=== PATIENT | female | born 1950 | race Caucasian/White ===

== ENCOUNTER → 2016-02-24 | Day surgery (SDC) | payer OTHER ==
[2016-02-16 10:18] VITALS: Ht 170.2 cm; Wt 81.8 kg
[~2016-02-24] VITALS: Ht 170.2 cm; Wt 81.8 kg
[~2016-02-24] MED LIST: AMOX500C3 PO; AMT24 PO; ASCO10003 PO; ASPCH81X PO; ASPI81TA85 PO; CALC-422 PO; CALC-574 PO; CHOL20009 PO; CLOP1TAB15 PO; CYAN100020 SL; CYAN10005 SL; CYCL5TAB PO; CYNI1000 IM; DFL100 PO; EZET10TA63 PO; FERR1TAB23 PO; FLR1 PO; GABA1CAP5 PO; GFNSR600 PO; INSDGI SC; INSHRIE SC; INSULIN HUMAN REGULAR PER UNIT 5 UNITS in SYRINGE 4.95 ML IV ONE; IPRA1AER2 INH; LEVO125T4 PO; LEVO175T3 PO; LEVO200T PO; LIDOCAINE HCL 2% 2 ML VIAL (20MG/ML) ONE; LISI-729 PO; METF500T5 PO; MIDAZOLAM HCL 1 MG/ML 2ML VIAL ONE; MIRA1TAB3 PO; NVLGIPEN SC; OMEP40CA PO; OMEP40CA41 PO; ONDANSETRON INJ 2 MG/ML 2 ML VIAL ONE; POLY335019 PO; PROPOFOL IV EMULSION 10 MG/ML 20 ML VIAL IV ONE; PUMP1CAP PO; SIMV10TA2 PO; SIMV40TA4 PO; SITA50TA5 PO; SODIUM CHLORIDE 0.9% 500ML 500 ML IV ONE; VENL100T2 PO; ZYBKIT PO
--- NOTE | 2016-02-24 11:32 | Endo History and Physical ---
History & Physical Date of Service: Feb 24, 2016. Chief Complaint: anemia,nausea,early satiety Referring Physician: Dr. Julio César Trivedi History of Present Illness 65 yo CF who presents for EGD secondary to anemia, nausea and early satiety. Past Medical History Diabetes, Angioplasty/Stent, Arthritis, Syncopal Episodes, Hypertension, Thyroid Disease, Kidney Disease, CVA/TIA Past Surgical History Hx Cardiac Surgery: Yes (HEART CATH-2 STENTS) Hx Internal Defibrillator: No Hx Pacemaker: No Hx Abdominal Surgery: Yes (GASTRIC BYPASS, DANA) Hx of Implantable Prosthesis: No Hx Post-Op Nausea and Vomiting: No Hx Cancer Surgery: No Hx Thoracic Surgery: No Hx Orthopedic: Yes (RT FOOT TOE AMPUTATIONS (4 TOES-GANGRENE)) Hx Urinary Tract Surgery: No Family History None Social History Smoking Status: Current Every Day Smoker Hx Substance Use: No Hx Alcohol Use: No Allergies Coded Allergies: Paroxetine (Verified Adverse Reaction, Unknown, NERVOUS INCREASED, 02/24/16 ) Current Medications Reported Home Medications Medications Dose Route/Sig Max Daily Dose Days Date Category Dose Instructions Zetia (Ezetimibe) 10 Mg Tab 10 Mg PO QAM 02/16/16 Reported Vitamin D (Cholecalciferol) 2,000 Unit Tab 1 Tab PO QAM 02/16/16 Reported Vitamin C (Ascorbic Acid) 1,000 Mg Tab 1 Tab PO QAM 02/16/16 Reported Vitamin B12 (Cyanocobalamin) 1,000 Mcg Tab 1 Dose SL QAM 02/16/16 Reported Effexor (Venlafaxine Hcl) 100 Mg Tab 100 Mg PO BID 02/16/16 Reported Zocor (Simvastatin) 10 Mg Tab 10 Mg PO QPM 02/16/16 Reported Prilosec (Omeprazole) 40 Mg Capcr 40 Mg PO QAM 02/16/16 Reported Myrbetriq Er (Mirabegron) 50 Mg Tab 1 Tab PO QAM 02/16/16 Reported Prinivil (Lisinopril) 5 Mg Tab 5 Mg PO QAM 02/16/16 Reported Lantus (Insulin Glargine) 100 Unit/Ml Inj 20 Units SC QPM 02/16/16 Reported Levothyroxine Sodium 175 Mcg Tab 1 Tab PO QAM 90 02/16/16 Reported Janumet (Sitagliptin-Metformin Hcl) 1 Tab Tab 1 Tab PO BID 90 02/16/16 Reported Iron (Ferrous Sulfate) 325 Mg Tab 1 Tab PO QAM 02/16/16 Reported Humulin R (Insulin Human Regular) 100 Units/Ml Susp 10 Units SC BID 02/16/16 Reported Neurontin (Gabapentin) 400 Mg Cap 400 Mg PO TID 02/16/16 Reported Flexeril (Cyclobenzaprine Hcl) 5 Mg Tab 5 Mg PO TID 02/16/16 Reported PRN Calcium/Vitamin D3 (Calcium Carbonate-Vitamin D) 1 Tab Tab 1 Tab PO QAM 02/16/16 Reported Azo Bladder Control/Go-Le (Pumpkin Seed-Soy Germ) 1 Cap Cap 1 Cap PO HS 02/16/16 Reported Aspirin Chewable (Aspirin) 81 Mg Chew 81 Mg PO QAM 02/16/16 Reported Amitiza (Lubiprostone) 24 Mcg Cap 1 Cap PO BID 30 02/16/16 Reported Vital Signs Weight (Kilograms): 81.82 Height (Feet): 5 Height (Inches): 7 Date Time Temp Pulse Resp B/P Pulse Ox O2 Delivery O2 Flow Rate FiO2 02/24/16 11:24 36.8 85 20 147/76 98 Room Air Physical Exam General Appearance: WD/WN, no apparent distress Respiratory/Chest: Auscultation: breath sounds normal Cardiovascular: Heart Auscultation: RRR Abdomen: Bowel Sounds: normal Inspection & Palpation: soft, non-distended, no tenderness, guarding & rebound Assessment and Plan Assessment: 65 yo CF who presents for EGD secondary to anemia, nausea and early satiety. Plan: Proceed with EGD.
--- NOTE | 2016-02-24 12:21 | GI REPORT ---
Procedure Date: 02/24/2016 11:11 AM Procedure: Upper GI endoscopy Indications: Iron deficiency anemia, Nausea Medicines: Monitored Anesthesia Care Complications: No immediate complications. Estimated Blood Loss: Estimated blood loss: none. Procedure: Pre-Anesthesia Assessment: - Prior to the procedure, a History and Physical was performed, and patient medications and allergies were reviewed. The patient's tolerance of previous anesthesia was also reviewed. The risks and benefits of the procedure and the sedation options and risks were discussed with the patient. All questions were answered, and informed consent was obtained. Prior Anticoagulants: The patient has taken aspirin, last dose was 1 day prior to procedure. ASA Grade Assessment: III - A patient with severe systemic disease. After reviewing the risks and benefits, the patient was deemed in satisfactory condition to undergo the procedure. After obtaining informed consent, the endoscope was passed under direct vision. Throughout the procedure, the patient's blood pressure, pulse, and oxygen saturations were monitored continuously. The scope was introduced through the mouth, and advanced to the second part of duodenum. The upper GI endoscopy was accomplished without difficulty. The patient tolerated the procedure well. Findings: The esophagus was normal. Evidence of a gastric bypass was found. A gastric pouch with a normal size was found. The gastrojejunal anastomosis was characterized by healthy appearing mucosa. This was traversed. The byvdj-lg-zsktwww limb was characterized by healthy appearing mucosa. The qmduywko-nl-zredauv limb was not examined as it could not be found. The examined jejunum was normal. Impression: - Normal esophagus. - Gastric bypass with a normal-sized pouch. Gastrojejunal anastomosis characterized by healthy appearing mucosa. - Normal examined jejunum. - No specimens collected. Recommendation: - Resume previous diet. - Continue present medications. - Return to primary care physician as previously scheduled. Ras Delgado DO 02/24/2016 12:21:03 PM This report has been signed electronically. Note Initiated On: 02/24/2016 11:11 AM
--- NOTE | 2016-02-24 12:21 | Discharge Instructions ---
Endoscopy Patient Instructions Date / Procedure(s) Performed Feb 24, 2016. EGD Allergy Information Coded Allergies: Paroxetine (Verified Adverse Reaction, Unknown, NERVOUS INCREASED, 02/24/16 ) Discharge Date / Findings Feb 24, 2016. Normal Medication Instructions Stopped Medication(s): took baby ASA yesterday OK to resume all medications today as prescribed Reported Home Medications Medications Dose Route/Sig Max Daily Dose Days Date Category Dose Instructions Zetia (Ezetimibe) 10 Mg Tab 10 Mg PO QAM 02/16/16 Reported Vitamin D (Cholecalciferol) 2,000 Unit Tab 1 Tab PO QAM 02/16/16 Reported Vitamin C (Ascorbic Acid) 1,000 Mg Tab 1 Tab PO QAM 02/16/16 Reported Vitamin B12 (Cyanocobalamin) 1,000 Mcg Tab 1 Dose SL QAM 02/16/16 Reported Effexor (Venlafaxine Hcl) 100 Mg Tab 100 Mg PO BID 02/16/16 Reported Zocor (Simvastatin) 10 Mg Tab 10 Mg PO QPM 02/16/16 Reported Prilosec (Omeprazole) 40 Mg Capcr 40 Mg PO QAM 02/16/16 Reported Myrbetriq Er (Mirabegron) 50 Mg Tab 1 Tab PO QAM 02/16/16 Reported Prinivil (Lisinopril) 5 Mg Tab 5 Mg PO QAM 02/16/16 Reported Lantus (Insulin Glargine) 100 Unit/Ml Inj 20 Units SC QPM 02/16/16 Reported Levothyroxine Sodium 175 Mcg Tab 1 Tab PO QAM 90 02/16/16 Reported Janumet (Sitagliptin-Metformin Hcl) 1 Tab Tab 1 Tab PO BID 90 02/16/16 Reported Iron (Ferrous Sulfate) 325 Mg Tab 1 Tab PO QAM 02/16/16 Reported Humulin R (Insulin Human Regular) 100 Units/Ml Susp 10 Units SC BID 02/16/16 Reported Neurontin (Gabapentin) 400 Mg Cap 400 Mg PO TID 02/16/16 Reported Flexeril (Cyclobenzaprine Hcl) 5 Mg Tab 5 Mg PO TID 02/16/16 Reported PRN Calcium/Vitamin D3 (Calcium Carbonate-Vitamin D) 1 Tab Tab 1 Tab PO QAM 02/16/16 Reported Azo Bladder Control/Go-Le (Pumpkin Seed-Soy Germ) 1 Cap Cap 1 Cap PO HS 02/16/16 Reported Aspirin Chewable (Aspirin) 81 Mg Chew 81 Mg PO QAM 02/16/16 Reported Amitiza (Lubiprostone) 24 Mcg Cap 1 Cap PO BID 30 02/16/16 Reported Provider Instructions Activity Restrictions - No exercising or heavy lifting for 24 hours. - Do not drink alcohol the day of the procedure. - Do not drive a car or operate machinery until the day after the procedure. - Do not make any important decisions or sign important papers in 24 hours after the procedure. Following Day: - Return to full activity which may include returning to work/school. Diet Start your diet with liquids and light foods (jello, soup, juice, toast). Then eat your usual diet if not nauseated. Treatment For Common After Affects For mild abdominal pain, bloating, or excessive gas: - Rest - Eat lightly - Lie on right side Follow-Up Information Follow-up with Dr. Julio César Trivedi as scheduled Anesthesia Information What You Should Know You have had a procedure that required some medicine to reduce anxiety and discomfort. This treatment is called moderate sedation. After receiving the treatment, you may be sleepy, but you will be able to breathe on your own. The effects of the treatment may last for several hours. Follow these instructions along with Activity/Diet recommendations noted above: * Do NOT do anything where dizziness or clumsiness would be dangerous. * Rest quietly at home today, then you can be up and about tomorrow. * Have a responsible person stay with you the rest of today. * You may have had an I.V. today. If so, you may take the dressing off later today. Recommendations Call your doctor if: * Trouble breathing * Continuous vomiting for more than 24 hours * Temperature above 101 degrees * Severe abdominal pain or bloating * Pain not relieved by pain medicine ordered * There is increased drainage or redness from any incision * A large amount of rectal bleeding greater than 2-3 tablespoons. (If you had a polyp/s removed or have hemorrhoids, a small amount of blood - from the rectum is to be expected.) * You have any unanswered questions or concerns. IN THE EVENT OF A SERIOUS EMERGENCY, GO TO THE NEAREST EMERGENCY ROOM Your discharge instructions were prepared by provider Ras Delgado. Patient Instructions Signature Page Brunilda Leon Patient (or Guardian) Signature/Date: I have read and understand the instructions given to me by my caregivers. Caregiver/RN/Doctor Signature/Date: The above-named patient and/or guardian has received patient instructions on this date. + Original Patient Signature Page (only) stays with chart. Please make copy for patient.
[2016-02-24 12:53] VITALS: BP 125/63; PULSE 76; O2SAT 100
--- NOTE | 2016-02-24 14:05 | Anesthesiology Progress Note ---
Anesthesia Post Op Note Date & Time Feb 24, 2016 at 14:00 Vital Signs Pain Intensity: 0 Vital Signs Past 12 Hours Date Time Temp Pulse Resp B/P Pulse Ox O2 Delivery O2 Flow Rate FiO2 02/24/16 12:53 76 16 125/63 100 Room Air 02/24/16 12:38 80 20 151/71 99 Room Air 02/24/16 12:23 81 20 104/55 96 Room Air 02/24/16 11:24 36.8 85 20 147/76 98 Room Air Notes Mental Status: alert / awake / arousable, participated in evaluation Pt Amnestic to Procedure: Yes Nausea / Vomiting: adequately controlled Pain: adequately controlled Airway Patency, RR, SpO2: stable & adequate BP & HR: stable & adequate Hydration State: stable & adequate Anesthetic Complications: no major complications apparent The patient is a 65 y/o female with a h/o insulin diabetes who is s/p EGD with Dr. Delgado. The patient's BSG preop was 281. She did not take any insulin this morning and per her is not compliant with her medications. The patient also admitted that she is often noncompliant and states that her BSG often runs in the 250s-300. I informed her of the importance of being complaint with her medication. She was given 5 Units IV regular insulin before the procedure. In recovery, her BSG had dropped to 259. She stated she would like to go home. Her stated that he would ensure she rechecks her BSG and take her insulin per her sliding scale at home. The patient was agreeable.
== END | disposition home or self-care (01) ==
LOC: C.GI 10:59
PROVIDERS: ATTEND Internal Medicine
DX: D50.9 Iron deficiency anemia, unspecified (principal); R11.0 Nausea; R68.81 Early satiety; E11.9 Type 2 diabetes mellitus without complications; I25.10 Atherosclerotic heart disease of native coronary artery without angina pectoris; I10 Essential (primary) hypertension; F32.9 Major depressive disorder, single episode, unspecified; G47.33 Obstructive sleep apnea (adult) (pediatric); Z86.73 Personal history of transient ischemic attack (TIA), and cerebral infarction without residual deficits; Z98.890 Other specified postprocedural states; Z98.84 Bariatric surgery status; Z90.49 Acquired absence of other specified parts of digestive tract; Z89.421 Acquired absence of other right toe(s); F17.200 Nicotine dependence, unspecified, uncomplicated; Z79.4 Long term (current) use of insulin; Z68.28 Body mass index [BMI] 28.0-28.9, adult

== ENCOUNTER 2016-04-20 11:11 | Emergency (ER) | payer OTHER ==
[~2016-04-20] VITALS: Ht 170.2 cm; Wt 79.1 kg
[~2016-04-20 11:11] MED LIST changes: -AMOX500C3 PO; -ASCO10003 PO; -ASPI81TA85 PO; -CALC-574 PO; -CHOL20009 PO; -CLOP1TAB15 PO; -CYAN10005 SL; -CYNI1000 IM; -DFL100 PO; -EZET10TA63 PO; -FERR1TAB23 PO; -FLR1 PO; -GABA1CAP5 PO; -GFNSR600 PO; -INSDGI SC; -INSHRIE SC; -INSULIN HUMAN REGULAR PER UNIT 5 UNITS in SYRINGE 4.95 ML IV ONE; -IPRA1AER2 INH; -LEVO125T4 PO; -LEVO200T PO; -LIDOCAINE HCL 2% 2 ML VIAL (20MG/ML) ONE; -LISI-729 PO; -METF500T5 PO; -MIDAZOLAM HCL 1 MG/ML 2ML VIAL ONE; -NVLGIPEN SC; -OMEP40CA41 PO; -ONDANSETRON INJ 2 MG/ML 2 ML VIAL ONE; -POLY335019 PO; -PROPOFOL IV EMULSION 10 MG/ML 20 ML VIAL IV ONE; -PUMP1CAP PO; -SIMV40TA4 PO; -SODIUM CHLORIDE 0.9% 500ML 500 ML IV ONE; -VENL100T2 PO; -ZYBKIT PO
[2016-04-20 11:16] VITALS: TEMP 37.1; Ht 170.2 cm; Wt 79.1 kg
[2016-04-20] MEDS ORDERED: CYAN10005 SL (11:32)
[2016-04-20 11:42] LABS: BASO % 0.6 %; BASO ABS # 0.05 K/uL (0-0.2); COMPLETE YES; EOS % 1.1 %; HEMATOCRIT 35.6 % (37-47); IG% 0.2 %; LYMPH % 12.7 %; LYMPH ABS # 1.07 K/uL (1.2-3.4); MEAN CELL VOLUME 92.2 fL (80-100); MEAN CORPUSCULAR HEMOGLOBIN 31.6 pg (25-34); MEAN CORPUSCULAR HGB CONC 34.3 g/dl (32-36); MEAN PLATELET VOLUME 10.9 fL (7.4-10.4); NEUT % 78.4 %; PLATELET COUNT 321 K/uL (130-400); RED BLOOD COUNT 3.86 M/uL (4.2-5.4); WHITE BLOOD COUNT 8.41 K/uL (4.8-10.8)
[2016-04-20 11:58] LABS: BUN/CREATININE RATIO 14.2 (10-20); CALCIUM 8.5 mg/dl (8.5-10.1); CREATININE 2.1 mg/dl (0.60-1.20); POTASSIUM 3.8 mmol/L (3.5-5.1)
[2016-04-20 12:00] LABS: ALB/GLOB RATIO 0.9 (0.9-2)
[2016-04-20] MEDS ORDERED: SODIUM CHLORIDE 0.9% 1000ML 1,000 ML IV STA (13:14)
--- NOTE | 2016-04-20 13:37 | DIAGNOSTIC IMAGING REPORT ---
CHEST ONE VIEW PORTABLE CLINICAL HISTORY: Acute change in mental status. Weakness. COMPARISON STUDY: No previous studies for comparison. FINDINGS: The cardiac and mediastinal contours are normal. There is no evidence of focal pulmonary consolidation. There is no evidence of failure. No pleural effusions are visualized.[ There are old right-sided rib fractures. IMPRESSION: No active disease in the chest. Electronically signed by: Edinson Ortiz M.D. 04/20/2016 1:36 PM Dictated Date/Time: 04/20/2016 1:36 PM
[2016-04-20] MEDS ORDERED: SODIUM CHLORIDE 0.9% 500ML 500 ML IV STA (13:52)
--- NOTE | 2016-04-20 14:11 | DIAGNOSTIC IMAGING REPORT ---
HEAD CT NONCONTRAST CT DOSE: 537.48 mGy.cm HISTORY: Trauma. Change in mental status. fall TECHNIQUE: Multiaxial CT images of the head were performed without the use of intravenous contrast. Comparison: None. Findings: The paranasal sinuses and mastoid air cells are clear. The calvarium and skull base are intact. The ventricles and sulci are within normal limits. There is no mass, hematoma, midline shift, or acute infarct. Considerable chronic small vessel change. No acute intracranial hemorrhage. Impression: Considerable chronic small vessel change. No acute intracranial abnormality. Electronically signed by: Jaren Holguin M.D. 04/20/2016 2:09 PM Dictated Date/Time: 04/20/2016 2:08 PM
[2016-04-20 14:27] LABS: URINE APPEARANCE CLEAR (CLEAR); URINE BILIRUBIN NEG (NEG); URINE COLOR YELLOW; URINE NITRITE NEG (NEG); URINE SPECIFIC GRAVITY 1.011 (1.000-1.030); UROBILINOGEN NEG (NEG); ZZURINE CULT IF INDIC CATH NO
[2016-04-20 14:28] LABS: MANUAL MICROSCOPIC REQUIRED? NO; REVIEW REQ? NO
[2016-04-20 17:34] VITALS: BP 106/61; PULSE 77; O2SAT 97
--- NOTE | 2016-04-20 18:44 | EMERGENCY ROOM VISIT NOTE ---
History Report prepared by Collin: Mckay Branham Under the Supervision of: Dr. Rojas Marroquin D.O. First contact with patient: 13:03 Chief Complaint: BILATERAL LEG WEAKNESS Stated Complaint: GENERALIZED WEAKNESS History of Present Illness The patient is a 65 year old female who presents to the Emergency Room with complaints of worsening generalized weakness that began this morning, a few hours prior to arrival. The patient states that when she woke up this morning she was not able to get herself out of bed. She has also been experiencing specific weakness in both her legs, and cannot move transfer herself from her wheel chair to other places. She can normally do this on her own, and is in the wheel chair due to amputation of the toes on her right foot. The patient did experience a fall today. She notes that she slid slowly onto the floor from a seated position. She did not hit her head and she did not lose consciousness at any time. The patient is a diabetic, and admits to having low blood pressure at baseline. She denies headache, change in vision, fevers, chest pain, shortness of breath, nausea, vomiting, diarrhea, pain with urination, and melena. She claims that she is scheduled to start rehabilitation for her legs this Monday, two days after this visit. Source of History: patient Onset: A few hours NETWORK DIRECTOR Position: other (Global) Quality: other (Weakness) Timing: worsening Associated Symptoms: No SOB, No fevers, No urinary symptoms Review of Systems See HPI for pertinent positives & negatives. A total of 10 systems reviewed and were otherwise negative. Past Medical & Surgical Medical Problems: (1) Adult hypothyroidism (2) Amputation at midfoot (3) CAD (coronary artery disease) (4) CKD (chronic kidney disease), stage II (5) CVA (cerebral vascular accident) (6) DM2 (diabetes mellitus, type 2) (7) Gangrene of foot (8) HTN (hypertension) (9) Junctional rhythm (10) Orthostatic hypotension (11) Osteomyelitis (12) PAD (peripheral artery disease) (13) Stenosis of popliteal artery Surgical Problems: (1) Gastric bypass status for obesity (2) Stented coronary artery Family History Diabetes mellitus Gallbladder disease Heart disease Hypertension Kidney disease Kidney stones Social History Smoking Status: Current Every Day Smoker Drug Use: none Marital Status: Occupation Status: disabled Current/Historical Medications Scheduled Ascorbic Acid (Vitamin C), 1,000 MG PO QAM Aspirin (Aspirin Chewable), 81 MG PO QAM Calcium Carbonate-Vitamin D (Calcium/Vitamin D3), 1 TAB PO QAM Cholecalciferol (Vitamin D), 2,000 UNITS PO QAM Cyanocobalamin (Vitamin B-12), 1,000 MCG SL DAILY Cyclobenzaprine Hcl (Flexeril), 5 MG PO TID Ezetimibe (Zetia), 10 MG PO QAM Ferrous Sulfate (Iron), 325 MG PO QAM Gabapentin (Neurontin), 400 MG PO TID Insulin Glargine (Lantus), 20 UNITS SC QPM Insulin Human Regular (Humulin R), 10 UNITS SC BID Levothyroxine Sodium (Levothyroxine Sodium), 175 MCG PO QAM Lisinopril (Prinivil), 5 MG PO QAM Lubiprostone (Amitiza), 1 CAP PO BID Mirabegron (Myrbetriq Er), 50 MG PO QAM Omeprazole (Prilosec), 40 MG PO DAILY Pumpkin Seed-Soy Germ (Azo Bladder Control/Go-Le), 1 CAP PO HS Simvastatin (Zocor), 10 MG PO QPM Sitagliptin-Metformin Hcl (Janumet), 1 TAB PO BID Venlafaxine Hcl (Effexor), 100 MG PO BID Allergies Coded Allergies: Paroxetine (Verified Adverse Reaction, Unknown, NERVOUS INCREASED, 02/24/16 ) Physical Exam Vital Signs Date Time Temp Pulse Resp B/P Pulse Ox O2 Delivery O2 Flow Rate FiO2 04/20/16 17:34 77 14 106/61 97 Room Air 04/20/16 16:01 76 16 112/65 99 Room Air 04/20/16 14:30 76 21 115/68 99 Room Air 04/20/16 13:40 89 20 109/62 98 Room Air 04/20/16 13:40 100 04/20/16 13:33 84 23 87/62 98 Room Air 76/44 04/20/16 11:16 37.1 89 23 84/52 96 Room Air Physical Exam GENERAL: Patient is sleeping in bed, awakens to voice, disheveled and non toxic. well appearing, well nourished, no distress, non-toxic HEAD: Normocephalic atraumatic. EYE EXAM: normal conjunctiva, PERRL and EOM's grossly intact OROPHARYNX: no exudate, no erythema, lips, buccal mucosa, and tongue normal and mucous membranes are moist NECK: supple, no nuchal rigidity, no adenopathy, non-tender LUNGS: Clear to auscultation. Normal chest wall mechanics HEART: no murmurs, S1 normal and S2 normal ABDOMEN: abdomen soft, non-tender, normo-active bowel sounds, no masses, no rebound or guarding. BACK: Back is symmetrical on inspection and there is no deformity, no midline tenderness, no CVA tenderness. SKIN: no rashes and no bruising UPPER EXTREMITIES: upper extremities are grossly normal. LOWER EXTREMITIES: Right lower extremity has old toe amputation. No pitting edema. NEURO EXAM: Patient is alert and oriented to person and location. Follows commands. No focal weakness. Normal sensorium, cranial nerves II-XII grossly intact, normal speech, no weakness of arms, nn weakness of legs. No drift. Finger to nose intact. Gross sensation intact. Medical Decision & Procedures ER Provider Diagnostic Interpretation: Xray results per the radiologist and my interpretation. Other results have been interpreted by the radiologist and reviewed by me. CHEST ONE VIEW PORTABLE CLINICAL HISTORY: Acute change in mental status. Weakness. COMPARISON STUDY: No previous studies for comparison. FINDINGS: The cardiac and mediastinal contours are normal. There is no evidence of focal pulmonary consolidation. There is no evidence of failure. No pleural effusions are visualized.[ There are old right-sided rib fractures. IMPRESSION: No active disease in the chest. Electronically signed by: Edinson Ortiz M.D. 04/20/2016 1:36 PM Dictated Date/Time: 04/20/2016 1:[address] NONCONTRAST CT DOSE: 537.48 mGy.cm HISTORY: Trauma. Change in mental status. fall TECHNIQUE: Multiaxial CT images of the head were performed without the use of intravenous contrast. Comparison: None. Findings: The paranasal sinuses and mastoid air cells are clear. The calvarium and skull base are intact. The ventricles and sulci are within normal limits. There is no mass, hematoma, midline shift, or acute infarct. Considerable chronic small vessel change. No acute intracranial hemorrhage. Impression: Considerable chronic small vessel change. No acute intracranial abnormality. Electronically signed by: Jaren Holguin M.D. 04/20/2016 2:09 PM Dictated Date/Time: 04/20/2016 2:08 PM Laboratory Results 04/20/16 11:25 Red Blood Count 3.86, Mean Corpuscular Volume 92.2, Mean Corpuscular Hemoglobin 31.6, Mean Corpuscular Hemoglobin Concent 34.3, Mean Platelet Volume 10.9, Neutrophils (%) (Auto) 78.4, Lymphocytes (%) (Auto) 12.7, Monocytes (%) (Auto) 7.0, Eosinophils (%) (Auto) 1.1, Basophils (%) (Auto) 0.6, Neutrophils # (Auto) 6.59, Lymphocytes # (Auto) 1.07, Monocytes # (Auto) 0.59, Eosinophils # (Auto) 0.09, Basophils # (Auto) 0.05 04/20/16 11:25 Test 04/20/16 11:25 04/20/16 14:06 White Blood Count 8.41 K/uL (4.8-10.8) Red Blood Count 3.86 M/uL (4.2-5.4) Hemoglobin 12.2 g/dL (12.0-16.0) Hematocrit 35.6 % (37-47) Mean Corpuscular Volume 92.2 fL (80-100) Mean Corpuscular Hemoglobin 31.6 pg (25-34) Mean Corpuscular Hemoglobin Concent 34.3 g/dl (32-36) Platelet Count 321 K/uL (130-400) Mean Platelet Volume 10.9 fL (7.4-10.4) Neutrophils (%) (Auto) 78.4 % Lymphocytes (%) (Auto) 12.7 % Monocytes (%) (Auto) 7.0 % Eosinophils (%) (Auto) 1.1 % Basophils (%) (Auto) 0.6 % Neutrophils # (Auto) 6.59 K/uL (1.4-6.5) Lymphocytes # (Auto) 1.07 K/uL (1.2-3.4) Monocytes # (Auto) 0.59 K/uL (0.11-0.59) Eosinophils # (Auto) 0.09 K/uL (0-0.5) Basophils # (Auto) 0.05 K/uL (0-0.2) RDW Standard Deviation 44.0 fL (36.4-46.3) RDW Coefficient of Variation 13.1 % (11.5-14.5) Immature Granulocyte % (Auto) 0.2 % Immature Granulocyte # (Auto) 0.02 K/uL (0.00-0.02) Erythrocyte Sedimentation Rate 44 mm/hr (0-21) Anion Gap 10.0 mmol/L (3-11) Est Creatinine Clear Calc Drug Dose 28.2 ml/min Estimated GFR () 27.5 Estimated GFR (Non- 23.8 BUN/Creatinine Ratio 14.2 (10-20) Calcium Level 8.5 mg/dl (8.5-10.1) Total Bilirubin 0.3 mg/dl (0.2-1) Aspartate Amino Transf (AST/SGOT) 7 U/L (15-37) Alanine Aminotransferase (ALT/SGPT) 14 U/L (12-78) Alkaline Phosphatase 85 U/L (45-117) Total Creatine Kinase 44 U/L (26-192) Troponin I < 0.015 ng/ml (0-0.045) C-Reactive Protein < 0.29 mg/dl (0-0.29) Pro-B-Type Natriuretic Peptide 343 pg/ml (0-900) Total Protein 6.6 gm/dl (6.4-8.2) Albumin 3.1 gm/dl (3.4-5.0) Globulin 3.5 gm/dl (2.5-4.0) Albumin/Globulin Ratio 0.9 (0.9-2) Thyroid Stimulating Hormone (TSH) 35.300 uIu/ml (0.300-4.500) Free Thyroxine 1.12 ng/dl (0.80-1.60) Urine Color YELLOW Urine Appearance CLEAR (CLEAR) Urine pH 5.0 (4.5-7.5) Urine Specific [place] 1.011 (1.000-1.030) Urine Protein NEG (NEG) Urine Glucose (UA) 1+ (NEG) Urine Ketones NEG (NEG) Urine Occult Blood NEG (NEG) Urine Nitrite NEG (NEG) Urine Bilirubin NEG (NEG) Urine Urobilinogen NEG (NEG) Urine Leukocyte Esterase NEG (NEG) Urine WBC (Auto) 1-5 /hpf (0-5) Urine RBC (Auto) 0-4 /hpf (0-4) Urine Hyaline Casts (Auto) 5-10 /lpf (0-5) Urine Epithelial Cells (Auto) 10-20 /lpf (0-5) Urine Bacteria (Auto) NEG (NEG) Laboratory results per my review. Medications Administered Medications (Trade) Dose Ordered Sig/Sadie Route Start Time Stop Time Status Last Admin Dose Admin Sodium Chloride 1,000 ml @ 999 mls/hr Q1H1M STAT IV 04/20/16 13:14 04/20/16 14:14 DC 04/20/16 13:31 999 MLS/HR Sodium Chloride (Nss 500ml) 500 ml @ 999 mls/hr Q31M STAT IV 04/20/16 13:52 04/20/16 14:22 DC 04/20/16 14:28 999 MLS/HR ECG Indication: weakness Rate (beats per minute): 91 Rhythm: sinus rhythm Findings: no ectopy, other (Normal [place]) ED Course ED COURSE: Vital signs were reviewed and showed Hypotensive vitals The patients medical record was reviewed The above diagnostic studies were performed and reviewed. ED treatments and interventions as stated above. 1307: The patient was evaluated in room C10. A complete history and physical examination was performed. 1314: Ordered Sodium Chloride 1000 mL @ 999 mL/hr IV. 1349: I checked on the patient at this time. She was resting in bed. 1352: Ordered Sodium Chloride 500 mL @ 999 mL/hr IV 1440: I spoke with the patient's father at this time. He notes that the patient has been confused for the past couple of days. 1443: I placed a page out for a hospitalist at this time. 1606: I discussed the case with Dr. Tom SHARPE Hospitalist at this time, he will evaluate the patient for further treatment. 1610: Upon reevaluation, the patient is resting in bed.I discussed my findings with the patient and she understands and agrees with the treatment plan. Based on the patients age, coexisting illnesses, exam and lab findings the decision to treat as an inpatient was made. The patient remained stable while under my care. The patient will be evaluated for further management. 1743: I spoke with the patient in conjunction with the PA at this time. The patient is refusing admission to the hospital. She wants to go home. Her is agreeable to take her home. 1806: The patient fell trying to get into her wheel chair at this time. She did not hit her head and has no injuries. She is still refusing to stay. Medical Decision Differential diagnosis: Etiologies such as metabolic, infection, hypo/hyperglycemia, electrolyte abnormalities, cardiac sources, intracerebral event, toxicologic, neurologic, as well as others were entertained. Patient is a 65-year-old female who presents the ER for diffuse weakness and trouble getting up. Her exam is nonfocal. She is found to be significantly hypotensive with systolic blood pressures in the 80s to 90s. She is given 1.5 L normal saline. This resolved with systolic pressures in the 110. Labs show no significant leukocytosis or anemia. BMP was remarkable for a creatinine of 2.1 which is elevated off of her baseline of 1.5. BUN is elevated which favors this likely secondary to dehydration. This would be consistent with her presentation. Troponin was negative. TSH was elevated at 35 and free T4 was 1.1. CRP was negative and was ordered by internal medicine. With the patient' s symptoms I recommended admission. CT head and chest were unremarkable. Initially she was in agreement. She is evaluated by internal medicine. Following this she requests to be discharged as she is from [facility]. Patient felt comfortable going home and focal trouble taking her home. I discharged the patient following informed refusal of care. Following discharge she is getting into the wheelchair and she fell onto her bottom. She did not hit her head. She is no complaints. On my repeat exam there is no new tenderness show full active range of motion of all extremities. She again refused observation/admission and was discharged to follow-up with her primary care doctor tomorrow. The patient requested to leave. I considered this to be leaving against medical advice. I personally discussed the following with them. They currently had a medical condition of: Hypertension and I am concerned that they have an infection or other serious pathology even despite no obvious source of infection. My proposed course of evaluation and treatment and that of any consultants is: Observation Benefits would include: possible diagnosis or excluding of sepsis or an alternative serious conditions, which if identified early would lead to appropriate intervention in a timely manner lessing the burden of disability and . Risks of leaving before this had been completed include: misdiagnosis , worsening illness leading up to and including prolonged or permanent disability or . Specific risks pertinent, but not all inclusive, of their current medical condition include but are not limited to: and disability I also discussed alternatives. Despite this they stated they wanted to leave due to not liking hospitals and refused further evaluation, treatment, or admission at this time. They appear clinically sober, to be mentating appropriately, free from distracting injury, have controlled pain, appear to have intact insight, judgment, and reason and in my opinion have the capacity to make this decision. Specifically, they were able to verbally state back in a coherent manner their current medical condition/current diagnosis, the proposes course of treatment, and the risks, benefits, and alternatives of treatment versus leaving against medical advice. They understand that they may return to seek medical attention here at whatever time they want. I highly advised them to return to the Emergency Department immediately if they experienced any: Recurrence of her symptoms, reconsidered treatment a/o admission, or had any other concerns. This would be without any repercussions. They were discharged following informed refusal of care. Consults Time Called: [phone] Consulting Physician: Dr. Tom SHARPE hospitalist Returned Call: [phone] I discussed the case with Dr. Tom SHARPE Hospitalist at this time, he will evaluate the patient for further treatment. Impression Primary Impression: Hypotension Additional Impressions: Acute kidney injury Ambulatory dysfunction Scribe Attestation The scribe's documentation has been prepared under my direction and personally reviewed by me in its entirety. I confirm that the note above accurately reflects all work, treatment, procedures, and medical decision making performed by me. Departure Information Dispostion Against Medical Advice Referrals Julio César Trivedi M.D. (PCP) Patient Instructions My [facility] Problem Qualifiers Primary Impression: Hypotension Hypotension type: unspecified hypotension type Qualified Codes: I95.9 - Hypotension, unspecified
[2016-06-08] MEDS ORDERED: SIMV40TA4 PO (11:49)
[2016-06-08] MEDS ORDERED: LEVO200T PO (11:49)
[2016-10-20] MEDS ORDERED: ASCO10003 PO (10:16)
[2016-10-20] MEDS ORDERED: INSDGI SC (10:16)
[2016-10-20] MEDS ORDERED: CHOL20009 PO (10:16)
[2016-10-20] MEDS ORDERED: LISI-729 PO (10:16)
[2016-10-20] MEDS ORDERED: GABA1CAP5 PO (10:16)
[2016-10-20] MEDS ORDERED: EZET10TA63 PO (10:16)
[2016-10-20] MEDS ORDERED: FERR1TAB23 PO (10:16)
[2016-10-20] MEDS ORDERED: VENL100T2 PO (10:16)
[2016-10-20] MEDS ORDERED: PUMP1CAP PO (10:16)
[2016-10-20] MEDS ORDERED: INSHRIE SC (10:16)
[2016-10-20] MEDS ORDERED: OMEP40CA41 PO (11:32)
[2016-10-25] MEDS ORDERED: NVLGIPEN SC (09:15)
[2016-10-25] MEDS ORDERED: INSDGI SC (09:15)
[2016-10-25] MEDS ORDERED: FERR1TAB23 PO (09:15)
[2016-10-25] MEDS ORDERED: CYNI1000 IM (09:17)
[2016-10-25] MEDS ORDERED: GFNSR600 PO (11:07)
[2016-10-25] MEDS ORDERED: IPRA1AER2 INH (11:07)
[2016-10-31] MEDS ORDERED: INSDGI SC (12:57)
[2016-10-31] MEDS ORDERED: AMOX500C3 PO (12:57)
[2016-11-09] MEDS ORDERED: CYNI1000 IM (07:39)
[2016-11-11] MEDS ORDERED: DFL100 PO (13:52)
[2016-11-11] MEDS ORDERED: FLR1 PO (13:52)
== END 2016-04-20 18:01 | disposition left against medical advice (07) ==
LOC: EDBD 11:11 → C.EDC 11:12
DX: I95.9 Hypotension, unspecified (principal); N17.9 Acute kidney failure, unspecified; R26.9 Unspecified abnormalities of gait and mobility; E11.22 Type 2 diabetes mellitus with diabetic chronic kidney disease; I25.10 Atherosclerotic heart disease of native coronary artery without angina pectoris; E11.51 Type 2 diabetes mellitus with diabetic peripheral angiopathy without gangrene; I12.9 Hypertensive chronic kidney disease with stage 1 through stage 4 chronic kidney disease, or unspecified chronic kidney disease; N18.2 Chronic kidney disease, stage 2 (mild); E03.9 Hypothyroidism, unspecified; F17.200 Nicotine dependence, unspecified, uncomplicated; Z86.73 Personal history of transient ischemic attack (TIA), and cerebral infarction without residual deficits; Z89.439 Acquired absence of unspecified foot; Z98.84 Bariatric surgery status; Z98.61 Coronary angioplasty status; Z83.3 Family history of diabetes mellitus; Z84.1 Family history of disorders of kidney and ureter; Z82.49 Family history of ischemic heart disease and other diseases of the circulatory system; Z79.4 Long term (current) use of insulin; Z79.82 Long term (current) use of aspirin; Z79.899 Other long term (current) drug therapy

== ENCOUNTER 2016-06-06 10:09 | Inpatient (IN) | payer OTHER ==
[~2016-06-06] VITALS: Ht 170.2 cm; Wt 78.4 kg
[~2016-06-06 10:09] MED LIST changes: -CYAN100020 SL; +CYAN10005 SL; -OMEP40CA PO
[2016-06-06] MEDS ORDERED: SODIUM CHLORIDE 0.9% 1000ML 1,000 ML IV STA (10:57)
[2016-06-06 11:09] LABS: BASO % 0.3 %; BASO ABS # 0.03 K/uL (0-0.2); COMPLETE YES; EOS % 1.5 %; HEMATOCRIT 30.5 % (37-47); IG% 0.2 %; LYMPH % 12.4 %; LYMPH ABS # 1.22 K/uL (1.2-3.4); MEAN CELL VOLUME 97.8 fL (80-100); MEAN CORPUSCULAR HEMOGLOBIN 32.4 pg (25-34); MEAN CORPUSCULAR HGB CONC 33.1 g/dl (32-36); MEAN PLATELET VOLUME 10.2 fL (7.4-10.4); MONO % 6.4 %; NEUT % 79.2 %; PLATELET COUNT 379 K/uL (130-400); RED BLOOD COUNT 3.12 M/uL (4.2-5.4)
[2016-06-06 11:19] LABS: AST/SGOT 20 U/L (15-37); BLOOD UREA NITROGEN 45 mg/dl (7-18); BUN/CREATININE RATIO 20.3 (10-20); CALCIUM 8.8 mg/dl (8.5-10.1); CARBON DIOXIDE 23 mmol/L (21-32); CHLORIDE 107 mmol/L (98-107); GLUCOSE 84 mg/dl (70-99); POTASSIUM 4.5 mmol/L (3.5-5.1); SODIUM 138 mmol/L (136-145)
[2016-06-06 11:33] LABS: ALKALINE PHOSPHATASE 82 U/L (45-117); ALT/SGPT 31 U/L (12-78)
--- NOTE | 2016-06-06 11:51 | DIAGNOSTIC IMAGING REPORT ---
CHEST CT WITHOUT CONTRAST CT DOSE: 306.84 mGycm HISTORY: Fall. Right-sided rib pain. TECHNIQUE: Multiaxial CT images of the chest were performed without contrast. COMPARISON: Chest CT 12/12/2009. FINDINGS: Multiple right-sided rib deformities consistent with old, healed fractures. This remains unchanged. No acute fractures within the visualized osseous structures. Trace mucoid material within the upper trachea. 3 mm groundglass nodule within the left upper lobe on image 80. 3 mm groundglass nodule within the right upper lobe on image 80. These are not significantly changed compared to the prior study. No new pulmonary nodules identified. No pleural effusions. No pneumothorax. Cholecystectomy. The liver, spleen, and adrenal glands are unremarkable. Postoperative changes consistent with prior gastric bypass. No mediastinal or hilar lymphadenopathy. The heart is normal in size. IMPRESSION: 1. Old, healed right-sided rib fractures. No acute rib fractures. 2. No pneumothorax. 3. Additional findings as described above. Electronically signed by: Chidi Avalos M.D. 06/06/2016 11:49 AM Dictated Date/Time: 06/06/2016 11:40 AM
--- NOTE | 2016-06-06 12:14 | EMERGENCY ROOM VISIT NOTE ---
History Report prepared by Collin: Tomas Chand Under the Supervision of: Dr. Antione Murray M.D. First contact with patient: 10:53 Chief Complaint: FALL Stated Complaint: FALL History of Present Illness The patient is a 65 year old female who presents to the Emergency Room with complaints of persistent right rib pain secondary to fall occurring 2 days ago. The patient was being transferred from chairs when she fell down. Her helped her get up. Since then, she has been having the right rib pain. She has worsening pain with movement. She denies hitting her head. The patient denies headache, shortness of breath, abdominal pain, pain in lower extremities, or any other complaints. Source of History: patient Onset: 2 days ago Position: other (right rib) Timing: other (persistent) Modifying Factors (Worsening): movement Associated Symptoms: No SOB, No abdominal pain, No headache Review of Systems See HPI for pertinent positives & negatives. A total of 10 systems reviewed and were otherwise negative. Past Medical & Surgical Medical Problems: (1) Adult hypothyroidism (2) Amputation at midfoot (3) CAD (coronary artery disease) (4) CKD (chronic kidney disease), stage II (5) CVA (cerebral vascular accident) (6) DM2 (diabetes mellitus, type 2) (7) Gangrene of foot (8) HTN (hypertension) (9) Junctional rhythm (10) Orthostatic hypotension (11) Osteomyelitis (12) PAD (peripheral artery disease) (13) Stenosis of popliteal artery (14) Weakness generalized Surgical Problems: (1) Gastric bypass status for obesity (2) Stented coronary artery Family History Diabetes mellitus Gallbladder disease Heart disease Hypertension Kidney disease Kidney stones Social History Smoking Status: Current Every Day Smoker Drug Use: none Marital Status: Occupation Status: disabled Current/Historical Medications Scheduled Ascorbic Acid (Vitamin C), 1,000 MG PO QAM Aspirin (Aspirin Chewable), 81 MG PO QAM Calcium Carbonate-Vitamin D (Calcium/Vitamin D3), 1 TAB PO QAM Cholecalciferol (Vitamin D), 2,000 UNITS PO QAM Ezetimibe (Zetia), 10 MG PO QAM Ferrous Sulfate (Iron), 325 MG PO QAM Gabapentin (Neurontin), 400 MG PO TID Insulin Glargine (Lantus), 20 UNITS SC QPM Insulin Human Regular (Humulin R), 10 UNITS SC BID Levothyroxine Sodium (Levothyroxine Sodium), 175 MCG PO QAM Lisinopril (Prinivil), 5 MG PO QAM Lubiprostone (Amitiza), 1 CAP PO BID Mirabegron (Myrbetriq Er), 50 MG PO QAM Omeprazole (Prilosec), 40 MG PO DAILY Pumpkin Seed-Soy Germ (Azo Bladder Control/Go-Le), 1 CAP PO HS Pumpkin Seed-Soy Germ (Azo Bladder Control/Go-Le), 1 CAP PO HS Simvastatin (Zocor), 10 MG PO QPM Venlafaxine Hcl (Effexor), 100 MG PO BID Allergies Coded Allergies: Paroxetine (Verified Adverse Reaction, Unknown, NERVOUS INCREASED, 02/24/16 ) Physical Exam Vital Signs Date Time Temp Pulse Resp B/P Pulse Ox O2 Delivery O2 Flow Rate FiO2 06/06/16 12:46 76 16 91/67 99 Room Air 06/06/16 11:47 74 06/06/16 11:28 97 Room Air 06/06/16 11:28 97 Room Air 06/06/16 11:28 76 13 100/55 97 Room Air 06/06/16 11:10 75 16 102/55 74 100/54 06/06/16 10:44 76 16 100/53 06/06/16 10:13 36.6 80 18 71/44 100 Room Air Physical Exam GENERAL: Patient is a healthy-appearing well-nourished HEAD: Normocephalic atraumatic EYES: Ocular movements intact pupils equal and react to light OROPHARYNX mucous membranes are moist no exudates present no erythema or edema present NECK: Supple no nuchal rigidity CHEST: Good equal expansion. Tenderness to right 9th and 10th rib area. LUNGS: Clear and equal to auscultation CARDIAC: Normal S1 and S2 ABDOMEN: Soft nontender no guarding BACK: No CVA tenderness EXTREMITIES: No pain upon palpation normal muscle strength in all groups no clubbing cyanosis or edema NEURO: Patient is following commands is answering questions appropriately. Alert and oriented x3 Cranial Nerves 2-12 grossly intact Medical Decision & Procedures ER Provider Diagnostic Interpretation: CT results as stated below per my review and radiologist interpretation: CHEST CT WITHOUT CONTRAST CT DOSE: 306.84 mGycm HISTORY: Fall. Right-sided rib pain. TECHNIQUE: Multiaxial CT images of the chest were performed without contrast. COMPARISON: Chest CT 12/12/2009. FINDINGS: Multiple right-sided rib deformities consistent with old, healed fractures. This remains unchanged. No acute fractures within the visualized osseous structures. Trace mucoid material within the upper trachea. 3 mm groundglass nodule within the left upper lobe on image 80. 3 mm groundglass nodule within the right upper lobe on image 80. These are not significantly changed compared to the prior study. No new pulmonary nodules identified. No pleural effusions. No pneumothorax. Cholecystectomy. The liver, spleen, and adrenal glands are unremarkable. Postoperative changes consistent with prior gastric bypass. No mediastinal or hilar lymphadenopathy. The heart is normal in size. IMPRESSION: 1. Old, healed right-sided rib fractures. No acute rib fractures. 2. No pneumothorax. 3. Additional findings as described above. Electronically signed by: Chidi Avalos M.D. 06/06/2016 11:49 AM Dictated Date/Time: 06/06/2016 11:40 AM Laboratory Results 06/06/16 10:22 Red Blood Count 3.12, Mean Corpuscular Volume 97.8, Mean Corpuscular Hemoglobin 32.4, Mean Corpuscular Hemoglobin Concent 33.1, Mean Platelet Volume 10.2, Neutrophils (%) (Auto) 79.2, Lymphocytes (%) (Auto) 12.4, Monocytes (%) (Auto) 6.4, Eosinophils (%) (Auto) 1.5, Basophils (%) (Auto) 0.3, Neutrophils # (Auto) 7.75, Lymphocytes # (Auto) 1.22, Monocytes # (Auto) 0.63, Eosinophils # (Auto) 0.15, Basophils # (Auto) 0.03 06/06/16 10:22 Test 06/06/16 10:22 White Blood Count 9.80 K/uL (4.8-10.8) Red Blood Count 3.12 M/uL (4.2-5.4) Hemoglobin 10.1 g/dL (12.0-16.0) Hematocrit 30.5 % (37-47) Mean Corpuscular Volume 97.8 fL (80-100) Mean Corpuscular Hemoglobin 32.4 pg (25-34) Mean Corpuscular Hemoglobin Concent 33.1 g/dl (32-36) Platelet Count 379 K/uL (130-400) Mean Platelet Volume 10.2 fL (7.4-10.4) Neutrophils (%) (Auto) 79.2 % Lymphocytes (%) (Auto) 12.4 % Monocytes (%) (Auto) 6.4 % Eosinophils (%) (Auto) 1.5 % Basophils (%) (Auto) 0.3 % Neutrophils # (Auto) 7.75 K/uL (1.4-6.5) Lymphocytes # (Auto) 1.22 K/uL (1.2-3.4) Monocytes # (Auto) 0.63 K/uL (0.11-0.59) Eosinophils # (Auto) 0.15 K/uL (0-0.5) Basophils # (Auto) 0.03 K/uL (0-0.2) RDW Standard Deviation 47.8 fL (36.4-46.3) RDW Coefficient of Variation 13.5 % (11.5-14.5) Immature Granulocyte % (Auto) 0.2 % Immature Granulocyte # (Auto) 0.02 K/uL (0.00-0.02) Prothrombin Time 9.9 SECONDS (9.0-12.0) Prothromb Time International Ratio 0.9 (0.9-1.1) Anion Gap 8.0 mmol/L (3-11) Est Creatinine Clear Calc Drug Dose 26.2 ml/min Estimated GFR () 26.0 Estimated GFR (Non- 22.5 BUN/Creatinine Ratio 20.3 (10-20) Calcium Level 8.8 mg/dl (8.5-10.1) Phosphorus Level 4.7 mg/dl (2.5-4.9) Magnesium Level 2.7 mg/dl (1.8-2.4) Iron Level 27 mcg/dl (35-150) Total Iron Binding Capacity 292 mcg/dl (250-450) Ferritin 48.6 ng/ml (8.0-388.0) Total Bilirubin 0.2 mg/dl (0.2-1) Direct Bilirubin < 0.1 mg/dl (0-0.2) Aspartate Amino Transf (AST/SGOT) 20 U/L (15-37) Alanine Aminotransferase (ALT/SGPT) 31 U/L (12-78) Alkaline Phosphatase 82 U/L (45-117) Total Protein 7.0 gm/dl (6.4-8.2) Albumin 3.2 gm/dl (3.4-5.0) 25-Hydroxy Vitamin D Total 23.3 ng/ml (30-100) Thyroid Stimulating Hormone (TSH) 31.400 uIu/ml (0.300-4.500) Labs reviewed by ED physician. Medications Administered Medications (Trade) Dose Ordered Sig/Sadie Route Start Time Stop Time Status Last Admin Dose Admin Sodium Chloride (Nss 1000ml) 1,000 ml @ 999 mls/hr Q1H1M STAT IV 06/06/16 10:57 06/06/16 11:57 DC 06/06/16 11:02 999 MLS/HR ECG Indication: other (Right rib pain) Rate (beats per minute): 74 Rhythm: normal sinus Findings: no acute ischemic change, no ectopy ED Course 1053: Past medical records reviewed. The patient was evaluated in room B02. A complete history and physical examination was performed. 1057: Sodium Chloride 1000 ml @ 999 mls/hr IV 1300: Upon reexamination the patient is resting comfortably. I discussed results and treatment plan with the patient. She verbalizes agreement and understanding. I spoke with Dr. Carlson from the [employer] [facility]. The patient will be evaluated for further management. Medical Decision Differential diagnosis: Etiologies such as fracture, dislocation, intra-abdominal, pneumothorax, intrathoracic , intracranial, neurologic, as well as other traumatic pathologies were entertained. This is a 65-year-old female who presents emergency department complaining of hypotension. The patient has had a number of falls and I will note that an attempt was made to admit this patient approximate one month ago. An IV was established, the patient given normal saline bolus. The patient has an elevation in her troponin. I did discuss the case with the hospitalist service who agreed to admit the patient. Patient and were in agreement with the treatment plan. Consults Time Called: 1255 Consulting Physician: Dr. Carlson from the [employer] [facility] Returned Call: [address] Carlson from the [employer] [facility]. Impression Primary Impression: Hypotension Scribe Attestation The scribe's documentation has been prepared under my direction and personally reviewed by me in its entirety. I confirm that the note above accurately reflects all work, treatment, procedures, and medical decision making performed by me. Departure Information Dispostion Being Evaluated By Hospitalist Referrals William Cohen D.O. (PCP) Patient Instructions My [facility] Problem Qualifiers Primary Impression: Hypotension Hypotension type: unspecified hypotension type Qualified Codes: I95.9 - Hypotension, unspecified
[2016-06-06 12:46] LABS: CKMB/CK RATIO 6.4 (0-3.0)
[2016-06-06] MEDS ORDERED: GLUCOSE 40% GEL 15 GM TUBE PO PRN (14:00)
[2016-06-06] MEDS ORDERED: ACETAMINOPHEN 325 MG TAB PO PRN (14:00)
[2016-06-06] MEDS ORDERED: MoRPHine SULFATE 2 MG/ML CARP IV PRN (14:00)
[2016-06-06] MEDS ORDERED: GLUCOSE 10 TABS/TUBE PO PRN (14:00)
[2016-06-06] MEDS ORDERED: POLYETHYLENE (MIRALAX) 17 GM PACK PO PRN (14:00)
[2016-06-06] MEDS ORDERED: GLUCAGON FOR INJ 1 MG VIAL SQ PRN (14:00)
[2016-06-06] MEDS ORDERED: NITROGLYCERIN 0.4 MG SL PER TAB CHARGE SL PRN (14:00)
[2016-06-06] MEDS ORDERED: ONDANSETRON INJ 2 MG/ML 2 ML VIAL IV PRN (14:00)
[2016-06-06] MEDS ORDERED: DEXTROSE 50% 50 ML SYR IV PRN (14:00)
[2016-06-06] MEDS ORDERED: PUMP1CAP PO (14:04)
[2016-06-06] MEDS ORDERED: PHARMACY GLYCEMIC MGMT CONSULT PRN (14:24)
[2016-06-06 14:42] LABS: INR 0.9 (0.9-1.1); PROTHROMBIN TIME (PATIENT) 9.9 SECONDS (9.0-12.0)
--- NOTE | 2016-06-06 14:59 | History and Physical ---
History & Physical Date & Time of Service: Jun 06, 2016 at 14:21 Chief Complaint: FALL Primary Care Physician: William Cohen D.O. History of Present Illness 65 yo female with hypothyroidism presents today after a mechanical fall at home where she fell on her right side after tripping. She states that she has some right rib pain that moves into her mid-back area, and she is TTP on R lower thoracic paraspinal muscles. She was found to be hypotensive with initial BP 71 /44 and she reports cold intolerance, decreased appetite, lethargy, increased sleeping, increased generalized weakness with difficulty transferring out of wheelchair, constipation and nausea. She is wheelchair-bound after a R midfoot amputation and is currently undergoing PT as an outpatient. Her is her regional extension service specialist at home. She otherwise denies any fevers, chills, chest pain, shortness of breath, vomiting, diarrhea, overt bleeding or blood per rectum. reports that she is receiving iron infusions for anemia. He also states that she was recently taken off Janumet one month ago out of concern for her worsening renal function with a goal to titrate her insulin (HbA1C). She has depression and started smoking again roughly 8 months ago--history is that she hadn't been a smoker since she was 28 yrs old. She denies any lightheadedness, numbness and tingling, loss of use of her limbs or any focal deficits, no issues with swallowing or speaking and has no residual deficits since a stroke 2 years ago. She is notably on a baby aspirin daily instead of ASA 325mg and /pt are not sure why. She was last admitted to this hospital April 2015 with a similar presentation and an elevated TSH at that time. Her Synthroid was adjusted and she was sent for outpatient follow-up. Outpatient notes are not available for review at this time, however, her states that she has been going to see Dr. William Cohen regularly. Her current dose of Synthroid is 175mcg PO daily, and she was recently told to stop taking her iron and vitamin C supplements with her Synthroid (she doesn't take it by itself). She also sees Dr. Lane for CAD with a h/o 2 stents, and her PCP is Dr. Trivedi. In the ER she was given 1L IVF with appropriate increase in BP to normal range. Her temp is normal and she is not bradycardic. Past Medical/Surgical History Medical Problems: (1) Adult hypothyroidism Status: Chronic (2) Amputation at midfoot Status: Chronic (3) CAD (coronary artery disease) Status: Chronic (4) CKD (chronic kidney disease), stage II Status: Chronic (5) CVA (cerebral vascular accident) Status: Chronic (6) DM2 (diabetes mellitus, type 2) Status: Chronic (7) Gangrene of foot Permanent Comment: s/p amputation right forefoot Status: Resolved (8) HTN (hypertension) Status: Chronic (9) Osteomyelitis Permanent Comment: s/p amputation right forefoot Status: Resolved (10) PAD (peripheral artery disease) Status: Chronic (11) Stenosis of popliteal artery Status: Chronic Surgical Problems: (1) Gastric bypass status for obesity Status: Chronic (2) Stented coronary artery Status: Chronic Family History Diabetes mellitus Gallbladder disease Heart disease Hypertension Kidney disease Kidney stones Social History Smoking Status: Current Every Day Smoker Smokeless Tobacco Use: No Alcohol Use: none Drug Use: none Marital Status: Housing status: lives with significant other Occupational Status: disabled Immunizations History of Influenza Vaccine: Yes Influenza Vaccine Date: Nov 20, 2009 History of Tetanus Vaccine?: UNCERTAIN OF DATE History of Pneumococcal: Unknown History of Hepatitis B Vaccine: UNCERTAIN OF DATE Multi-Drug Resistant Organisms History of MDRO: Yes Type of MDRO: MRSA Allergies Coded Allergies: Paroxetine (Verified Adverse Reaction, Unknown, NERVOUS INCREASED, 02/24/16 ) Home Medications Scheduled Ascorbic Acid (Vitamin C), 1,000 MG PO QAM Aspirin (Aspirin Chewable), 81 MG PO QAM Calcium Carbonate-Vitamin D (Calcium/Vitamin D3), 1 TAB PO QAM Cholecalciferol (Vitamin D), 2,000 UNITS PO QAM Ezetimibe (Zetia), 10 MG PO QAM Ferrous Sulfate (Iron), 325 MG PO QAM Gabapentin (Neurontin), 400 MG PO TID Insulin Glargine (Lantus), 20 UNITS SC QPM Insulin Human Regular (Humulin R), 10 UNITS SC BID Levothyroxine Sodium (Levothyroxine Sodium), 175 MCG PO QAM Lisinopril (Prinivil), 5 MG PO QAM Lubiprostone (Amitiza), 1 CAP PO BID Mirabegron (Myrbetriq Er), 50 MG PO QAM Omeprazole (Prilosec), 40 MG PO DAILY Pumpkin Seed-Soy Germ (Azo Bladder Control/Go-Le), 1 CAP PO HS Pumpkin Seed-Soy Germ (Azo Bladder Control/Go-Le), 1 CAP PO HS Simvastatin (Zocor), 10 MG PO QPM Venlafaxine Hcl (Effexor), 100 MG PO BID Review of Systems At least ten systems were reviewed and negative except as indicated in HPI. Physical Exam Vital Signs Date Time Temp Pulse Resp B/P Pulse Ox O2 Delivery O2 Flow Rate FiO2 06/06/16 13:37 75 16 102/58 97 Room Air 06/06/16 12:46 76 16 91/67 99 Room Air 06/06/16 11:47 74 06/06/16 11:28 97 Room Air 06/06/16 11:28 97 Room Air 06/06/16 11:28 76 13 100/55 97 Room Air 06/06/16 11:10 75 16 102/55 74 100/54 06/06/16 10:44 76 16 100/53 06/06/16 10:13 36.6 80 18 71/44 100 Room Air General Appearance: WD/WN, no apparent distress Head: normocephalic, atraumatic Eyes: normal inspection, PERRL, EOMI, sclerae normal ENT: normal ENT inspection, hearing grossly normal, pharynx normal Neck: supple, no adenopathy, no JVD, trachea midline Respiratory/Chest: chest non-tender, lungs clear, normal breath sounds, no respiratory distress Cardiovascular: regular rate, rhythm, no edema, no murmur Abdomen/GI: normal bowel sounds, non tender, soft Back: normal inspection, no CVA tenderness, + paravertebral tenderness Extremities/Musculoskelatal: + pertinent finding (midfoot admputation on the right foot, well-healed scars, no wounds, decreased sensation on L foot sole) Neurologic/Psych: food service lead II-XII nml as tested, alert, normal reflexes, oriented x 3, + sensory deficit (bottom of L foot decreased), + depressed affect Skin: normal color Diagnostics Laboratory Results Results Past 24 Hours Test 06/06/16 10:22 06/06/16 11:50 06/06/16 13:54 Range/Units White Blood Count 9.80 4.8-10.8 K/uL Red Blood Count 3.12 4.2-5.4 M/uL Hemoglobin 10.1 12.0-16.0 g/dL Hematocrit 30.5 37-47 % Mean Corpuscular Volume 97.8 80-100 fL Mean Corpuscular Hemoglobin 32.4 25-34 pg Mean Corpuscular Hemoglobin Concent 33.1 32-36 g/dl Platelet Count 379 130-400 K/uL Mean Platelet Volume 10.2 7.4-10.4 fL Neutrophils (%) (Auto) 79.2 % Lymphocytes (%) (Auto) 12.4 % Monocytes (%) (Auto) 6.4 % Eosinophils (%) (Auto) 1.5 % Basophils (%) (Auto) 0.3 % Neutrophils # (Auto) 7.75 1.4-6.5 K/uL Lymphocytes # (Auto) 1.22 1.2-3.4 K/uL Monocytes # (Auto) 0.63 0.11-0.59 K/uL Eosinophils # (Auto) 0.15 0-0.5 K/uL Basophils # (Auto) 0.03 0-0.2 K/uL RDW Standard Deviation 47.8 36.4-46.3 fL RDW Coefficient of Variation 13.5 11.5-14.5 % Immature Granulocyte % (Auto) 0.2 % Immature Granulocyte # (Auto) 0.02 0.00-0.02 K/uL Sodium Level 138 136-145 mmol/L Potassium Level 4.5 3.5-5.1 mmol/L Chloride Level 107 98-107 mmol/L Carbon Dioxide Level 23 21-32 mmol/L Anion Gap 8.0 3-11 mmol/L Blood Urea Nitrogen 45 7-18 mg/dl Creatinine 2.20 0.60-1.20 mg/dl Est Creatinine Clear Calc Drug Dose 26.2 ml/min Estimated GFR () 26.0 Estimated GFR (Non- 22.5 BUN/Creatinine Ratio 20.3 10-20 Random Glucose 84 70-99 mg/dl Calcium Level 8.8 8.5-10.1 mg/dl Total Bilirubin 0.2 0.2-1 mg/dl Direct Bilirubin < 0.1 0-0.2 mg/dl Aspartate Amino Transf (AST/SGOT) 20 15-37 U/L Alanine Aminotransferase (ALT/SGPT) 31 12-78 U/L Alkaline Phosphatase 82 45-117 U/L Total Creatine Kinase 85 26-192 U/L Creatine Kinase MB 5.4 0.5-3.6 ng/ml Creatine Kinase MB Ratio 6.4 0-3.0 Troponin I 1.970 0-0.045 ng/ml Total Protein 7.0 6.4-8.2 gm/dl Albumin 3.2 3.4-5.0 gm/dl Thyroid Stimulating Hormone (TSH) 31.400 0.300-4.500 uIu/ml Diagnostic Radiology CHEST CT WITHOUT CONTRAST CT DOSE: 306.84 mGycm HISTORY: Fall. Right-sided rib pain. TECHNIQUE: Multiaxial CT images of the chest were performed without contrast. COMPARISON: Chest CT 12/12/2009. FINDINGS: Multiple right-sided rib deformities consistent with old, healed fractures. This remains unchanged. No acute fractures within the visualized osseous structures. Trace mucoid material within the upper trachea. 3 mm groundglass nodule within the left upper lobe on image 80. 3 mm groundglass nodule within the right upper lobe on image 80. These are not significantly changed compared to the prior study. No new pulmonary nodules identified. No pleural effusions. No pneumothorax. Cholecystectomy. The liver, spleen, and adrenal glands are unremarkable. Postoperative changes consistent with prior gastric bypass. No mediastinal or hilar lymphadenopathy. The heart is normal in size. IMPRESSION: 1. Old, healed right-sided rib fractures. No acute rib fractures. 2. No pneumothorax. 3. Additional findings as described above. Normal EKG (SR 72) Impression Assessment and Plan 65 yo F with hypotension 1. Hypotension 2/2 hypothyroidism vs adrenal insufficiency vs orthostatic hypotension? vs medication side effect? (hold Mybegron with anticholinergic side effects/was on oxybutinin recently, too)-check blood cultures. Cosyntropin stim test to rule out adrenal insufficiency (was later found to be negative so held on any steroids; BP remained in normal range) Increased Synthroid dose to 200mcg PO daily and will need repeat in 6-8 weeks as outpatient. 2. Hypothyroidism-TSH 31 and she is symptomatic (cold intolerance, dec appetite , lethargy, constipation) plan as above 3. CAD s/p 2 stents-stable, no chest pain, EKG is nonischemic. Troponin was elevated to 1.97. Trend enzymes and TTE in am. Cards consult placed. 4. Multiple falls at home likely 2/2 hypotension-work up and plan as above. PT /OT to see her. Pain meds for rib pain as needed--no acute fracture or PTX seen on CT today. 5. Uncontrolled DMII with complications of peripheral neuropathy-off Janumet 2/ 2 worsening renal function for the last month. Cont ISS/Lantus with inpatient glycemic pharmacy consult. 6. PVD s/p amputation of R midfoot-no wounds or evidence of skin infection 7. Anemia-chronic, on iron supplementation and taking iron infusions. Iron studies pending. No overt bleeding. Transferrin sat is 9% (<15%) so likely iron deficiency. Would cont outpatient workup/monitoring, minimize excessive phlebotomy in house. 8. Depression-she started smoking again as a result of the depression. She is currently on Effexor. Cont outpatient monitoring and encourage to quit smoking. 9. h/o CVA-increased ASA to 325mg daily for secondary prevention of stroke. 10. Hyperlipidemia-on Zetia and Simvastatin. Gave Lipitor instead in setting of elevated troponin for empiric plaque stabilization. Appreciate Cards recs on medical therapy for CAD. She could also minimize pills by using Vytorin if staying on current meds. 11. CODY -current Creat 2.2 with a baseline 1.5 12. Ambulatory dysfunction 2/2 prior foot amputation- PT/OT ordered 13. Elevated troponin--trend enzymes, TTE ordered in am. NPO p MN. Cards consult. DVT proph-heparin Dispo-to telemetry FULL CODE [facility] Care Telemetry Resuscitation Status FULL RESUSCITATION VTE Prophylaxis VTE Risk Assessment Done? Y/N: Yes Risk Level: Moderate Given or contraindicated: Unfractionated heparin SQ
--- NOTE | 2016-06-06 15:11 | Pharmacy Progress Note ---
Glycemic Control Intl Consult Date of Service Jun 06, 2016. Scope Glycemic Pharmacist consulted by Dr Carlson on 06/06 for glycemic control and to write orders per LT[facility], located within [facility] inpatient glycemic control protocol Objective Weight (Kilograms): 80.300 Accuchecks BSG (last 24hrs): Test 06/06/16 10:22 Random Glucose 84 mg/dl (70-99) Laboratory Data (last 24hrs) Test 06/06/16 10:22 Anion Gap 8.0 mmol/L BUN/Creatinine Ratio 20.3 Blood Urea Nitrogen 45 mg/dl Creatinine 2.20 mg/dl Potassium Level 4.5 mmol/L Sodium Level 138 mmol/L White Blood Count 9.80 K/uL Red Blood Count 3.12 M/uL Hemoglobin 10.1 g/dL Hematocrit 30.5 % Mean Corpuscular Volume 97.8 fL Mean Corpuscular Hemoglobin 32.4 pg Mean Corpuscular Hemoglobin Concent 33.1 g/dl Platelet Count 379 K/uL Mean Platelet Volume 10.2 fL Neutrophils (%) (Auto) 79.2 % Lymphocytes (%) (Auto) 12.4 % Monocytes (%) (Auto) 6.4 % Eosinophils (%) (Auto) 1.5 % Basophils (%) (Auto) 0.3 % Neutrophils # (Auto) 7.75 K/uL Lymphocytes # (Auto) 1.22 K/uL Monocytes # (Auto) 0.63 K/uL Eosinophils # (Auto) 0.15 K/uL Basophils # (Auto) 0.03 K/uL Recent Pertinent Medications Outpatient Anti-diabetic Regimen: * Lantus 20 units qPM * Humulin R 10 units BID with meals * A1c = 11.5 % 01/26/16 Risk Factors for Insulin Resistance: * Diet: AHA/type 2 diabetes diet ordered - will then be NPO after midnight Assessment & Plan ASSESSMENT: 06/06/16 * Ms. Leon is a 65 y/o female admitted with rib pain s/p fall that occurred over the weekend * Her last A1c available indicates significantly uncontrolled diabetes (this was up from 7.4% in April 2015) * Will plan to utilize basal + bolus insulin in the form of Lantus + Novolog while she is an inpatient * Since her BSG in the ER was only 84 and she will be NPO after midnight, will start conservatively w/ basal dosing that will be dependent upon BSG * Novolog dosing will be based off of insulin calc estimates using a stress level of 2 and total daily outpatient dose * ADA & AACE recommend a goal blood sugar range 140-180 mg/dl for the majority of critically ill & non-critically ill patients. However, more stringent targets may be selected in individual cases. PLAN FOR INPATIENT GLYCEMIC CONTROL: * Basal insulin with LANTUS 7 or 10 units SQ BID (based upon BSG) * Correctional Insulin with NOVOLOG per scale ACHS or Q6hrs while NPO * Goal Range: Low 120 mg/dL - High 150 mg/dL * Correction Factor: 30 mg/dL/unit * Nutritional / Prandial insulin per carb ratio of 1 unit per 10 grams CHO consumed * A1c already ordered w/ AM labs - will evaluate this tomorrow to aid w/ outpatient recommendations * Please note that the plan above was derived based on current level of insulin resistance and hospital stress. These recommendations are appropriate for inpatient admission only. Plan of care upon discharge will need to be reassessed to avoid potential outpatient hypo/hyperglycemia. Thank you.
[2016-06-06] MEDS ORDERED: ASPIRIN 81 MG ECTAB PO ONE (15:30)
[2016-06-06] MEDS ORDERED: ATORVASTATIN 40 MG TAB PO ONE (15:30)
[2016-06-06 15:48] LABS: FERRITIN 48.6 ng/ml (8.0-388.0); PHOSPHORUS 4.7 mg/dl (2.5-4.9)
[2016-06-06 16:12] VITALS: BP 108/65; PULSE 77; TEMP 36.6; O2SAT 100; BMI 26.6
[2016-06-06] MEDS: INSULIN ASPART 100 UNITS/ML 3 ML PEN SC SCH ×2 (16:15→21:12)
[2016-06-06] MEDS: SODIUM CHLORIDE 0.9% 1000ML 1,000 ML IV SCH (16:52)
[2016-06-06] MEDS: CALCIUM 600MG + VIT D 400 IU TAB PO SCH (16:55)
[2016-06-06] MEDS ORDERED: COSYNTROPIN INJ 0.25 MCG in SYRINGE 4 ML IV SCH (17:00)
[2016-06-06 17:30] LABS: CKMB/CK RATIO 5.9 (0-3.0)
[2016-06-06] MEDS ORDERED: ASPIRIN 81 MG CHEW PO STA (18:30)
[2016-06-06] MEDS: VENLAFAXINE HCL 50 MG TAB PO SCH (19:30)
[2016-06-06] MEDS: FERROUS SULFATE 325 MG TAB PO SCH (19:31)
[2016-06-06] MEDS: GABAPENTIN 400 MG CAP PO SCH (19:31)
[2016-06-06] MEDS: CHOLECALCIFEROL 1000 INTER.UNIT TAB PO SCH (19:32)
[2016-06-06 20:35] VITALS: BP 123/68; PULSE 66; TEMP 36.5; O2SAT 98
[2016-06-06] MEDS ORDERED: SIMVASTATIN 10 MG TAB PO SCH (21:00)
[2016-06-06] MEDS: INSULIN GLARGINE SOLOSTAR 100 UNITS/ML 3 ML PEN SC SCH (21:12)
[2016-06-06] MEDS: HEPARIN SOD 5000 UNIT/0.5 ML CARP SQ SCH (21:14)
[2016-06-06 23:23] LABS: CKMB/CK RATIO 5.4 (0-3.0)
[2016-06-06 23:24] VITALS: BP 110/61; PULSE 74; TEMP 36.8; O2SAT 96
[2016-06-06 23:30] VITALS: BP 92/52; PULSE 85; O2SAT 96
[2016-06-06 23:35] VITALS: BP 78/47; PULSE 95; O2SAT 97
[2016-06-07] VITALS (11 sets, daily range): BP systolic 75–119; BP diastolic 40–75; PULSE 70–84; TEMP 36.7–37.3; O2SAT 96–98
[2016-06-07 00:46] LABS: URINE APPEARANCE CLEAR (CLEAR); URINE BILIRUBIN NEG (NEG); URINE COLOR YELLOW; URINE NITRITE NEG (NEG); URINE SPECIFIC GRAVITY 1.014 (1.000-1.030); UROBILINOGEN NEG (NEG)
[2016-06-07 00:50] LABS: MANUAL MICROSCOPIC REQUIRED? NO; REVIEW REQ? NO
[2016-06-07] MEDS: SODIUM CHLORIDE 0.9% 1000ML 1,000 ML IV SCH (01:34)
[2016-06-07] MEDS: LEVOTHYROXINE 200 MCG TAB PO SCH (05:37)
[2016-06-07] MEDS: HEPARIN SOD 5000 UNIT/0.5 ML CARP SQ SCH ×3 (05:38→22:36)
[2016-06-07 06:56] LABS: HEMATOCRIT 25.6 % (37-47); MEAN CORPUSCULAR HEMOGLOBIN 31.8 pg (25-34); MEAN CORPUSCULAR HGB CONC 32.8 g/dl (32-36); MEAN PLATELET VOLUME 9.9 fL (7.4-10.4); PLATELET COUNT 331 K/uL (130-400); RED BLOOD COUNT 2.64 M/uL (4.2-5.4); WHITE BLOOD COUNT 8.65 K/uL (4.8-10.8)
[2016-06-07] MEDS: INSULIN ASPART 100 UNITS/ML 3 ML PEN SC SCH ×4 (07:00→20:30)
--- NOTE | 2016-06-07 07:07 | CARDIOLOGY CONSULTATION ---
DATE OF CONSULTATION: 06/06/2016 [facility] REASON FOR CONSULTATION: Elevated troponins. HISTORY OF PRESENT ILLNESS: This is a 65-year-old female who is medically complex and has had most of her healthcare at [facility] and [facility]. She apparently fell over the weekend. It was a mechanical fall, injuring her right side. She was then admitted here at the hospital with hypothyroidism and a TSH level of 35. She is a diabetic. There is some question as to her compliance with medications, although she states that she has been taking all her medicines. She has a history of coronary artery disease and states that she has 2 stents that were placed at [facility]. No recent history of cardiac events. She has no history of recent chest pain or shortness of breath. No heart palpitations. No dizziness or lightheadedness. On admission, her first troponin I is 1.9. EKG shows no acute changes and she has no symptoms related to heart disease such as chest pain or shortness of breath. ALLERGIES: Paroxetine. PAST MEDICAL HISTORY: The patient has a history of diabetes and recently had a partial amputation of her foot. She has chronic stage II kidney disease and a history of previous CVA. She has been on thyroid hormone supplements for many years and is uncertain as to her compliance recently. She has a history of hypertension, peripheral vascular disease. Previously she has had gastric bypass surgery. She also has a history of coronary stents, as stated above. SOCIAL HISTORY: She is a current smoker. She is and lives with her . FAMILY MEDICAL HISTORY: Significant for diabetes. REVIEW OF SYSTEMS: Ten-point review of systems is per the history of chief complaint. PHYSICAL EXAMINATION: GENERAL: She is alert. VITAL SIGNS: Blood pressure is 100/60, pulse is regular at 80 beats per minute. She is afebrile. HEENT: She is normocephalic. Pupils are equal and reactive to light. Extraocular muscles are intact bilaterally. NECK: The neck veins are flat. Carotids have good upstrokes bilaterally without bruits. Thyroid is nonpalpable. RESPIRATORY: Breath sounds equal bilaterally and clear to auscultation. CARDIOVASCULAR: Heart has a regular rhythm. Normal S1, S2. No S3, S4. No cardiac rubs or murmurs. GASTROINTESTINAL: Abdomen is soft, nontender without organomegaly. EXTREMITIES: Free of edema. She has partial amputation of her foot. NEUROLOGIC: Grossly intact. SKIN: Warm to touch. LYMPH NODES: Negative to palpation. IMPRESSION: 1. Hypothyroid. 2. Diabetes mellitus. 3. Chronic renal insufficiency. 4. Peripheral vascular disease. 5. History of coronary artery disease with previous stents. 6. Questionable medication compliance. RECOMMENDATIONS: The patient's elevated troponins could be multifactorial including renal insufficiency and due to her metabolic derangement. I do not believe that we are dealing at this time with acute coronary syndrome. I would recommend that you treat her hypothyroidism. I do not believe at this time she is myxedematous but with her low blood pressure, you may want to consider adding steroids to her medical regimen. I see that cortisol levels have been drawn. She has an echocardiogram pending, which I will review. Further evaluation and treatment following the above.
[2016-06-07 07:39] LABS: BUN/CREATININE RATIO 22.1 (10-20); CALCIUM 8.1 mg/dl (8.5-10.1); CREATININE 1.7 mg/dl (0.60-1.20); POTASSIUM 4.4 mmol/L (3.5-5.1)
[2016-06-07 07:42] LABS: CHOLESTEROL/HDL RATIO 2.3
[2016-06-07] MEDS: ASPIRIN 325 MG ECTAB PO SCH (08:03)
[2016-06-07] MEDS: CALCIUM 600MG + VIT D 400 IU TAB PO SCH ×2 (08:03→18:06)
[2016-06-07] MEDS: PANTOprazole SOD 40 MG TAB PO SCH (08:03)
[2016-06-07] MEDS: ASCORBIC ACID 500 MG TAB PO SCH (08:03)
[2016-06-07] MEDS: EZETIMIBE 10MG TAB PO SCH (08:03)
[2016-06-07] MEDS: VENLAFAXINE HCL 50 MG TAB PO SCH ×2 (08:03→20:28)
[2016-06-07] MEDS: ATORVASTATIN 40 MG TAB PO SCH (08:04)
[2016-06-07] MEDS: GABAPENTIN 400 MG CAP PO SCH ×3 (08:04→20:28)
--- NOTE | 2016-06-07 08:54 | Clinical Documentation Query ---
BEATRIZ Young : CLINICAL DOCUMENTATION QUERY Patient is a 65 year old female admitted for evaluation and treatment of hypotension in the setting of hypothyroidism vs adrenal insufficiency vs orthostasis. Serum troponin level on admission of 1.97 ng/ml with further rise to 2.07 ng/ml, associated with elevated CK-MB and CK-MB ratio fractions. EKG with no acute changes and cardiology notes "I do not believe that we are dealing at this time with acute coronary syndrome". This statement only excludes a Type I MT. As appropriate, consider clarification as suggested below as this directly impacts DRG assignment. Thank you. In your clinical opinion is this patient being managed for: ( ) Type II MT secondary to hypotension ( ) Other explanation of clinical findings (Please Explain) ( ) Unable to determine (Please Define) ( ) Need to Discuss ( X ) Not Agree The medical record reflects the following clinical findings, treatment, and risk factors. Clinical Indicators: As above Treatment: Telemetry, serial enzymes, cardiology consultation, evaluation and treatment of hypotension. Risk Factors: Age, gender, diabetes, hypertension, CKD stage 2, prior CVA, impaired functionality. The five types of acute MT compose five separate situations that produce myocardial ischemia and myocardial-cell : 1. A primary coronary event, such as plaque rupture or dissection. 2. A problem of oxygen supply and demand, such as coronary spasm, coronary embolism, arrhythmia, anemia, or hypotension. 3. Sudden cardiac that includes signs and symptoms of myocardial ischemia, such as ECG changes, but which produces before a blood sample can be obtained or when occurs during the lag period before serum markers appear in the blood. 4. Percutaneous coronary intervention. 5. Coronary artery bypass grafting. Please clarify and document your clinical opinion in the progress notes and discharge summary. Terms such as "probable", "suspected", "likely", "questionable", "possible", or "still to be ruled out" are acceptable. IF IN AGREEMENT, YOU MUST DOCUMENT ABOVE DIAGNOSTIC STATEMENT IN DAILY PROGRESS NOTES AND DISCHARGE SUMMARY. This document is not part of the patient's record. Thank You, Noel Pizano, RN [phone]
[2016-06-07 09:49] LABS: ESTIMATED AVERAGE GLUCOSE 154 mg/dl; HA1C FLAG Normal (Normal)
--- NOTE | 2016-06-07 10:07 | Progress Note ---
Subjective Date of Service: Jun 07, 2016. Subjective Pt evaluation today including: conversation w/ patient, physical exam, lab review, review of studies, review of inpatient medication list Saw/examined the patient in room 237 She came in because of a fall and right sided hip pain Found to have hypotension, elevated troponin, elevated TSH, anemia I saw the patient today (06/07) and she is doing well with no complaints currently NPO She states she takes her medications as prescribed, though does not recall names or doses Problem List Medical Problems: (1) Acute kidney injury Status: Acute (2) Ambulatory dysfunction Status: Acute (3) Arrhythmia Status: Acute (4) Generalized weakness Status: Acute (5) Hypotension Status: Acute (6) Hypotension Status: Acute (7) Hypothyroidism Status: Acute (8) Numbness Status: Acute (9) Sepsis Status: Acute (10) Weakness Status: Acute Review of Systems Constitutional: + weakness, No chills, No fever Respiratory: No cough, No shortness of breath, No sputum Cardiac: No chest pain Abdomen: No diarrhea, No nausea, No pain, No vomiting Musculoskeletal: + joint pain (R hip) Neurologic: + balance problems, + numbness/tingling, + weakness, No vertigo Heme: No abnormal bleeding/bruising Medications Current Inpatient Medications Medications (Trade) Dose Ordered Sig/Sadie Route Start Time Stop Time Status Last Admin Dose Admin Heparin Sodium (Porcine) (Heparin Sq 5000 Unit/0.5ml) 5,000 unit Q8 SQ 06/06/16 22:00 07/06/16 21:59 06/07/16 05:38 5,000 UNIT Acetaminophen (Tylenol Tab) 650 mg Q4H PRN PO 06/06/16 14:00 07/06/16 13:59 Ondansetron HCl (Zofran Inj) 4 mg Q6H PRN IV 06/06/16 14:00 07/06/16 13:59 Nitroglycerin (Nitrostat Tab) 0.4 mg UD PRN SL 06/06/16 14:00 07/06/16 13:59 Morphine Sulfate (MoRPHine SULFATE INJ) 2 mg Q2H PRN IV 06/06/16 14:00 06/20/16 13:59 Polyethylene (Miralax Powder Packet) 17 gm DAILY PRN PO 06/06/16 14:00 07/06/16 13:59 Insulin Glargine (Lantus Solostar Pen) SEE PROTOCOL TEXT Q12 SC 06/06/16 21:00 07/06/16 20:59 Future hold 06/06/16 21:12 10 UNIT Insulin Aspart (novoLOG ASPART) SLIDING SCALE If C... ACHS SC 06/06/16 16:00 07/06/16 15:59 06/06/16 21:12 1 UNITS Glucose (Glucose 40% Gel) 15-30 GRAMS 15 GRAMS... UD PRN PO 06/06/16 14:00 07/06/16 13:59 Glucose (Glucose Chew Tab) 4-8 Tablets 4 Tabl... UD PRN PO 06/06/16 14:00 07/06/16 13:59 Dextrose (Dextrose 50% 50ML Syringe) 25-50ML OF 50% DW IV FOR... UD PRN IV 06/06/16 14:00 07/06/16 13:59 Glucagon (Glucagon Inj) 1 mg UD PRN SQ 06/06/16 14:00 07/06/16 13:59 Miscellaneous Information (Consult Glycemic Management Pharmacy) 1 ea UD PRN N/A 06/06/16 14:24 07/06/16 14:23 EZETIMIBE (Zetia Tab) 10 mg QAM PO 06/07/16 09:00 07/07/16 08:59 06/07/16 08:03 10 MG Gabapentin (Neurontin Cap) 400 mg TID PO 06/06/16 21:00 07/06/16 20:59 06/07/16 08:04 400 MG Venlafaxine HCl (effeXOR TAB) 100 mg BID PO 06/06/16 21:00 07/06/16 20:59 06/07/16 08:03 100 MG Aspirin (Ecotrin Tab) 325 mg QAM PO 06/07/16 09:00 07/07/16 08:59 06/07/16 08:03 325 MG Ascorbic Acid (Vitamin C Tab) 500 mg QAM PO 06/07/16 09:00 07/07/16 08:59 06/07/16 08:03 500 MG Calcium/Vitamin D (Caltrate Plus Tab) 1 tab BIDM PO 06/06/16 16:45 07/06/16 17:59 06/07/16 08:03 1 TAB Cholecalciferol (Vitamin D Tab) 2,000 inter.unit QPM PO 06/06/16 21:00 07/06/16 20:59 06/06/16 19:32 2,000 INTER.UNIT Ferrous Sulfate (Feosol Tab) 325 mg QPM PO 06/06/16 21:00 07/06/16 20:59 06/06/16 19:31 325 MG Pantoprazole Sodium (Protonix Tab) 40 mg QAM PO 06/07/16 09:00 07/07/16 08:59 06/07/16 08:03 40 MG Levothyroxine Sodium (Synthroid Tab) 200 mcg DAILYBB PO 06/07/16 06:00 07/07/16 06:59 06/07/16 05:37 200 MCG Atorvastatin Calcium (Lipitor Tab) 80 mg QAM PO 06/07/16 09:00 07/07/16 08:59 06/07/16 08:04 80 MG Objective Vital Signs Date Time Temp Pulse Resp B/P Pulse Ox O2 Delivery O2 Flow Rate FiO2 06/07/16 07:49 79 105/66 06/07/16 07:47 36.9 75 18 119/75 98 Room Air 06/07/16 04:00 Room Air 06/07/16 03:52 36.7 76 17 102/62 97 Room Air 06/07/16 00:00 Room Air 06/06/16 23:35 95 19 78/47 97 Room Air 06/06/16 23:30 85 18 92/52 96 Room Air 06/06/16 23:24 36.8 74 16 110/61 96 Room Air 06/06/16 20:35 36.5 66 22 123/68 98 Nasal Cannula 3.0 06/06/16 20:00 Room Air 06/06/16 16:12 36.6 77 18 108/65 100 Room Air 06/06/16 14:15 75 16 93/50 98 Room Air 06/06/16 13:37 75 16 102/58 97 Room Air 06/06/16 12:46 76 16 91/67 99 Room Air 06/06/16 11:47 74 06/06/16 11:28 97 Room Air 06/06/16 11:28 97 Room Air 06/06/16 11:28 76 13 100/55 97 Room Air 06/06/16 11:10 75 16 102/55 74 100/54 06/06/16 10:44 76 16 100/53 06/06/16 10:13 36.6 80 18 71/44 100 Room Air Physical Exam General Appearance: no apparent distress Respiratory/Chest: chest non-tender, lungs clear, normal breath sounds, no respiratory distress, no accessory muscle use Cardiovascular: regular rate, rhythm, no edema, no gallop, no JVD, no murmur Abdomen: normal bowel sounds, non tender, soft Extremities: + pertinent finding (R metatarsal amputation) Neurologic/Psychiatric: no motor/sensory deficits, alert, normal mood/affect Laboratory Results Last 24 Hours Test 06/06/16 10:22 06/06/16 11:50 06/06/16 16:27 06/06/16 16:30 White Blood Count 9.80 K/uL Red Blood Count 3.12 M/uL Hemoglobin 10.1 g/dL Hematocrit 30.5 % Mean Corpuscular Volume 97.8 fL Mean Corpuscular Hemoglobin 32.4 pg Mean Corpuscular Hemoglobin Concent 33.1 g/dl Platelet Count 379 K/uL Mean Platelet Volume 10.2 fL Neutrophils (%) (Auto) 79.2 % Lymphocytes (%) (Auto) 12.4 % Monocytes (%) (Auto) 6.4 % Eosinophils (%) (Auto) 1.5 % Basophils (%) (Auto) 0.3 % Neutrophils # (Auto) 7.75 K/uL Lymphocytes # (Auto) 1.22 K/uL Monocytes # (Auto) 0.63 K/uL Eosinophils # (Auto) 0.15 K/uL Basophils # (Auto) 0.03 K/uL RDW Standard Deviation 47.8 fL RDW Coefficient of Variation 13.5 % Immature Granulocyte % (Auto) 0.2 % Immature Granulocyte # (Auto) 0.02 K/uL Prothrombin Time 9.9 SECONDS Prothromb Time International Ratio 0.9 Sodium Level 138 mmol/L Potassium Level 4.5 mmol/L Chloride Level 107 mmol/L Carbon Dioxide Level 23 mmol/L Anion Gap 8.0 mmol/L Blood Urea Nitrogen 45 mg/dl Creatinine 2.20 mg/dl Est Creatinine Clear Calc Drug Dose 26.2 ml/min Estimated GFR () 26.0 Estimated GFR (Non- 22.5 BUN/Creatinine Ratio 20.3 Random Glucose 84 mg/dl Calcium Level 8.8 mg/dl Phosphorus Level 4.7 mg/dl Magnesium Level 2.7 mg/dl Iron Level 27 mcg/dl Total Iron Binding Capacity 292 mcg/dl Ferritin 48.6 ng/ml Total Bilirubin 0.2 mg/dl Direct Bilirubin < 0.1 mg/dl Aspartate Amino Transf (AST/SGOT) 20 U/L Alanine Aminotransferase (ALT/SGPT) 31 U/L Alkaline Phosphatase 82 U/L Total Creatine Kinase 85 U/L 79 U/L Creatine Kinase MB 5.4 ng/ml 4.7 ng/ml Creatine Kinase MB Ratio 6.4 5.9 Troponin I 1.970 ng/ml 2.070 ng/ml Total Protein 7.0 gm/dl Albumin 3.2 gm/dl 25-Hydroxy Vitamin D Total 23.3 ng/ml Thyroid Stimulating Hormone (TSH) 31.400 uIu/ml Bedside Glucose 110 mg/dl Random Cortisol 15.74 mcg/dl Test 06/06/16 17:33 06/06/16 18:02 06/06/16 20:11 06/06/16 22:40 Random Cortisol 37.85 mcg/dl 43.79 mcg/dl Bedside Glucose 163 mg/dl Total Creatine Kinase 57 U/L Creatine Kinase MB 3.1 ng/ml Creatine Kinase MB Ratio 5.4 Troponin I 1.470 ng/ml Test 06/06/16 23:00 06/07/16 06:28 06/07/16 06:30 Urine Color YELLOW Urine Appearance CLEAR Urine pH 5.0 Urine Specific [place] 1.014 Urine Protein NEG Urine Glucose (UA) NEG Urine Ketones NEG Urine Occult Blood NEG Urine Nitrite NEG Urine Bilirubin NEG Urine Urobilinogen NEG Urine Leukocyte Esterase MODERATE Urine WBC (Auto) 10-30 /hpf Urine RBC (Auto) 0-4 /hpf Urine Hyaline Casts (Auto) 1-5 /lpf Urine Epithelial Cells (Auto) 10-20 /lpf Urine Bacteria (Auto) NEG Urine Random Creatinine 59.0 mg/dl Urine Random Sodium 39 mEq/L Bedside Glucose 84 mg/dl White Blood Count 8.65 K/uL Red Blood Count 2.64 M/uL Hemoglobin 8.4 g/dL Hematocrit 25.6 % Mean Corpuscular Volume 97.0 fL Mean Corpuscular Hemoglobin 31.8 pg Mean Corpuscular Hemoglobin Concent 32.8 g/dl RDW Standard Deviation 46.8 fL RDW Coefficient of Variation 13.3 % Platelet Count 331 K/uL Mean Platelet Volume 9.9 fL Sodium Level 144 mmol/L Potassium Level 4.4 mmol/L Chloride Level 115 mmol/L Carbon Dioxide Level 22 mmol/L Anion Gap 7.0 mmol/L Blood Urea Nitrogen 38 mg/dl Creatinine 1.70 mg/dl Est Creatinine Clear Calc Drug Dose 34.6 ml/min Estimated GFR () 35.5 Estimated GFR (Non- 30.7 BUN/Creatinine Ratio 22.1 Random Glucose 79 mg/dl Calcium Level 8.1 mg/dl Triglycerides Level 113 mg/dl Cholesterol Level 106 mg/dl HDL Cholesterol 47 mg/dl LDL Cholesterol, Calculated 36 mg/dl VLDL Cholesterol, Calculated 23 mg/dl Cholesterol/HDL Ratio 2.3 Vitamin B12 Level 301 pg/mL Folate 9.71 ng/mL Hepatitis C Antibody Screen NEG Assessment and Plan This is a 65 year old female with PMH of CAD s/p stents x2, insulin dependent DM2, diabetic neuropathy s/p R metatarsal amputation, hypothyroidism, HTN, HLD, depression presents to the ER secondary to a mechanical fall, R hip pain, and subsequently found to have hypotension, OCDY, elevated troponin level, elevated TSH >30 Hypotension patient presented with SBP ~ 70 given IVFs with some improvement in BP further investigation revealed significantly elevated TSH > 30 ACTH stimulation test negative for adrenal insufficiency acute kidney injury also noted on blood work therefore, hypotension is most likely a combination of dehydration and hypothyroidism received a total of 3L since presentation Hypothyroidism significant hypothyroidism, with TSH > 30 possibly due to noncompliance? patient does not recall name or dose of drug she is supposed to take, but she does state that she takes this medication her home dose is 175mcg, which has been increased to 200mcg - repeat TSH in 6 weeks as outpatient Elevated Troponin in the setting of CAD patient has had two stents placed in the past at [facility] she has no chest pain or shortness of breath currently found to have elevated troponin level on admission reaching a peak of ~ 2 last troponin trending down slightly to 1.[address]-T wave changes noted on EKG appreciate cardiology input - not likely ACS related echocardiogram is pending Acute Kidney Injury there's possibly underlying chronic kidney disease (likely diabetic nephropathy) unsure of what the baseline creatinine is; probably around 1.5 came in with creatinine of 2.2 - giving IVFs and improved to 1.7, will monitor Uncontrolled DM2 will check Ha1c patient is supposed to be on Lantus 20 units at night and regular insulin BID insulin sliding scale ordered glycemic consult placed currently NPO, will monitor BSGs when diet is advanced Ambulatory Dysfunction multiple falls at home likely due to hypotension as well as R midfoot amputation PT/OT consulted Chronic Anemia, Iron Deficiency patient takes iron and gets iron infusions continue this as outpatient monitor for drop in H/H Depression continue home medications HLD Zocor changed to Lipitor continue Zetia DVT ppx subq heparin FULL CODE
--- NOTE | 2016-06-07 11:16 | CARDIOLOGY CONSULTATION ---
DATE OF CONSULTATION: 06/07/2016 SUBJECTIVE: This is a 65-year-old female who was admitted with multiple medical problems including hypothyroidism, possibly due to noncompliance with medications. After admission, she was noted to have elevated troponin, which is most likely multifactorial including metabolic derangement as well as renal insufficiency. She does have a history of coronary artery disease and received 2 stents at [facility]. Unfortunately, she is not a good historian in that regard. In any case, the cardiac troponins have not increased, but remain elevated, which is consistent with a noncardiac etiology and certainly not acute coronary syndrome. Her EKG remains stable. OBJECTIVE: VITAL SIGNS: Blood pressure is 110/70, pulse is regular at 80 beats per minute. She is in a sinus rhythm. She is afebrile. GENERAL: She is alert and oriented in no acute distress. HEENT: She is normocephalic. She wears corrective lenses. Mucous membranes are moist. NECK: The neck veins are flat. Carotids have good upstrokes bilaterally without bruits. Thyroid is nonpalpable. RESPIRATORY: Breath sounds equal bilaterally and clear to auscultation. CARDIOVASCULAR: Heart has a regular rhythm. Normal S1, S2. No S3, S4. No cardiac rubs or murmurs. GASTROINTESTINAL: Abdomen is soft, nontender without organomegaly. EXTREMITIES: Free of edema, digit clubbing, or cyanosis. NEUROLOGIC: Grossly intact. SKIN: Warm to touch. LYMPH NODES: Negative to palpation. LABORATORY DATA: Hemoglobin is 8.4. WBC count is 8.65, platelet count is 331, creatinine is 1.7, potassium is 4.4. IMPRESSION: 1. Hypothyroidism. 2. Iron deficiency anemia. 3. Diabetes mellitus. 4. Chronic renal insufficiency. 5. History of coronary artery disease with previous stents. 6. Peripheral vascular disease. 7. Questionable medication compliance. RECOMMENDATIONS: The patient is currently clinically stable. There are studies still pending including an echocardiogram which I will review when it is completed. As mentioned above, I think that this is a noncardiac elevation in troponins. I would continue to treat her hypothyroidism. I will have further recommendations once I have reviewed the echocardiogram.
--- NOTE | 2016-06-07 12:01 | Pharmacy Progress Note ---
Glycemic Control: Progress Nt Date of Service Jun 07, 2016. Scope Glycemic Pharmacist consulted by Dr Carlson on 06/06/16 for glycemic control and to write orders per [facility] inpatient glycemic control protocol. Objective Accuchecks BSG (last 24hrs): Test 06/06/16 16:27 06/06/16 20:11 06/07/16 06:28 06/07/16 06:30 Bedside Glucose 110 mg/dl (70-90) 163 mg/dl (70-90) 84 mg/dl (70-90) Random Glucose 79 mg/dl (70-99) Test 06/07/16 11:17 Bedside Glucose 74 mg/dl (70-90) Laboratory Data (last 24hrs) Test 06/07/16 06:30 Anion Gap 7.0 mmol/L BUN/Creatinine Ratio 22.1 Blood Urea Nitrogen 38 mg/dl Creatinine 1.70 mg/dl Hemoglobin A1c 7.0 % Potassium Level 4.4 mmol/L Sodium Level 144 mmol/L White Blood Count 8.65 K/uL HbA1c: Test 06/07/16 06:30 Hemoglobin A1c 7.0 %(4.5-5.6) H Recent Pertinent Medications Outpatient Anti-diabetic Regimen: * Lantus 20 units SQ q PM * Humulin R 10 units SQ BID with meals The patient is currently receiving: * Basal insulin: Lantus SQ every 12 hours (7 units if BSG is below 120mg/dL, 10 units if >/= 120mg/dL) * Correctional Insulin: NovoLog Correction per scale AC/HS Goal Range: Low 120 mg/dL - High 150 mg/dL Correction Factor: 30 mg/dL/unit * Prandial insulin: Per carb ratio of 1 unit per 10 grams CHO consumed Risk Factors for Insulin Resistance: * Diet: NPO --> T2DM Assessment & Plan ASSESSMENT: Initial: * Ms. Leon is a 65 y/o female admitted with rib pain s/p fall that occurred over the weekend * Her last A1c available indicates significantly uncontrolled diabetes (this was up from 7.4% in April 2015) * A1c resulted 06/07 --> back to 7% - possible outlier in January 2016? * Will plan to utilize basal + bolus insulin in the form of Lantus + NovoLog while she is an inpatient * ADA & AACE recommend a goal blood sugar range 140-180 mg/dl for the majority of critically ill & non-critically ill patients. However, more stringent targets may be selected in individual cases. 06/07/16 * Large decrease in BSGs overnight coupled with NPO status this AM * hold AM Lantus dose * NovoLog parameters per weight-based calculation * increase goal range to further prevent hypoglycemia and to be in accordance with ADA recommendations PLAN FOR INPATIENT GLYCEMIC CONTROL: * Basal insulin with Lantus SQ BID * 7 units if BSG is below 120mg/dL * 10 units if BSG is 120mg/dL or above * Bolus insulin with NovoLog SQ AC and HS * Goal Range: Low 140 mg/dL - High 180 mg/dL * Correction Factor: 30 mg/dL/unit * Carb ratio of 1 unit per 10 grams CHO consumed * A1c added to discharge instructions RECOMMENDATIONS FOR DISCHARGE: * Likely, the patient can continue home regimen based on an A1c of 7% * Please note that the plan above was derived based on current level of insulin resistance and hospital stress. These recommendations are appropriate for inpatient admission only. Plan of care upon discharge will need to be reassessed to avoid potential outpatient hypo/hyperglycemia. Thank you.
[2016-06-07] MEDS: CHOLECALCIFEROL 1000 INTER.UNIT TAB PO SCH (20:28)
[2016-06-07] MEDS: FERROUS SULFATE 325 MG TAB PO SCH (20:28)
[2016-06-07] MEDS: INSULIN GLARGINE SOLOSTAR 100 UNITS/ML 3 ML PEN SC SCH (20:31)
[2016-06-08 03:44] VITALS: BP 108/63; PULSE 72; TEMP 36.9; O2SAT 97
[2016-06-08] MEDS: LEVOTHYROXINE 200 MCG TAB PO SCH (05:35)
[2016-06-08] MEDS: HEPARIN SOD 5000 UNIT/0.5 ML CARP SQ SCH (05:36)
[2016-06-08 06:26] LABS: HEMATOCRIT 25.4 % (37-47); MEAN CELL VOLUME 98.1 fL (80-100); MEAN CORPUSCULAR HGB CONC 32.7 g/dl (32-36); MEAN PLATELET VOLUME 9.5 fL (7.4-10.4); PLATELET COUNT 301 K/uL (130-400); RED BLOOD COUNT 2.59 M/uL (4.2-5.4); WHITE BLOOD COUNT 6.42 K/uL (4.8-10.8)
[2016-06-08] MEDS: INSULIN ASPART 100 UNITS/ML 3 ML PEN SC SCH (07:00)
[2016-06-08 07:01] LABS: BUN/CREATININE RATIO 19.3 (10-20); CALCIUM 7.9 mg/dl (8.5-10.1); CREATININE 1.7 mg/dl (0.60-1.20); MAGNESIUM 2.3 mg/dl (1.8-2.4); POTASSIUM 4.5 mmol/L (3.5-5.1)
[2016-06-08 08:00] VITALS: O2SAT 97
[2016-06-08 08:05] VITALS: BP 111/69; PULSE 71; TEMP 36.8; O2SAT 97
[2016-06-08] MEDS: GABAPENTIN 400 MG CAP PO SCH (08:08)
[2016-06-08] MEDS: ATORVASTATIN 40 MG TAB PO SCH (08:08)
[2016-06-08] MEDS: VENLAFAXINE HCL 50 MG TAB PO SCH (08:08)
[2016-06-08] MEDS: EZETIMIBE 10MG TAB PO SCH (08:09)
[2016-06-08] MEDS: CALCIUM 600MG + VIT D 400 IU TAB PO SCH (08:09)
[2016-06-08] MEDS: ASCORBIC ACID 500 MG TAB PO SCH (08:09)
[2016-06-08] MEDS: PANTOprazole SOD 40 MG TAB PO SCH (08:09)
[2016-06-08] MEDS: ASPIRIN 325 MG ECTAB PO SCH (08:09)
[2016-06-08 08:20] VITALS: BP 99/61
[2016-06-08 10:00] VITALS: Ht 170.2 cm; Wt 78.4 kg
[2016-06-08] MEDS ORDERED: SODIUM CHLORIDE 0.9% 1000ML 1,000 ML IV SCH (10:00)
--- NOTE | 2016-06-08 10:08 | ECHOCARDIOGRAM REPORT ---
*NOTICE TO RECEIVING LIBERTARIAN AGENCY This information is strictly Confidential and protected under [place] law. [place] law prohibits you from making any further disclosure of this information unless further disclosure is expressly permitted by the written consent of the person to whom it pertains or is authorized by law. A general authorization for the release of medical or other information is not sufficient for this purpose. Hospital accepts no responsibility if the information is made available to any other person, INCLUDING THE PATIENT. Interpretation Summary * Name: IESHA WALDEN Study Date: 06/08/2016 06:43 AM BP: 102/62 mmHg * Patient Location: .2T\S\S237\S\1 HR: 75 * : 1950 (M/d/yy) Gender: Female Height: 67 in * Age: 65 yrs Ethnicity: [place] Weight: 169 lb * Ordering Physician: Jaylyn Carlson * Referring Physician: Self, Referred * Performed By: Laura Patton RCS * * Reason For Study: ELEVATED TROPONIN / R/O WALL MOTION ABNORMALITY * BSA: 1.9 m2 * -- Conclusions -- * The left ventricle is normal in size. * Left ventricular systolic function is normal. * Ejection Fraction = 50-55%. * The left ventricular wall motion is normal. * The right ventricular systolic function is normal. * The left atrial size is normal. * Right atrial size is normal. * No significant valvular pathology. Procedure Details * A complete two-dimensional transthoracic echocardiogram was performed (2D, M-mode, Doppler and color flow Doppler). Left Ventricle * The left ventricle is normal in size. * There is normal left ventricular wall thickness. * Left ventricular systolic function is normal. * Ejection Fraction = 50-55%. * The left ventricular wall motion is normal. Right Ventricle * The right ventricle is normal size. * The right ventricular systolic function is normal. Atria * The left atrial size is normal. * Right atrial size is normal. * The interatrial septum is intact with no evidence for an atrial septal defect. Mitral Valve * The mitral valve leaflets appear thickened, but open well. * Significant mitral regurgitation is absent. Tricuspid Valve * The tricuspid valve is not well visualized, but is grossly normal. * There is trace tricuspid regurgitation. Aortic Valve * The aortic valve is tricuspid. The leaflet thickness if normal. There is no aortic stenosis, and no significant insufficiency. * The aortic valve opens well. * There is no significant aortic regurgitation. Pulmonic Valve * The pulmonic valve is not well visualized. * There is no significant pulmonary regurgitation. Great Vessels * The aortic root and proximal ascending aorta are normal sized. Pericardium/Pleural * There is no pericardial effusion. Left Ventricular Diastolic Function * Grade I diastolic dysfunction, (abnormal relaxation pattern). MMode 2D Measurements and Calculations IVSd 1.4 cm IVSs 1.6 cm LVIDd 3.1 cm LVIDs 2.6 cm LVPWd 1.1 cm LVPWs 1.3 cm IVS/LVPW 1.3 FS 16.9 % EDV(Teich) 38.7 ml ESV(Teich) 24.5 ml EF(Teich) 36.6 % EDV(cubed) 30.5 ml ESV(cubed) 17.5 ml EF(cubed) 42.7 % % IVS thick 8.2 % % LVPW thick 23.3 % LV mass(C)d 125.0 grams LV mass(C)dI 66.4 grams/m\S\2 LV mass(C)s 123.6 grams LV mass(C)sI 65.7 grams/m\S\2 SV(Teich) 14.2 ml SI(Teich) 7.5 ml/m\S\2 SV(cubed) 13.0 ml SI(cubed) 6.9 ml/m\S\2 Ao root diam 3.8 cm Ao root area 11.4 cm\S\2 ACS 1.6 cm LA dimension 3.5 cm LA/Ao 0.92 LVOT diam 2.0 cm LVOT area 3.0 cm\S\2 LVAd ap4 27.5 cm\S\2 LVLd ap4 7.8 cm EDV(MOD-sp4) 77.9 ml EDV(sp4-el) 82.1 ml LVAs ap4 18.0 cm\S\2 LVLs ap4 6.5 cm ESV(MOD-sp4) 40.4 ml ESV(sp4-el) 42.0 ml EF(MOD-sp4) 48.1 % EF(sp4-el) 48.8 % LVAd ap2 32.4 cm\S\2 LVLd ap2 7.9 cm EDV(MOD-sp2) 107.1 ml EDV(sp2-el) 112.9 ml LVAs ap2 18.3 cm\S\2 LVLs ap2 6.4 cm ESV(MOD-sp2) 42.3 ml ESV(sp2-el) 44.1 ml EF(MOD-sp2) 60.5 % EF(sp2-el) 60.9 % LVLd %diff 0.55 % EDV(MOD-bp) 92.2 ml LVLs %diff -2.15 % ESV(MOD-bp) 41.2 ml EF(MOD-bp) 55.4 % SV(MOD-sp4) 37.4 ml SI(MOD-sp4) 19.9 ml/m\S\2 SV(MOD-sp2) 64.8 ml SI(MOD-sp2) 34.4 ml/m\S\2 SV(MOD-bp) 51.0 ml SI(MOD-bp) 27.1 ml/m\S\2 SV(sp4-el) 40.1 ml SI(sp4-el) 21.3 ml/m\S\2 SV(sp2-el) 68.7 ml SI(sp2-el) 36.5 ml/m\S\2 Doppler Measurements and Calculations MV E max johnnie 94.9 cm/sec MV A max johnnie 110.0 cm/sec MV E/A 0.86 MV P1/2t max johnnie 118.9 cm/sec MV P1/2t 78.9 msec MVA(P1/2t) 2.8 cm\S\2 MV dec slope 441.6 cm/sec\S\2 MV dec time 0.24 sec Ao V2 max 93.2 cm/sec Ao max PG 3.5 mmHg Ao max PG (full) 0.79 mmHg GENIE(V,A) 2.7 cm\S\2 GENIE(V,D) 2.7 cm\S\2 LV V1 max PG 2.7 mmHg LV V1 max 82.0 cm/sec MR max johnnie 568.6 cm/sec MR max PG 129.3 mmHg PA V2 max 78.9 cm/sec PA max PG 2.5 mmHg TR max johnnie 210.4 cm/sec
--- NOTE | 2016-06-08 10:33 | Pharmacy Progress Note ---
Glycemic Control: Progress Nt Date of Service Jun 08, 2016. Scope Glycemic Pharmacist consulted by Dr Carlson on 06/06/16 for glycemic control and to write orders per [facility] inpatient glycemic control protocol. Objective Accuchecks BSG (last 24hrs): Test 06/07/16 11:17 06/07/16 15:59 06/07/16 20:06 06/08/16 06:10 Bedside Glucose 74 mg/dl (70-90) 98 mg/dl (70-90) 166 mg/dl (70-90) Random Glucose 78 mg/dl (70-99) Laboratory Data (last 24hrs) Test 06/08/16 06:10 Anion Gap 4.0 mmol/L BUN/Creatinine Ratio 19.3 Blood Urea Nitrogen 33 mg/dl Creatinine 1.70 mg/dl Potassium Level 4.5 mmol/L Sodium Level 142 mmol/L White Blood Count 6.42 K/uL HbA1c: Test 06/07/16 06:30 Hemoglobin A1c 7.0 % (4.5-5.6) H Recent Pertinent Medications Outpatient Anti-diabetic Regimen: * Lantus 20 units SQ q PM * Humulin R 10 units SQ BID with meals The patient is currently receiving: * Basal insulin: Lantus SQ every 12 hours (7 units if BSG is below 120mg/dL, 10 units if >/= 120mg/dL) * Correctional Insulin: NovoLog Correction per scale AC/HS Goal Range: Low 140 mg/dL - High 180 mg/dL Correction Factor: 30 mg/dL/unit * Prandial insulin: Per carb ratio of 1 unit per 10 grams CHO consumed Risk Factors for Insulin Resistance: * Diet: T2DM Assessment & Plan ASSESSMENT: Initial: * Ms. Leon is a 65 y/o female admitted with rib pain s/p fall that occurred over the weekend * Her last A1c available indicates significantly uncontrolled diabetes (this was up from 7.4% in April 2015) * A1c resulted 06/07 --> back to 7% - possible outlier in January 2016? * large reduction in overall insulin needs? * Will plan to utilize basal + bolus insulin in the form of Lantus + NovoLog while she is an inpatient * ADA & AACE recommend a goal blood sugar range 140-180 mg/dl for the majority of critically ill & non-critically ill patients. However, more stringent targets may be selected in individual cases. 06/08/16 * Large decrease in BSGs overnight again despite further reduction in basal insulin yesterday * reduce Lantus to once daily dosing only * NovoLog parameters per weight-based calculation * no change at this time - not requiring any correctional insulin at this time PLAN FOR INPATIENT GLYCEMIC CONTROL: * Basal insulin with Lantus SQ q PM * 7 units if BSG is below 140mg/dL * 10 units if BSG is 140mg/dL or above * Bolus insulin with NovoLog SQ AC and HS * Goal Range: Low 140 mg/dL - High 180 mg/dL * Correction Factor: 30 mg/dL/unit * Carb ratio of 1 unit per 10 grams CHO consumed * A1c added to discharge instructions RECOMMENDATIONS FOR DISCHARGE: * Likely, the patient can continue home regimen based on an A1c of 7% unless experiencing hypoglycemia (pt requiring significantly less insulin currently compared to home regimen). * Please note that the plan above was derived based on current level of insulin resistance and hospital stress. These recommendations are appropriate for inpatient admission only. Plan of care upon discharge will need to be reassessed to avoid potential outpatient hypo/hyperglycemia. Thank you.
--- NOTE | 2016-06-08 11:37 | Progress Note ---
Subjective Date of Service: Jun 08, 2016. Subjective Pt evaluation today including: conversation w/ patient, conversation w/ family , physical exam, lab review, review of studies, conversation w/ environmental remediation consultant, review of inpatient medication list Saw/examined the patient in room 237 She is out of bed in a wheelchair, dressed in her home clothes and states she's doing fine with no complaints Denies chest pain/shortness of breath/palpitations Problem List Medical Problems: (1) Acute kidney injury Status: Acute (2) Ambulatory dysfunction Status: Acute (3) Arrhythmia Status: Acute (4) Generalized weakness Status: Acute (5) Hypotension Status: Acute (6) Hypotension Status: Acute (7) Hypothyroidism Status: Acute (8) Numbness Status: Acute (9) Sepsis Status: Acute (10) Weakness Status: Acute Review of Systems Constitutional: + weakness, No chills, No fever Respiratory: No cough, No shortness of breath, No sputum Cardiac: No chest pain, No edema, No palpitations Abdomen: No diarrhea, No nausea, No pain, No vomiting Neurologic: No balance problems, No vertigo Medications Current Inpatient Medications Medications (Trade) Dose Ordered Sig/Sadie Route Start Time Stop Time Status Last Admin Dose Admin Heparin Sodium (Porcine) (Heparin Sq 5000 Unit/0.5ml) 5,000 unit Q8 SQ 06/06/16 22:00 07/06/16 21:59 06/08/16 05:36 5,000 UNIT Acetaminophen (Tylenol Tab) 650 mg Q4H PRN PO 06/06/16 14:00 07/06/16 13:59 Ondansetron HCl (Zofran Inj) 4 mg Q6H PRN IV 06/06/16 14:00 07/06/16 13:59 Nitroglycerin (Nitrostat Tab) 0.4 mg UD PRN SL 06/06/16 14:00 07/06/16 13:59 Morphine Sulfate (MoRPHine SULFATE INJ) 2 mg Q2H PRN IV 06/06/16 14:00 06/20/16 13:59 Polyethylene (Miralax Powder Packet) 17 gm DAILY PRN PO 06/06/16 14:00 07/06/16 13:59 Insulin Aspart (novoLOG ASPART) SLIDING SCALE If C... ACHS SC 06/06/16 16:00 07/06/16 15:59 06/06/16 21:12 1 UNITS Glucose (Glucose 40% Gel) 15-30 GRAMS 15 GRAMS... UD PRN PO 06/06/16 14:00 07/06/16 13:59 Glucose (Glucose Chew Tab) 4-8 Tablets 4 Tabl... UD PRN PO 06/06/16 14:00 07/06/16 13:59 Dextrose (Dextrose 50% 50ML Syringe) 25-50ML OF 50% DW IV FOR... UD PRN IV 06/06/16 14:00 07/06/16 13:59 Glucagon (Glucagon Inj) 1 mg UD PRN SQ 06/06/16 14:00 07/06/16 13:59 Miscellaneous Information (Consult Glycemic Management Pharmacy) 1 ea UD PRN N/A 06/06/16 14:24 07/06/16 14:23 EZETIMIBE (Zetia Tab) 10 mg QAM PO 06/07/16 09:00 07/07/16 08:59 06/08/16 08:09 10 MG Gabapentin (Neurontin Cap) 400 mg TID PO 06/06/16 21:00 07/06/16 20:59 06/08/16 08:08 400 MG Venlafaxine HCl (effeXOR TAB) 100 mg BID PO 06/06/16 21:00 07/06/16 20:59 06/08/16 08:08 100 MG Aspirin (Ecotrin Tab) 325 mg QAM PO 06/07/16 09:00 07/07/16 08:59 06/08/16 08:09 325 MG Ascorbic Acid (Vitamin C Tab) 500 mg QAM PO 06/07/16 09:00 07/07/16 08:59 06/08/16 08:09 500 MG Calcium/Vitamin D (Caltrate Plus Tab) 1 tab BIDM PO 06/06/16 16:45 07/06/16 17:59 06/08/16 08:09 1 TAB Cholecalciferol (Vitamin D Tab) 2,000 inter.unit QPM PO 06/06/16 21:00 07/06/16 20:59 06/07/16 20:28 2,000 INTER.UNIT Ferrous Sulfate (Feosol Tab) 325 mg QPM PO 06/06/16 21:00 07/06/16 20:59 06/07/16 20:28 325 MG Pantoprazole Sodium (Protonix Tab) 40 mg QAM PO 06/07/16 09:00 07/07/16 08:59 06/08/16 08:09 40 MG Levothyroxine Sodium (Synthroid Tab) 200 mcg DAILYBB PO 06/07/16 06:00 07/07/16 06:59 06/08/16 05:35 200 MCG Atorvastatin Calcium (Lipitor Tab) 80 mg QAM PO 06/07/16 09:00 07/07/16 08:59 06/08/16 08:08 80 MG Insulin Glargine SEE PROTOCOL TEXT HS SC 06/08/16 21:00 07/08/16 20:59 Sodium Chloride (Nss 1000ml) 1,000 ml @ 80 mls/hr [id number] IV 06/08/16 10:00 07/08/16 09:59 06/08/16 10:10 80 MLS/HR Objective Vital Signs Date Time Temp Pulse Resp B/P Pulse Ox O2 Delivery O2 Flow Rate FiO2 06/08/16 08:20 99/61 06/08/16 08:05 36.8 71 18 111/69 97 Room Air 06/08/16 08:00 97 Room Air 06/08/16 04:00 Room Air 06/08/16 03:44 36.9 72 16 108/63 97 Room Air 06/08/16 00:00 Room Air 06/07/16 23:10 84 18 75/40 97 Room Air 06/07/16 23:07 83 16 80/44 98 Room Air 06/07/16 23:05 37.0 73 16 97/58 96 Room Air 06/07/16 20:00 Room Air 06/07/16 19:31 37.1 78 18 94/55 96 Room Air 06/07/16 16:04 77 88/52 06/07/16 16:02 73 112/69 06/07/16 16:00 36.8 70 20 89/54 98 Room Air 06/07/16 16:00 Room Air 06/07/16 12:00 Room Air 06/07/16 11:34 37.3 75 18 109/69 96 Room Air Physical Exam General Appearance: no apparent distress Respiratory/Chest: chest non-tender, lungs clear, normal breath sounds, no respiratory distress, no accessory muscle use Cardiovascular: regular rate, rhythm, no edema, no murmur Extremities: + pertinent finding (R forefoot amputation) Neurologic/Psychiatric: no motor/sensory deficits, alert, normal mood/affect Laboratory Results Last 24 Hours Test 06/07/16 15:59 06/07/16 20:06 06/08/16 06:10 Bedside Glucose 98 mg/dl 166 mg/dl White Blood Count 6.42 K/uL Red Blood Count 2.59 M/uL Hemoglobin 8.3 g/dL Hematocrit 25.4 % Mean Corpuscular Volume 98.1 fL Mean Corpuscular Hemoglobin 32.0 pg Mean Corpuscular Hemoglobin Concent 32.7 g/dl RDW Standard Deviation 47.8 fL RDW Coefficient of Variation 13.6 % Platelet Count 301 K/uL Mean Platelet Volume 9.5 fL Sodium Level 142 mmol/L Potassium Level 4.5 mmol/L Chloride Level 114 mmol/L Carbon Dioxide Level 24 mmol/L Anion Gap 4.0 mmol/L Blood Urea Nitrogen 33 mg/dl Creatinine 1.70 mg/dl Est Creatinine Clear Calc Drug Dose 34.6 ml/min Estimated GFR () 35.5 Estimated GFR (Non- 30.7 BUN/Creatinine Ratio 19.3 Random Glucose 78 mg/dl Calcium Level 7.9 mg/dl Magnesium Level 2.3 mg/dl Assessment and Plan This is a 65 year old female with PMH of CAD s/p stents x2, insulin dependent DM2, diabetic neuropathy s/p R metatarsal amputation, hypothyroidism, HTN, HLD, depression presents to the ER secondary to a mechanical fall, R hip pain, and subsequently found to have hypotension, CODY, elevated troponin level, elevated TSH >30 Hypotension 06/08 much improved blood pressure likely a combination of dehydration and hypothyroid 06/07 patient presented with SBP ~ 70 given IVFs with some improvement in BP further investigation revealed significantly elevated TSH > 30 ACTH stimulation test negative for adrenal insufficiency acute kidney injury also noted on blood work therefore, hypotension is most likely a combination of dehydration and hypothyroidism received a total of 3L since presentation Hypothyroidism significant hypothyroidism, with TSH > 30 possibly due to noncompliance? patient does not recall name or dose of drug she is supposed to take, but she does state that she takes this medication her home dose is 175mcg, which has been increased to 200mcg - repeat TSH in 6 weeks as outpatient Elevated Troponin in the setting of CAD 4/26 echo with no significant findings; good LVEF 06/07 patient has had two stents placed in the past at [facility] she has no chest pain or shortness of breath currently found to have elevated troponin level on admission reaching a peak of ~ 2 last troponin trending down slightly to 1.[address]-T wave changes noted on EKG appreciate cardiology input - not likely ACS related echocardiogram is pending Acute Kidney Injury 06/08 creat = 1.7 outpatient BMP 06/07 there's possibly underlying chronic kidney disease (likely diabetic nephropathy) unsure of what the baseline creatinine is; probably around 1.5 came in with creatinine of 2.2 - giving IVFs and improved to 1.7, will monitor Uncontrolled DM2 will check Ha1c patient is supposed to be on Lantus 20 units at night and regular insulin BID insulin sliding scale ordered glycemic consult placed currently NPO, will monitor BSGs when diet is advanced Ambulatory Dysfunction PT recommendation = home multiple falls at home likely due to hypotension as well as R midfoot amputation PT/OT consulted Chronic Anemia, Iron Deficiency patient takes iron and gets iron infusions continue this as outpatient monitor for drop in H/H Depression continue home medications HLD Zocor changed to Lipitor continue Zetia DVT ppx subq heparin FULL CODE Discharge planning: home
[2016-06-08] MEDS ORDERED: SIMV40TA4 PO (11:49)
[2016-06-08] MEDS ORDERED: LEVO200T PO (11:49)
--- NOTE | 2016-06-08 11:54 | Discharge Instructions ---
Discharge Instructions Date of Service Jun 08, 2016. Admission Reason for Admission: Weakness Generalized Discharge Discharge Diagnosis / Problem: Hypotension, Hypothyroid, Acute Kidney Injury, Weakness Discharge Goals Goal(s): Decrease discomfort, Improve function, Diagnostic testing, Therapeutic intervention Activity Recommendations Activity Limitations: resume your previous activity . Instructions / Follow-Up Instructions / Follow-Up Please follow-up with your primary care doctor Please follow-up with your aircraft stress analyst * Your dose of synthroid is increased to 200mcg - please take this every day * TSH should be rechecked in 4-6 weeks * You should get blood work next week and follow-up with your primary care to recheck kidney function and hemoglobin level Current Hospital Diet Patient's current hospital diet: AHA Diet (Heart Healthy), Diabetes Type 2 Diet Discharge Diet Recommended Diet: AHA Diet (Heart Healthy), Diabetes Type 2 Diet Pending Studies Studies pending at discharge: no Laboratory Results Hemoglobin A1c Test 06/07/16 06:30 Range/Units Estimated Average Glucose 154 mg/dl Hemoglobin A1c 7.0 H 4.5-5.6 % Lipid Panel Test 06/07/16 06:30 Range/Units Triglycerides Level 113 0-150 mg/dl Cholesterol Level 106 0-200 mg/dl HDL Cholesterol 47 mg/dl Cholesterol/HDL Ratio 2.3 LDL Cholesterol, Calculated 36 mg/dl Medical Emergencies . Who to Call and When: Medical Emergencies: If at any time you feel your situation is an emergency, please call 911 immediately. . Non-Emergent Contact Non-Emergency issues call your: Primary Care Provider, Specialist ( [employer]) . . "Provider Documentation" section prepared by Julio César Wagner. . VTE Core Measure Inpt VTE Proph given/why not?: Unfractionated heparin SQ
--- NOTE | 2016-06-08 11:56 | Discharge Summary ---
Discharge Summary Date of Service Jun 08, 2016. Discharge Summary Admission Date: Jun 06, 2016 at 13:09 Discharge Date: Jun 08, 2016 Discharge Disposition: Home Principal Diagnosis: Hypotension Acute Kidney Injury Hypothyroidism Elevated Troponin - likely non-cardiac Medication Reconciliation Changed Medications: Levothyroxine Sodium (Synthroid) 200 Mcg Tab 1 TAB PO DAILY for 30 Days, #30 TAB 5 Refills (Changed from: Levothyroxine Sodium 175 Mcg Tab 175 Mcg PO QAM 90 Days #90 TAB Ref 3) Simvastatin (Zocor) 40 Mg Tab 1 TAB PO HS for 30 Days, #30 TAB 5 Refills (Changed from: Simvastatin (Zocor) 10 Mg Tab 10 Mg PO QPM) Continued Medications: Ascorbic Acid (Vitamin C) 1,000 Mg Tab 1000 MG PO QAM Aspirin (Aspirin Chewable) 81 Mg Chew 81 MG PO QAM Calcium Carbonate-Vitamin D (Calcium/Vitamin D3) 1 Tab Tab 1 TAB PO QAM Cholecalciferol (Vitamin D) 2,000 Unit Tab 2000 UNITS PO QAM Ezetimibe (Zetia) 10 Mg Tab 10 MG PO QAM, TAB Ferrous Sulfate (Iron) 325 Mg Tab 325 MG PO QAM Gabapentin (Neurontin) 400 Mg Cap 400 MG PO TID, CAP Insulin Glargine (Lantus) 100 Unit/Ml Inj 20 UNITS SC QPM, VIAL Insulin Human Regular (Humulin R) 100 Units/Ml Susp 10 UNITS SC BID take with meals Lisinopril (Prinivil) 5 Mg Tab 5 MG PO QAM, TAB Lubiprostone (Amitiza) 24 Mcg Cap 1 CAP PO BID for 30 Days, #60 CAP 3 Refills Mirabegron (Myrbetriq Er) 50 Mg Tab 50 MG PO QAM Omeprazole (Prilosec) 40 Mg Cap 40 MG PO DAILY, CAP Pumpkin Seed-Soy Germ (Azo Bladder Control/Go-Le) 1 Cap Cap 1 CAP PO HS Pumpkin Seed-Soy Germ (Azo Bladder Control/Go-Le) 1 Cap Cap 1 CAP PO HS Venlafaxine Hcl (Effexor) 100 Mg Tab 100 MG PO BID, TAB Admission Information HPI (per Admitting provider): 65 yo female with hypothyroidism presents today after a mechanical fall at home where she fell on her right side after tripping. She states that she has some right rib pain that moves into her mid-back area, and she is TTP on R lower thoracic paraspinal muscles. She was found to be hypotensive with initial BP 71 /44 and she reports cold intolerance, decreased appetite, lethargy, increased sleeping, increased generalized weakness with difficulty transferring out of wheelchair, constipation and nausea. She is wheelchair-bound after a R midfoot amputation and is currently undergoing PT as an outpatient. Her is her principal programmer at home. She otherwise denies any fevers, chills, chest pain, shortness of breath, vomiting, diarrhea, overt bleeding or blood per rectum. reports that she is receiving iron infusions for anemia. He also states that she was recently taken off Janumet one month ago out of concern for her worsening renal function with a goal to titrate her insulin (HbA1C). She has depression and started smoking again roughly 8 months ago--history is that she hadn't been a smoker since she was 28 yrs old. She denies any lightheadedness, numbness and tingling, loss of use of her limbs or any focal deficits, no issues with swallowing or speaking and has no residual deficits since a stroke 2 years ago. She is notably on a baby aspirin daily instead of ASA 325mg and /pt are not sure why. She was last admitted to this hospital April 2015 with a similar presentation and an elevated TSH at that time. Her Synthroid was adjusted and she was sent for outpatient follow-up. Outpatient notes are not available for review at this time, however, her states that she has been going to see Dr. William Cohen regularly. Her current dose of Synthroid is 175mcg PO daily, and she was recently told to stop taking her iron and vitamin C supplements with her Synthroid (she doesn't take it by itself). She also sees Dr. Lane for CAD with a h/o 2 stents, and her PCP is Dr. Trivedi. In the ER she was given 1L IVF with appropriate increase in BP to normal range. Her temp is normal and she is not bradycardic. Physical Exam (per Admitting): General Appearance: WD/WN, no apparent distress Head: normocephalic, atraumatic Eyes: normal inspection, PERRL, EOMI, sclerae normal ENT: normal ENT inspection, hearing grossly normal, pharynx normal Neck: supple, no adenopathy, no JVD, trachea midline Respiratory/Chest: chest non-tender, lungs clear, normal breath sounds, no respiratory distress Cardiovascular: regular rate, rhythm, no edema, no murmur Abdomen/GI: normal bowel sounds, non tender, soft Back: normal inspection, no CVA tenderness, + paravertebral tenderness Extremities/Musculoskelatal: + pertinent finding (midfoot admputation on the right foot, well-healed scars, no wounds, decreased sensation on L foot sole ) Neurologic/Psych: body recall instructor II-XII nml as tested, alert, normal reflexes, oriented x 3, + sensory deficit (bottom of L foot decreased), + depressed affect Skin: normal color Hospital Course This is a 65 year old female with PMH of CAD s/p stents x2, insulin dependent DM2, diabetic neuropathy s/p R metatarsal amputation, hypothyroidism, HTN, HLD, depression presents to the ER secondary to a mechanical fall, R hip pain, and subsequently found to have hypotension, CODY, elevated troponin level, elevated TSH >30 Hypotension 06/08 much improved blood pressure likely a combination of dehydration and hypothyroid 06/07 patient presented with SBP ~ 70 given IVFs with some improvement in BP further investigation revealed significantly elevated TSH > 30 ACTH stimulation test negative for adrenal insufficiency acute kidney injury also noted on blood work therefore, hypotension is most likely a combination of dehydration and hypothyroidism received a total of 3L since presentation Hypothyroidism significant hypothyroidism, with TSH > 30 possibly due to noncompliance? patient does not recall name or dose of drug she is supposed to take, but she does state that she takes this medication her home dose is 175mcg, which has been increased to 200mcg - repeat TSH in 6 weeks as outpatient Elevated Troponin in the setting of CAD 06/08 echo with no significant findings; good LVEF 06/07 patient has had two stents placed in the past at [facility] she has no chest pain or shortness of breath currently found to have elevated troponin level on admission reaching a peak of ~ 2 last troponin trending down slightly to 1.[address]-T wave changes noted on EKG appreciate cardiology input - not likely ACS related echocardiogram is pending Acute Kidney Injury 06/08 creat = 1.7 outpatient BMP 06/07 there's possibly underlying chronic kidney disease (likely diabetic nephropathy) unsure of what the baseline creatinine is; probably around 1.5 came in with creatinine of 2.2 - giving IVFs and improved to 1.7, will monitor Uncontrolled DM2 will check Ha1c patient is supposed to be on Lantus 20 units at night and regular insulin BID insulin sliding scale ordered glycemic consult placed currently NPO, will monitor BSGs when diet is advanced Ambulatory Dysfunction PT recommendation = home multiple falls at home likely due to hypotension as well as R midfoot amputation PT/OT consulted Chronic Anemia, Iron Deficiency patient takes iron and gets iron infusions continue this as outpatient monitor for drop in H/H Depression continue home medications HLD Zocor changed to Lipitor continue Zetia DVT ppx subq heparin FULL CODE Discharge planning: home Total time spent on discharge = 35 minutes This includes examination of the patient, discharge planning, medication reconciliation, and communication with other providers. Discharge Instructions Please follow-up with your primary care doctor Please follow-up with your poacher operator * Your dose of synthroid is increased to 200mcg - please take this every day * TSH should be rechecked in 4-6 weeks * You should get blood work next week and follow-up with your primary care to recheck kidney function and hemoglobin level
[2016-06-08 12:00] VITALS: O2SAT 97
[2016-06-08 12:17] VITALS: BP 99/61; PULSE 71; TEMP 36.8; O2SAT 97
[2016-06-08] MEDS ORDERED: INSULIN GLARGINE SOLOSTAR 100 UNITS/ML 3 ML PEN SC SCH (21:00)
[2016-10-20] MEDS ORDERED: EZET10TA63 PO (10:16)
[2016-10-20] MEDS ORDERED: FERR1TAB23 PO (10:16)
[2016-10-20] MEDS ORDERED: INSHRIE SC (10:16)
[2016-10-20] MEDS ORDERED: INSDGI SC (10:16)
[2016-10-20] MEDS ORDERED: GABA1CAP5 PO (10:16)
[2016-10-20] MEDS ORDERED: PUMP1CAP PO (10:16)
[2016-10-20] MEDS ORDERED: VENL100T2 PO (10:16)
[2016-10-20] MEDS ORDERED: CHOL20009 PO (10:16)
[2016-10-20] MEDS ORDERED: ASCO10003 PO (10:16)
[2016-10-20] MEDS ORDERED: LISI-729 PO (10:16)
[2016-10-20] MEDS ORDERED: OMEP40CA41 PO (11:32)
[2016-10-20] MEDS ORDERED: LEVO125T5 PO (15:16)
[2016-10-25] MEDS ORDERED: FERR1TAB23 PO (09:15)
[2016-10-25] MEDS ORDERED: INSDGI SC (09:15)
[2016-10-25] MEDS ORDERED: NVLGIPEN SC (09:15)
[2016-10-25] MEDS ORDERED: CYNI1000 IM (09:17)
[2016-10-25] MEDS ORDERED: IPRA1AER2 INH (11:07)
[2016-10-25] MEDS ORDERED: GFNSR600 PO (11:07)
[2016-10-31] MEDS ORDERED: INSDGI SC (12:57)
[2016-10-31] MEDS ORDERED: AMOX500C3 PO (12:57)
[2016-11-09] MEDS ORDERED: CYNI1000 IM (07:39)
[2016-11-11] MEDS ORDERED: DFL100 PO (13:52)
[2016-11-11] MEDS ORDERED: FLUD0.1T PO (13:52)
[2016-12-01] MEDS ORDERED: INSDGI SC (10:43)
[2016-12-01] MEDS ORDERED: FLUD0.1T10 PO (10:43)
[2016-12-01] MEDS ORDERED: FERR1TAB13 PO (10:43)
[2016-12-01] MEDS ORDERED: CYAN100074 INJ (10:43)
[2016-12-01] MEDS ORDERED: INSHRIE SC (10:43)
[2016-12-01] MEDS ORDERED: MIRA1TAB3 PO (10:43)
== END 2016-06-08 12:50 | disposition home or self-care (01) | DRG 644 ==
LOC: ENRESERVTM → ENRESERVDT → C.EDB 10:11 → C.2T 13:09
PROVIDERS: ADMIT Hospitalist; ATTEND Family Medicine
DX: E03.9 Hypothyroidism, unspecified (principal); N17.9 Acute kidney failure, unspecified; I95.9 Hypotension, unspecified; E11.65 Type 2 diabetes mellitus with hyperglycemia; I25.10 Atherosclerotic heart disease of native coronary artery without angina pectoris; N18.2 Chronic kidney disease, stage 2 (mild); F32.9 Major depressive disorder, single episode, unspecified; F17.210 Nicotine dependence, cigarettes, uncomplicated; E11.21 Type 2 diabetes mellitus with diabetic nephropathy; D50.9 Iron deficiency anemia, unspecified; E86.0 Dehydration; E78.5 Hyperlipidemia, unspecified; E11.40 Type 2 diabetes mellitus with diabetic neuropathy, unspecified; I73.9 Peripheral vascular disease, unspecified; M25.551 Pain in right hip; K59.00 Constipation, unspecified; I12.9 Hypertensive chronic kidney disease with stage 1 through stage 4 chronic kidney disease, or unspecified chronic kidney disease; E11.22 Type 2 diabetes mellitus with diabetic chronic kidney disease; W01.0XXA Fall on same level from slipping, tripping and stumbling without subsequent striking against object, initial encounter; R79.89 Other specified abnormal findings of blood chemistry; R26.9 Unspecified abnormalities of gait and mobility; R29.6 Repeated falls; Z98.84 Bariatric surgery status; Z86.73 Personal history of transient ischemic attack (TIA), and cerebral infarction without residual deficits; Z91.19 Patient's noncompliance with other medical treatment and regimen; Y92.009 Unspecified place in unspecified non-institutional (private) residence as the place of occurrence of the external cause; Z89.439 Acquired absence of unspecified foot; Z95.5 Presence of coronary angioplasty implant and graft; Z79.899 Other long term (current) drug therapy; Z79.82 Long term (current) use of aspirin; Z79.4 Long term (current) use of insulin; Z86.79 Personal history of other diseases of the circulatory system

== ENCOUNTER → 2016-06-23 | Outpatient (CLI) | payer OTHER ==
[~2016-06-23] MED LIST changes: +AMOX500C3 PO; +ASCO10003 PO; +ASPI81TA85 PO; +BACI500O11 TOP; +CALC-574 PO; +CHOL20009 PO; +CLOP1TAB15 PO; -CYAN10005 SL; +CYAN100074 INJ; -CYCL5TAB PO; +CYNI1000 IM; +DFL100 PO; +EZET10TA63 PO; +FERR1TAB13 PO; +FERR1TAB23 PO; +FLUD0.1T PO; +FLUD0.1T10 PO; +GABA1CAP5 PO; +GFNSR600 PO; +INSDGI SC; +INSHRIE SC; +IPRA1AER2 INH; +LEVO125T5 PO; -LEVO175T3 PO; +LEVO200T PO; +LISI-729 PO; +METF500T5 PO; +NVLGIPEN SC; +OMEP40CA41 PO; +POLY335019 PO; +PUMP1CAP PO; +SIMV40TA4 PO; -SITA50TA5 PO; +SULF800T23 PO; +VENL100T2 PO; +ZYBKIT PO
[2016-06-23 12:00] LABS: HEMATOCRIT 29.3 % (37-47)
[2016-06-23 12:28] LABS: ESTIMATED AVERAGE GLUCOSE 134 mg/dl; HA1C FLAG Normal (Normal)
[2016-06-23 12:48] LABS: BLOOD UREA NITROGEN 28 mg/dl (7-18); BUN/CREATININE RATIO 17.3 (10-20); CARBON DIOXIDE 24 mmol/L (21-32); CHLORIDE 110 mmol/L (98-107); GLUCOSE 177 mg/dl (70-99); POTASSIUM 4.1 mmol/L (3.5-5.1); SODIUM 141 mmol/L (136-145)
[2016-06-23 13:02] LABS: CALCIUM 9.2 mg/dl (8.5-10.1)
== END | disposition home or self-care (01) ==
LOC: C.LAB 10:59
PROVIDERS: ATTEND Internal Medicine Endocrinology, Diabetes & Metabolism
DX: E03.9 Hypothyroidism, unspecified (principal); E11.9 Type 2 diabetes mellitus without complications; I10 Essential (primary) hypertension

== ENCOUNTER → 2016-07-01 | Outpatient (CLI) | payer OTHER ==
[2016-07-01 17:41] LABS: CHOLESTEROL/HDL RATIO 4.2
== END | disposition home or self-care (01) ==
LOC: C.LABPBG 11:17
PROVIDERS: ATTEND Physician Assistant
DX: E78.5 Hyperlipidemia, unspecified (principal)

== ENCOUNTER → 2016-07-26 | Outpatient (CLI) | payer OTHER ==
[2016-07-26 17:29] LABS: HEMATOCRIT 36.5 % (37-47); MEAN CELL VOLUME 94.8 fL (80-100); MEAN CORPUSCULAR HEMOGLOBIN 30.4 pg (25-34); MEAN CORPUSCULAR HGB CONC 32.1 g/dl (32-36); MEAN PLATELET VOLUME 10.9 fL (7.4-10.4); PLATELET COUNT 461 K/uL (130-400); RED BLOOD COUNT 3.85 M/uL (4.2-5.4); WHITE BLOOD COUNT 5.44 K/uL (4.8-10.8)
[2016-07-26 17:36] LABS: URINE APPEARANCE CLEAR (CLEAR); URINE BILIRUBIN NEG (NEG); URINE COLOR YELLOW; URINE EPITHELIAL CELL AUTO >30 /lpf (0-5); URINE NITRITE NEG (NEG); UROBILINOGEN NEG (NEG)
[2016-07-26 17:37] LABS: MANUAL MICROSCOPIC REQUIRED? NO; REVIEW REQ? NO
[2016-07-26 17:51] LABS: URINE PROTIEN/CREAT RATIO 0.7 (0-0.2); URINE TOTAL PROTEIN 83.1 mg/dl (0-11.9)
[2016-07-26 18:25] LABS: BLOOD UREA NITROGEN 33 mg/dl (7-18); BUN/CREATININE RATIO 20.4 (10-20); CARBON DIOXIDE 24 mmol/L (21-32); CHLORIDE 111 mmol/L (98-107); GLUCOSE 82 mg/dl (70-99); POTASSIUM 4.2 mmol/L (3.5-5.1); SODIUM 143 mmol/L (136-145)
[2016-07-26 18:31] LABS: FERRITIN 120.8 ng/ml (8.0-388.0); PHOSPHORUS 4.2 mg/dl (2.5-4.9); TOTAL IRON BINDING CAPACITY 273 mcg/dl (250-450)
== END | disposition home or self-care (01) ==
LOC: C.LABPBG 13:47
PROVIDERS: ATTEND Internal Medicine Nephrology
DX: N18.3 Chronic kidney disease, stage 3 (moderate) (principal); D50.9 Iron deficiency anemia, unspecified

== ENCOUNTER → 2016-10-18 | Outpatient (CLI) | payer OTHER ==
[~2016-10-18] MED LIST changes: -BACI500O11 TOP; -CYAN100074 INJ; -FERR1TAB13 PO; +FLR1 PO; -FLUD0.1T PO; -FLUD0.1T10 PO; +LEVO125T4 PO; -LEVO125T5 PO; -SULF800T23 PO
[2016-10-18 18:00] LABS: MEAN CELL VOLUME 92.3 fL (80-100); MEAN CORPUSCULAR HGB CONC 34.7 g/dl (32-36); MEAN PLATELET VOLUME 11.4 fL (7.4-10.4); PLATELET COUNT 340 K/uL (130-400); RED BLOOD COUNT 4.66 M/uL (4.2-5.4); WHITE BLOOD COUNT 5.68 K/uL (4.8-10.8)
[2016-10-18 18:05] LABS: BLOOD UREA NITROGEN 30 mg/dl (7-18); BUN/CREATININE RATIO 18.6 (10-20); CALCIUM 8.9 mg/dl (8.5-10.1); CARBON DIOXIDE 26 mmol/L (21-32); CHLORIDE 110 mmol/L (98-107); GLUCOSE 196 mg/dl (70-99); POTASSIUM 3.9 mmol/L (3.5-5.1); SODIUM 141 mmol/L (136-145)
[2016-10-18 18:06] LABS: PHOSPHORUS 3.9 mg/dl (2.5-4.9)
== END | disposition home or self-care (01) ==
LOC: C.LABPBG 12:29
PROVIDERS: ATTEND Internal Medicine Nephrology
DX: N18.3 Chronic kidney disease, stage 3 (moderate) (principal)

== ENCOUNTER 2016-10-20 14:34 | Inpatient (IN) | payer OTHER ==
[~2016-10-20] VITALS: Ht 170.2 cm; Wt 80.3 kg
[~2016-10-20 14:34] MED LIST changes: -AMOX500C3 PO; -ASPI81TA85 PO; -CALC-574 PO; -CLOP1TAB15 PO; -CYNI1000 IM; -DFL100 PO; -FLR1 PO; -GFNSR600 PO; -IPRA1AER2 INH; -LEVO125T4 PO; -METF500T5 PO; -NVLGIPEN SC; -POLY335019 PO; -SIMV10TA2 PO; -ZYBKIT PO
[2016-10-20] MEDS ORDERED: SODIUM CHLORIDE 0.9% 1000ML 2,000 ML IV STA (15:02)
[2016-10-20] MEDS ORDERED: ZYBKIT PO (15:16)
[2016-10-20] MEDS ORDERED: CALC-574 PO (15:16)
[2016-10-20] MEDS ORDERED: ASPI81TA85 PO (15:16)
[2016-10-20] MEDS ORDERED: LEVO125T4 PO (15:16)
[2016-10-20] MEDS ORDERED: SIMV10TA2 PO (15:19)
[2016-10-20] MEDS ORDERED: METF500T5 PO (15:28)
[2016-10-20] MEDS ORDERED: POLY335019 PO (15:28)
[2016-10-20] MEDS ORDERED: CLOP1TAB15 PO (15:28)
[2016-10-20 15:30] LABS: BASO % 0.6 %; BASO ABS # 0.04 K/uL (0-0.2); COMPLETE YES; EOS % 0.7 %; HEMATOCRIT 39.3 % (37-47); IG% 0.3 %; LYMPH % 16.8 %; LYMPH ABS # 1.19 K/uL (1.2-3.4); MEAN CELL VOLUME 92.5 fL (80-100); MEAN CORPUSCULAR HEMOGLOBIN 31.5 pg (25-34); MEAN CORPUSCULAR HGB CONC 34.1 g/dl (32-36); MEAN PLATELET VOLUME 10.3 fL (7.4-10.4); MONO % 6.5 %; NEUT % 75.1 %; PLATELET COUNT 330 K/uL (130-400); RED BLOOD COUNT 4.25 M/uL (4.2-5.4); WHITE BLOOD COUNT 7.09 K/uL (4.8-10.8)
--- NOTE | 2016-10-20 15:34 | DIAGNOSTIC IMAGING REPORT ---
SINGLE VIEW CHEST CLINICAL HISTORY: Fever. FINDINGS: An AP, portable, upright chest radiograph is compared to study dated 04/20/2016 and correlated with chest CT dated 06/06/2016. The examination is degraded by portable technique and patient rotation. The cardiomediastinal silhouette is unremarkable. There is atherosclerotic calcification of the thoracic aorta. Chronic interstitial thickening is similar to previous. No airspace consolidation, large pleural effusion, or pneumothorax is seen. The skeletal structures are osteopenic. There are healed right-sided rib fractures. IMPRESSION: No acute cardiopulmonary abnormality. Electronically signed by: Néstor Jain M.D. 10/20/2016 3:33 PM Dictated Date/Time: 10/20/2016 3:31 PM
[2016-10-20 15:42] LABS: INR 0.9 (0.9-1.1)
[2016-10-20 15:42] LABS: ISTAT CREATININE 1.9 mg/dl (0.6-1.3); ISTAT HEMOGLOBIN 13.9 g/dl (12.0-16.0); ISTAT IONIZED CALCIUM 1.05 mmol/l (1.12-1.32)
[2016-10-20 15:49] LABS: ALT/SGPT 16 U/L (12-78); BLOOD UREA NITROGEN 38 mg/dl (7-18); BUN/CREATININE RATIO 19.8 (10-20); CALCIUM 8.5 mg/dl (8.5-10.1); CARBON DIOXIDE 21 mmol/L (21-32); CHLORIDE 105 mmol/L (98-107); GLUCOSE 70 mg/dl (70-99); MAGNESIUM 2.2 mg/dl (1.8-2.4); POTASSIUM 4.3 mmol/L (3.5-5.1); SODIUM 134 mmol/L (136-145)
[2016-10-20 15:55] LABS: ALKALINE PHOSPHATASE 88 U/L (45-117); AST/SGOT 18 U/L (15-37); CKMB/CK RATIO 1.2 (0-3.0)
--- NOTE | 2016-10-20 16:21 | DIAGNOSTIC IMAGING REPORT ---
CT OF THE HEAD WITHOUT CONTRAST CLINICAL HISTORY: Fall. Lower extremity weakness. COMPARISON STUDY: Head CT April 20, 2016. CT DOSE: 638.56 mGycm TECHNIQUE: Helical axial images of the head were obtained without IV contrast. Automated exposure control was utilized for the study. A dose lowering technique was utilized adhering to the principles of ALARA. FINDINGS: No acute intracranial hemorrhage, midline shift or mass effect is present. Ventricular system is stable. Basilar cisterns are patent. There are no extra-axial collections. Garay-white differentiation is maintained. White matter hypodensities suggest moderate small vessel disease. There are no findings to suggest acute dural sinus thrombosis or acute territorial infarct. There is minimal bilateral basal ganglia calcification. There is no calvarial fracture. IMPRESSION: 1. No acute intracranial findings. 2. No calvarial fracture. Electronically signed by: Paul Mccall M.D. 10/20/2016 4:20 PM Dictated Date/Time: 10/20/2016 4:17 PM
[2016-10-20] MEDS ORDERED: CEFTRIAXONE SOD INJ 1 GM ADDVIAL IV STA (16:25)
--- NOTE | 2016-10-20 16:29 | EMERGENCY ROOM VISIT NOTE ---
History Report prepared by Collin: Damaris Stockton Under the Supervision of: Dr. Rojas Marroquin D.O. First contact with patient: 14:52 Chief Complaint: WEAKNESS Stated Complaint: WEAKNESS IN LEGS,TROUBLE WALKING History of Present Illness The patient is a 65 year old female who presents to the Emergency Room with complaints of persistent weakness starting last night. The patient was trying to get out of bed last night. She was sitting on the side of the bed and when she tried to get up her legs felt weak and she fell to the ground. Since then her weakness has not improved. This morning, her noticed that she seemed more confused than usual. She denies hitting her head in the fall. She reports nausea. She denies any abdominal pain, headache, cough, rhinorrhea, chest pain, SOB, vomiting, dysuria, or diarrhea. She does not have pain anywhere from her fall. Her last bowel movement was today. She has a history of diabetes, hypothyroidism, anemia, and stroke. She is not on dialysis. She is unsure if she is on a blood thinner. Her thyroid medication was increased recently. There were no other medication changes. Her notes that her blood pressure is usually low. Source of History: patient, spouse/significant other Onset: last night Position: other (global) Quality: other (weakness) Timing: other (persistent) Associated Symptoms: + nausea, No headache, No cough, No chest pain, No SOB , No vomiting, No abdominal pain, No diarrhea, No urinary symptoms Note: Pt is confused. Pt denies rhinorrhea. Review of Systems See HPI for pertinent positives & negatives. A total of 10 systems reviewed and were otherwise negative. 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 (16) Weakness generalized Surgical Problems: (1) Gastric bypass status for obesity (2) Stented coronary artery Family History Diabetes mellitus Gallbladder disease Heart disease Hypertension Kidney disease Kidney stones Social History Smoking Status: Current Every Day Smoker Drug Use: none Marital Status: Occupation Status: disabled Current/Historical Medications Scheduled Ascorbic Acid (Vitamin C), 1,000 MG PO QAM Aspirin (Aspirin Dr), 81 MG PO DAILY Bupropion Hcl (Smoking Deterre (Zyban), 300 MG PO DAILY Calcium Carbonate-Cholecalcife (Calcium 600+D3 600-400 mg-Unit), 1 TAB PO DAILY Cholecalciferol (Vitamin D), 2,000 INTER.UNIT PO QAM Clopidogrel (Plavix), 75 MG PO DAILY Ezetimibe (Zetia), 10 MG PO QAM Ferrous Sulfate (Iron), 325 MG PO QAM Gabapentin (Neurontin), 400 MG PO TID Insulin Glargine (Lantus), 20 UNITS SC HS Insulin Human Regular (Humulin R), 10 UNITS SC BID Levothyroxine Sodium (Levothyroxine Sodium), 125 MCG PO DAILY Lisinopril (Prinivil), 5 MG PO QAM Metformin Hcl Er (Glucophage Er), 500 MG PO Q12 Omeprazole (Prilosec), 40 MG PO DAILY Pumpkin Seed-Soy Germ (Azo Bladder Control/Go-Le), 1 CAP PO HS Simvastatin (Zocor), 10 MG PO HS Venlafaxine Hcl (Effexor), 100 MG PO BID Scheduled PRN Polyethylene Glycol 3350 (Miralax), 17 GM PO DAILY PRN for Constipation Allergies Coded Allergies: Paroxetine (Verified Adverse Reaction, Unknown, NERVOUS INCREASED, 02/24/16 ) Physical Exam Vital Signs Date Time Temp Pulse Resp B/P (MAP) Pulse Ox O2 Delivery O2 Flow Rate FiO2 10/20/16 17:30 69 18 105/61 97 Room Air 10/20/16 16:59 73 24 88/61 95 Room Air 10/20/16 16:30 72 18 102/54 95 Room Air 10/20/16 16:00 67 12 111/66 97 Room Air 10/20/16 15:40 67 12 98/55 97 Room Air 10/20/16 14:48 71 10/20/16 14:38 36.7 72 18 80/51 98 Room Air Physical Exam GENERAL: sitting up in bed, ill appearing, disheveled, awakens to voice. EYE EXAM: normal conjunctiva, PERRL and EOM's intact OROPHARYNX: no exudate, no erythema, lips, buccal mucosa, and tongue normal and mucous membranes are dry NECK: supple, no nuchal rigidity, no adenopathy, non-tender LUNGS: Clear to auscultation. Normal chest wall mechanics HEART: no murmurs, S1 normal and S2 normal ABDOMEN: abdomen soft, non-tender, normo-active bowel sounds, no masses, no rebound or guarding. BACK: Back is symmetrical on inspection and there is no deformity, no midline tenderness, no CVA tenderness. SKIN: no rashes UPPER EXTREMITIES: Bruising to the bilateral upper extremities, abrasion with venous oozing on the right distal forearm. LOWER EXTREMITIES: Amputation of the right toes. NEURO EXAM: Awakens to voice, oriented to person and place but not year, lethargic, cranial nerves II-XII intact, no weakness of the upper or lower extremities. Medical Decision & Procedures ER Provider Diagnostic Interpretation: Radiology results as stated below per my review and the radiologist's interpretation: SINGLE VIEW CHEST CLINICAL HISTORY: Fever. FINDINGS: An AP, portable, upright chest radiograph is compared to study dated 04/20/2016 and correlated with chest CT dated 06/06/2016. The examination is degraded by portable technique and patient rotation. The cardiomediastinal silhouette is unremarkable. There is atherosclerotic calcification of the thoracic aorta. Chronic interstitial thickening is similar to previous. No airspace consolidation, large pleural effusion, or pneumothorax is seen. The skeletal structures are osteopenic. There are healed right-sided rib fractures. IMPRESSION: No acute cardiopulmonary abnormality. Electronically signed by: Néstor Jain M.D. 10/20/2016 3:33 PM Dictated Date/Time: 10/20/2016 3:[address] OF THE HEAD WITHOUT CONTRAST CLINICAL HISTORY: Fall. Lower extremity weakness. COMPARISON STUDY: Head CT April 20, 2016. CT DOSE: 638.56 mGycm TECHNIQUE: Helical axial images of the head were obtained without IV contrast. Automated exposure control was utilized for the study. A dose lowering technique was utilized adhering to the principles of ALARA. FINDINGS: No acute intracranial hemorrhage, midline shift or mass effect is present. Ventricular system is stable. Basilar cisterns are patent. There are no extra-axial collections. Garay-white differentiation is maintained. White matter hypodensities suggest moderate small vessel disease. There are no findings to suggest acute dural sinus thrombosis or acute territorial infarct. There is minimal bilateral basal ganglia calcification. There is no calvarial fracture. IMPRESSION: 1. No acute intracranial findings. 2. No calvarial fracture. Electronically signed by: Paul Mccall M.D. 10/20/2016 4:20 PM Dictated Date/Time: 10/20/2016 4:[address] OF THE CERVICAL SPINE WITHOUT CONTRAST CLINICAL HISTORY: Fall. COMPARISON STUDY: No previous studies for comparison. TECHNIQUE: Helical axial images of the cervical spine were obtained without IV contrast. Sagittal and coronal reconstructions were viewed. A dose lowering technique was utilized adhering to the principles of ALARA. FINDINGS: There is straightening of the normal cervical lordosis. Craniocervical junction is intact. There is no acute cervical spine fracture. Evaluation of the lower cervical spine is suboptimal due to artifact. There is moderate disc space narrowing and osteophytosis at C5-C6 and C6-C7. There is mild multilevel facet arthrosis. IMPRESSION: No acute cervical spine fracture or subluxation. Electronically signed by: Paul Mccall M.D. 10/20/2016 4:26 PM Dictated Date/Time: 10/20/2016 4:23 PM Laboratory Results 10/20/16 15:15 Red Blood Count 4.25, Mean Corpuscular Volume 92.5, Mean Corpuscular Hemoglobin 31.5, Mean Corpuscular Hemoglobin Concent 34.1, Mean Platelet Volume 10.3, Neutrophils (%) (Auto) 75.1, Lymphocytes (%) (Auto) 16.8, Monocytes (%) (Auto) 6.5, Eosinophils (%) (Auto) 0.7, Basophils (%) (Auto) 0.6, Neutrophils # (Auto) 5.33, Lymphocytes # (Auto) 1.19, Monocytes # (Auto) 0.46, Eosinophils # (Auto) 0.05, Basophils # (Auto) 0.04 10/20/16 15:15 Test 10/20/16 15:15 10/20/16 15:24 10/20/16 15:29 10/20/16 16:35 White Blood Count 7.09 K/uL (4.8-10.8) Red Blood Count 4.25 M/uL (4.2-5.4) Hemoglobin 13.4 g/dL (12.0-16.0) Hematocrit 39.3 % (37-47) Mean Corpuscular Volume 92.5 fL (80-100) Mean Corpuscular Hemoglobin 31.5 pg (25-34) Mean Corpuscular Hemoglobin Concent 34.1 g/dl (32-36) Platelet Count 330 K/uL (130-400) Mean Platelet Volume 10.3 fL (7.4-10.4) Neutrophils (%) (Auto) 75.1 % Lymphocytes (%) (Auto) 16.8 % Monocytes (%) (Auto) 6.5 % Eosinophils (%) (Auto) 0.7 % Basophils (%) (Auto) 0.6 % Neutrophils # (Auto) 5.33 K/uL (1.4-6.5) Lymphocytes # (Auto) 1.19 K/uL (1.2-3.4) Monocytes # (Auto) 0.46 K/uL (0.11-0.59) Eosinophils # (Auto) 0.05 K/uL (0-0.5) Basophils # (Auto) 0.04 K/uL (0-0.2) RDW Standard Deviation 49.2 fL (36.4-46.3) RDW Coefficient of Variation 14.6 % (11.5-14.5) Immature Granulocyte % (Auto) 0.3 % Immature Granulocyte # (Auto) 0.02 K/uL (0.00-0.02) Prothrombin Time 10.0 SECONDS (9.0-12.0) Prothromb Time International Ratio 0.9 (0.9-1.1) Estimated GFR () 31.1 Estimated GFR (Non- 26.8 BUN/Creatinine Ratio 19.8 (10-20) Calcium Level 8.5 mg/dl (8.5-10.1) Magnesium Level 2.2 mg/dl (1.8-2.4) Total Bilirubin 0.3 mg/dl (0.2-1) Direct Bilirubin 0.1 mg/dl (0-0.2) Aspartate Amino Transf (AST/SGOT) 18 U/L (15-37) Alanine Aminotransferase (ALT/SGPT) 16 U/L (12-78) Alkaline Phosphatase 88 U/L (45-117) Total Creatine Kinase 193 U/L (26-192) Creatine Kinase MB 2.3 ng/ml (0.5-3.6) Creatine Kinase MB Ratio 1.2 (0-3.0) Troponin I 0.016 ng/ml (0-0.045) Total Protein 6.6 gm/dl (6.4-8.2) Albumin 3.1 gm/dl (3.4-5.0) Thyroid Stimulating Hormone (TSH) 82.800 uIu/ml (0.300-4.500) Bedside Lactic Acid Venous 1.66 mmol/L (0.90-1.70) Bedside Hemoglobin 13.9 g/dl (12.0-16.0) Bedside Hematocrit 41 % (37-47) Bedside Sodium 132 mEq/L (135-144) Bedside Potassium 6.6 mEq/L (3.3-5.0) Bedside Chloride 103 mEq/L (101-112) Bedside Total CO2 22 mEq/l (24-31) Anion Gap 14.0 mmol/L (16-25) Bedside Blood Urea Nitrogen 57 mg/dl (7-18) Bedside Creatinine 1.9 mg/dl (0.6-1.3) Bedside Glucose (other) 71 mg/dl (70-99) Bedside Ionized Calcium (Parker) 1.05 mmol/l (1.12-1.32) Urine Color YELLOW Urine Appearance CLEAR (CLEAR) Urine pH 5.0 (4.5-7.5) Urine Specific Golf 1.023 (1.000-1.030) Urine Protein TRACE (NEG) Urine Glucose (UA) NEG (NEG) Urine Ketones TRACE (NEG) Urine Occult Blood NEG (NEG) Urine Nitrite NEG (NEG) Urine Bilirubin NEG (NEG) Urine Urobilinogen NEG (NEG) Urine Leukocyte Esterase NEG (NEG) Urine WBC (Auto) 0 /hpf (0-5) Urine RBC (Auto) 0-4 /hpf (0-4) Urine Hyaline Casts (Auto) 1-5 /lpf (0-5) Urine Epithelial Cells (Auto) 5-10 /lpf (0-5) Urine Bacteria (Auto) NEG (NEG) Laboratory results per my review. Medications Administered Medications (Trade) Dose Ordered Sig/Sadie Route Start Time Stop Time Status Last Admin Dose Admin Sodium Chloride 2,000 ml @ 999 mls/hr Q2H1M STAT IV 10/20/16 15:02 10/20/16 17:02 DC 10/20/16 15:40 999 MLS/HR Ceftriaxone Sodium (Rocephin Inj) 1 gm NOW STAT IV 10/20/16 16:25 10/20/16 16:26 DC 10/20/16 16:57 1 GM Sodium Chloride 1,000 ml @ 999 mls/hr Q1H1M STAT IV 10/20/16 17:03 10/20/16 18:03 DC 10/20/16 17:07 999 MLS/HR Sodium Chloride 1,000 ml @ 100 mls/hr Q10H IV 10/20/16 17:30 11/19/16 17:29 10/20/16 19:32 100 MLS/HR Levothyroxine Sodium (Synthroid Tab) 125 mcg NOW ONCE PO 10/20/16 17:30 10/20/16 18:04 DC 10/20/16 19:29 125 MCG ECG Indication: altered mental status Rate (beats per minute): 68 Rhythm: sinus rhythm Findings: other (normal axis, T wave flattening) ED Course ED COURSE: Vital signs were reviewed and showed hypotension The patients medical record was reviewed The above diagnostic studies were performed and reviewed. ED treatments and interventions as stated above. 1455: The patient was evaluated in room A3. A complete history and physical examination was performed. 1502: NSS 2000 ml @ 999 mls/hr IV. 1625: Rocephin Inj 1 gm IV. 1641: Upon reevaluation, the patient is somewhat more awake. Her states that she seems a little less confused. I discussed my findings with the patient and her and they understand and agree with the treatment plan. Based on the patients age, coexisting illnesses, exam and lab findings the decision to treat as an inpatient was made. The patient remained stable while under my care. The patient will be evaluated for further management. 1655: I reviewed the patient's case with Dr. Krishnamurthy, [facility] hospitalist. She will evaluate the patient for further management. 1702: I reevaluated the patient. Her pressure has dropped again. 1703: NSS 1000 ml @ 999 mls/hr IV. Medical Decision Differential diagnoses includes but is not limited to toxic, metabolic, infectious, traumatic, cardiac, neurologic, hematologic, psychiatric and inflammatory etiologies. Patient is a 65-year-old female who presents to ER for altered mental status associate it with diffuse weakness and fall. Patient's notes that this is completely abnormal for her. On exam she awakens to voice but is very confused. She does not know the year. She falls asleep very quickly. CBC able BMP is remarkable for creatinine 1.8. This is fairly close to her baseline of 1.7. Bilirubin all LFTs and troponin is unremarkable. INR was unremarkable. Blood pressure was 80 and increased to the 110s following [address] head and cervical spine was unremarkable. Chest x-ray unremarkable. EKG was nondiagnostic. Patient was given a dose of Rocephin she was hypotensive and altered and awaiting urine which could be a possible source of infection. She was afebrile however. I did order a TSH which resulted and was slightly elevated at 82. Patient is put was already admitted. She was not hypothermic there is no significant pitting edema. Patient was admitted to internal medicine with hypotension and lethargy possible secondary to hypothyroidism. Medication Reconcilliation Current Medication List: was personally reviewed by me Blood Pressure Screening Patient's blood pressure: Low blood pressure Consults Time Called: [phone] Consulting Physician: Dr. Krishnamurthy, [facility] hospitalist Returned Call: [phone] I reviewed the patient's case with her. She will evaluate the patient for further management. Impression Primary Impression: Adult hypothyroidism Additional Impressions: Hypotension Falls Scribe Attestation The scribe's documentation has been prepared under my direction and personally reviewed by me in its entirety. I confirm that the note above accurately reflects all work, treatment, procedures, and medical decision making performed by me. Departure Information Dispostion Being Evaluated By Hospitalist Referrals Dinah Pizano .ADAMA (PCP) Patient Instructions My [facility] Problem Qualifiers Additional Impressions: Hypotension Hypotension type: unspecified hypotension type Qualified Codes: I95.9 - Hypotension, unspecified Falls Encounter type: initial encounter Qualified Codes: W19.XXXA - Unspecified fall, initial encounter
[2016-10-20 17:00] LABS: URINE APPEARANCE CLEAR (CLEAR); URINE BILIRUBIN NEG (NEG); URINE COLOR YELLOW; URINE NITRITE NEG (NEG); URINE SPECIFIC GRAVITY 1.023 (1.000-1.030); UROBILINOGEN NEG (NEG); ZZURINE CULT IF INDIC CATH NO
[2016-10-20] MEDS ORDERED: SODIUM CHLORIDE 0.9% 1000ML 1,000 ML IV STA (17:03)
[2016-10-20 17:07] LABS: MANUAL MICROSCOPIC REQUIRED? NO; REVIEW REQ? NO
[2016-10-20] MEDS ORDERED: LEVOTHYROXINE 125 MCG TAB PO ONE (17:30)
[2016-10-20] MEDS ORDERED: NITROGLYCERIN 0.4 MG SL PER TAB CHARGE SL PRN (17:30)
[2016-10-20] MEDS ORDERED: ONDANSETRON INJ 2 MG/ML 2 ML VIAL IV PRN (17:30)
[2016-10-20] MEDS ORDERED: POLYETHYLENE (MIRALAX) 17 GM PACK PO PRN (17:30)
[2016-10-20] MEDS ORDERED: MAGNESIUM HYDROXIDE SUSP 30 ML UDC PO PRN (17:30)
[2016-10-20] MEDS ORDERED: ACETAMINOPHEN 325 MG TAB PO PRN (17:30)
[2016-10-20] MEDS ORDERED: ALUMINUM/MAGNESIUM/SIMETH (MAALOX MAX) 30 ML UDC PO PRN (17:30)
--- NOTE | 2016-10-20 17:59 | History and Physical ---
History & Physical Date & Time of Service: Oct 20, 2016 at 17:37 Chief Complaint: Weakness In Legs,Trouble Walking Primary Care Physician: Dinah Pizano PA-C History of Present Illness Source: family, clinic records, hospital records Patient is a pleasant 65 y/o female, with PMHx of hypothyroidism, HTN, T2DM, CAD s/p stent placement, h/o CVA, CKD stage III, depression, and PAD, who presented to the ED because of falls and altered mental status. When entering room, no family present. Patient appears very lethargic. She is alert and oriented. She states last night when she was getting into bed, she fell due to bilateral lower extremity weakness. She denies any injuries. She denies any numbness/tingling to lower extremities. She has been eating and drinking OK. She admits to lightheadedness/dizziness when changing positions quickly. She states she has been taking her medications as prescribed. Patient denies any fever, chills, sweats, vision changes, CP, palpitations, edema, SOB, wheezing, cough, abdominal pain, nausea, vomiting, diarrhea, urinary symptoms, melena, numbness/tingling, muscle/joint pain, anxiety/depression, active bleeding, or new skin discoloration/changes. Past Medical/Surgical History Medical Problems: hypothyroidism CAD s/p stents CKD stage III h/o CVA T2DM HTN PAD depression Surgical Problems: Amputation at R midfoot Gastric bypass status for obesity Stented coronary artery Family History Diabetes mellitus Gallbladder disease Heart disease Hypertension Kidney disease Kidney stones Social History Smoking Status: Current Every Day Smoker (1 ppd ) Alcohol Use: none Drug Use: none Marital Status: Housing status: lives with significant other Occupational Status: disabled Immunizations History of Influenza Vaccine: Yes Influenza Vaccine Date: Nov 20, 2009 History of Tetanus Vaccine?: UNCERTAIN OF DATE History of Pneumococcal: Unknown History of Hepatitis B Vaccine: UNCERTAIN OF DATE Multi-Drug Resistant Organisms History of MDRO: Yes Type of MDRO: MRSA Allergies Coded Allergies: Paroxetine (Verified Adverse Reaction, Unknown, NERVOUS INCREASED, 02/24/16 ) Home Medications Scheduled Ascorbic Acid (Vitamin C), 1,000 MG PO QAM Aspirin (Aspirin Dr), 81 MG PO DAILY Bupropion Hcl (Smoking [place] (Zyban), 300 MG PO DAILY Calcium Carbonate-Cholecalcife (Calcium 600+D3 600-400 mg-Unit), 1 TAB PO DAILY Cholecalciferol (Vitamin D), 2,000 INTER.UNIT PO QAM Clopidogrel (Plavix), 75 MG PO DAILY Ezetimibe (Zetia), 10 MG PO QAM Ferrous Sulfate (Iron), 325 MG PO QAM Gabapentin (Neurontin), 400 MG PO TID Insulin Glargine (Lantus), 20 UNITS SC HS Insulin Human Regular (Humulin R), 10 UNITS SC BID Levothyroxine Sodium (Levothyroxine Sodium), 125 MCG PO DAILY Lisinopril (Prinivil), 5 MG PO QAM Metformin Hcl Er (Glucophage Er), 500 MG PO Q12 Omeprazole (Prilosec), 40 MG PO DAILY Pumpkin Seed-Soy Germ (Azo Bladder Control/Go-Le), 1 CAP PO HS Simvastatin (Zocor), 10 MG PO HS Venlafaxine Hcl (Effexor), 100 MG PO BID Scheduled PRN Polyethylene Glycol 3350 (Miralax), 17 GM PO DAILY PRN for Constipation Physical Exam Vital Signs Date Time Temp Pulse Resp B/P (MAP) Pulse Ox O2 Delivery O2 Flow Rate FiO2 10/20/16 16:59 73 24 88/61 95 Room Air 10/20/16 16:30 72 18 102/54 95 Room Air 10/20/16 16:00 67 12 111/66 97 Room Air 10/20/16 15:40 67 12 98/55 97 Room Air 10/20/16 14:48 71 10/20/16 14:38 36.7 72 18 80/51 98 Room Air General Appearance: no apparent distress, + pertinent finding (lethargic) Head: normocephalic, atraumatic Eyes: PERRL ENT: hearing grossly normal Neck: supple Respiratory/Chest: lungs clear, no respiratory distress, no accessory muscle use, + decreased breath sounds (secondary to poor inspiratory effort ) Cardiovascular: regular rate, rhythm Abdomen/GI: normal bowel sounds, non tender, soft Back: normal inspection Extremities/Musculoskelatal: no calf tenderness, no pedal edema, + pertinent finding (R midfoot amputation; weakness noted to bilateral lower extremities ) Neurologic/Psych: alert, oriented x 3, + depressed affect Skin: normal color, no rash, + pertinent finding (skin cool to touch) Diagnostics Laboratory Results Results Past 24 Hours Test 10/20/16 15:15 10/20/16 15:24 10/20/16 15:29 10/20/16 16:35 Range/Units White Blood Count 7.09 4.8-10.8 K/uL Red Blood Count 4.25 4.2-5.4 M/uL Hemoglobin 13.4 12.0-16.0 g/dL Hematocrit 39.3 37-47 % Mean Corpuscular Volume 92.5 80-100 fL Mean Corpuscular Hemoglobin 31.5 25-34 pg Mean Corpuscular Hemoglobin Concent 34.1 32-36 g/dl Platelet Count 330 130-400 K/uL Mean Platelet Volume 10.3 7.4-10.4 fL Neutrophils (%) (Auto) 75.1 % Lymphocytes (%) (Auto) 16.8 % Monocytes (%) (Auto) 6.5 % Eosinophils (%) (Auto) 0.7 % Basophils (%) (Auto) 0.6 % Neutrophils # (Auto) 5.33 1.4-6.5 K/uL Lymphocytes # (Auto) 1.19 1.2-3.4 K/uL Monocytes # (Auto) 0.46 0.11-0.59 K/uL Eosinophils # (Auto) 0.05 0-0.5 K/uL Basophils # (Auto) 0.04 0-0.2 K/uL RDW Standard Deviation 49.2 36.4-46.3 fL RDW Coefficient of Variation 14.6 11.5-14.5 % Immature Granulocyte % (Auto) 0.3 % Immature Granulocyte # (Auto) 0.02 0.00-0.02 K/uL Prothrombin Time 10.0 9.0-12.0 SECONDS Prothromb Time International Ratio 0.9 0.9-1.1 Sodium Level 134 136-145 mmol/L Potassium Level 4.3 3.5-5.1 mmol/L Chloride Level 105 98-107 mmol/L Carbon Dioxide Level 21 21-32 mmol/L Anion Gap 8.0 14.0 16-25 mmol/L Blood Urea Nitrogen 38 7-18 mg/dl Creatinine 1.90 0.60-1.20 mg/dl Estimated GFR () 31.1 Estimated GFR (Non- 26.8 BUN/Creatinine Ratio 19.8 10-20 Random Glucose 70 70-99 mg/dl Calcium Level 8.5 8.5-10.1 mg/dl Magnesium Level 2.2 1.8-2.4 mg/dl Total Bilirubin 0.3 0.2-1 mg/dl Direct Bilirubin 0.1 0-0.2 mg/dl Aspartate Amino Transf (AST/SGOT) 18 15-37 U/L Alanine Aminotransferase (ALT/SGPT) 16 12-78 U/L Alkaline Phosphatase 88 45-117 U/L Total Creatine Kinase 193 26-192 U/L Creatine Kinase MB 2.3 0.5-3.6 ng/ml Creatine Kinase MB Ratio 1.2 0-3.0 Troponin I 0.016 0-0.045 ng/ml Total Protein 6.6 6.4-8.2 gm/dl Albumin 3.1 3.4-5.0 gm/dl Thyroid Stimulating Hormone (TSH) 82.800 0.300-4.500 uIu/ml Bedside Lactic Acid Venous 1.66 0.90-1.70 mmol/L Bedside Hemoglobin 13.9 12.0-16.0 g/dl Bedside Hematocrit 41 37-47 % Bedside Sodium 132 135-144 mEq/L Bedside Potassium 6.6 3.3-5.0 mEq/L Bedside Chloride 103 101-112 mEq/L Bedside Total CO2 22 24-31 mEq/l Bedside Blood Urea Nitrogen 57 7-18 mg/dl Bedside Creatinine 1.9 0.6-1.3 mg/dl Bedside Glucose (other) 71 70-99 mg/dl Bedside Ionized Calcium (Parker) 1.05 1.12-1.32 mmol/l Urine Color YELLOW Urine Appearance CLEAR CLEAR Urine pH 5.0 4.5-7.5 Urine Specific [place] 1.023 1.000-1.030 Urine Protein TRACE NEG Urine Glucose (UA) NEG NEG Urine Ketones TRACE NEG Urine Occult Blood NEG NEG Urine Nitrite NEG NEG Urine Bilirubin NEG NEG Urine Urobilinogen NEG NEG Urine Leukocyte Esterase NEG NEG Urine WBC (Auto) 0 0-5 /hpf Urine RBC (Auto) 0-4 0-4 /hpf Urine Hyaline Casts (Auto) 1-5 0-5 /lpf Urine Epithelial Cells (Auto) 5-10 0-5 /lpf Urine Bacteria (Auto) NEG NEG Microbiology Results 10/20/16 Blood Culture, Received Pending 10/20/16 Blood Culture, Received Pending Diagnostic Radiology CT OF THE HEAD WITHOUT CONTRAST CLINICAL HISTORY: Fall. Lower extremity weakness. COMPARISON STUDY: Head CT April 20, 2016. CT DOSE: 638.56 mGycm TECHNIQUE: Helical axial images of the head were obtained without IV contrast. Automated exposure control was utilized for the study. A dose lowering technique was utilized adhering to the principles of ALARA. FINDINGS: No acute intracranial hemorrhage, midline shift or mass effect is present. Ventricular system is stable. Basilar cisterns are patent. There are no extra-axial collections. Garay-white differentiation is maintained. White matter hypodensities suggest moderate small vessel disease. There are no findings to suggest acute dural sinus thrombosis or acute territorial infarct. There is minimal bilateral basal ganglia calcification. There is no calvarial fracture. IMPRESSION: 1. No acute intracranial findings. 2. No calvarial fracture. Electronically signed by: Paul Mccall M.D. 10/20/2016 4:20 PM Dictated Date/Time: 10/20/2016 4:17 PM The status of this report is Signed. Draft = Not yet reviewed or approved by Radiologist. Signed = Reviewed and approved by Radiologist. SINGLE VIEW CHEST CLINICAL HISTORY: Fever. FINDINGS: An AP, portable, upright chest radiograph is compared to study dated 04/20/2016 and correlated with chest CT dated 06/06/2016. The examination is degraded by portable technique and patient rotation. The cardiomediastinal silhouette is unremarkable. There is atherosclerotic calcification of the thoracic aorta. Chronic interstitial thickening is similar to previous. No airspace consolidation, large pleural effusion, or pneumothorax is seen. The skeletal structures are osteopenic. There are healed right-sided rib fractures. IMPRESSION: No acute cardiopulmonary abnormality. Electronically signed by: Néstor Jain M.D. 10/20/2016 3:33 PM Dictated Date/Time: 10/20/2016 3:31 PM The status of this report is Signed. Draft = Not yet reviewed or approved by Radiologist. Signed = Reviewed and approved by Radiologist CT OF THE CERVICAL SPINE WITHOUT CONTRAST CLINICAL HISTORY: Fall. COMPARISON STUDY: No previous studies for comparison. TECHNIQUE: Helical axial images of the cervical spine were obtained without IV contrast. Sagittal and coronal reconstructions were viewed. A dose lowering technique was utilized adhering to the principles of ALARA. FINDINGS: There is straightening of the normal cervical lordosis. Craniocervical junction is intact. There is no acute cervical spine fracture. Evaluation of the lower cervical spine is suboptimal due to artifact. There is moderate disc space narrowing and osteophytosis at C5-C6 and C6-C7. There is mild multilevel facet arthrosis. IMPRESSION: No acute cervical spine fracture or subluxation. Electronically signed by: Paul Mccall M.D. 10/20/2016 4:26 PM Dictated Date/Time: 10/20/2016 4:23 PM The status of this report is Signed. Draft = Not yet reviewed or approved by Radiologist. Signed = Reviewed and approved by Radiologist. EKG IESHA WALDEN ID:[id number] 20-OCT-2016 15:38:27 [facility] Normal sinus rhythm Normal ECG When compared with ECG of 08-JUN-2016 06:28, No significant change was found Confirmed by Ming Marquez ([id number]) on 10/20/2016 5:24:05 PM 25mm/s 10mm/mV 150Hz 8.0 SP2 12SL 241 SMILEY: 10 Referred by: Referred Self Confirmed By: Ming Marquez Vent. rate 68 BPM WI interval 150 ms QRS duration 74 ms QT/QTc 444/472 ms P-R-T axes 58 -4 52 1950 (65 yr) Female 91in 1lb Room: Loc:15 Blanket Folder:Jessica Chavez ind: Impression Assessment and Plan Patient is a pleasant 65 y/o female, with PMHx of hypothyroidism, HTN, T2DM, CAD s/p stent placement, h/o CVA, depression, CKD stage III, and PAD, who presented to the ED because of falls and altered mental status. Lethargy, hypotension, falls, and AMS, likely secondary to hypothyroidism w/ TSH at 82: - Admit to tele for cardiac monitoring - Trend cardiac enzymes- initial enzymes negative - EKG unremarkable; EKG QAM and PRN CP - O2 protocol - Give additional Synthroid 125 mcg and continue Synthroid 125 mcg daily -- Per past records, ?whether patient is complaint w/ medications- will continue current dose for now and f/u tomorrow AM when patient less lethargic and/or family present - PT/OT - BCx pending - UA negative- given Rocephin x1 in ED- will hold on antibiotic therapy for now as no sign of infection - Head CT, CXR, and cervical spine CT unremarkable - Follow CBC and PRP Hypotension w/ h/o HTN: - Hold Lisinopril 5 mg daily - IV NSS @ 100 ml/hr - Check orthostatic BP CODY on CKD stage III, baseline Cr 1.6- follows w/ Dr. Schwarz: - Hold nephrotoxic agents - IVF as above - Follow PRP T2DM: - Hold Metformin 500 mg BID - Continue Lantus 20 U HS - BSG ACHS and sliding insulin scale - Continue Gabapentin 400 mg TID Depression: Effexor 100 mg BID CAD s/p stent, HDL, h/o CVA: ASA 81 mg daily, Zetia 10 mg daily, Zocor 10 mg HS , Plavix 75 mg daily GI prophylaxis: Protonix 40 mg daily DVT prophylaxis: Heparin SQ BID Code Status: LEVEL I, FULL Dispo: From home, lives w/ - social work nurse consulted Level of Care Telemetry Resuscitation Status FULL RESUSCITATION VTE Prophylaxis VTE Risk Assessment Done? Y/N: Yes Risk Level: Moderate Given or contraindicated: Unfractionated heparin SQ, T.E.D. Stockings, SCD's Reviewed: Pt Seen/Exam by Me History Pt states she has been having falls for quite some time. Weakness has increased "and I feel like my legs can't move". States she has been very tired recently. States she misses some doses of thyroid medication and when she does take it, she takes it with other meds and eats as well. Agree with HPI/ROS as noted. General Appearance: WD/WN, no apparent distress Respiratory: normal breath sounds, no respiratory distress Cardiovascular: normal peripheral pulses, regular rate, rhythm Gastrointestinal: non tender, soft Extremities: non-tender, no pedal edema Neurologic/Psychiatric: alert, other (speech is slow, but appropriate) Skin Characteristics: normal color, warm/dry Assessment/Plan Agree with plan as outlined above Falls, lethargy, hypoTN ED initially concerned for UTI, however UA neg TSH 82, likely progression of hypothyroidism given poor compliance and taking meds/eating with synthroid CT head neg for acute Neg for signs of infection PT/OT
[2016-10-20] MEDS ORDERED: GLUCOSE 10 TABS/TUBE PO PRN (18:00)
[2016-10-20] MEDS ORDERED: GLUCOSE 40% GEL 15 GM TUBE PO PRN (18:00)
[2016-10-20] MEDS ORDERED: GLUCAGON FOR INJ 1 MG VIAL SQ PRN (18:00)
[2016-10-20] MEDS ORDERED: DEXTROSE 50% 50 ML SYR IV PRN (18:00)
[2016-10-20 18:10] VITALS: BP 105/73; TEMP 36.7; O2SAT 96; Ht 170.2 cm; Wt 80.3 kg
[2016-10-20] MEDS: SODIUM CHLORIDE 0.9% 1000ML 1,000 ML IV SCH (19:32)
[2016-10-20] MEDS: INSULIN ASPART 100 UNITS/ML 3 ML PEN SC SCH (21:00)
[2016-10-20] MEDS: SIMVASTATIN 10 MG TAB PO SCH (21:35)
[2016-10-20] MEDS: VENLAFAXINE HCL 50 MG TAB PO SCH (21:35)
[2016-10-20] MEDS: GABAPENTIN 400 MG CAP PO SCH (21:35)
[2016-10-20] MEDS: HEPARIN SOD 5000 UNIT/0.5 ML CARP SQ SCH (21:36)
[2016-10-20] MEDS: INSULIN GLARGINE SOLOSTAR 100 UNITS/ML 3 ML PEN SC SCH (21:37)
[2016-10-21] VITALS (9 sets, daily range): BP systolic 71–133; BP diastolic 48–81; PULSE 67–81; TEMP 36.4–37.1; O2SAT 95–100
[2016-10-21] MEDS: SODIUM CHLORIDE 0.9% 1000ML 1,000 ML IV SCH ×3 (04:02→22:13)
[2016-10-21] MEDS: LEVOTHYROXINE 125 MCG TAB PO SCH (06:14)
[2016-10-21 06:54] LABS: HEMATOCRIT 36.9 % (37-47); MEAN CELL VOLUME 91.1 fL (80-100); MEAN CORPUSCULAR HEMOGLOBIN 30.4 pg (25-34); MEAN CORPUSCULAR HGB CONC 33.3 g/dl (32-36); MEAN PLATELET VOLUME 10.3 fL (7.4-10.4); PLATELET COUNT 283 K/uL (130-400); RED BLOOD COUNT 4.05 M/uL (4.2-5.4); WHITE BLOOD COUNT 5.82 K/uL (4.8-10.8)
[2016-10-21 07:20] LABS: BUN/CREATININE RATIO 22.4 (10-20); CALCIUM 7.9 mg/dl (8.5-10.1); CREATININE 1.4 mg/dl (0.60-1.20)
[2016-10-21] MEDS: EZETIMIBE 10MG TAB PO SCH (07:55)
[2016-10-21] MEDS: ASPIRIN 81 MG ECTAB PO SCH (07:55)
[2016-10-21] MEDS: PANTOprazole SOD 40 MG TAB PO SCH (07:56)
[2016-10-21] MEDS: VENLAFAXINE HCL 50 MG TAB PO SCH ×2 (07:56→22:12)
[2016-10-21] MEDS: CLOPIDOGREL BISULFATE 75 MG TAB PO SCH (07:56)
[2016-10-21] MEDS: GABAPENTIN 400 MG CAP PO SCH ×3 (07:56→22:12)
[2016-10-21] MEDS: FERROUS SULFATE 325 MG TAB PO SCH (07:56)
[2016-10-21] MEDS: BuPROPion SR 150 MG TABCR PO SCH (07:56)
[2016-10-21] MEDS: INSULIN ASPART 100 UNITS/ML 3 ML PEN SC SCH ×4 (08:01→21:00)
[2016-10-21] MEDS: HEPARIN SOD 5000 UNIT/0.5 ML CARP SQ SCH ×2 (08:02→21:00)
--- NOTE | 2016-10-21 12:51 | Hospitalist Progress Note ---
Hospitalist Progress Note Date of Service Oct 21, 2016. Subjective Pt evaluation today including: conversation w/ patient, conversation w/ family , physical exam, chart review, lab review, review of studies, review of inpatient medication list Voiding: donis catheter in place Patient seen and evaluated. Alert and oriented initially but become more lethargic while talking to her and her . Easily opened eyes to her name but would fall back asleep. Would randomly reach for things in the air and then open her eyes and stated " I am trying to get the list from the girls" Even with eyes closed she was able to follow commands. Orthostatics are positive. states that she is minimally compliant with medications and he tries his best to get her to take her medications appropriately. She follows with Dr. Lenora Cohen from endocrinology. [employer] reviewed her TSH was 82 in Jan 2016 and improved to 3 in June 2016. She mobilizes by wheelchair but can self-pivot and can walk short distances with a walker but really can't do any of that at this point. She only complains of feeling tired but ROS limited due to lethargy. Additional Comments: ROS limited due to mental status. States she feels fatigued but denies any pain. Medications Current Inpatient Medications Medications (Trade) Dose Ordered Sig/Sadie Route Start Time Stop Time Status Last Admin Dose Admin Aspirin (Ecotrin Tab) 81 mg DAILY PO 10/21/16 09:00 11/20/16 08:59 10/21/16 07:55 81 MG Clopidogrel Bisulfate (plAVix TAB) 75 mg DAILY PO 10/21/16 09:00 11/20/16 08:59 10/21/16 07:56 75 MG EZETIMIBE (Zetia Tab) 10 mg QAM PO 10/21/16 09:00 11/20/16 08:59 10/21/16 07:55 10 MG Gabapentin (Neurontin Cap) 400 mg TID PO 10/20/16 21:00 11/19/16 20:59 10/21/16 07:56 400 MG Insulin Glargine (Lantus Solostar Pen) 20 units HS SC 10/20/16 21:00 11/19/16 20:59 10/20/16 21:37 20 UNITS Levothyroxine Sodium (Synthroid Tab) 125 mcg DAILYBB PO 10/21/16 06:00 11/20/16 06:59 10/21/16 06:14 125 MCG Simvastatin (Zocor Tab) 10 mg HS PO 10/20/16 21:00 11/19/16 20:59 10/20/16 21:35 10 MG Venlafaxine HCl (effeXOR TAB) 100 mg BID PO 10/20/16 21:00 11/19/16 20:59 10/21/16 07:56 100 MG Bupropion HCl (Wellbutrin-Sr Tab) 300 mg DAILY PO 10/21/16 09:00 11/20/16 08:59 10/21/16 07:56 300 MG Ferrous Sulfate (Feosol Tab) 325 mg QAM PO 10/21/16 09:00 11/20/16 08:59 10/21/16 07:56 325 MG Sodium Chloride 1,000 ml @ 100 mls/hr Q10H IV 10/20/16 17:30 11/19/16 17:29 10/21/16 04:02 100 MLS/HR Acetaminophen (Tylenol Tab) 650 mg Q4H PRN PO 10/20/16 17:30 11/19/16 17:29 Al Hydrox/Mg Hydrox/Simethicone (Maalox Max Susp) 15 ml Q4H PRN PO 10/20/16 17:30 11/19/16 17:29 Magnesium Hydroxide (Milk Of Magnesia Susp) 30 ml Q12H PRN PO 10/20/16 17:30 11/19/16 17:29 Ondansetron HCl (Zofran Inj) 4 mg Q6H PRN IV 10/20/16 17:30 11/19/16 17:29 Nitroglycerin (Nitrostat Tab) 0.4 mg UD PRN SL 10/20/16 17:30 11/19/16 17:29 Polyethylene (Miralax Powder Packet) 17 gm DAILY PRN PO 10/20/16 17:30 11/19/16 17:29 Insulin Aspart (novoLOG ASPART) SLIDING SCALE G... ACHS SC 10/20/16 21:00 11/19/16 20:59 10/21/16 08:01 1 UNITS Pantoprazole Sodium (Protonix Tab) 40 mg QAM PO 10/21/16 09:00 10/8/17 08:59 10/21/16 07:56 40 MG Heparin Sodium (Porcine) (Heparin Sq 5000 Unit/0.5ml) 5,000 unit Q12 SQ 10/20/16 21:00 11/19/16 20:59 10/21/16 08:02 5,000 UNIT Glucose (Glucose 40% Gel) 15-30 GRAMS 15 GRAMS... UD PRN PO 10/20/16 18:00 11/19/16 17:59 Glucose (Glucose Chew Tab) 4-8 Tablets 4 Tabl... UD PRN PO 10/20/16 18:00 11/19/16 17:59 Dextrose (Dextrose 50% 50ML Syringe) 25-50ML OF 50% DW IV FOR... UD PRN IV 10/20/16 18:00 11/19/16 17:59 Glucagon (Glucagon Inj) 1 mg UD PRN SQ 10/20/16 18:00 11/19/16 17:59 Objective Vital Signs Date Time Temp Pulse Resp B/P (MAP) Pulse Ox O2 Delivery O2 Flow Rate FiO2 10/21/16 11:21 36.6 70 19 117/71 (86) 98 Room Air 10/21/16 09:36 36.4 81 18 99/63 (75) 99 Room Air 10/21/16 09:35 72 18 104/66 (79) 99 Room Air 10/21/16 09:32 36.4 81 20 71/48 (56) 95 Room Air 10/21/16 08:00 36.4 67 20 121/77 (92) 100 Room Air 10/21/16 08:00 Room Air 10/21/16 04:00 Room Air 10/21/16 04:00 36.4 70 18 124/76 (92) 98 Room Air 101/66 (78) 10/21/16 00:00 Room Air 10/21/16 00:00 36.5 68 18 133/81 (98) 96 Room Air 10/20/16 20:00 Room Air 10/20/16 18:10 36.7 18 105/73 96 Room Air 10/20/16 18:03 70 18 105/73 97 10/20/16 17:30 69 18 105/61 97 Room Air 10/20/16 16:59 73 24 88/61 95 Room Air 10/20/16 16:30 72 18 102/54 95 Room Air 10/20/16 16:00 67 12 111/66 97 Room Air 10/20/16 15:40 67 12 98/55 97 Room Air 10/20/16 14:48 71 10/20/16 14:38 36.7 72 18 80/51 98 Room Air Physical Exam General Appearance: no apparent distress Eyes: sclerae normal ENT: hearing grossly normal Neck: supple, no JVD, trachea midline Respiratory/Chest: lungs clear, normal breath sounds, no respiratory distress, no accessory muscle use Cardiovascular: regular rate, rhythm, no gallop, no murmur Abdomen: normal bowel sounds, non tender, soft Extremities: no pedal edema, no calf tenderness Neurologic/Psychiatric: alert (intermittently lethargic), oriented x 3 Skin: normal color, warm/dry Laboratory Results Last 24 Hours Test 10/20/16 15:15 10/20/16 15:24 10/20/16 15:29 10/20/16 16:35 White Blood Count 7.09 K/uL Red Blood Count 4.25 M/uL Hemoglobin 13.4 g/dL Hematocrit 39.3 % Mean Corpuscular Volume 92.5 fL Mean Corpuscular Hemoglobin 31.5 pg Mean Corpuscular Hemoglobin Concent 34.1 g/dl Platelet Count 330 K/uL Mean Platelet Volume 10.3 fL Neutrophils (%) (Auto) 75.1 % Lymphocytes (%) (Auto) 16.8 % Monocytes (%) (Auto) 6.5 % Eosinophils (%) (Auto) 0.7 % Basophils (%) (Auto) 0.6 % Neutrophils # (Auto) 5.33 K/uL Lymphocytes # (Auto) 1.19 K/uL Monocytes # (Auto) 0.46 K/uL Eosinophils # (Auto) 0.05 K/uL Basophils # (Auto) 0.04 K/uL RDW Standard Deviation 49.2 fL RDW Coefficient of Variation 14.6 % Immature Granulocyte % (Auto) 0.3 % Immature Granulocyte # (Auto) 0.02 K/uL Prothrombin Time 10.0 SECONDS Prothromb Time International Ratio 0.9 Sodium Level 134 mmol/L Potassium Level 4.3 mmol/L Chloride Level 105 mmol/L Carbon Dioxide Level 21 mmol/L Anion Gap 8.0 mmol/L 14.0 mmol/L Blood Urea Nitrogen 38 mg/dl Creatinine 1.90 mg/dl Estimated GFR () 31.1 Estimated GFR (Non- 26.8 BUN/Creatinine Ratio 19.8 Random Glucose 70 mg/dl Calcium Level 8.5 mg/dl Magnesium Level 2.2 mg/dl Total Bilirubin 0.3 mg/dl Direct Bilirubin 0.1 mg/dl Aspartate Amino Transf (AST/SGOT) 18 U/L Alanine Aminotransferase (ALT/SGPT) 16 U/L Alkaline Phosphatase 88 U/L Total Creatine Kinase 193 U/L Creatine Kinase MB 2.3 ng/ml Creatine Kinase MB Ratio 1.2 Troponin I 0.016 ng/ml Total Protein 6.6 gm/dl Albumin 3.1 gm/dl Thyroid Stimulating Hormone (TSH) 82.800 uIu/ml Bedside Lactic Acid Venous 1.66 mmol/L Bedside Hemoglobin 13.9 g/dl Bedside Hematocrit 41 % Bedside Sodium 132 mEq/L Bedside Potassium 6.6 mEq/L Bedside Chloride 103 mEq/L Bedside Total CO2 22 mEq/l Bedside Blood Urea Nitrogen 57 mg/dl Bedside Creatinine 1.9 mg/dl Bedside Glucose (other) 71 mg/dl Bedside Ionized Calcium (Parker) 1.05 mmol/l Urine Color YELLOW Urine Appearance CLEAR Urine pH 5.0 Urine Specific [place] 1.023 Urine Protein TRACE Urine Glucose (UA) NEG Urine Ketones TRACE Urine Occult Blood NEG Urine Nitrite NEG Urine Bilirubin NEG Urine Urobilinogen NEG Urine Leukocyte Esterase NEG Urine WBC (Auto) 0 /hpf Urine RBC (Auto) 0-4 /hpf Urine Hyaline Casts (Auto) 1-5 /lpf Urine Epithelial Cells (Auto) 5-10 /lpf Urine Bacteria (Auto) NEG Test 10/20/16 21:07 10/20/16 22:47 10/21/16 06:34 10/21/16 07:00 Bedside Glucose 102 mg/dl 71 mg/dl Creatine Kinase MB 3.2 ng/ml Creatine Kinase MB Ratio Troponin I 0.016 ng/ml White Blood Count 5.82 K/uL Red Blood Count 4.05 M/uL Hemoglobin 12.3 g/dL Hematocrit 36.9 % Mean Corpuscular Volume 91.1 fL Mean Corpuscular Hemoglobin 30.4 pg Mean Corpuscular Hemoglobin Concent 33.3 g/dl RDW Standard Deviation 48.5 fL RDW Coefficient of Variation 14.5 % Platelet Count 283 K/uL Mean Platelet Volume 10.3 fL Sodium Level 140 mmol/L Potassium Level 4.0 mmol/L Chloride Level 113 mmol/L Carbon Dioxide Level 22 mmol/L Anion Gap 5.0 mmol/L Blood Urea Nitrogen 31 mg/dl Creatinine 1.40 mg/dl Est Creatinine Clear Calc Drug Dose 42.6 ml/min Estimated GFR () 44.9 Estimated GFR (Non- 38.8 BUN/Creatinine Ratio 22.4 Random Glucose 62 mg/dl Calcium Level 7.9 mg/dl Test 10/21/16 11:02 Bedside Glucose 87 mg/dl Assessment and Plan Ms. Leon is a 65 y/o female with PMHx of Hypothyroidism, HTN, T2DM, CAD S/P Stent, CVA with L Residual, CKD Stage III, PAD, and Depression who presents for multiple falls and AMS: Encephalopathy 2/2 Dehydration and Hypothyroidism: IMPROVING - No signs of infection appreciated - did receive Rocephin in ED while awaiting urine results - no overt infection appreciated - Per [employer] patient was TSH of 82 in Jan 2016 that improved to 3 in June 2016 - Continue Synthroid and will need recheck in 6 weeks -- confirms non-compliance Hypotension 2/2 Dehydration and Hypothyroidism: Positive Orthostatics - Aggressive hydration in ED with BP improvement - continue IVF throughout the day and monitor Hyperkalemia: RESOLVED - May likely be from Lisinopril with underlying CKD - likely D/C indefinitely CODY on CKD Stage III: Baseline Cr 1.6 - Follows with Dr. Schwarz - Currently improved from baseline but will continue IVF - avoid nephrotoxic agents T2DM with Diabetic Neuropathy: - Noted hypoglycemia in AM in 60s - has PM Lantus which may need adjusted - Continue to hold Metformin 500 mg BID and cover with Lantus and SSI - Gabapentin 400 mg TID CAD S/P Stent and H/O CVA with L Residual Deficits: - ASA 81 mg daily and Plavix 75 mg daily - Zocor 10 mg daily and Zetia 10 mg daily Code Status: FULL RESUSCITATION DVT Prophylaxis: Heparin 5000 units SC BID Disposition: - Will likely need SNF - does not want [facility] - await PT/OT reports - Likely will need Lisinopril D/C'd indef. given hyperkalemia - Will need rechecked TSH in 6 weeks - follows with endocrine Dr. Cohen Continued [facility] stay due to: multiple IV medications needed Discharge planning: retirement facility
[2016-10-21 14:25] LABS: BUN/CREATININE RATIO 18.8 (10-20); CALCIUM 7.9 mg/dl (8.5-10.1); CREATININE 1.6 mg/dl (0.60-1.20); POTASSIUM 4.2 mmol/L (3.5-5.1)
[2016-10-21 14:30] LABS: PHOSPHORUS 4.4 mg/dl (2.5-4.9)
[2016-10-21] MEDS: INSULIN GLARGINE SOLOSTAR 100 UNITS/ML 3 ML PEN SC SCH (21:03)
[2016-10-21] MEDS: SIMVASTATIN 10 MG TAB PO SCH (22:12)
[2016-10-22] VITALS: O2SAT 97
[2016-10-22] MEDS: LEVOTHYROXINE 125 MCG TAB PO SCH (06:02)
[2016-10-22] MEDS: INSULIN ASPART 100 UNITS/ML 3 ML PEN SC SCH ×4 (06:30→20:04)
[2016-10-22 06:31] LABS: HEMATOCRIT 34.2 % (37-47); MEAN CELL VOLUME 91.2 fL (80-100); MEAN CORPUSCULAR HEMOGLOBIN 30.9 pg (25-34); MEAN CORPUSCULAR HGB CONC 33.9 g/dl (32-36); MEAN PLATELET VOLUME 10.3 fL (7.4-10.4); PLATELET COUNT 280 K/uL (130-400); RED BLOOD COUNT 3.75 M/uL (4.2-5.4); WHITE BLOOD COUNT 4.93 K/uL (4.8-10.8)
[2016-10-22 07:23] LABS: CALCIUM 7.9 mg/dl (8.5-10.1); CREATININE 1.7 mg/dl (0.60-1.20); POTASSIUM 4.5 mmol/L (3.5-5.1)
[2016-10-22 07:37] VITALS: BP 127/72; PULSE 69; TEMP 36.9; O2SAT 95
[2016-10-22] MEDS: SODIUM CHLORIDE 0.9% 1000ML 1,000 ML IV SCH ×2 (08:58→18:42)
[2016-10-22] MEDS: BuPROPion SR 150 MG TABCR PO SCH (08:59)
[2016-10-22] MEDS: FERROUS SULFATE 325 MG TAB PO SCH (08:59)
[2016-10-22] MEDS: ASPIRIN 81 MG ECTAB PO SCH (08:59)
[2016-10-22] MEDS: PANTOprazole SOD 40 MG TAB PO SCH (09:00)
[2016-10-22] MEDS: VENLAFAXINE HCL 50 MG TAB PO SCH ×2 (09:00→20:50)
[2016-10-22] MEDS: EZETIMIBE 10MG TAB PO SCH (09:00)
[2016-10-22] MEDS: CLOPIDOGREL BISULFATE 75 MG TAB PO SCH (09:01)
[2016-10-22] MEDS: GABAPENTIN 400 MG CAP PO SCH ×3 (09:01→20:50)
[2016-10-22] MEDS: HEPARIN SOD 5000 UNIT/0.5 ML CARP SQ SCH ×2 (09:31→20:57)
--- NOTE | 2016-10-22 13:33 | Progress Note ---
Subjective Date of Service: Oct 22, 2016. Subjective Pt evaluation today including: conversation w/ patient, physical exam, chart review, lab review, review of studies, review of inpatient medication list Problem List Medical Problems: (1) Acute kidney injury Status: Acute (2) Adult hypothyroidism Status: Chronic (3) Ambulatory dysfunction Status: Acute (4) Arrhythmia Status: Acute (5) Falls Status: Acute (6) Generalized weakness Status: Acute (7) Hypotension Status: Acute (8) Hypotension Status: Acute (9) Hypotension Status: Acute (10) Hypothyroidism Status: Acute (11) Numbness Status: Acute (12) Sepsis Status: Acute (13) Weakness Status: Acute Review of Systems Constitutional: + weakness, + fatigue, No fever, No chills, No sweats, No weight loss Eyes: No worsening of vision, No eye pain, No redness, No discharge Respiratory: No cough, No sputum, No wheezing, No shortness of breath, No dyspnea on exertion Cardiac: No chest pain, No PND, No edema, No claudication Abdomen: No see HPI, No pain, No nausea, No vomiting, No diarrhea, No constipation, No GI bleeding, No problem reported Female : No see HPI, No dysuria, No urinary frequency, No hematuria, No incontinence, No abnormal vaginal bleeding, No vaginal discharge, No problem reported Neurologic: No see HPI, No memory loss, No paralysis, No weakness, No numbness/ tingling, No vertigo, No balance problems, No problem reported Psychiatric: No see HPI, No depression symptoms, No anhedonism, No anxiety, No insomnia, No substance abuse, No problem reported Endo: + fatigue, No see HPI, No excessive thirst, No excessive urination, No problem reported Skin: No see HPI, No rash, No itch, No new/changing skin lesions, No color change, No bleeding, No problem reported Objective Vital Signs Date Time Temp Pulse Resp B/P (MAP) Pulse Ox O2 Delivery O2 Flow Rate FiO2 10/22/16 08:00 Room Air 10/22/16 07:37 36.9 69 16 127/72 (90) 95 Room Air 10/22/16 00:00 97 Room Air 10/21/16 23:47 36.8 67 20 117/71 (86) 97 Room Air 10/21/16 20:10 Room Air 10/21/16 16:00 Room Air 10/21/16 15:15 37.1 72 18 123/72 (89) 97 Room Air Physical Exam General Appearance: WD/WN, no apparent distress Neck: supple, no adenopathy, thyroid normal, no JVD Respiratory/Chest: chest non-tender, lungs clear, normal breath sounds, no respiratory distress Cardiovascular: regular rate, rhythm, no edema, no gallop, no JVD Abdomen: normal bowel sounds, non tender, soft, no organomegaly Extremities: normal range of motion, non-tender, normal inspection, no pedal edema Neurologic/Psychiatric: no motor/sensory deficits, alert, normal mood/affect, oriented x 3 Laboratory Results Last 24 Hours Test 10/21/16 16:26 10/21/16 20:12 10/22/16 06:15 10/22/16 07:27 Bedside Glucose 91 mg/dl 107 mg/dl 52 mg/dl White Blood Count 4.93 K/uL Red Blood Count 3.75 M/uL Hemoglobin 11.6 g/dL Hematocrit 34.2 % Mean Corpuscular Volume 91.2 fL Mean Corpuscular Hemoglobin 30.9 pg Mean Corpuscular Hemoglobin Concent 33.9 g/dl RDW Standard Deviation 48.3 fL RDW Coefficient of Variation 14.4 % Platelet Count 280 K/uL Mean Platelet Volume 10.3 fL Sodium Level 142 mmol/L Potassium Level 4.5 mmol/L Chloride Level 113 mmol/L Carbon Dioxide Level 24 mmol/L Anion Gap 5.0 mmol/L Blood Urea Nitrogen 27 mg/dl Creatinine 1.70 mg/dl Est Creatinine Clear Calc Drug Dose 35.1 ml/min Estimated GFR () 35.5 Estimated GFR (Non- 30.7 BUN/Creatinine Ratio 16.0 Random Glucose 44 mg/dl Calcium Level 7.9 mg/dl Test 10/22/16 07:45 10/22/16 11:30 Bedside Glucose 121 mg/dl 84 mg/dl Assessment and Plan Ms. Leon is a 65 y/o female with PMHx of Hypothyroidism, HTN, T2DM, CAD S/P Stent, CVA with L Residual, CKD Stage III, PAD, and Depression who presents for multiple falls and AMS: Encephalopathy 2/2 Dehydration and Hypothyroidism: IMPROVING - No signs of infection appreciated - did receive Rocephin in ED while awaiting urine results - no overt infection appreciated - Per [employer] patient was TSH of 82 in Jan 2016 that improved to 3 in June 2016 - Continue Synthroid and will need recheck in 6 weeks -- confirms non-compliance Hypotension 2/2 Dehydration and Hypothyroidism: Positive Orthostatics - Aggressive hydration in ED with BP improvement - continue IVF throughout the day and monitor Hyperkalemia: RESOLVED - May likely be from Lisinopril with underlying CKD - likely D/C indefinitely CODY on CKD Stage III: Baseline Cr 1.6 - Follows with Dr. Schwarz - Currently improved from baseline but will continue IVF - avoid nephrotoxic agents T2DM with Diabetic Neuropathy: - Noted hypoglycemia in AM in 60s - has PM Lantus which may need adjusted - Continue to hold Metformin 500 mg BID and cover with Lantus and SSI - Gabapentin 400 mg TID CAD S/P Stent and H/O CVA with L Residual Deficits: - ASA 81 mg daily and Plavix 75 mg daily - Zocor 10 mg daily and Zetia 10 mg daily Code Status: FULL RESUSCITATION DVT Prophylaxis: Heparin 5000 units SC BID Will need placement, require 3 MN stay, cont PT/OT Continued [facility] stay due to: multiple IV medications needed Discharge planning: alf facility
[2016-10-22 15:50] VITALS: BP 134/75; PULSE 74; TEMP 36.4; O2SAT 94
[2016-10-22 20:00] VITALS: O2SAT 97
[2016-10-22] MEDS: SIMVASTATIN 10 MG TAB PO SCH (20:50)
[2016-10-22] MEDS: INSULIN GLARGINE SOLOSTAR 100 UNITS/ML 3 ML PEN SC SCH (20:55)
[2016-10-22 22:56] VITALS: BP 134/74; PULSE 70; TEMP 36.6; O2SAT 96
[2016-10-22 23:05] VITALS: BP 146/81; PULSE 69; TEMP 36.9; O2SAT 96
[2016-10-23] VITALS: O2SAT 97
[2016-10-23] MEDS: SODIUM CHLORIDE 0.9% 1000ML 1,000 ML IV SCH ×2 (04:30→14:46)
[2016-10-23] MEDS: LEVOTHYROXINE 125 MCG TAB PO SCH (06:24)
[2016-10-23] MEDS: INSULIN ASPART 100 UNITS/ML 3 ML PEN SC SCH ×4 (06:30→20:58)
[2016-10-23 06:59] VITALS: BP 127/79; PULSE 67; TEMP 36.6; O2SAT 96
[2016-10-23 07:10] LABS: HEMATOCRIT 36.1 % (37-47); MEAN CELL VOLUME 91.4 fL (80-100); MEAN CORPUSCULAR HEMOGLOBIN 30.6 pg (25-34); MEAN CORPUSCULAR HGB CONC 33.5 g/dl (32-36); MEAN PLATELET VOLUME 10.2 fL (7.4-10.4); PLATELET COUNT 284 K/uL (130-400); RED BLOOD COUNT 3.95 M/uL (4.2-5.4); WHITE BLOOD COUNT 7.73 K/uL (4.8-10.8)
[2016-10-23 07:58] LABS: BUN/CREATININE RATIO 16.8 (10-20); CALCIUM 8.1 mg/dl (8.5-10.1); CREATININE 1.5 mg/dl (0.60-1.20); POTASSIUM 4.3 mmol/L (3.5-5.1)
[2016-10-23] MEDS: PANTOprazole SOD 40 MG TAB PO SCH (08:12)
[2016-10-23] MEDS: VENLAFAXINE HCL 50 MG TAB PO SCH ×2 (08:12→20:56)
[2016-10-23] MEDS: EZETIMIBE 10MG TAB PO SCH (08:13)
[2016-10-23] MEDS: GABAPENTIN 400 MG CAP PO SCH ×3 (08:13→21:00)
[2016-10-23] MEDS: ASPIRIN 81 MG ECTAB PO SCH (08:14)
[2016-10-23] MEDS: CLOPIDOGREL BISULFATE 75 MG TAB PO SCH (08:14)
[2016-10-23] MEDS: FERROUS SULFATE 325 MG TAB PO SCH (08:14)
[2016-10-23] MEDS: BuPROPion SR 150 MG TABCR PO SCH (08:14)
[2016-10-23] MEDS: HEPARIN SOD 5000 UNIT/0.5 ML CARP SQ SCH ×2 (08:17→20:59)
[2016-10-23 14:34] VITALS: BP 127/73; PULSE 72; TEMP 36.7; O2SAT 97
--- NOTE | 2016-10-23 15:27 | Progress Note ---
Subjective Date of Service: Oct 23, 2016. Subjective Pt evaluation today including: conversation w/ patient, physical exam, chart review, lab review, review of studies, review of inpatient medication list Resting comfortably in bed No complaints at this time No acute events overnight Problem List Medical Problems: (1) Acute kidney injury Status: Acute (2) Adult hypothyroidism Status: Chronic (3) Ambulatory dysfunction Status: Acute (4) Arrhythmia Status: Acute (5) Falls Status: Acute (6) Generalized weakness Status: Acute (7) Hypotension Status: Acute (8) Hypotension Status: Acute (9) Hypotension Status: Acute (10) Hypothyroidism Status: Acute (11) Numbness Status: Acute (12) Sepsis Status: Acute (13) Weakness Status: Acute Review of Systems Constitutional: + weakness, + fatigue, No fever, No chills, No sweats ENT: No hearing loss, No unusual epistaxis, No nasal symptoms, No sore throat Respiratory: No cough, No sputum, No wheezing, No shortness of breath, No dyspnea on exertion Cardiac: No chest pain, No orthopnea, No PND, No edema Abdomen: No pain, No nausea, No vomiting, No diarrhea Musculoskeletal: No joint pain, No muscle pain, No swelling, No calf pain Female : No dysuria, No urinary frequency, No hematuria, No incontinence Neurologic: No memory loss, No paralysis, No weakness, No numbness/tingling Psychiatric: No depression symptoms, No anhedonism, No anxiety, No insomnia Endo: No fatigue, No excessive thirst Skin: No rash, No itch Objective Vital Signs Date Time Temp Pulse Resp B/P (MAP) Pulse Ox O2 Delivery O2 Flow Rate FiO2 10/23/16 14:34 36.7 72 18 127/73 (91) 97 Room Air 10/23/16 08:00 Room Air 10/23/16 06:59 36.6 67 19 127/79 (95) 96 Room Air 10/23/16 00:00 97 Room Air 10/22/16 23:05 36.9 69 18 146/81 (102) 96 Room Air 10/22/16 22:56 36.6 70 18 134/74 (94) 96 Room Air 10/22/16 20:00 97 Room Air 10/22/16 16:00 Room Air 10/22/16 15:50 36.4 74 18 134/75 (94) 94 Room Air Physical Exam General Appearance: WD/WN, no apparent distress Eyes: normal inspection, PERRL, EOMI, sclerae normal Neck: supple, no adenopathy, thyroid normal, no JVD Respiratory/Chest: chest non-tender, lungs clear, normal breath sounds, no respiratory distress Cardiovascular: no edema, no gallop, no JVD, no murmur Abdomen: normal bowel sounds, non tender, soft, no organomegaly Neurologic/Psychiatric: no motor/sensory deficits, alert, normal mood/affect, oriented x 3 Laboratory Results Last 24 Hours Test 10/22/16 16:51 10/22/16 17:08 10/22/16 19:54 10/23/16 02:16 Bedside Glucose 56 mg/dl 103 mg/dl 133 mg/dl 118 mg/dl Test 10/23/16 06:46 10/23/16 07:11 10/23/16 07:32 10/23/16 11:32 White Blood Count 7.73 K/uL Red Blood Count 3.95 M/uL Hemoglobin 12.1 g/dL Hematocrit 36.1 % Mean Corpuscular Volume 91.4 fL Mean Corpuscular Hemoglobin 30.6 pg Mean Corpuscular Hemoglobin Concent 33.5 g/dl RDW Standard Deviation 47.4 fL RDW Coefficient of Variation 14.2 % Platelet Count 284 K/uL Mean Platelet Volume 10.2 fL Sodium Level 141 mmol/L Potassium Level 4.3 mmol/L Chloride Level 111 mmol/L Carbon Dioxide Level 25 mmol/L Anion Gap 5.0 mmol/L Blood Urea Nitrogen 25 mg/dl Creatinine 1.50 mg/dl Est Creatinine Clear Calc Drug Dose 39.8 ml/min Estimated GFR () 41.4 Estimated GFR (Non- 35.7 BUN/Creatinine Ratio 16.8 Random Glucose 40 mg/dl Calcium Level 8.1 mg/dl Bedside Glucose 53 mg/dl 107 mg/dl 111 mg/dl Assessment and Plan Ms. Leon is a 65 y/o female with PMHx of Hypothyroidism, HTN, T2DM, CAD S/P Stent, CVA with L Residual, CKD Stage III, PAD, and Depression who presents for multiple falls and AMS: Encephalopathy 2/2 Dehydration and Hypothyroidism: IMPROVING - No signs of infection appreciated - did receive Rocephin in ED while awaiting urine results - no overt infection appreciated - Per [employer] patient was TSH of 82 in Jan 2016 that improved to 3 in June 2016 - Continue Synthroid and will need recheck in 6 weeks -- confirms non-compliance Hypotension 2/2 Dehydration and Hypothyroidism: Positive Orthostatics - Aggressive hydration in ED with BP improvement - continue IVF throughout the day and monitor Hyperkalemia: RESOLVED - May likely be from Lisinopril with underlying CKD - likely D/C indefinitely CODY on CKD Stage III: Baseline Cr 1.6 - Follows with Dr. Schwarz - Currently improved from baseline but will continue IVF - avoid nephrotoxic agents T2DM with Diabetic Neuropathy: - Noted hypoglycemia in AM in 60s - Jan PM Lantus to 10 units - Continue to hold Metformin 500 mg BID and cover with Lantus and SSI - Gabapentin 400 mg TID CAD S/P Stent and H/O CVA with L Residual Deficits: - ASA 81 mg daily and Plavix 75 mg daily - Zocor 10 mg daily and Zetia 10 mg daily Code Status: FULL RESUSCITATION DVT Prophylaxis: Heparin 5000 units SC BID Will need placement, require 3 [place] stay, cont PT/OT Continued [facility] stay due to: multiple IV medications needed Discharge planning: long term facility
[2016-10-23 20:00] VITALS: O2SAT 97
[2016-10-23] MEDS: INSULIN GLARGINE SOLOSTAR 100 UNITS/ML 3 ML PEN SC SCH (20:59)
[2016-10-23] MEDS: SIMVASTATIN 10 MG TAB PO SCH (20:59)
[2016-10-23 22:46] VITALS: BP 129/75; PULSE 73; TEMP 36.9; O2SAT 96
[2016-10-24] VITALS: O2SAT 97
[2016-10-24] MEDS: SODIUM CHLORIDE 0.9% 1000ML 1,000 ML IV SCH (00:48)
[2016-10-24] MEDS: LEVOTHYROXINE 125 MCG TAB PO SCH (06:29)
[2016-10-24 07:19] VITALS: BP 137/75; PULSE 67; TEMP 36.7; O2SAT 96
[2016-10-24] MEDS: VENLAFAXINE HCL 50 MG TAB PO SCH ×2 (08:48→21:04)
[2016-10-24] MEDS: EZETIMIBE 10MG TAB PO SCH (08:48)
[2016-10-24] MEDS: PANTOprazole SOD 40 MG TAB PO SCH (08:48)
[2016-10-24] MEDS: BuPROPion SR 150 MG TABCR PO SCH (08:49)
[2016-10-24] MEDS: FERROUS SULFATE 325 MG TAB PO SCH (08:49)
[2016-10-24] MEDS: GABAPENTIN 400 MG CAP PO SCH ×3 (08:49→21:04)
[2016-10-24] MEDS: ASPIRIN 81 MG ECTAB PO SCH (08:49)
[2016-10-24] MEDS: CLOPIDOGREL BISULFATE 75 MG TAB PO SCH (08:49)
[2016-10-24] MEDS: HEPARIN SOD 5000 UNIT/0.5 ML CARP SQ SCH (08:50)
[2016-10-24] MEDS: INSULIN ASPART 100 UNITS/ML 3 ML PEN SC SCH ×4 (08:51→21:00)
[2016-10-24 13:50] VITALS: BP 122/76; PULSE 67; O2SAT 96
[2016-10-24 15:36] VITALS: BP 129/76; PULSE 70; TEMP 36.7; O2SAT 97
[2016-10-24 16:04] VITALS: O2SAT 97
--- NOTE | 2016-10-24 20:46 | Progress Note ---
Subjective Date of Service: Oct 24, 2016. Subjective Pt evaluation today including: conversation w/ patient, conversation w/ family ( at bedside), physical exam, chart review, lab review, review of inpatient medication list Pain: denies PO Intake: normal Voiding: donis catheter in place patient reports using a wheelchair for locomotion at her home for about 2 years she states her legs simply got weak years ago and she has never gotten better denies urinary or bowel incontinence at home admits to noncompliance with medications at home wants to go for rehab - SNF likely Problem List Medical Problems: (1) Acute kidney injury Status: Acute (2) Adult hypothyroidism Status: Chronic (3) Ambulatory dysfunction Status: Acute (4) Arrhythmia Status: Acute (5) Falls Status: Acute (6) Generalized weakness Status: Acute (7) Hypotension Status: Acute (8) Hypotension Status: Acute (9) Hypotension Status: Acute (10) Hypothyroidism Status: Acute (11) Numbness Status: Acute (12) Sepsis Status: Acute (13) Weakness Status: Acute Review of Systems Constitutional: No fever Respiratory: No shortness of breath Cardiac: No chest pain Abdomen: No pain Neurologic: + weakness (generalized), + numbness/tingling (of legs (feet)), + problem reported Objective Vital Signs Date Time Temp Pulse Resp B/P (MAP) Pulse Ox O2 Delivery O2 Flow Rate FiO2 10/24/16 16:04 97 Room Air 10/24/16 15:36 36.7 70 18 129/76 (93) 97 10/24/16 13:50 67 96 10/24/16 08:00 Room Air 10/24/16 07:19 36.7 67 16 137/75 (95) 96 Room Air 10/24/16 00:00 97 Room Air 10/23/16 22:46 36.9 73 18 129/75 (93) 96 Room Air Physical Exam General Appearance: no apparent distress ENT: pharynx normal Neck: no JVD Respiratory/Chest: lungs clear, no respiratory distress, no accessory muscle use Cardiovascular: regular rate, rhythm, no gallop, no murmur Abdomen: normal bowel sounds, non tender, soft, no organomegaly Extremities: no pedal edema Neurologic/Psychiatric: alert, oriented x 3, + pertinent finding (strength x 4 extremities 5/5; DTRs 2+ b/l upper and lower ext) Skin: + pertinent finding (mild hyperpigmentation of back) Laboratory Results Last 24 Hours Test 10/23/16 20:39 10/24/16 02:10 10/24/16 04:33 10/24/16 06:46 Bedside Glucose 220 mg/dl 74 mg/dl 75 mg/dl 90 mg/dl Test 10/24/16 09:28 10/24/16 11:16 10/24/16 16:37 10/24/16 19:56 Vitamin B12 Level 331 pg/mL Random Cortisol 17.30 mcg/dl Bedside Glucose 146 mg/dl 160 mg/dl 153 mg/dl Assessment and Plan 65yo female with: 1. Encephalopathy - resolved. Was felt to be due to dehydration and severe Hypothyroidism. 2. decompensated hypothyroidism - she is now back on her synthroid. Records reviewed - TSH of 82 in Jan 2016 that improved to 3 in June 2016. Encouraged compliance. Repeat TSH in 6 weeks as outpatient. 3. chronic weakness - check sed rate in AM, r/o PMR. Has used a wheelchair for about 2 years. Neuro function of legs actually quite good on exam. Severe/progressive deconditioning?? 4. acute kidney injury - resolved. 5. CKD stage 3 - at baseline; BMP in am for stability. 6. T2DM with Diabetic Neuropathy and hypoglycemia - lantus has been cut back; I also adjusted her correction factor and carb ratio today. Cortisol level acceptable making adrenal insufficiency unlikely. Hold oral agents. Cont gabapentin for neuropathy. 7. CAD with h/o stent - cont asa, plavix, zetia, zocor 8. h/o stroke with left-sided weakness - perhaps has contributed to her chronic ambulatory dysfunction. 9. DVT proph - heparin; increase to TID dosing based on weight d/c to [facility] tomorrow Continued [facility] stay due to: ambulation difficulties Discharge planning: correction facility
[2016-10-24] MEDS: SIMVASTATIN 10 MG TAB PO SCH (21:04)
[2016-10-24] MEDS: INSULIN GLARGINE SOLOSTAR 100 UNITS/ML 3 ML PEN SC SCH (21:06)
[2016-10-24 23:48] VITALS: BP 123/77; PULSE 71; TEMP 37; O2SAT 97
[2016-10-25] VITALS: O2SAT 97
[2016-10-25] MEDS: HEPARIN SOD 5000 UNIT/0.5 ML CARP SQ SCH ×2 (00:01→09:11)
[2016-10-25] MEDS: LEVOTHYROXINE 125 MCG TAB PO SCH (05:50)
[2016-10-25 06:28] LABS: BUN/CREATININE RATIO 16.3 (10-20); CALCIUM 8.2 mg/dl (8.5-10.1); CREATININE 1.6 mg/dl (0.60-1.20); POTASSIUM 4.4 mmol/L (3.5-5.1)
[2016-10-25 07:35] VITALS: BP 127/76; PULSE 68; TEMP 36.9; O2SAT 93
[2016-10-25 08:00] VITALS: O2SAT 93
[2016-10-25] MEDS ORDERED: CYANOCOBALAMIN 1000 MCG/ML VIAL IM SCH (09:00)
[2016-10-25] MEDS: PANTOprazole SOD 40 MG TAB PO SCH (09:05)
[2016-10-25] MEDS: GABAPENTIN 400 MG CAP PO SCH (09:05)
[2016-10-25] MEDS: CLOPIDOGREL BISULFATE 75 MG TAB PO SCH (09:06)
[2016-10-25] MEDS: BuPROPion SR 150 MG TABCR PO SCH (09:06)
[2016-10-25] MEDS: ASPIRIN 81 MG ECTAB PO SCH (09:07)
[2016-10-25] MEDS: VENLAFAXINE HCL 50 MG TAB PO SCH (09:07)
[2016-10-25] MEDS: EZETIMIBE 10MG TAB PO SCH (09:08)
[2016-10-25] MEDS: FERROUS SULFATE 325 MG TAB PO SCH (09:08)
[2016-10-25] MEDS: INSULIN ASPART 100 UNITS/ML 3 ML PEN SC SCH (09:10)
[2016-10-25] MEDS ORDERED: INSDGI SC (09:15)
[2016-10-25] MEDS ORDERED: NVLGIPEN SC (09:15)
[2016-10-25] MEDS ORDERED: FERR1TAB23 PO (09:15)
[2016-10-25] MEDS ORDERED: CYNI1000 IM (09:17)
--- NOTE | 2016-10-25 10:54 | DIAGNOSTIC IMAGING REPORT ---
CHEST 2 VIEWS ROUTINE CLINICAL HISTORY: bibasilar rales dyspnea COMPARISON STUDY: 10/20/2016 FINDINGS: Several old right-sided rib fractures. Pleural reactive change lateral right hemithorax felt to be overlap artifact of the scapula. No focal infiltrate. Poor inspiratory volumes creating crowding of basilar lung markings. IMPRESSION: No acute process. Mild bibasilar atelectasis. The above report was generated using voice recognition software. It may contain grammatical, syntax or spelling errors. Electronically signed by: Jaren Holguin M.D. 10/25/2016 10:52 AM Dictated Date/Time: 10/25/2016 10:51 AM
[2016-10-25] MEDS ORDERED: IPRA1AER2 INH (11:07)
[2016-10-25] MEDS ORDERED: GFNSR600 PO (11:07)
--- NOTE | 2016-10-25 11:11 | Discharge Instructions ---
Discharge Instructions Date of Service Oct 25, 2016. Admission Reason for Admission: Altered Mental Status, Orthostatic Hypotension Discharge Discharge Diagnosis / Problem: severe hypothyroidism Discharge Goals Goal(s): Learn about illness, Diagnostic testing, Therapeutic intervention Activity Recommendations Activity Level: Assistance Required Therapies: Physical Therapy, Occupational Therapy . Additional Information Patient informed of condition: Yes Advance Directives: No DNR: No Level of Care: Skilled Communicable Disease: No Prognosis: Stable Oxygen at (LPM): none Morales Catheter: No Instructions / Follow-Up Instructions / Follow-Up 1. See [facility] within 48 hours. 2. See PCP within 1 week of discharge from SNF. Current Hospital Diet Patient's current hospital diet: AHA Diet (Heart Healthy), Diabetes Type 2 Diet Discharge Diet Recommended Diet: AHA Diet (Heart Healthy), Diabetes Type 2 Diet Procedures Procedures Performed: CAT scan of head - negative. CAT scan of cervical spine - negative for fractures. Chest x-ray - no pneumonia. Pending Studies Studies pending at discharge: no Physician Orders On Transfer Special Precautions: fall precautions due to partial amputation of right foot Dressing Changes: none IV Therapy: none Vital Signs: per routine Additional Orders: 1. BMP in 1 week for stability. 2. TSH in 6 weeks. 3. Vitamin B12 level in 6 weeks. 4. Fingerstick blood sugar checks before meals and at bedtime (AC & HS). POLST Discussion: Not Applicable Medical Emergencies . Who to Call and When: Medical Emergencies: If at any time you feel your situation is an emergency, please call 911 immediately. . Non-Emergent Contact Non-Emergency issues call your: Primary Care Provider Call Non-Emergent contact if: temperature is above 100.5, you have any medication questions . . "Provider Documentation" section prepared by Wesley Barker. . Core Measure Problem Core Measures: None
[2016-10-25 11:15] VITALS: BP 127/76; PULSE 68; TEMP 36.9; O2SAT 93
[2016-10-25] MEDS ORDERED: IPRATROPIUM BROMIDE/ALBUTEROL respimat INH INH SCH (13:00)
[2016-10-31] MEDS ORDERED: INSDGI SC (12:57)
[2016-10-31] MEDS ORDERED: AMOX500C3 PO (12:57)
--- NOTE | 2016-10-31 22:32 | Discharge Summary ---
Discharge Summary Date of Service Oct 31, 2016. Discharge Summary Admission Date: Oct 20, 2016 at 17:37 Discharge Date: Oct 25, 2016 Discharge Disposition: group home facility ([facility]) Principal Diagnosis: severely decompensated hypothyroidism Problems/Secondary Diagnoses: 1. acute kidney injury - resolved; discharge creatinine 1.6 2. CAD with prior stents 3. h/o stroke 4. CKD stage 3 5. T2DM 6. HTN 7. PAD 8. depression 9. ambulatory dysfunction - chronic 10. history of right foot TMA 11. metabolic encephalopathy likely due to decompensated hypothyroidism Immunizations: Have You Had Influenza Vaccine: Yes Influenza Vaccine Date: Nov 20, 2009 History of Tetanus Vaccine?: UNCERTAIN OF DATE History of Pneumococcal: Unknown History of Hepatitis B Vaccine: UNCERTAIN OF DATE Procedures: 1. CT cervical spine: FINDINGS: There is straightening of the normal cervical lordosis. Craniocervical junction is intact. There is no acute cervical spine fracture. Evaluation of the lower cervical spine is suboptimal due to artifact. There is moderate disc space narrowing and osteophytosis at C5-C6 and C6-C7. There is mild multilevel facet arthrosis. IMPRESSION: No acute cervical spine fracture or subluxation. 2. CT head: no ICH or acute stroke. Consultations: PT, OT Medication Reconciliation New Medications: Cyanocobalamin (Cyanocobalamin) 1,000 Mcg/Ml Inj 1000 MCG IM qweekly, #4 VIAL 0 Refills Guaifenesin Ext Rel (Mucinex Ext Rel) 600 Mg Tabcr 1200 MG PO Q12 for 10 Days, #40 TAB 0 Refills Insulin Aspart (Novolog Flexpen) 100 Units/Ml Inj 0 UNITS SC AC, #1 PEN 5 Refills supplemental insulin scale - for FSBS of 150-200 give 2 units, for FSBS of 201-250 give 4 units, for FSBS of 251-300 give 6 units, for FSBS of 301-350 give 8 units. For FSBS of greater than 350 give 10 units and call . Ipratropium-Albuterol (Combivent Respimat) 1 Aer Aer 1 PUFFS INH QID, #1 INHALER 2 Refills Changed Medications: Ferrous Sulfate (Iron) 325 Mg Tab 325 MG PO QAM, #30 TABS 1 Refill (Changed from: Refills: ; Removed Instructions) Continued Medications: Ascorbic Acid (Vitamin C) 1,000 Mg Tab 1000 MG PO QAM Aspirin (Aspirin Dr) 81 Mg Tab 81 MG PO DAILY Bupropion Hcl (Smoking Deterre (Zyban) 150 Mg Tab 300 MG PO DAILY, TAB Calcium Carbonate-Cholecalcife (Calcium 600+D3 600-400 mg-Unit) 1 Tab Tab 1 TAB PO DAILY Cholecalciferol (Vitamin D) 2,000 Unit Tab 2000 INTER.UNIT PO QAM Clopidogrel (Plavix) 75 Mg Tab 75 MG PO DAILY, TAB Ezetimibe (Zetia) 10 Mg Tab 10 MG PO QAM, TAB Gabapentin (Neurontin) 400 Mg Cap 400 MG PO TID, CAP Levothyroxine Sodium (Levothyroxine Sodium) 125 Mcg Tab 125 MCG PO DAILY, TAB Omeprazole (Prilosec) 40 Mg Cap 40 MG PO DAILY, CAP Polyethylene Glycol 3350 (Miralax) 1 Pow Pow 17 GM PO DAILY PRN for Constipation, GM MIX WITH 8 OUNCES OF WATER,JUICE OR TEA Pumpkin Seed-Soy Germ (Azo Bladder Control/Go-Le) 1 Cap Cap 1 CAP PO HS Simvastatin (Zocor) 10 Mg Tab 10 MG PO HS, TAB Venlafaxine Hcl (Effexor) 100 Mg Tab 100 MG PO BID, TAB Discontinued Medications: Insulin Human Regular (Humulin R) 100 Units/Ml Susp 10 UNITS SC BID ADMINISTER THIS MEDICATION WITH BREAKFAST AND EVENING MEAL Metformin Hcl Er (Glucophage Er) 500 Mg Tab 500 MG PO Q12, TAB Discharge Exam Physical Exam: General Appearance: no apparent distress ENT: pharynx normal Neck: no JVD Respiratory/Chest: no respiratory distress, no accessory muscle use, + rales (dry, bibasilar) Cardiovascular: regular rate, rhythm, no gallop, no JVD, no murmur, normal peripheral pulses Abdomen / GI: normal bowel sounds, non tender, soft, no organomegaly Extremities: no pedal edema, + pertinent finding (right foot TMA) Neurologic/Psychiatric: alert, oriented x 3 Hospital Course HISTORY OF PRESENT ILLNESS: Patient is a pleasant 65 y/o female, with PMHx of hypothyroidism, HTN, T2DM, CAD s/p stent placement, h/o CVA, CKD stage III, depression, and PAD, who presented to the ED because of falls and altered mental status. When entering room, no family present. Patient appears very lethargic. She states last night when she was getting into bed, she fell due to bilateral lower extremity weakness. She denies any injuries. She denies any numbness/tingling to lower extremities. She has been eating and drinking OK. She admits to lightheadedness/ dizziness when changing positions quickly. She states she has been taking her medications as prescribed. Patient denies any fever, chills, sweats, vision changes, CP, palpitations, edema, SOB, wheezing, cough, abdominal pain, nausea, vomiting, diarrhea, urinary symptoms, melena, numbness/tingling, muscle/joint pain, anxiety/depression, active bleeding, or new skin discoloration/changes. HOSPITAL COURSE: The patient's presentation including encephalopathy, weakness, and falls was felt to be from severely decompensated hypothyroidism and dehydration. TSH was 82 at time of ER presentation. Noncompliance was strongly suspected as she had had a TSH of 82 in January 2016 , improving to 3 in June 2016, and now 82 once again. Her confirmed she was noncompliant with her medications. She was resumed on her synthroid at the previous dose. Her symptoms quickly resolved with hydration and reinstitution of her synthroid. She will need a repeat TSH in 6 weeks as an outpatient. According to the patient and her she has had severe weakness of the legs and ambulatory dysfunction for at least 2 years. In fact she has been using a wheelchair during that time period. Sed rate was normal. CT cervical spine without obvious cord lesion. She denied any lumbar or thoracic spine pain. I am uncertain as to the exact etiology of her chronic ambulatory dysfunction. Could consider checking an MRI of the thoracic and lumbar spine. She will need ongoing PT & OT. Her prior stroke could be contributing to her chronic weakness. All other medical problems remained stable while hospitalized. Total Time Spent: Greater than 30 minutes This includes examination of the patient, discharge planning, medication reconciliation, and communication with other providers. Discharge Instructions Please refer to the electronic Patient Visit Report (Discharge Instructions) for additional information. Follow-Up see medical case worker of [facility] within 2 days Additional Copies To Dinah Pizano PA-C
[2016-11-09] MEDS ORDERED: CYNI1000 IM (07:39)
[2016-11-11] MEDS ORDERED: FLR1 PO (13:52)
[2016-11-11] MEDS ORDERED: DFL100 PO (13:52)
== END 2016-10-25 12:23 | DRG 643 ==
LOC: C.EDB 14:38 → C.2T 17:37 → ENRESERV 17:46 → C.MED 10-21 15:11
PROVIDERS: ADMIT Family Medicine; ATTEND Internal Medicine
DX: E03.9 Hypothyroidism, unspecified (principal); G93.41 Metabolic encephalopathy; N17.9 Acute kidney failure, unspecified; I69.354 Hemiplegia and hemiparesis following cerebral infarction affecting left non-dominant side; Z91.14 Patient's other noncompliance with medication regimen; I95.9 Hypotension, unspecified; E87.5 Hyperkalemia; R29.6 Repeated falls; I12.9 Hypertensive chronic kidney disease with stage 1 through stage 4 chronic kidney disease, or unspecified chronic kidney disease; N18.3 Chronic kidney disease, stage 3 (moderate); E11.22 Type 2 diabetes mellitus with diabetic chronic kidney disease; E11.40 Type 2 diabetes mellitus with diabetic neuropathy, unspecified; E11.649 Type 2 diabetes mellitus with hypoglycemia without coma; F32.9 Major depressive disorder, single episode, unspecified; I25.10 Atherosclerotic heart disease of native coronary artery without angina pectoris; E78.5 Hyperlipidemia, unspecified; I73.9 Peripheral vascular disease, unspecified; F17.200 Nicotine dependence, unspecified, uncomplicated; Z95.5 Presence of coronary angioplasty implant and graft; Z98.84 Bariatric surgery status; Z86.14 Personal history of Methicillin resistant Staphylococcus aureus infection; Z89.431 Acquired absence of right foot; Z79.02 Long term (current) use of antithrombotics/antiplatelets; Z79.4 Long term (current) use of insulin; Z79.82 Long term (current) use of aspirin; Z79.84 Long term (current) use of oral hypoglycemic drugs; Z79.899 Other long term (current) drug therapy; Z83.3 Family history of diabetes mellitus; Z82.49 Family history of ischemic heart disease and other diseases of the circulatory system; Z84.1 Family history of disorders of kidney and ureter; Z83.79 Family history of other diseases of the digestive system

== ENCOUNTER 2016-10-27 09:42 | Inpatient (IN) | payer OTHER ==
[~2016-10-27] VITALS: Ht 160 cm; Wt 78.4 kg
[~2016-10-27 09:42] MED LIST changes: -AMT24 PO; -ASPCH81X PO; +ASPI81TA85 PO; -CALC-422 PO; +CALC-574 PO; +CLOP1TAB15 PO; +CYNI1000 IM; +GFNSR600 PO; -INSHRIE SC; +IPRA1AER2 INH; +LEVO125T4 PO; -LEVO200T PO; -MIRA1TAB3 PO; +NVLGIPEN SC; +POLY335019 PO; +SIMV10TA2 PO; -SIMV40TA4 PO; +ZYBKIT PO
[2016-10-27] MEDS ORDERED: SODIUM CHLORIDE 0.9% 1000ML 1,000 ML IV STA (10:09)
--- NOTE | 2016-10-27 10:17 | EMERGENCY ROOM VISIT NOTE ---
History Report prepared by Collin: Dominique Savage Under the Supervision of: Dr. Néstor Lamb M.D. First contact with patient: 10:05 Chief Complaint: LETHARGIC Stated Complaint: GENERALIZED WEAKNESS Nursing Triage Summary: Pt presents from home via ALS for lethargy. Per ems, pt was recently here for lethargy, left AMA on Oct 25, pt presents today because her son was unable to arouse her from sleep this am, lethargic, systolic BP sloop captain in the 80's, iv started, 500ml nss given sloop captain. BSG en route 194. Pt presents lethargic, but alert and oriented x3, only complaint is lethargy. Pt verbalizes she left AMA a couple days ago because she thought she felt better but now feels tired all the time again. No other complaints. History of Present Illness The patient is a 65 year old female who presents to the Emergency Room with complaints of generalized weakness beginning this morning. The patient left the ED against medical advice October 25 for thyroid problems and dehydration. She reports feeling weak and that she is unable to ambulate. She denies having a fever, urinary symptoms, diarrhea, and vomiting. The patient denies being on any new medications and reports that she feels she is well hydrated. She was hard to arouse today and had a low blood pressure. Source of History: patient Onset: this morning Position: other (global) Quality: other (weakness) Timing: constant Associated Symptoms: No fevers, No vomiting, No diarrhea, No urinary symptoms Note: additional symptom: unable to ambulate Review of Systems See HPI for pertinent positives & negatives. A total of 10 systems reviewed and were otherwise negative. Past Medical & Surgical Medical Problems: (1) Adult hypothyroidism (2) Altered mental status (3) Amputation at midfoot (4) CAD (coronary artery disease) (5) CKD (chronic kidney disease), stage II (6) CVA (cerebral vascular accident) (7) DM2 (diabetes mellitus, type 2) (8) Gangrene of foot (9) gi bleleding hypotensive, acute on chronic renal failrue (10) HTN (hypertension) (11) Hypothyroidism (12) Junctional rhythm (13) Orthostatic hypotension (14) Osteomyelitis (15) PAD (peripheral artery disease) (16) Stenosis of popliteal artery (17) Weakness generalized Surgical Problems: (1) Gastric bypass status for obesity (2) Stented coronary artery Family History Diabetes mellitus Gallbladder disease Heart disease Hypertension Kidney disease Kidney stones Social History Smoking Status: Current Every Day Smoker Drug Use: none Marital Status: Occupation Status: disabled Current/Historical Medications Scheduled Ascorbic Acid (Vitamin C), 1,000 MG PO QAM Aspirin (Aspirin Dr), 81 MG PO DAILY Bupropion Hcl (Smoking [place] (Zyban), 300 MG PO DAILY Calcium Carbonate-Cholecalcife (Calcium 600+D3 600-400 mg-Unit), 1 TAB PO DAILY Cholecalciferol (Vitamin D), 2,000 INTER.UNIT PO QAM Clopidogrel (Plavix), 75 MG PO DAILY Cyanocobalamin (Cyanocobalamin), 1,000 MCG IM qweekly Ezetimibe (Zetia), 10 MG PO QAM Ferrous Sulfate (Iron), 325 MG PO QAM Gabapentin (Neurontin), 400 MG PO TID Guaifenesin Ext Rel (Mucinex Ext Rel), 1,200 MG PO Q12 Insulin Aspart (Novolog Flexpen), 0 UNITS SC AC Insulin Glargine (Lantus), 10 UNITS SC HS Ipratropium-Albuterol (Combivent Respimat), 1 PUFFS INH QID Levothyroxine Sodium (Levothyroxine Sodium), 125 MCG PO DAILY Lisinopril (Prinivil), 5 MG PO QAM Omeprazole (Prilosec), 40 MG PO DAILY Pumpkin Seed-Soy Germ (Azo Bladder Control/Go-Le), 1 CAP PO HS Simvastatin (Zocor), 10 MG PO HS Venlafaxine Hcl (Effexor), 100 MG PO BID Scheduled PRN Polyethylene Glycol 3350 (Miralax), 17 GM PO DAILY PRN for Constipation Allergies Coded Allergies: Paroxetine (Verified Adverse Reaction, Unknown, NERVOUS INCREASED, 10/27/16 ) Physical Exam Vital Signs Date Time Temp Pulse Resp B/P (MAP) Pulse Ox O2 Delivery O2 Flow Rate FiO2 10/27/16 12:32 81 10/27/16 11:00 84 16 105/58 95 Room Air 10/27/16 10:00 82 10/27/16 09:58 36.3 86 14 90/46 95 Room Air 10/27/16 09:58 95 Room Air Physical Exam GENERAL: Patient is in no acute distress. HEENT: No acute trauma, normocephalic atraumatic, mucous membranes dry, no nasal congestion, no scleral icterus. NECK: No stridor, no adenopathy, no meningismus, trachea is midline. LUNGS: Clear to auscultation bilaterally, no wheeze, no rhonchi, breath sounds equal. HEART: 2/6 systolic murmur with a regular rate and rhythm. ABDOMEN: Soft, nontender, bowel sounds positive, no hernias, no peritonitis. EXTREMITIES: No cyanosis or edema, full range of motion of all the joints without pain or difficulty, no signs for acute trauma. RECTAL: black stool, heme positive NEUROLOGIC: Oriented x 3, no acute motor or sensory deficits, no focal weakness. SKIN: No rash, no jaundice, no diaphoresis. Medical Decision & Procedures ER Provider Diagnostic Interpretation: Radiology results as stated below per my review and radiologist interpretation: CT OF THE HEAD WITHOUT CONTRAST CLINICAL HISTORY: Altered mental status. Weakness. COMPARISON STUDY: Head CT October 20, 2016. CT DOSE: 537.48 mGy.cm TECHNIQUE: Helical axial images of the head were obtained without IV contrast. Automated exposure control was utilized for the study. A dose lowering technique was utilized adhering to the principles of ALARA. FINDINGS: No acute intracranial hemorrhage, midline shift or mass effect is present. Ventricular system is stable. Basilar cisterns are patent. There are no extra-axial collections. White matter hypodensity suggests small vessel disease. There are no findings to suggest acute dural sinus thrombosis or acute territorial infarct. Several old lacunar infarcts are noted within the right basal ganglia, right thalamus and right jesus. There are no significant calvarial abnormalities. Visualized portions of the sinuses and mastoid air cells are clear. IMPRESSION: No acute intracranial findings. Electronically signed by: Paul Mccall M.D. 10/27/2016 11:27 AM Dictated Date/Time: 10/27/2016 11:24 AM Laboratory Results 10/27/16 10:32 Red Blood Count 3.18, Mean Corpuscular Volume 94.3, Mean Corpuscular Hemoglobin 29.9, Mean Corpuscular Hemoglobin Concent 31.7, Mean Platelet Volume 10.4, Neutrophils (%) (Auto) 88.4, Lymphocytes (%) (Auto) 6.6, Monocytes (%) (Auto) 3.6, Eosinophils (%) (Auto) 0.7, Basophils (%) (Auto) 0.3, Neutrophils # (Auto) 9.44, Lymphocytes # (Auto) 0.70, Monocytes # (Auto) 0.38, Eosinophils # (Auto) 0.08, Basophils # (Auto) 0.03 10/27/16 10:32 Test 10/27/16 10:32 10/27/16 11:02 10/27/16 12:28 White Blood Count 10.67 K/uL (4.8-10.8) Red Blood Count 3.18 M/uL (4.2-5.4) Hemoglobin 9.5 g/dL (12.0-16.0) Hematocrit 30.0 % (37-47) Mean Corpuscular Volume 94.3 fL (80-100) Mean Corpuscular Hemoglobin 29.9 pg (25-34) Mean Corpuscular Hemoglobin Concent 31.7 g/dl (32-36) Platelet Count 336 K/uL (130-400) Mean Platelet Volume 10.4 fL (7.4-10.4) Neutrophils (%) (Auto) 88.4 % Lymphocytes (%) (Auto) 6.6 % Monocytes (%) (Auto) 3.6 % Eosinophils (%) (Auto) 0.7 % Basophils (%) (Auto) 0.3 % Neutrophils # (Auto) 9.44 K/uL (1.4-6.5) Lymphocytes # (Auto) 0.70 K/uL (1.2-3.4) Monocytes # (Auto) 0.38 K/uL (0.11-0.59) Eosinophils # (Auto) 0.08 K/uL (0-0.5) Basophils # (Auto) 0.03 K/uL (0-0.2) RDW Standard Deviation 51.2 fL (36.4-46.3) RDW Coefficient of Variation 15.0 % (11.5-14.5) Immature Granulocyte % (Auto) 0.4 % Immature Granulocyte # (Auto) 0.04 K/uL (0.00-0.02) Platelet Estimate NORMAL Prothrombin Time 10.0 SECONDS (9.0-12.0) Prothromb Time International Ratio 0.9 (0.9-1.1) Activated Partial Thromboplast Time 25.4 SECONDS (21.0-31.0) Partial Thromboplastin Ratio 1.0 Anion Gap 7.0 mmol/L (3-11) Est Creatinine Clear Calc Drug Dose 27.8 ml/min Estimated GFR () 29.2 Estimated GFR (Non- 25.2 BUN/Creatinine Ratio 36.7 (10-20) Lactic Acid Level 0.9 mmol/L (0.4-2.0) Calcium Level 8.0 mg/dl (8.5-10.1) Magnesium Level 2.3 mg/dl (1.8-2.4) Total Bilirubin 0.2 mg/dl (0.2-1) Aspartate Amino Transf (AST/SGOT) 16 U/L (15-37) Alanine Aminotransferase (ALT/SGPT) 17 U/L (12-78) Alkaline Phosphatase 67 U/L (45-117) Troponin I 0.268 ng/ml (0-0.045) Total Protein 6.1 gm/dl (6.4-8.2) Albumin 2.5 gm/dl (3.4-5.0) Globulin 3.6 gm/dl (2.5-4.0) Albumin/Globulin Ratio 0.7 (0.9-2) Thyroid Stimulating Hormone (TSH) 56.100 uIu/ml (0.300-4.500) Free Thyroxine 0.98 ng/dl (0.80-1.60) Urine Color YELLOW Urine Appearance CLEAR (CLEAR) Urine pH 5.0 (4.5-7.5) Urine Specific [place] 1.022 (1.000-1.030) Urine Protein NEG (NEG) Urine Glucose (UA) NEG (NEG) Urine Ketones TRACE (NEG) Urine Occult Blood NEG (NEG) Urine Nitrite NEG (NEG) Urine Bilirubin NEG (NEG) Urine Urobilinogen NEG (NEG) Urine Leukocyte Esterase MODERATE (NEG) Urine WBC (Auto) 10-30 /hpf (0-5) Urine RBC (Auto) 0-4 /hpf (0-4) Urine Hyaline Casts (Auto) 1-5 /lpf (0-5) Urine Epithelial Cells (Auto) 10-20 /lpf (0-5) Urine Bacteria (Auto) NEG (NEG) Transferrin % Saturation % (15-50) Laboratory results reviewed by me. Medications Administered Medications (Trade) Dose Ordered Sig/Sadie Route Start Time Stop Time Status Last Admin Dose Admin Sodium Chloride 1,000 ml @ 999 mls/hr Q1H1M STAT IV 10/27/16 10:09 10/27/16 11:09 DC 10/27/16 10:09 999 MLS/HR Pantoprazole Sodium (Protonix IV Bolus/Drip) 1 ea NOW STAT IV 10/27/16 11:46 10/27/16 11:47 DC 10/27/16 11:46 1 EA Pantoprazole Sodium 80 mg/ Dextrose 120 ml @ 480 mls/hr TODAY@1200 ONCE IV 10/27/16 12:00 10/27/16 12:14 DC 10/27/16 12:17 480 MLS/HR Pantoprazole Sodium 40 mg/ Dextrose 100 ml @ 20 mls/hr Q5H IV 10/27/16 12:15 10/27/16 17:14 10/27/16 12:17 20 MLS/HR ECG Indication: weakness Rate (beats per minute): 84 Rhythm: normal sinus Findings: no acute ischemic change, no ectopy ED Course 1008: The patient was evaluated in room B7. A complete history and physical exam was performed. 1009: Ordered Sodium Chloride 1,000 ml @ 999 mls/hr IV. 1139: I checked on the patient and went over results. 1146: Ordered Pantoprazole Sodium 1 ea IV. 1155: Discussed the patient's case with Dr. Rios. The patient will be evaluated for further management. 1200: Ordered Pantoprazole Sodium 80 mg/Dextrose 120 ml @ 480 mls/hr IV. 1215: Ordered Pantoprazole Sodium 40 mg/Dextrose 100 ml @ 200 mls/hr IV. 1220: Upon reexamination the patient is resting. I discussed results and treatment plan with the patient. She verbalizes agreement and understanding. The patient will be evaluated for further management. Medical Decision The patient is a 65 year old female who presents to the ED with complaints of weakness. Differential diagnoses considered include dehydration, electrolyte imbalance, anemia, renal failure, UTI, pneumonia, stroke, intracranial bleeding , and medication non-compliance. There is no leukocytosis. Hemoglobin is low at around 9, this is a drop for her. By my testing, the stool is black and heme-positive. There is some acute renal failure/dehydration by our testing. No hepatitis or coagulopathy. Brain CT shows no acute bleed or mass effect. Chest x-ray does not show pneumonia, atelectasis was seen. EKG shows a sinus rhythm, no acute ischemia. Cardiac enzyme testing times one does show a troponin elevation, this could be consistent with cardiac strain or injury. Urinalysis does not show infection. Blood cultures are pending. Lactic acid level was not elevated making sepsis less likely. TSH was elevated, the T4 level however was normal. The patient had already received 1 L of fluid prior to arrival. I wrote for an additional 1 L saline bolus. Blood pressure is now over 100 systolic. With the findings of GI bleeding, the patient was given an IV Protonix bolus and placed on a drip. I talked to the patient, I talked with case management. Given all of findings, admission/observation is warranted. The on-call hospitalist was consulted. Medication Reconcilliation Current Medication List: was personally reviewed by me Blood Pressure Screening Patient's blood pressure: Low blood pressure Consults Time Called: 1135 Consulting Physician: Dr. Metz OkSabino Sonterra Returned Call: [phone] Discussed the patient's case. The patient will be evaluated for further management. Impression Primary Impression: Hypotension Additional Impressions: GI bleed Elevated troponin Critical Care I have personally spent greater than 30 minutes of critical care time in the direct management of this patient. This includes bedside care, interpretation of diagnostic studies, and testing, discussion with consultants, patient, and family members, and other required patient management activities. This 30 minutes is in excess of all separately billable procedures. Scribe Attestation The scribe's documentation has been prepared under my direction and personally reviewed by me in its entirety. I confirm that the note above accurately reflects all work, treatment, procedures, and medical decision making performed by me. Departure Information Dispostion Being Evaluated By Hospitalist Referrals Dinah Pizano .ADAMA (PCP) Patient Instructions My [facility] Problem Qualifiers
[2016-10-27 10:52] LABS: MEAN CELL VOLUME 94.3 fL (80-100); MEAN CORPUSCULAR HEMOGLOBIN 29.9 pg (25-34); MEAN CORPUSCULAR HGB CONC 31.7 g/dl (32-36); RED BLOOD COUNT 3.18 M/uL (4.2-5.4); WHITE BLOOD COUNT 10.67 K/uL (4.8-10.8)
[2016-10-27 10:59] LABS: INR 0.9 (0.9-1.1)
[2016-10-27 11:15] LABS: BUN/CREATININE RATIO 36.7 (10-20); MAGNESIUM 2.3 mg/dl (1.8-2.4); POTASSIUM 4.6 mmol/L (3.5-5.1)
[2016-10-27 11:18] LABS: URINE APPEARANCE CLEAR (CLEAR); URINE BILIRUBIN NEG (NEG); URINE COLOR YELLOW; URINE NITRITE NEG (NEG); URINE SPECIFIC GRAVITY 1.022 (1.000-1.030); UROBILINOGEN NEG (NEG); ZZURINE CULT IF INDIC CATH YES
[2016-10-27 11:20] LABS: MANUAL MICROSCOPIC REQUIRED? NO; REVIEW REQ? NO
[2016-10-27 11:21] LABS: BASO % 0.3 %; BASO ABS # 0.03 K/uL (0-0.2); COMPLETE YES; EOS % 0.7 %; IG% 0.4 %; LYMPH % 6.6 %; MEAN PLATELET VOLUME 10.4 fL (7.4-10.4); MONO % 3.6 %; NEUT % 88.4 %; PLATELET COUNT 336 K/uL (130-400); PLT ESTIMATE NORMAL
[2016-10-27 11:27] LABS: ALB/GLOB RATIO 0.7 (0.9-2); THYROID STIMULATING HORMONE 56.1 uIu/ml (0.300-4.500)
--- NOTE | 2016-10-27 11:28 | DIAGNOSTIC IMAGING REPORT ---
CT OF THE HEAD WITHOUT CONTRAST CLINICAL HISTORY: Altered mental status. Weakness. COMPARISON STUDY: Head CT October 20, 2016. CT DOSE: 537.48 mGy.cm TECHNIQUE: Helical axial images of the head were obtained without IV contrast. Automated exposure control was utilized for the study. A dose lowering technique was utilized adhering to the principles of ALARA. FINDINGS: No acute intracranial hemorrhage, midline shift or mass effect is present. Ventricular system is stable. Basilar cisterns are patent. There are no extra-axial collections. White matter hypodensity suggests small vessel disease. There are no findings to suggest acute dural sinus thrombosis or acute territorial infarct. Several old lacunar infarcts are noted within the right basal ganglia, right thalamus and right jesus. There are no significant calvarial abnormalities. Visualized portions of the sinuses and mastoid air cells are clear. IMPRESSION: No acute intracranial findings. Electronically signed by: Paul Mccall M.D. 10/27/2016 11:27 AM Dictated Date/Time: 10/27/2016 11:24 AM
[2016-10-27] MEDS ORDERED: PANTOprazole INJ 80 MG in DEXTROSE 5% 100ML IV ONE (12:00)
[2016-10-27] MEDS ORDERED: PANTOprazole INJ 40 MG in DEXTROSE 5% 100ML IV SCH (12:15)
[2016-10-27] MEDS ORDERED: ZOLPIDEM TARTRATE 5 MG TAB PO PRN (12:30)
[2016-10-27] MEDS ORDERED: ALUMINUM/MAGNESIUM/SIMETH (MAALOX MAX) 30 ML UDC PO PRN (12:30)
[2016-10-27] MEDS ORDERED: POLYETHYLENE (MIRALAX) 17 GM PACK PO PRN (12:30)
[2016-10-27] MEDS ORDERED: ONDANSETRON INJ 2 MG/ML 2 ML VIAL IV PRN (12:30)
[2016-10-27] MEDS ORDERED: ACETAMINOPHEN 325 MG TAB PO PRN (12:30)
--- NOTE | 2016-10-27 12:31 | DIAGNOSTIC IMAGING REPORT ---
CHEST ONE VIEW PORTABLE HISTORY: EVALUATE ALTERED MENTAL STATUS/WEAKNESS COMPARISON: Chest 10/25/2016. FINDINGS: No pneumothorax. No pleural effusions. Left basilar linear densities favor subsegmental atelectasis or scarring. No new focal lung consolidations to suggest pneumonia. No evidence for pulmonary edema. The heart remains stable in size. Old, healed right-sided rib fractures. IMPRESSION: Left basilar linear densities favor subsegmental atelectasis or scarring. Otherwise, no acute process within the chest. Electronically signed by: Chidi Avalos M.D. 10/27/2016 12:30 PM Dictated Date/Time: 10/27/2016 12:29 PM
--- NOTE | 2016-10-27 12:55 | History and Physical ---
History & Physical Date of Service Oct 27, 2016. History & Physical gi bleleding hypotensive, acute on chronic renal failure, [id number]
[2016-10-27 13:29] LABS: HEMATOCRIT 31.2 % (37-47)
[2016-10-27] MEDS ORDERED: GLUCAGON FOR INJ 1 MG VIAL SQ PRN (13:45)
[2016-10-27] MEDS ORDERED: GLUCOSE 40% GEL 15 GM TUBE PO PRN (13:45)
[2016-10-27] MEDS ORDERED: DEXTROSE 50% 50 ML SYR IV PRN (13:45)
[2016-10-27] MEDS ORDERED: GLUCOSE 10 TABS/TUBE PO PRN (13:45)
[2016-10-27 13:55] LABS: FERRITIN 71.4 ng/ml (8.0-388.0)
--- NOTE | 2016-10-27 14:02 | HISTORY & PHYSICAL EXAMINATION ---
DATE OF ADMISSION: 10/27/2016 This is level 3 inpatient admission 45 minutes. CHIEF COMPLAINT: Dizziness, generalized weakness, black stool. HISTORY OF PRESENT ILLNESS: The patient is a 65-year-old white female with a significant past medical history of acute hypothyroidism, altered mental status, CAD, chronic kidney disease stage II, CVA, diabetic foot gangrene, hypertension, hypothyroidism, orthostatic hypotension, peripheral artery disease, osteomyelitis, popliteal artery stenosis, generalized weakness and comes to the hospital Emergency Department because of the above chief complaint. The patient was just discharged to home about 3 days ago. I heard she was recommended to go to the rehab/ECF; however, she just against she was having treatment for encephalopathy, decompensated hypothyroidism, chronic weakness and acute kidney injuries. The medical information was obtained from , ED physician and conversation with her in bedside. reports has been not doing well after arriving home and today she was not able to get up. She was too weak and was feeling dizziness when she was out of bed. Denied any syncope or denied fall. In the Emergency Room, she was found to have low blood pressure, blood pressure was 80s, has black stools which was hemoccult positive. The patient's blood pressure improved after IV fluid. When I interview with her, she looked cognition possible generalized decreased, not really active talking, but awake, alert and orientated. Denied dizziness now, denied chest pain, palpitations or lower extremity swelling, has some chronic cough but is not new. No sputum, no wheezing. Denied nausea, vomiting, abdominal pain, diarrhea, or constipation. Denied dysuria, urgency, or frequencies. Denied facial droop, slurry speeches or local weakness. Skin has no rashes. PAST MEDICAL HISTORY: Like I mentioned in the above which include hypothyroidism, CAD, stent, CKD stage III, history of CVA, history of type 2 diabetic, hypertension, peripheral artery disease, depression. PAST SURGICAL HISTORY: Includes amputation in the right mid foot, gastric bypass because of obesity and stented coronary arteries. FAMILY HISTORY: Include diabetic, gallbladder disease, heart disease, kidney disease. SOCIAL HISTORY: She was a current smoking 1 pack per day. Denied alcohol abuse disorder, denied illicit drug abuse. Lives with family. ALLERGIES: ALLERGIC TO PAROXETINE. CURRENT MEDICATIONS: Taking at home which include bupropion 150 mg p.o. daily, vitamin B12 1 mg injection q. weekly, gabapentin 400 mg p.o. t.i.d., guaifenesin 1200 mg p.o. q. 12 hours, insulin Glargine 10 units subQ at bedtime, albuterol inhaler as needed, Effexor 150 mg p.o. b.i.d., levothyroxine 125 mcg p.o. daily. REVIEW OF SYSTEMS: Please see HPI, otherwise 14-point organ system review were negative. PHYSICAL EXAMINATION: VITAL SIGNS: Temperature is 36.3, pulse 81, respiration rate 16, blood pressure 105/58, pulse ox was 95% on room air. GENERAL: The patient is a white female, mild flat, awake, alert, orientated, not really active conversation but she responds all questions to me. HEAD: Normocephalic. EYES: Pupils equal, round responds to light. EARS: Ear was normal. NOSE: Normal. NECK: Supple. Thyroid no enlargement. Trachea midline. HEART: Regular rhythm. S1, S2. LUNGS: Decreased breathing sounds. There was no wheezing, rhonchi or crackles. ABDOMEN: Soft, nontender. Bowel sound was positive. BILATERAL LOWER EXTREMITIES: No swelling. Homans sign was negative. Calf was nontender. Right middle foot has amputation. NEUROLOGICAL EVALUATION: Cranial nerves II-XII was intact. There was no local deficits. LABORATORY STUDIES: WBC 10, hemoglobin 9.5, from recent lab was 12.1. PT/INR was 10/0.9. Sodium 140, potassium 4.6, chloride 112, BUN 76, creatinine 2.0 from 26/1.6. Blood glucose 139. Lactic acid 0.9. Calcium 8.0. Troponin 0.268. Total protein 6.1, albumin 2.5. TSH was 56. Compared to recent TSH was 82, which was checked 1 week ago. IMAGING STUDIES: Include a chest x-ray, there was left basilar linear densities favor subsegmental atelectasis or scarring. HEAD CT studies, there was no acute intracranial hemorrhages. ASSESSMENT AND PLAN: A 65-year-old white female with the conditions below. 1. Gastrointestinal bleeding with tarry stool with Hemoccult positive in the Emergency Room 2. Acute on chronic kidney failure likely because of volume depletion and gastrointestinal bleeding. 3. Dizziness, likely secondary to hypovolemic. 4. Elevated troponin likely because of hypovolemic and demanding ischemia. 5. History of coronary artery disease, stent. 6. History of tobacco abuse disorder and peripheral artery disease. 7. Hypovolemic upon admission to the Emergency Room, likely secondary to gastrointestinal bleeding. 8. Hypothyroidism, is on levothyroxine, possible in stable condition. 9. Possible urinary tract infection with positive UA. 10. Diabetic, hypertension and depression. PLAN: 1. Because the patient has obvious GI bleedings, hemoccult positive and black stool associated with hemoglobin drop about 2-3 grams and acute on chronic kidney failure and elevated troponin. I feel her condition is complex, I request the tele and PCU only. 2. Will be tele monitor, IV fluid, H&H q. 6 hours. Continue Protonix drip which was started in the Emergency Room already. Follow H&H q. 6 hours. GI consultation. I did type and cross 2 units. Consent signed. Request the nurse to call to M.D. to get order if hemoglobin level less than 9. 3. For the hypothyroidism, we will switch current oral medications to IV. 4. For elevated troponin, will check cardiac enzyme troponin x2 sets more. We will have cardiology consultation. 5. We will follow up renal function. 6. For diabetes will give half dose of Lantus at home dose because of n.p.o. and then continue aspart insulin sliding scale. 7. Continue home medication for depression. Neuropathy and vitamin B1 deficiency. 8. Gastrointestinal prophylaxis is covered. DVT prophylaxis will be SCD. Heparin product is contraindicated. THE PATIENT IS FULL CODE. 9. Discussed with patient and about the patient's condition and care plan and I told them the prognosis is guarded. I answered all their questions. 10. start Rocephin for uti MTDD
[2016-10-27] MEDS ORDERED: CEFTRIAXONE SOD INJ 1 GM in DEXTROSE 5% ADD-VANTAGE 50ML 50 ML IV SCH (15:30)
[2016-10-27] MEDS: GABAPENTIN 400 MG CAP PO SCH ×2 (15:46→21:00)
[2016-10-27] MEDS: INSULIN ASPART 100 UNITS/ML 3 ML PEN SC SCH ×2 (15:46→21:00)
[2016-10-27] MEDS: NSS + 20MEQ KCL 1000ML 1,000 ML IV SCH ×2 (15:46→20:59)
[2016-10-27 16:16] VITALS: BP 94/54; PULSE 79; TEMP 36.8; O2SAT 97; BMI 32.0
[2016-10-27] MEDS: PANTOprazole INJ 40 MG in DEXTROSE 5% 100ML IV SCH ×2 (17:28→21:46)
[2016-10-27] MEDS: IPRATROPIUM BROMIDE/ALBUTEROL respimat INH INH SCH ×2 (17:29→20:59)
[2016-10-27 19:45] VITALS: BP 91/52; PULSE 80; TEMP 36.6; O2SAT 95
[2016-10-27] MEDS: GUAIFENESIN 600 MG TABCR PO SCH (21:00)
[2016-10-27] MEDS ORDERED: INSULIN GLARGINE SOLOSTAR 100 UNITS/ML 3 ML PEN SC SCH (21:00)
[2016-10-27] MEDS: VENLAFAXINE HCL 50 MG TAB PO SCH (21:00)
[2016-10-27] MEDS: INSULIN GLARGINE SOLOSTAR 100 UNITS/ML 3 ML PEN SC SCH (21:15)
[2016-10-27 23:27] VITALS: BP 91/50; PULSE 77; TEMP 36.6; O2SAT 97
[2016-10-28] VITALS (11 sets, daily range): BP systolic 92–107; BP diastolic 53–64; PULSE 72–78; TEMP 36.5–37.1; O2SAT 96–99; Ht 160 cm; Wt 78.4 kg
[2016-10-28] MEDS ORDERED: NURSING VERBAL MED ORDER ONE (02:45)
[2016-10-28] MEDS: PANTOprazole INJ 40 MG in DEXTROSE 5% 100ML IV SCH ×5 (03:36→22:26)
--- NOTE | 2016-10-28 04:34 | GASTROINTESTINAL CONSULTATION ---
DATE OF CONSULTATION: 10/27/2016 RACE: . CONSULTING PHYSICIAN: Dr. Delgado. REASON FOR CONSULTATION: GI bleed. HISTORY OF PRESENT ILLNESS: Brunilda Leon is a 65-year-old female with a history of a Kenisha-en-Y gastric bypass, status post EGD in February of 2016, performed for iron deficiency anemia, which showed a normal esophagus as well as small bowel with a normal post-gastric bypass anatomy. She presented to the department of emergency medicine on 10/27 with complaints of dizziness, generalized weakness and dark stools. She left the ED against medical advice on 09/24 for thyroid problems and dehydration and did have laboratory studies as recently as 10/23/2016, which showed an H&H of 12.1 and 36.1. Upon arrival today, she had a H&H of 9.5 and 30.0, her PT and INR were normal. Her BUN and creatinine were elevated at 73 and 2.0, which was increased from her most recent visit on 10/25, which showed a BUN and creatinine of 26 and 1.6. She was noted to have an elevated TSH level in the ER of 56.1 as well as an elevated troponin level of 0.268. Her liver panel was unremarkable. A UA showed moderate leukocyte esterase with 10-30 white blood cells and she underwent imaging in the ER including a head CT due to her lethargy which was negative for acute intracranial findings and a chest x-ray which showed no acute process within the chest. She was subsequently admitted. She was placed on ceftriaxone 1 g IV q. 24 hours for possible UTI and was given a Protonix drip at 8 mg per hour. Cardiology consult was ordered secondary to her elevated troponin levels and repeat troponin levels were ordered as well. She was placed on a bowel regimen and antiemetics as needed. At the time that I saw the patient, she stated that she was feeling much better. She denied any bloody bowel movements, hematemesis or melena since her arrival. She states that she does not have any abdominal pain at this time and denies any jaundice, acholic stools, dark urine, pruritus, nausea, vomiting, fevers or chills. She does state that she has had dark stools and does not take any PPI therapy at home. She denies any NSAID use and denies any further complaints. PAST MEDICAL HISTORY: Significant for hypothyroidism, change in mental status, coronary artery disease, chronic kidney disease stage II, CVA, complications from diabetes include gangrenous foot, hypertension, hypothyroidism, orthostatic hypotension, peripheral artery disease, history of osteomyelitis, popliteal artery stenosis, generalized weakness, depression, type 2 diabetes. PAST SURGICAL HISTORY: Includes amputation of the right mid foot, gastric bypass surgery and coronary artery disease status post stent placement. ALLERGIES: TO PAROXETINE. MEDICATIONS: At the present time include ceftriaxone 1 g IV q. 24 hours, vitamin B12 1000 mcg IM every Monday, Wellbutrin 300 mg p.o. q.a.m., levothyroxine 62.5 mcg IV daily, Mucinex 1200 mg p.o. q. 12, Effexor 100 mg p.o. b.i.d., Lantus 5 units subQ at bedtime, Protonix 8 mg per hour drip, sliding scale insulin, Maalox 15 mL p.o. q. 4 p.r.n. dyspepsia, Ambien 5 mg p.o. at bedtime p.r.n. insomnia, Zofran 4 mg IV q. 6 p.r.n. nausea, MiraLax 17 g p.o. daily p.r.n. constipation. SOCIAL HISTORY: She currently smokes 1 pack per day and has a [id number] history of smoking. No alcohol or illicit drug use. FAMILY HISTORY: Negative for GI malignancy or inflammatory bowel disease. REVIEW OF SYSTEMS: Negative times a 10-system review other than pertinent positives listed in the HPI. PHYSICAL EXAMINATION: VITAL SIGNS: Include temp 36.3, pulse 82, respirations 15, blood pressure 101/55, pulse ox 95% on room air. GENERAL: She is awake, cooperative, chronic ill-appearing, in no acute distress. HEAD: Normocephalic, atraumatic. EYES: Pupils equally round. Extraocular muscles are intact. ENT: External evaluation of ears and nose are normal. Oropharynx is clear. NECK: Soft and supple. There is no JVD or lymphadenopathy. CHEST: Clear to auscultation bilaterally. CARDIOVASCULAR: Regular rate and rhythm. ABDOMEN: Soft, nontender, nondistended. Positive bowel sounds. There is no hepatosplenomegaly or stigmata of chronic liver disease. EXTREMITIES: No clubbing, cyanosis, or edema. LABORATORY AND RADIOGRAPHIC STUDIES: Reviewed in the HPI. IMPRESSION: A 65-year-old female with multiple medical comorbidities including coronary artery disease, chronic kidney disease and probable urinary tract infection and dehydration, presenting with acute blood loss anemia and melena. PLAN: At the present time, I would recommend that the patient be continued on a Protonix drip at 8 mg per hour. I would recommend that she be kept n.p.o. after midnight and we will plan on performing an upper endoscopy tomorrow for further evaluation of her symptoms. At the present time, she can have clear liquids and I will make further recommendations following the above noted testing. Once again, thanks for allowing me to participate in the care of this patient. If you have any further questions, please do not hesitate in contacting me.
[2016-10-28 06:35] LABS: BASO % 0.5 %; BASO ABS # 0.03 K/uL (0-0.2); COMPLETE YES; EOS % 2.8 %; HEMATOCRIT 28.7 % (37-47); IG% 0.2 %; LYMPH % 15.5 %; LYMPH ABS # 0.87 K/uL (1.2-3.4); MEAN CELL VOLUME 92.6 fL (80-100); MEAN CORPUSCULAR HGB CONC 32.4 g/dl (32-36); MEAN PLATELET VOLUME 9.7 fL (7.4-10.4); MONO % 8.7 %; NEUT % 72.3 %; PLATELET COUNT 273 K/uL (130-400); WHITE BLOOD COUNT 5.63 K/uL (4.8-10.8)
[2016-10-28] MEDS: INSULIN ASPART 100 UNITS/ML 3 ML PEN SC SCH ×4 (07:00→20:36)
[2016-10-28 07:13] LABS: BUN/CREATININE RATIO 40.3 (10-20); CALCIUM 7.5 mg/dl (8.5-10.1); CREATININE 1.6 mg/dl (0.60-1.20); MAGNESIUM 2.2 mg/dl (1.8-2.4); POTASSIUM 4.4 mmol/L (3.5-5.1)
[2016-10-28 07:23] LABS: PHOSPHORUS 4.4 mg/dl (2.5-4.9)
[2016-10-28] MEDS: IPRATROPIUM BROMIDE/ALBUTEROL respimat INH INH SCH ×4 (08:16→20:37)
[2016-10-28] MEDS: GABAPENTIN 400 MG CAP PO SCH ×3 (08:17→20:29)
[2016-10-28] MEDS: GUAIFENESIN 600 MG TABCR PO SCH ×2 (08:18→20:29)
[2016-10-28] MEDS: VENLAFAXINE HCL 50 MG TAB PO SCH ×2 (08:18→20:28)
[2016-10-28] MEDS: BuPROPion SR 100 MG TABCR PO SCH (08:20)
[2016-10-28] MEDS ORDERED: CYANOCOBALAMIN 1000 MCG/ML VIAL IM SCH (09:00)
[2016-10-28] MEDS: LEVOTHYROXINE SODIUM INJ 62.5 MCG in SYRINGE 0 ML IV SCH (09:00)
--- NOTE | 2016-10-28 09:32 | Gastroenterology Progress Note ---
Progress Note Date of Service: Oct 28, 2016 Subjective Pt evaluation today including: conversation w/ patient, lab review, review of inpatient medication list Patient denies any chest pain or shortness of breath. No abdominal pain or overt GIB. She has a stable H&H and was noted to be heme negative. Continues PPI ggt. Slight increase in troponin. Awaiting cardiology evaluation. Review of Systems Constitutional: No problem reported Respiratory: + see HPI Cardiac: + see HPI Abdomen: + see HPI Psych: No problem reported Medications Current Inpatient Medications Medications (Trade) Dose Ordered Sig/Sadie Route Start Time Stop Time Status Last Admin Dose Admin Potassium Chloride/Sodium Chloride 1,000 ml @ 125 mls/hr Q8H IV 10/27/16 15:30 11/26/16 15:29 Future Hold 10/27/16 20:59 125 MLS/HR Acetaminophen (Tylenol Tab) 650 mg Q4H PRN PO 10/27/16 12:30 11/26/16 12:29 Al Hydrox/Mg Hydrox/Simethicone (Maalox Max Susp) 15 ml Q4H PRN PO 10/27/16 12:30 11/26/16 12:29 Zolpidem Tartrate (Ambien Tab) 5 mg HSZ PRN PO 10/27/16 12:30 11/26/16 12:29 Ondansetron HCl (Zofran Inj) 4 mg Q6H PRN IV 10/27/16 12:30 11/26/16 12:29 Polyethylene (Miralax Powder Packet) 17 gm DAILY PRN PO 10/27/16 12:30 11/26/16 12:29 Cyanocobalamin (Vitamin B-12 Inj) 1,000 mcg Fr@0900 IM 10/28/16 09:00 11/27/16 08:59 10/28/16 08:16 1,000 MCG Gabapentin (Neurontin Cap) 400 mg TID PO 10/27/16 14:00 11/26/16 13:59 10/28/16 08:17 400 MG Guaifenesin (Mucinex Contr Rel Tab) 1,200 mg Q12 PO 10/27/16 21:00 11/26/16 20:59 10/28/16 08:18 1,200 MG Albuterol/ Ipratropium (Combivent Respimat Inh) 1 puffs QID INH 10/27/16 17:00 11/26/16 16:59 10/28/16 08:16 1 PUFFS Venlafaxine HCl (effeXOR TAB) 100 mg BID PO 10/27/16 21:00 11/26/16 20:59 10/28/16 08:18 100 MG Bupropion HCl (Wellbutrin-Sr Tab) 300 mg QAM PO 10/28/16 09:00 11/27/16 08:59 10/28/16 08:20 300 MG Levothyroxine Sodium 62.5 mcg/ Syringe 3.125 ml @ 2 mls/min DAILY@09 IV 10/28/16 09:00 11/27/16 08:59 Insulin Glargine (Lantus Solostar Pen) 5 units HS SC 10/27/16 21:00 11/26/16 20:59 10/27/16 21:15 5 UNITS Insulin Aspart (novoLOG ASPART) SLIDING SCALE G... ACHS SC 10/27/16 16:15 11/26/16 16:14 Glucose (Glucose 40% Gel) 15-30 GRAMS 15 GRAMS... UD PRN PO 10/27/16 13:45 11/26/16 13:44 Glucose (Glucose Chew Tab) 4-8 Tablets 4 Tabl... UD PRN PO 10/27/16 13:45 11/26/16 13:44 Dextrose (Dextrose 50% 50ML Syringe) 25-50ML OF 50% DW IV FOR... UD PRN IV 10/27/16 13:45 11/26/16 13:44 Glucagon (Glucagon Inj) 1 mg UD PRN SQ 10/27/16 13:45 11/26/16 13:44 Ceftriaxone Sodium 1 gm/ Dextrose 50 ml @ 100 mls/hr Q24H IV 10/28/16 14:00 11/06/16 13:59 Pantoprazole Sodium 40 mg/ Dextrose 100 ml @ 20 mls/hr Q5H IV 10/27/16 17:15 11/26/16 17:14 10/28/16 08:44 20 MLS/HR Objective Vital Signs Date Time Temp Pulse Resp B/P (MAP) Pulse Ox O2 Delivery O2 Flow Rate FiO2 10/28/16 08:00 36.6 74 16 102/60 (74) 99 Room Air 10/28/16 05:39 36.8 75 96/55 98 10/28/16 05:00 36.8 74 16 92/55 99 10/28/16 04:30 36.7 75 14 99/60 98 10/28/16 04:00 Room Air 10/28/16 04:00 36.7 75 16 98/59 98 10/28/16 03:45 36.7 75 14 94/56 97 10/28/16 03:30 36.8 76 16 92/53 98 10/28/16 00:00 Room Air 10/27/16 23:27 36.6 77 17 91/50 (64) 97 Room Air 10/27/16 20:00 Room Air 10/27/16 19:45 36.6 80 18 91/52 (65) 95 Room Air 10/27/16 16:16 36.8 79 16 94/54 97 Room Air 10/27/16 14:23 82 15 101/55 95 10/27/16 13:43 82 15 89/51 95 Room Air 101/55 10/27/16 12:32 81 10/27/16 12:00 82 14 111/55 95 Room Air 10/27/16 11:00 84 16 105/58 95 Room Air 10/27/16 10:00 82 10/27/16 09:58 36.3 86 14 90/46 95 Room Air 10/27/16 09:58 95 Room Air Physical Exam General Appearance: WD/WN, no apparent distress Eyes: EOMI ENT: hearing grossly normal Neck: supple Respiratory/Chest: lungs clear, normal breath sounds, no respiratory distress Cardiovascular: regular rate, rhythm, no gallop, no murmur Abdomen: normal bowel sounds, non tender, soft Extremities: no pedal edema Neurologic/Psych: alert, normal mood/affect, oriented x 3 Skin: warm/dry Laboratory Results Last 24 Hours Test 10/27/16 10:32 10/27/16 11:02 10/27/16 11:45 10/27/16 13:13 White Blood Count 10.67 K/uL Red Blood Count 3.18 M/uL Hemoglobin 9.5 g/dL 9.9 g/dL Hematocrit 30.0 % 31.2 % Mean Corpuscular Volume 94.3 fL Mean Corpuscular Hemoglobin 29.9 pg Mean Corpuscular Hemoglobin Concent 31.7 g/dl Platelet Count 336 K/uL Mean Platelet Volume 10.4 fL Neutrophils (%) (Auto) 88.4 % Lymphocytes (%) (Auto) 6.6 % Monocytes (%) (Auto) 3.6 % Eosinophils (%) (Auto) 0.7 % Basophils (%) (Auto) 0.3 % Neutrophils # (Auto) 9.44 K/uL Lymphocytes # (Auto) 0.70 K/uL Monocytes # (Auto) 0.38 K/uL Eosinophils # (Auto) 0.08 K/uL Basophils # (Auto) 0.03 K/uL RDW Standard Deviation 51.2 fL RDW Coefficient of Variation 15.0 % Immature Granulocyte % (Auto) 0.4 % Immature Granulocyte # (Auto) 0.04 K/uL Platelet Estimate NORMAL Prothrombin Time 10.0 SECONDS Prothromb Time International Ratio 0.9 Activated Partial Thromboplast Time 25.4 SECONDS Partial Thromboplastin Ratio 1.0 Sodium Level 140 mmol/L Potassium Level 4.6 mmol/L Chloride Level 112 mmol/L Carbon Dioxide Level 21 mmol/L Anion Gap 7.0 mmol/L Blood Urea Nitrogen 73 mg/dl Creatinine 2.00 mg/dl Est Creatinine Clear Calc Drug Dose 27.8 ml/min Estimated GFR () 29.2 Estimated GFR (Non- 25.2 BUN/Creatinine Ratio 36.7 Random Glucose 139 mg/dl Lactic Acid Level 0.9 mmol/L Calcium Level 8.0 mg/dl Magnesium Level 2.3 mg/dl Total Bilirubin 0.2 mg/dl Aspartate Amino Transf (AST/SGOT) 16 U/L Alanine Aminotransferase (ALT/SGPT) 17 U/L Alkaline Phosphatase 67 U/L Troponin I 0.268 ng/ml Total Protein 6.1 gm/dl Albumin 2.5 gm/dl Globulin 3.6 gm/dl Albumin/Globulin Ratio 0.7 Thyroid Stimulating Hormone (TSH) 56.100 uIu/ml Free Thyroxine 0.98 ng/dl Urine Color YELLOW Urine Appearance CLEAR Urine pH 5.0 Urine Specific [place] 1.022 Urine Protein NEG Urine Glucose (UA) NEG Urine Ketones TRACE Urine Occult Blood NEG Urine Nitrite NEG Urine Bilirubin NEG Urine Urobilinogen NEG Urine Leukocyte Esterase MODERATE Urine WBC (Auto) 10-30 /hpf Urine RBC (Auto) 0-4 /hpf Urine Hyaline Casts (Auto) 1-5 /lpf Urine Epithelial Cells (Auto) 10-20 /lpf Urine Bacteria (Auto) NEG Stool Occult Blood NEGATIVE Absolute Reticulocyte Count 0.06 10^6/uL Percent Reticulocyte Count 1.8 % Iron Level 58 mcg/dl Total Iron Binding Capacity 195 mcg/dl Transferrin 156 mg/dl Transferrin % Saturation 27 % Ferritin 71.4 ng/ml Vitamin B12 Level > 2000 pg/mL Folate 9.67 ng/mL Test 10/27/16 14:53 10/27/16 20:48 10/27/16 21:46 10/28/16 00:20 Bedside Glucose 150 mg/dl 119 mg/dl Hemoglobin 8.0 g/dL Hematocrit 25.0 % Troponin I 0.453 ng/ml Test 10/28/16 06:15 10/28/16 06:41 White Blood Count 5.63 K/uL Red Blood Count 3.10 M/uL Hemoglobin 9.3 g/dL Hematocrit 28.7 % Mean Corpuscular Volume 92.6 fL Mean Corpuscular Hemoglobin 30.0 pg Mean Corpuscular Hemoglobin Concent 32.4 g/dl Platelet Count 273 K/uL Mean Platelet Volume 9.7 fL Neutrophils (%) (Auto) 72.3 % Lymphocytes (%) (Auto) 15.5 % Monocytes (%) (Auto) 8.7 % Eosinophils (%) (Auto) 2.8 % Basophils (%) (Auto) 0.5 % Neutrophils # (Auto) 4.07 K/uL Lymphocytes # (Auto) 0.87 K/uL Monocytes # (Auto) 0.49 K/uL Eosinophils # (Auto) 0.16 K/uL Basophils # (Auto) 0.03 K/uL RDW Standard Deviation 54.5 fL RDW Coefficient of Variation 16.0 % Immature Granulocyte % (Auto) 0.2 % Immature Granulocyte # (Auto) 0.01 K/uL Sodium Level 143 mmol/L Potassium Level 4.4 mmol/L Chloride Level 118 mmol/L Carbon Dioxide Level 19 mmol/L Anion Gap 6.0 mmol/L Blood Urea Nitrogen 65 mg/dl Creatinine 1.60 mg/dl Est Creatinine Clear Calc Drug Dose 33.9 ml/min Estimated GFR () 38.2 Estimated GFR (Non- 33.0 BUN/Creatinine Ratio 40.3 Random Glucose 80 mg/dl Calcium Level 7.5 mg/dl Phosphorus Level 4.4 mg/dl Magnesium Level 2.2 mg/dl Troponin I 0.427 ng/ml Bedside Glucose 90 mg/dl Assessment and Plan Patient is a 65-year-old female with multiple medical comorbidities including coronary artery disease, chronic kidney disease and probable urinary tract infection and dehydration, presenting with acute blood loss anemia with elevated troponin and heme negative stool. 1. Recommend cardiology evaluation. 2. Continue IV PPI. 3. Supportive care per primary team. 4. No plan for invasive work up at this time as she is hemodynamically stable and heme negative. Agree with CHANDLER Silverio as above Abd: Soft, NT, ND, +BS Heme Negative Stool Elevated troponin, Await cardiology input No plans for EGD at this time
--- NOTE | 2016-10-28 14:08 | CARDIOLOGY CONSULTATION ---
DATE OF CONSULTATION: 10/28/2016 DATE OF CONSULTATION: 10/28/2016 [facility] REASON FOR CONSULTATION: Abnormal cardiac troponins. HISTORY OF PRESENT ILLNESS: This is a 65-year-old female with multiple medical problems whom I actually saw in consultation in May of this year when she was admitted due to mental status changes and noncompliance with her medications. She does have a history of coronary artery disease with previous stents completed at [facility]. The patient had been admitted previously earlier this month with multiple medical problems including altered mental status, hypothyroidism, chronic stage II kidney disease, previous stroke and a diabetic foot ulcer. She had just been discharged 3 days ago and now has been readmitted with weakness and dizziness along with GI bleeding. Upon admission, she had cardiac troponins obtained which are borderline elevated. This elevation is type 2 related to kidney disease, dehydration and strain due to her anemia. I do not believe it is due to acute coronary syndrome. She is not a good historian but has no current cardiac complaints. ALLERGIES: PAROXETINE. PAST MEDICAL HISTORY: As outlined above, she has multiple medical problems including a history of a previous CVA and dementia or encephalopathy. She has had stable coronary artery disease with previous coronary stents. She is a type 2 diabetic with hypertension, peripheral vascular disease and hypothyroidism. She has had previous amputations of the right mid foot. She is also status post gastric bypass for obesity. FAMILY MEDICAL HISTORY: Noncontributory. SOCIAL HISTORY: She is a current smoker. She lives with her family. REVIEW OF SYSTEMS: A 10-point review of systems is negative except for the history of chief complaint. PHYSICAL EXAMINATION: GENERAL: She is alert but nonconversive. VITAL SIGNS: Blood pressure is 110/60. Pulse is regular at 80. She is afebrile. HEAD, EYES, EARS, NOSE, AND THROAT: She is normocephalic. Pupils are equal and reactive to light. NECK: The neck veins are flat. Carotids have good upstrokes bilaterally without bruits. Thyroid is nonpalpable. RESPIRATORY: Breath sounds equal bilaterally and clear to auscultation. CARDIOVASCULAR: Heart has a regular rhythm. Normal S1, S2. GASTROINTESTINAL: Abdomen is soft, nontender without organomegaly. EXTREMITIES: Free of edema, digit clubbing, or cyanosis. NEUROLOGIC: Grossly intact. SKIN: Warm to touch. LYMPH NODES: Negative to palpation. LABORATORY DATA: Creatinine is 1.6, potassium is 4.4, hemoglobin is 9.3. IMPRESSIONS: 1. Stable coronary artery disease. 2. Elevation in troponins due to demand ischemia from anemia along with chronic renal insufficiency and dehydration. RECOMMENDATIONS: I would recommend no additional cardiac testing at this time. I would correct this patient's anemia as required. She also has multiple other medical problems that need to be corrected prior to discharge.
[2016-10-28] MEDS: CEFTRIAXONE SOD INJ 1 GM in DEXTROSE 5% ADD-VANTAGE 50ML 50 ML IV SCH (14:10)
[2016-10-28 14:40] LABS: HEMATOCRIT 26.8 % (37-47)
--- NOTE | 2016-10-28 18:15 | Progress Note ---
Subjective Date of Service: Oct 28, 2016. Subjective Saw patient today. patient states feeling well in bed, and is resting comfortably. Patient denies any pain, n/v, abd. pain at this time. Patient was initially admitted with dizziness, fatigue. Problem List Medical Problems: (1) Acute kidney injury Status: Acute (2) Ambulatory dysfunction Status: Acute (3) Arrhythmia Status: Acute (4) Elevated troponin Status: Acute (5) Falls Status: Acute (6) Generalized weakness Status: Acute (7) GI bleed Status: Acute (8) Hypotension Status: Acute (9) Hypotension Status: Acute (10) Hypotension Status: Acute (11) Hypothyroidism Status: Acute (12) Numbness Status: Acute (13) Sepsis Status: Acute (14) Weakness Status: Acute Review of Systems Constitutional: No fever, No chills Respiratory: No cough, No sputum Cardiac: No chest pain, No orthopnea Abdomen: No pain, No nausea Musculoskeletal: No joint pain Neurologic: No memory loss, No paralysis All Other Systems: Reviewed and Negative Medications Medications (Trade) Dose Ordered Sig/Sadie Route Start Time Stop Time Status Last Admin Dose Admin Cyanocobalamin (Vitamin B-12 Inj) 1,000 mcg Fr@0900 IM 10/28/16 09:00 11/27/16 08:59 10/28/16 08:16 1,000 MCG Bupropion HCl (Wellbutrin-Sr Tab) 300 mg QAM PO 10/28/16 09:00 11/27/16 08:59 10/29/16 07:22 300 MG Levothyroxine Sodium 62.5 mcg/ Syringe 3.125 ml @ 2 mls/min DAILY@09 IV 10/28/16 09:00 11/27/16 08:59 10/28/16 09:00 2 MLS/MIN Ceftriaxone Sodium 1 gm/ Dextrose 50 ml @ 100 mls/hr Q24H IV 10/28/16 14:00 11/06/16 13:59 10/28/16 14:10 100 MLS/HR Objective Vital Signs Date Time Temp Pulse Resp B/P (MAP) Pulse Ox O2 Delivery O2 Flow Rate FiO2 10/28/16 16:05 37.1 78 18 97/57 (70) 97 Room Air 10/28/16 12:00 Room Air 10/28/16 11:54 36.7 75 16 95/59 (71) 97 Room Air 10/28/16 08:00 Room Air 10/28/16 08:00 36.6 74 16 102/60 (74) 99 Room Air 10/28/16 05:39 36.8 75 96/55 98 10/28/16 05:00 36.8 74 16 92/55 99 10/28/16 04:30 36.7 75 14 99/60 98 10/28/16 04:00 Room Air 10/28/16 04:00 36.7 75 16 98/59 98 10/28/16 03:45 36.7 75 14 94/56 97 10/28/16 03:30 36.8 76 16 92/53 98 10/28/16 00:00 Room Air 10/27/16 23:27 36.6 77 17 91/50 (64) 97 Room Air 10/27/16 20:00 Room Air 10/27/16 19:45 36.6 80 18 91/52 (65) 95 Room Air Physical Exam General Appearance: WD/WN, no apparent distress Neck: supple, no adenopathy Respiratory/Chest: chest non-tender, lungs clear, normal breath sounds Cardiovascular: regular rate, rhythm, no edema, no gallop Abdomen: normal bowel sounds, non tender, soft, no organomegaly Extremities: normal range of motion Lymphatic: no adenopathy Laboratory Results Last 24 Hours Test 10/27/16 20:48 10/27/16 21:46 10/28/16 00:20 10/28/16 06:15 Bedside Glucose 119 mg/dl Hemoglobin 8.0 g/dL 9.3 g/dL Hematocrit 25.0 % 28.7 % Troponin I 0.453 ng/ml 0.427 ng/ml White Blood Count 5.63 K/uL Red Blood Count 3.10 M/uL Mean Corpuscular Volume 92.6 fL Mean Corpuscular Hemoglobin 30.0 pg Mean Corpuscular Hemoglobin Concent 32.4 g/dl Platelet Count 273 K/uL Mean Platelet Volume 9.7 fL Neutrophils (%) (Auto) 72.3 % Lymphocytes (%) (Auto) 15.5 % Monocytes (%) (Auto) 8.7 % Eosinophils (%) (Auto) 2.8 % Basophils (%) (Auto) 0.5 % Neutrophils # (Auto) 4.07 K/uL Lymphocytes # (Auto) 0.87 K/uL Monocytes # (Auto) 0.49 K/uL Eosinophils # (Auto) 0.16 K/uL Basophils # (Auto) 0.03 K/uL RDW Standard Deviation 54.5 fL RDW Coefficient of Variation 16.0 % Immature Granulocyte % (Auto) 0.2 % Immature Granulocyte # (Auto) 0.01 K/uL Sodium Level 143 mmol/L Potassium Level 4.4 mmol/L Chloride Level 118 mmol/L Carbon Dioxide Level 19 mmol/L Anion Gap 6.0 mmol/L Blood Urea Nitrogen 65 mg/dl Creatinine 1.60 mg/dl Est Creatinine Clear Calc Drug Dose 33.9 ml/min Estimated GFR () 38.2 Estimated GFR (Non- 33.0 BUN/Creatinine Ratio 40.3 Random Glucose 80 mg/dl Calcium Level 7.5 mg/dl Phosphorus Level 4.4 mg/dl Magnesium Level 2.2 mg/dl Test 10/28/16 06:41 10/28/16 11:15 10/28/16 14:31 10/28/16 16:50 Bedside Glucose 90 mg/dl 83 mg/dl 100 mg/dl Hemoglobin 8.9 g/dL Hematocrit 26.8 % Assessment and Plan Patient is a 65-year-old female with multiple medical comorbidities including coronary artery disease, chronic kidney disease and probable urinary tract infection and dehydration, presenting with acute blood loss anemia with elevated troponin and heme negative stool. 1. In regards to elevated troponin. I appreciate cardio input. It is deemed that she is having demand ischemia. Troponin peaked at .4 2. In regards to her GI blood loss. EGD is no longer recommended by GI team as she has ambar had stable h and h. Continue IV PPI. No melena or hematemesis or hematoquezia. 3. Stable coronary artery disease. Hold aspirini and plavix for the mean time as we monitor patient h and h. May resume tomorrow with cardio input. Continued [facility] stay due to: other (anemia/ monitoring h and h) Discharge planning: home
[2016-10-28 18:52] LABS: BASO % 1.1 %; BASO ABS # 0.06 K/uL (0-0.2); EOS % 2.9 %; HEMATOCRIT 25.6 % (37-47); IG% 0.2 %; LYMPH % 18.8 %; LYMPH ABS # 1.03 K/uL (1.2-3.4); MEAN CELL VOLUME 91.8 fL (80-100); MEAN CORPUSCULAR HEMOGLOBIN 31.2 pg (25-34); MEAN PLATELET VOLUME 9.7 fL (7.4-10.4); PLATELET COUNT 268 K/uL (130-400); RED BLOOD COUNT 2.79 M/uL (4.2-5.4); WHITE BLOOD COUNT 5.48 K/uL (4.8-10.8)
[2016-10-28 19:12] LABS: BUN/CREATININE RATIO 32.4 (10-20); CREATININE 1.7 mg/dl (0.60-1.20); POTASSIUM 4.3 mmol/L (3.5-5.1)
[2016-10-28 19:23] LABS: COMPLETE YES
[2016-10-28] MEDS: INSULIN GLARGINE SOLOSTAR 100 UNITS/ML 3 ML PEN SC SCH (20:37)
[2016-10-29] VITALS (8 sets, daily range): BP systolic 109–122; BP diastolic 64–72; PULSE 67–77; TEMP 36.5–36.7; O2SAT 93–98
[2016-10-29] MEDS: PANTOprazole INJ 40 MG in DEXTROSE 5% 100ML IV SCH ×4 (03:31→18:50)
[2016-10-29 06:37] LABS: BASO % 0.7 %; BASO ABS # 0.04 K/uL (0-0.2); COMPLETE YES; HEMATOCRIT 28.1 % (37-47); IG% 0.2 %; LYMPH % 15.4 %; LYMPH ABS # 0.88 K/uL (1.2-3.4); MEAN CELL VOLUME 92.1 fL (80-100); MEAN CORPUSCULAR HEMOGLOBIN 29.8 pg (25-34); MEAN CORPUSCULAR HGB CONC 32.4 g/dl (32-36); MEAN PLATELET VOLUME 9.6 fL (7.4-10.4); MONO % 9.4 %; NEUT % 71.3 %; PLATELET COUNT 305 K/uL (130-400); RED BLOOD COUNT 3.05 M/uL (4.2-5.4); WHITE BLOOD COUNT 5.72 K/uL (4.8-10.8)
[2016-10-29] MEDS: INSULIN ASPART 100 UNITS/ML 3 ML PEN SC SCH ×4 (07:00→20:47)
[2016-10-29 07:07] LABS: BUN/CREATININE RATIO 31.8 (10-20); CALCIUM 8.3 mg/dl (8.5-10.1); CREATININE 1.5 mg/dl (0.60-1.20); POTASSIUM 4.1 mmol/L (3.5-5.1)
[2016-10-29] MEDS: IPRATROPIUM BROMIDE/ALBUTEROL respimat INH INH SCH ×4 (07:21→20:44)
[2016-10-29] MEDS: GUAIFENESIN 600 MG TABCR PO SCH ×2 (07:22→20:44)
[2016-10-29] MEDS: GABAPENTIN 400 MG CAP PO SCH ×3 (07:22→20:45)
[2016-10-29] MEDS: BuPROPion SR 100 MG TABCR PO SCH (07:22)
[2016-10-29] MEDS: VENLAFAXINE HCL 50 MG TAB PO SCH ×2 (07:22→20:45)
[2016-10-29] MEDS: LEVOTHYROXINE SODIUM INJ 62.5 MCG in SYRINGE 0 ML IV SCH (09:37)
--- NOTE | 2016-10-29 10:31 | PROGRESS NOTE ---
DATE: 10/29/2016 FOLLOWUP VISIT SUBJECTIVE: The patient is a 65-year-old female with multiple medical problems including coronary artery disease with prior coronary stents, cerebrovascular disease, ____, peripheral vascular disease and chronic kidney disease. The patient had an uneventful night. She has no new complaints today. I believe her troponin elevation is due to kidney disease, dehydration and demand ischemia from her anemia. OBJECTIVE: GENERAL: She is alert and responsive. VITAL SIGNS: Blood pressure is 110/70 and pulse is regular at 74. She is afebrile. HEENT: She is normocephalic. Pupils are equal and reactive to light. Extraocular muscles are intact bilaterally. NECK: The neck veins are flat. Carotids have good upstrokes bilaterally without bruits. Thyroid is nonpalpable. RESPIRATORY: Breath sounds equal bilaterally and clear to auscultation. CARDIOVASCULAR: Heart has a regular rhythm. Normal S1 and S2. No S3 or S4. No cardiac rubs or murmurs. GASTROINTESTINAL: Abdomen is soft and nontender without organomegaly. EXTREMITIES: Free of edema, digit clubbing, or cyanosis. NEUROLOGIC: Grossly intact. SKIN: Warm to touch. LYMPH NODES: Negative to palpation. LABORATORY DATA: Hemoglobin is 9.1. Chemistry: Potassium is 4.1 and creatinine is 1.5. IMPRESSION: 1. Stable coronary artery disease with previous history of coronary stents. 2. Chronic kidney disease. 3. Peripheral vascular disease due to diabetes. 4. Cerebrovascular disease. RECOMMENDATIONS: At this point, no additional cardiac testing is indicated. I believe the patient should be taken off of telemetry and moved to a regular nursing floor. Cardiology will sign off the case. If needed, we would be happy to see her again during this admission. She can be discharged per the medicine service.
[2016-10-29] MEDS: CEFTRIAXONE SOD INJ 1 GM in DEXTROSE 5% ADD-VANTAGE 50ML 50 ML IV SCH (14:45)
--- NOTE | 2016-10-29 15:42 | Progress Note ---
Subjective Date of Service: Oct 29, 2016. Subjective Pt evaluation today including: conversation w/ patient, conversation w/ family , physical exam, chart review, lab review 65-year-old female with multiple medical issues which include coronary artery disease with prior coronary stents, cerebrovascular disease, peripheral vascular disease and chronic kidney disease. Patient reports no new complaints today. Spoke with nurse she has been uneventful. Problem List Medical Problems: (1) Acute kidney injury Status: Acute (2) Ambulatory dysfunction Status: Acute (3) Arrhythmia Status: Acute (4) Elevated troponin Status: Acute (5) Falls Status: Acute (6) Generalized weakness Status: Acute (7) GI bleed Status: Acute (8) Hypotension Status: Acute (9) Hypotension Status: Acute (10) Hypotension Status: Acute (11) Hypothyroidism Status: Acute (12) Numbness Status: Acute (13) Sepsis Status: Acute (14) Weakness Status: Acute Review of Systems Constitutional: No fever, No chills Cardiac: No chest pain, No orthopnea Musculoskeletal: No joint pain Female : No dysuria, No urinary frequency Neurologic: No memory loss, No paralysis All Other Systems: Reviewed and Negative Medications Current Inpatient Medications Medications (Trade) Dose Ordered Sig/Sadie Route Start Time Stop Time Status Last Admin Dose Admin Potassium Chloride/Sodium Chloride 1,000 ml @ 125 mls/hr Q8H IV 10/27/16 15:30 11/26/16 15:29 Future Hold 10/27/16 20:59 125 MLS/HR Acetaminophen (Tylenol Tab) 650 mg Q4H PRN PO 10/27/16 12:30 11/26/16 12:29 Al Hydrox/Mg Hydrox/Simethicone (Maalox Max Susp) 15 ml Q4H PRN PO 10/27/16 12:30 11/26/16 12:29 Zolpidem Tartrate (Ambien Tab) 5 mg HSZ PRN PO 10/27/16 12:30 11/26/16 12:29 Ondansetron HCl (Zofran Inj) 4 mg Q6H PRN IV 10/27/16 12:30 11/26/16 12:29 Polyethylene (Miralax Powder Packet) 17 gm DAILY PRN PO 10/27/16 12:30 11/26/16 12:29 Cyanocobalamin (Vitamin B-12 Inj) 1,000 mcg Fr@0900 IM 10/28/16 09:00 11/27/16 08:59 10/28/16 08:16 1,000 MCG Gabapentin (Neurontin Cap) 400 mg TID PO 10/27/16 14:00 11/26/16 13:59 10/29/16 14:45 400 MG Guaifenesin (Mucinex Contr Rel Tab) 1,200 mg Q12 PO 10/27/16 21:00 11/26/16 20:59 10/29/16 07:22 1,200 MG Albuterol/ Ipratropium (Combivent Respimat Inh) 1 puffs QID INH 10/27/16 17:00 11/26/16 16:59 10/29/16 13:00 1 PUFFS Venlafaxine HCl (effeXOR TAB) 100 mg BID PO 10/27/16 21:00 11/26/16 20:59 10/29/16 07:22 100 MG Bupropion HCl (Wellbutrin-Sr Tab) 300 mg QAM PO 10/28/16 09:00 11/27/16 08:59 10/29/16 07:22 300 MG Levothyroxine Sodium 62.5 mcg/ Syringe 3.125 ml @ 2 mls/min DAILY@09 IV 10/28/16 09:00 11/27/16 08:59 10/29/16 09:37 2 MLS/MIN Insulin Glargine (Lantus Solostar Pen) 5 units HS SC 10/27/16 21:00 11/26/16 20:59 10/28/16 20:37 5 UNITS Insulin Aspart (novoLOG ASPART) SLIDING SCALE G... ACHS SC 10/27/16 16:15 11/26/16 16:14 10/28/16 20:36 2 UNITS Glucose (Glucose 40% Gel) 15-30 GRAMS 15 GRAMS... UD PRN PO 10/27/16 13:45 11/26/16 13:44 Glucose (Glucose Chew Tab) 4-8 Tablets 4 Tabl... UD PRN PO 10/27/16 13:45 11/26/16 13:44 Dextrose (Dextrose 50% 50ML Syringe) 25-50ML OF 50% DW IV FOR... UD PRN IV 10/27/16 13:45 11/26/16 13:44 Glucagon (Glucagon Inj) 1 mg UD PRN SQ 10/27/16 13:45 11/26/16 13:44 Ceftriaxone Sodium 1 gm/ Dextrose 50 ml @ 100 mls/hr Q24H IV 10/28/16 14:00 11/06/16 13:59 10/29/16 14:45 100 MLS/HR Pantoprazole Sodium 40 mg/ Dextrose 100 ml @ 20 mls/hr Q5H IV 10/27/16 17:15 11/26/16 17:14 10/29/16 14:45 20 MLS/HR Objective Vital Signs Date Time Temp Pulse Resp B/P (MAP) Pulse Ox O2 Delivery O2 Flow Rate FiO2 10/29/16 15:12 36.5 67 18 119/72 (88) 98 Room Air 10/29/16 12:00 97 Room Air 10/29/16 10:45 36.7 70 20 109/68 (82) 98 Room Air 10/29/16 08:00 96 Room Air 10/29/16 07:16 36.7 74 20 111/65 (80) 96 Room Air 10/29/16 04:14 Room Air 10/29/16 04:00 36.5 77 20 116/70 (85) 94 Room Air 10/29/16 00:00 Room Air 10/28/16 22:59 37.1 72 18 106/63 (77) 96 Room Air 10/28/16 20:00 Room Air 10/28/16 19:36 36.5 74 16 107/64 (78) 98 Room Air 10/28/16 16:05 37.1 78 18 97/57 (70) 97 Room Air 10/28/16 16:00 Room Air Physical Exam General Appearance: WD/WN, no apparent distress Eyes: normal inspection ENT: normal ENT inspection Neck: supple, no adenopathy Respiratory/Chest: chest non-tender, lungs clear, normal breath sounds Cardiovascular: regular rate, rhythm, no edema, no gallop, no murmur Abdomen: normal bowel sounds, non tender, soft Extremities: non-tender, no pedal edema Lymphatic: no adenopathy Laboratory Results Last 24 Hours Test 10/28/16 16:50 10/28/16 18:41 10/28/16 20:06 10/28/16 22:02 Bedside Glucose 100 mg/dl 181 mg/dl White Blood Count 5.48 K/uL Red Blood Count 2.79 M/uL Hemoglobin 8.7 g/dL 8.8 g/dL Hematocrit 25.6 % 26.0 % Mean Corpuscular Volume 91.8 fL Mean Corpuscular Hemoglobin 31.2 pg Mean Corpuscular Hemoglobin Concent 34.0 g/dl Platelet Count 268 K/uL Mean Platelet Volume 9.7 fL Neutrophils (%) (Auto) 69.0 % Lymphocytes (%) (Auto) 18.8 % Monocytes (%) (Auto) 8.0 % Eosinophils (%) (Auto) 2.9 % Basophils (%) (Auto) 1.1 % Neutrophils # (Auto) 3.78 K/uL Lymphocytes # (Auto) 1.03 K/uL Monocytes # (Auto) 0.44 K/uL Eosinophils # (Auto) 0.16 K/uL Basophils # (Auto) 0.06 K/uL RDW Standard Deviation 54.8 fL RDW Coefficient of Variation 16.4 % Immature Granulocyte % (Auto) 0.2 % Immature Granulocyte # (Auto) 0.01 K/uL Red Blood Cell Morphology Unremarkable Sodium Level 140 mmol/L Potassium Level 4.3 mmol/L Chloride Level 112 mmol/L Carbon Dioxide Level 18 mmol/L Anion Gap 10.0 mmol/L Blood Urea Nitrogen 55 mg/dl Creatinine 1.70 mg/dl Est Creatinine Clear Calc Drug Dose 31.9 ml/min Estimated GFR () 35.5 Estimated GFR (Non- 30.7 BUN/Creatinine Ratio 32.4 Random Glucose 197 mg/dl Calcium Level 8.0 mg/dl Test 10/29/16 06:16 10/29/16 06:49 10/29/16 07:14 10/29/16 10:44 White Blood Count 5.72 K/uL Red Blood Count 3.05 M/uL Hemoglobin 9.1 g/dL Hematocrit 28.1 % Mean Corpuscular Volume 92.1 fL Mean Corpuscular Hemoglobin 29.8 pg Mean Corpuscular Hemoglobin Concent 32.4 g/dl Platelet Count 305 K/uL Mean Platelet Volume 9.6 fL Neutrophils (%) (Auto) 71.3 % Lymphocytes (%) (Auto) 15.4 % Monocytes (%) (Auto) 9.4 % Eosinophils (%) (Auto) 3.0 % Basophils (%) (Auto) 0.7 % Neutrophils # (Auto) 4.08 K/uL Lymphocytes # (Auto) 0.88 K/uL Monocytes # (Auto) 0.54 K/uL Eosinophils # (Auto) 0.17 K/uL Basophils # (Auto) 0.04 K/uL RDW Standard Deviation 54.0 fL RDW Coefficient of Variation 15.9 % Immature Granulocyte % (Auto) 0.2 % Immature Granulocyte # (Auto) 0.01 K/uL Sodium Level 143 mmol/L Potassium Level 4.1 mmol/L Chloride Level 114 mmol/L Carbon Dioxide Level 20 mmol/L Anion Gap 9.0 mmol/L Blood Urea Nitrogen 48 mg/dl Creatinine 1.50 mg/dl Est Creatinine Clear Calc Drug Dose 36.1 ml/min Estimated GFR () 41.4 Estimated GFR (Non- 35.7 BUN/Creatinine Ratio 31.8 Random Glucose 64 mg/dl Calcium Level 8.3 mg/dl Bedside Glucose 74 mg/dl 71 mg/dl 113 mg/dl Assessment and Plan Patient is a 65-year-old female with multiple medical comorbidities including coronary artery disease, chronic kidney disease and probable urinary tract infection and dehydration, presenting with acute blood loss anemia with elevated troponin and heme negative stool. 1. In regards to elevated troponin. I appreciate cardio input. It is deemed that she is having demand ischemia. Troponin peaked at .4 Cardiology has signed off the case. 2. In regards to her GI blood loss. EGD is no longer recommended by GI team as she has had stable h and h. Continue IV PPI. will change tO po ppi, if gastro agrees. No melena or hematemesis or hematoquezia. 3. Stable coronary artery disease. Hold aspirin and plavix for the mean time as we monitor patient h and h. will resume tomorrow Continued [facility] stay due to: other (anemia/ monitoring h and h) Discharge planning: rehab hospital (awaiting placement at [facility])
[2016-10-29] MEDS: INSULIN GLARGINE SOLOSTAR 100 UNITS/ML 3 ML PEN SC SCH (20:50)
[2016-10-30 00:03] VITALS: BP 111/67; PULSE 72; TEMP 36.8; O2SAT 96
[2016-10-30] MEDS: PANTOprazole INJ 40 MG in DEXTROSE 5% 100ML IV SCH ×4 (00:03→14:35)
[2016-10-30] MEDS: INSULIN ASPART 100 UNITS/ML 3 ML PEN SC SCH ×4 (06:30→20:57)
[2016-10-30 07:14] VITALS: BP 104/61; PULSE 71; TEMP 36.8; O2SAT 96
[2016-10-30 07:23] LABS: BASO % 0.8 %; BASO ABS # 0.06 K/uL (0-0.2); COMPLETE YES; EOS % 1.8 %; HEMATOCRIT 28.4 % (37-47); IG% 0.3 %; LYMPH ABS # 0.87 K/uL (1.2-3.4); MEAN CELL VOLUME 90.4 fL (80-100); MEAN CORPUSCULAR HEMOGLOBIN 30.6 pg (25-34); MEAN CORPUSCULAR HGB CONC 33.8 g/dl (32-36); MEAN PLATELET VOLUME 9.8 fL (7.4-10.4); MONO % 7.5 %; NEUT % 77.6 %; PLATELET COUNT 321 K/uL (130-400); RED BLOOD COUNT 3.14 M/uL (4.2-5.4); WHITE BLOOD COUNT 7.22 K/uL (4.8-10.8)
[2016-10-30 07:39] LABS: BUN/CREATININE RATIO 25.4 (10-20); CALCIUM 8.5 mg/dl (8.5-10.1); CREATININE 1.4 mg/dl (0.60-1.20); POTASSIUM 4.2 mmol/L (3.5-5.1)
[2016-10-30] MEDS: GABAPENTIN 400 MG CAP PO SCH ×3 (08:47→20:58)
[2016-10-30] MEDS: IPRATROPIUM BROMIDE/ALBUTEROL respimat INH INH SCH ×4 (08:47→20:59)
[2016-10-30] MEDS: VENLAFAXINE HCL 50 MG TAB PO SCH ×2 (08:47→20:58)
[2016-10-30] MEDS: GUAIFENESIN 600 MG TABCR PO SCH ×2 (08:48→20:58)
[2016-10-30] MEDS: BuPROPion SR 100 MG TABCR PO SCH (08:48)
[2016-10-30] MEDS: LEVOTHYROXINE SODIUM INJ 62.5 MCG in SYRINGE 0 ML IV SCH (09:47)
[2016-10-30 10:30] VITALS: BP 127/71; PULSE 71; O2SAT 97
[2016-10-30] MEDS: CEFTRIAXONE SOD INJ 1 GM in DEXTROSE 5% ADD-VANTAGE 50ML 50 ML IV SCH (14:35)
[2016-10-30 16:12] VITALS: BP 108/67; PULSE 71; TEMP 36.9; O2SAT 99
--- NOTE | 2016-10-30 17:25 | Progress Note ---
Subjective Date of Service: Oct 30, 2016. Subjective Pt evaluation today including: conversation w/ patient, conversation w/ family , physical exam, chart review, lab review, review of studies Patient reports doing well. Patient denies any blood, or dark stools. Patient denies fatigue, SOB, or nausea. Problem List Medical Problems: (1) Acute kidney injury Status: Acute (2) Ambulatory dysfunction Status: Acute (3) Arrhythmia Status: Acute (4) Elevated troponin Status: Acute (5) Falls Status: Acute (6) Generalized weakness Status: Acute (7) GI bleed Status: Acute (8) Hypotension Status: Acute (9) Hypotension Status: Acute (10) Hypotension Status: Acute (11) Hypothyroidism Status: Acute (12) Numbness Status: Acute (13) Sepsis Status: Acute (14) Weakness Status: Acute Review of Systems Constitutional: No see HPI, No fever, No chills, No sweats, No weight loss, No weakness, No fatigue, No problem reported Respiratory: No see HPI, No cough, No sputum, No wheezing, No shortness of breath, No dyspnea on exertion, No dyspnea at rest, No hemoptysis, No problem reported Cardiac: No see HPI, No chest pain, No orthopnea, No PND, No edema, No claudication, No palpitations, No problem reported Abdomen: + GI bleeding, No see HPI, No pain, No nausea, No vomiting, No diarrhea, No constipation, No problem reported Musculoskeletal: No see HPI, No joint pain, No muscle pain, No swelling, No calf pain, No problem reported Skin: No see HPI, No rash, No itch, No new/changing skin lesions, No color change, No bleeding, No problem reported All Other Systems: Reviewed and Negative Medications Current Inpatient Medications Medications (Trade) Dose Ordered Sig/Sadie Route Start Time Stop Time Status Last Admin Dose Admin Potassium Chloride/Sodium Chloride 1,000 ml @ 125 mls/hr Q8H IV 10/27/16 15:30 11/26/16 15:29 Future Hold 10/27/16 20:59 125 MLS/HR Acetaminophen (Tylenol Tab) 650 mg Q4H PRN PO 10/27/16 12:30 11/26/16 12:29 Al Hydrox/Mg Hydrox/Simethicone (Maalox Max Susp) 15 ml Q4H PRN PO 10/27/16 12:30 11/26/16 12:29 Zolpidem Tartrate (Ambien Tab) 5 mg HSZ PRN PO 10/27/16 12:30 11/26/16 12:29 Ondansetron HCl (Zofran Inj) 4 mg Q6H PRN IV 10/27/16 12:30 11/26/16 12:29 Polyethylene (Miralax Powder Packet) 17 gm DAILY PRN PO 10/27/16 12:30 11/26/16 12:29 Cyanocobalamin (Vitamin B-12 Inj) 1,000 mcg Fr@0900 IM 10/28/16 09:00 11/27/16 08:59 10/28/16 08:16 1,000 MCG Gabapentin (Neurontin Cap) 400 mg TID PO 10/27/16 14:00 11/26/16 13:59 10/30/16 20:58 400 MG Guaifenesin (Mucinex Contr Rel Tab) 1,200 mg Q12 PO 10/27/16 21:00 11/26/16 20:59 10/30/16 20:58 1,200 MG Albuterol/ Ipratropium (Combivent Respimat Inh) 1 puffs QID INH 10/27/16 17:00 11/26/16 16:59 10/30/16 20:59 1 PUFFS Venlafaxine HCl (effeXOR TAB) 100 mg BID PO 10/27/16 21:00 11/26/16 20:59 10/30/16 20:58 100 MG Bupropion HCl (Wellbutrin-Sr Tab) 300 mg QAM PO 10/28/16 09:00 11/27/16 08:59 10/30/16 08:48 300 MG Levothyroxine Sodium 62.5 mcg/ Syringe 3.125 ml @ 2 mls/min DAILY@09 IV 10/28/16 09:00 11/27/16 08:59 10/30/16 09:47 2 MLS/MIN Insulin Glargine (Lantus Solostar Pen) 5 units HS SC 10/27/16 21:00 11/26/16 20:59 10/30/16 21:02 5 UNITS Insulin Aspart (novoLOG ASPART) SLIDING SCALE G... ACHS SC 10/27/16 16:15 11/26/16 16:14 10/28/16 20:36 2 UNITS Glucose (Glucose 40% Gel) 15-30 GRAMS 15 GRAMS... UD PRN PO 10/27/16 13:45 11/26/16 13:44 Glucose (Glucose Chew Tab) 4-8 Tablets 4 Tabl... UD PRN PO 10/27/16 13:45 11/26/16 13:44 Dextrose (Dextrose 50% 50ML Syringe) 25-50ML OF 50% DW IV FOR... UD PRN IV 10/27/16 13:45 11/26/16 13:44 Glucagon (Glucagon Inj) 1 mg UD PRN SQ 10/27/16 13:45 11/26/16 13:44 Ceftriaxone Sodium 1 gm/ Dextrose 50 ml @ 100 mls/hr Q24H IV 10/28/16 14:00 11/06/16 13:59 10/30/16 14:35 100 MLS/HR Pantoprazole Sodium (Protonix Tab) 40 mg BID PO 10/30/16 20:00 11/29/16 19:59 10/30/16 20:58 40 MG Objective Vital Signs Date Time Temp Pulse Resp B/P (MAP) Pulse Ox O2 Delivery O2 Flow Rate FiO2 10/30/16 16:12 36.9 71 18 108/67 (81) 99 Room Air 10/30/16 10:30 71 97 10/30/16 08:00 Room Air 10/30/16 07:14 36.8 71 20 104/61 (75) 96 Room Air 10/30/16 00:03 36.8 72 20 111/67 (82) 96 Room Air 10/30/16 00:00 Room Air 10/29/16 20:00 Room Air 10/29/16 17:56 36.7 74 20 122/64 (83) 93 Room Air Physical Exam General Appearance: WD/WN, no apparent distress Neck: supple, no adenopathy, thyroid normal Respiratory/Chest: chest non-tender, lungs clear, normal breath sounds, no respiratory distress Cardiovascular: regular rate, rhythm, no edema, no gallop Abdomen: normal bowel sounds, non tender, soft Extremities: normal range of motion, no pedal edema Laboratory Results Last 24 Hours Test 10/29/16 20:46 10/30/16 06:54 10/30/16 07:24 10/30/16 11:10 Bedside Glucose 102 mg/dl 80 mg/dl 86 mg/dl White Blood Count 7.22 K/uL Red Blood Count 3.14 M/uL Hemoglobin 9.6 g/dL Hematocrit 28.4 % Mean Corpuscular Volume 90.4 fL Mean Corpuscular Hemoglobin 30.6 pg Mean Corpuscular Hemoglobin Concent 33.8 g/dl Platelet Count 321 K/uL Mean Platelet Volume 9.8 fL Neutrophils (%) (Auto) 77.6 % Lymphocytes (%) (Auto) 12.0 % Monocytes (%) (Auto) 7.5 % Eosinophils (%) (Auto) 1.8 % Basophils (%) (Auto) 0.8 % Neutrophils # (Auto) 5.60 K/uL Lymphocytes # (Auto) 0.87 K/uL Monocytes # (Auto) 0.54 K/uL Eosinophils # (Auto) 0.13 K/uL Basophils # (Auto) 0.06 K/uL RDW Standard Deviation 51.0 fL RDW Coefficient of Variation 15.4 % Immature Granulocyte % (Auto) 0.3 % Immature Granulocyte # (Auto) 0.02 K/uL Sodium Level 140 mmol/L Potassium Level 4.2 mmol/L Chloride Level 111 mmol/L Carbon Dioxide Level 23 mmol/L Anion Gap 6.0 mmol/L Blood Urea Nitrogen 36 mg/dl Creatinine 1.40 mg/dl Est Creatinine Clear Calc Drug Dose 38.7 ml/min Estimated GFR () 44.9 Estimated GFR (Non- 38.8 BUN/Creatinine Ratio 25.4 Random Glucose 71 mg/dl Calcium Level 8.5 mg/dl Assessment and Plan Patient is a 65-year-old female with multiple medical comorbidities including coronary artery disease, chronic kidney disease and probable urinary tract infection and dehydration, presenting with acute blood loss anemia with elevated troponin and heme negative stool. 1. In regards to elevated troponin. I appreciate cardio input. It is deemed that she is having demand ischemia. Troponin peaked at .4 Cardiology has signed off the case. 2. In regards to her GI blood loss. EGD is no longer recommended by GI team as she has had stable h and h. Switched to PO PPI today. Gastro on the case. No melena or hematemesis or hematoquezia. 3. Stable coronary artery disease. will resume aspirin and plavix in AM as H and H have been stable. Order placed. Continued [facility] stay due to: other (anemia/ monitoring h and h) Discharge planning: rehab hospital (awaiting placement at [facility])
[2016-10-30] MEDS: PANTOprazole SOD 40 MG TAB PO SCH (20:58)
[2016-10-30] MEDS: INSULIN GLARGINE SOLOSTAR 100 UNITS/ML 3 ML PEN SC SCH (21:02)
[2016-10-31 00:18] VITALS: BP 115/71; PULSE 69; TEMP 36.5; O2SAT 96
[2016-10-31] MEDS: INSULIN ASPART 100 UNITS/ML 3 ML PEN SC SCH (06:30)
[2016-10-31 06:42] LABS: HEMATOCRIT 28.4 % (37-47); MEAN CELL VOLUME 91.9 fL (80-100); MEAN CORPUSCULAR HEMOGLOBIN 31.1 pg (25-34); MEAN CORPUSCULAR HGB CONC 33.8 g/dl (32-36); MEAN PLATELET VOLUME 9.7 fL (7.4-10.4); PLATELET COUNT 340 K/uL (130-400); RED BLOOD COUNT 3.09 M/uL (4.2-5.4); WHITE BLOOD COUNT 6.87 K/uL (4.8-10.8)
[2016-10-31 07:17] LABS: BUN/CREATININE RATIO 18.5 (10-20); CALCIUM 8.6 mg/dl (8.5-10.1); CREATININE 1.5 mg/dl (0.60-1.20); POTASSIUM 4.2 mmol/L (3.5-5.1)
[2016-10-31 07:51] VITALS: BP 121/73; PULSE 71; TEMP 36.8; O2SAT 95
[2016-10-31] MEDS ORDERED: ASPIRIN 81 MG ECTAB PO SCH (08:00)
[2016-10-31] MEDS ORDERED: CLOPIDOGREL BISULFATE 75 MG TAB PO SCH (08:00)
[2016-10-31] MEDS: IPRATROPIUM BROMIDE/ALBUTEROL respimat INH INH SCH (08:49)
[2016-10-31] MEDS: GABAPENTIN 400 MG CAP PO SCH (08:49)
[2016-10-31] MEDS: PANTOprazole SOD 40 MG TAB PO SCH (08:50)
[2016-10-31] MEDS: BuPROPion SR 100 MG TABCR PO SCH (08:50)
[2016-10-31] MEDS: GUAIFENESIN 600 MG TABCR PO SCH (08:52)
[2016-10-31] MEDS: VENLAFAXINE HCL 50 MG TAB PO SCH (08:52)
[2016-10-31] MEDS ORDERED: INSDGI SC (12:57)
[2016-10-31] MEDS ORDERED: AMOX500C3 PO (12:57)
--- NOTE | 2016-10-31 13:01 | Discharge Instructions ---
Discharge Instructions Date of Service Oct 31, 2016. Admission Reason for Admission: Gi Bleeding, Hypotensive, Acute On Chronic Discharge Discharge Diagnosis / Problem: encephalopathy from uti poa Discharge Goals Goal(s): Diagnostic testing, Therapeutic intervention Activity Recommendations Activity Level: Assistance Required Therapies: Physical Therapy, Occupational Therapy .65-F with encephalopathy from uti poa, multiple medical comorbidities including coronary artery disease, chronic kidney disease , anemia with elevated troponin and heme negative stool. Enterococcal UTI poa, is sensitive to amoxil will continue assume nader is a contaminant Elevated troponin. secondary to demand ischemia. Troponin peaked at .4 Cardiology does not recommend intervention, resume aspirin and plavix GI blood loss. EGD not recommended by GI team as h/h now stable Switched to PO PPI Acute on chronic renal failure stage 3, improved Additional Information Patient informed of condition: Yes Advance Directives: Yes DNR: No Level of Care: Acute Rehab Communicable Disease: No Prognosis: Stable Morales Catheter: No Current Hospital Diet Patient's current hospital diet: Diabetes Type 2 Diet Discharge Diet Recommended Diet: Diabetes Type 2 Diet Pending Studies Studies pending at discharge: no Medical Emergencies . Who to Call and When: Medical Emergencies: If at any time you feel your situation is an emergency, please call 911 immediately. . Non-Emergent Contact Non-Emergency issues call your: Primary Care Provider Call Non-Emergent contact if: temperature is above 101, your pain is unusual for you . . "Provider Documentation" section prepared by Noel Gao. . Core Measure Problem Core Measures: None
[2016-10-31 13:13] VITALS: BP 121/73; PULSE 71; TEMP 36.8; O2SAT 95
--- NOTE | 2016-10-31 18:27 | Discharge Summary ---
Discharge Summary Date of Service Oct 31, 2016. Discharge Summary Admission Date: Oct 27, 2016 at 12:39 Discharge Date: Oct 31, 2016 Discharge Disposition: Rehab Principal Diagnosis: encephalopathy from UTI present on admission, elevated troponin acute renal Problems/Secondary Diagnoses: Failure resolved Immunizations: Have You Had Influenza Vaccine: Yes Influenza Vaccine Date: Nov 20, 2009 History of Tetanus Vaccine?: UNCERTAIN OF DATE History of Pneumococcal: Unknown History of Hepatitis B Vaccine: UNCERTAIN OF DATE Medication Reconciliation New Medications: Amoxicillin (Amoxil) 500 Mg Cap 500 MG PO TID, #9 CAP Changed Medications: Insulin Glargine (Lantus) 100 Unit/Ml Inj 5 UNITS SC HS, #1 VIAL 5 Refills (Changed from: 10 UNITS) Continued Medications: Ascorbic Acid (Vitamin C) 1,000 Mg Tab 1000 MG PO QAM Aspirin (Aspirin Dr) 81 Mg Tab 81 MG PO DAILY Bupropion Hcl (Smoking [place]re (Zyban) 150 Mg Tab 300 MG PO DAILY, TAB Calcium Carbonate-Cholecalcife (Calcium 600+D3 600-400 mg-Unit) 1 Tab Tab 1 TAB PO DAILY Cholecalciferol (Vitamin D) 2,000 Unit Tab 2000 INTER.UNIT PO QAM Clopidogrel (Plavix) 75 Mg Tab 75 MG PO DAILY, TAB Cyanocobalamin (Cyanocobalamin) 1,000 Mcg/Ml Inj 1000 MCG IM qweekly, #4 VIAL 0 Refills Ezetimibe (Zetia) 10 Mg Tab 10 MG PO QAM, TAB Ferrous Sulfate (Iron) 325 Mg Tab 325 MG PO QAM, #30 TABS 1 Refill Gabapentin (Neurontin) 400 Mg Cap 400 MG PO TID, CAP Guaifenesin Ext Rel (Mucinex Ext Rel) 600 Mg Tabcr 1200 MG PO Q12 for 10 Days, #40 TAB 0 Refills Insulin Aspart (Novolog Flexpen) 100 Units/Ml Inj 0 UNITS SC AC, #1 PEN 5 Refills supplemental insulin scale - for FSBS of 150-200 give 2 units, for FSBS of 201-250 give 4 units, for FSBS of 251-300 give 6 units, for FSBS of 301-350 give 8 units. For FSBS of greater than 350 give 10 units and call MD. Ipratropium-Albuterol (Combivent Respimat) 1 Aer Aer 1 PUFFS INH QID, #1 INHALER 2 Refills Levothyroxine Sodium (Levothyroxine Sodium) 125 Mcg Tab 125 MCG PO DAILY, TAB Omeprazole (Prilosec) 40 Mg Cap 40 MG PO DAILY, CAP Polyethylene Glycol 3350 (Miralax) 1 Pow Pow 17 GM PO DAILY PRN for Constipation, GM MIX WITH 8 OUNCES OF WATER,JUICE OR TEA Pumpkin Seed-Soy Germ (Azo Bladder Control/Go-Le) 1 Cap Cap 1 CAP PO HS Simvastatin (Zocor) 10 Mg Tab 10 MG PO HS, TAB Venlafaxine Hcl (Effexor) 100 Mg Tab 100 MG PO BID, TAB Discontinued Medications: Lisinopril (Prinivil) 5 Mg Tab 5 MG PO QAM, TAB Discharge Exam Review of Systems: Constitutional: No fever, No chills Respiratory: No cough, No sputum Cardiovascular: No chest pain, No orthopnea Abdomen: No pain, No nausea, No vomiting Musculoskeletal: No joint pain, No muscle pain Psychiatric: No depression symptoms, No anxiety Physical Exam: General Appearance: WD/WN, no apparent distress Eyes: PERRL, EOMI Respiratory/Chest: chest non-tender, lungs clear, normal breath sounds Cardiovascular: regular rate, rhythm, no murmur Abdomen / GI: normal bowel sounds, non tender, soft Hospital Course .65-F with encephalopathy from uti poa, multiple medical comorbidities including coronary artery disease, chronic kidney disease , anemia with elevated troponin and heme negative stool. Enterococcal UTI poa, is sensitive to amoxil will continue assume nader is a contaminant Elevated troponin. secondary to demand ischemia. Troponin peaked at .4 Cardiology does not recommend intervention, resume aspirin and plavix GI blood loss. EGD not recommended by GI team as h/h now stable Switched to PO PPI Acute on chronic renal failure stage 3, improved Total Time Spent: Greater than 30 minutes This includes examination of the patient, discharge planning, medication reconciliation, and communication with other providers. Discharge Instructions Please refer to the electronic Patient Visit Report (Discharge Instructions) for additional information.
[2016-11-01] MEDS ORDERED: LEVOTHYROXINE 125 MCG TAB PO SCH (06:30)
[2016-11-09] MEDS ORDERED: CYNI1000 IM (07:39)
[2016-11-11] MEDS ORDERED: FLR1 PO (13:52)
[2016-11-11] MEDS ORDERED: DFL100 PO (13:52)
== END 2016-10-31 13:50 | DRG 377 ==
LOC: EDBD 09:42 → C.EDB 09:43 → C.2T 12:39 → ENRESERV 13:57 → C.4E 10-29 17:47
PROVIDERS: ADMIT Hospitalist; ATTEND Internal Medicine
DX: K92.1 Melena (principal); G93.40 Encephalopathy, unspecified; N39.0 Urinary tract infection, site not specified; N17.9 Acute kidney failure, unspecified; D62 Acute posthemorrhagic anemia; I24.8 Other forms of acute ischemic heart disease; B95.2 Enterococcus as the cause of diseases classified elsewhere; E86.1 Hypovolemia; E86.0 Dehydration; I95.9 Hypotension, unspecified; E03.9 Hypothyroidism, unspecified; I25.10 Atherosclerotic heart disease of native coronary artery without angina pectoris; E11.22 Type 2 diabetes mellitus with diabetic chronic kidney disease; N18.3 Chronic kidney disease, stage 3 (moderate); I73.9 Peripheral vascular disease, unspecified; F17.210 Nicotine dependence, cigarettes, uncomplicated; F32.9 Major depressive disorder, single episode, unspecified; Z95.5 Presence of coronary angioplasty implant and graft; Z98.84 Bariatric surgery status; Z89.431 Acquired absence of right foot; Z86.73 Personal history of transient ischemic attack (TIA), and cerebral infarction without residual deficits; Z79.82 Long term (current) use of aspirin; Z79.02 Long term (current) use of antithrombotics/antiplatelets; Z79.4 Long term (current) use of insulin; Z79.899 Other long term (current) drug therapy

== ENCOUNTER 2016-11-07 09:26 | Inpatient (IN) | payer OTHER ==
[~2016-11-07] VITALS: Ht 170.2 cm; Wt 75.7 kg
[2016-11-07] VITALS (12 sets, daily range): BP systolic 96–110; BP diastolic 50–67; PULSE 70–78; TEMP 36.7–36.9; O2SAT 96–100; Ht 170.2 cm; Wt 75.7 kg
[~2016-11-07 09:26] MED LIST changes: +AMOX500C3 PO; -LISI-729 PO; +SODIUM CHLORIDE 0.9% 1000ML 1,000 ML IV SCH
--- NOTE | 2016-11-07 09:39 | DIAGNOSTIC IMAGING REPORT ---
HEAD WITHOUT CONTRAST (CT) CLINICAL HISTORY: 65 years-old Female presenting with Stroke. TECHNIQUE: Multidetector CT imaging of the head was performed without the use of intravenous contrast. IV contrast: None. A dose lowering technique was used consistent with the principles of ALARA (as low as reasonably achievable). COMPARISON: 10/27/2016. CT DOSE (mGy.cm): The estimated cumulative dose is 614.27 mGy.cm. FINDINGS: [employer] topogram: Unremarkable. Proportional ventricular and sulcal prominence, likely age-related parenchymal volume loss. Periventricular and subcortical white matter hypoattenuation, nonspecific but likely indicative of chronic small vessel ischemic change. No mass effect or midline shift. No hemorrhage or acute territorial infarct. No extra-axial fluid collection. Paranasal sinuses and mastoid air cells clear. Calvarium intact. IMPRESSION: 1. No acute intracranial pathology. Electronically signed by: Melo Roberts M.D. 11/07/2016 9:37 AM Dictated Date/Time: 11/07/2016 9:36 AM
[2016-11-07] MEDS ORDERED: SODIUM CHLORIDE 0.9% 500ML 500 ML IV STA ×3 (09:45→11:06)
[2016-11-07 10:16] LABS: BASO % 0.2 %; BASO ABS # 0.03 K/uL (0-0.2); EOS % 0.3 %; HEMATOCRIT 24.9 % (37-47); IG% 0.3 %; LYMPH % 3.7 %; LYMPH ABS # 0.49 K/uL (1.2-3.4); MEAN CELL VOLUME 94.7 fL (80-100); MEAN CORPUSCULAR HEMOGLOBIN 29.7 pg (25-34); MEAN CORPUSCULAR HGB CONC 31.3 g/dl (32-36); MEAN PLATELET VOLUME 9.6 fL (7.4-10.4); MONO % 4.4 %; NEUT % 91.1 %; PLATELET COUNT 452 K/uL (130-400); RED BLOOD COUNT 2.63 M/uL (4.2-5.4); WHITE BLOOD COUNT 13.16 K/uL (4.8-10.8)
[2016-11-07 10:26] LABS: PROTHROMBIN TIME (PATIENT) 10.4 SECONDS (9.0-12.0)
[2016-11-07 10:42] LABS: BLOOD UREA NITROGEN 54 mg/dl (7-18); BUN/CREATININE RATIO 28.2 (10-20); CALCIUM 8.1 mg/dl (8.5-10.1); CARBON DIOXIDE 23 mmol/L (21-32); CHLORIDE 110 mmol/L (98-107); GLUCOSE 82 mg/dl (70-99); POTASSIUM 4.4 mmol/L (3.5-5.1); SODIUM 140 mmol/L (136-145)
[2016-11-07 10:51] LABS: COMPLETE YES; HYPERSEGMENTED POLYS 1+; TOXIC GRANULATION 1+
--- NOTE | 2016-11-07 10:54 | DIAGNOSTIC IMAGING REPORT ---
CHEST ONE VIEW PORTABLE HISTORY: Stroke COMPARISON: Chest 10/27/2016. FINDINGS: The lungs are clear. Cardiac silhouette is normal in size. No pleural effusions. No pneumothorax. Old, healed right rib fractures. IMPRESSION: No acute process. Electronically signed by: Chidi Avalos M.D. 11/07/2016 10:53 AM Dictated Date/Time: 11/07/2016 10:52 AM
[2016-11-07 11:01] LABS: CKMB/CK RATIO 5.9 (0-3.0)
[2016-11-07] MEDS ORDERED: PIPERACILLIN/TAZOBACTAM 4.5 GM/100ML D5W IV STA (11:04)
[2016-11-07] MEDS ORDERED: DAPTOmycin IV 500 MG in SODIUM CHLORIDE 0.9% 50ML 50 ML IV STA (11:04)
[2016-11-07 11:06] LABS: URINE APPEARANCE CLOUDY (CLEAR); URINE BILIRUBIN NEG (NEG); URINE COLOR YELLOW; URINE EPITHELIAL CELL AUTO >30 /lpf (0-5); URINE NITRITE NEG (NEG); URINE SPECIFIC GRAVITY 1.019 (1.000-1.030); UROBILINOGEN NEG (NEG)
[2016-11-07 11:08] LABS: MANUAL MICROSCOPIC REQUIRED? NO; REVIEW REQ? YES
[2016-11-07] MEDS ORDERED: GLUCAGON FOR INJ 1 MG VIAL SQ PRN (12:30)
[2016-11-07] MEDS ORDERED: GLUCOSE 40% GEL 15 GM TUBE PO PRN (12:30)
[2016-11-07] MEDS ORDERED: DEXTROSE 50% 50 ML SYR IV PRN (12:30)
[2016-11-07] MEDS ORDERED: ONDANSETRON INJ 2 MG/ML 2 ML VIAL IV PRN (12:30)
[2016-11-07] MEDS ORDERED: ACETAMINOPHEN 325 MG TAB PO PRN (12:30)
[2016-11-07] MEDS ORDERED: GLUCOSE 10 TABS/TUBE PO PRN (12:30)
[2016-11-07] MEDS ORDERED: VANCOMYCIN 1GM/270ML NSS ONE (12:35)
[2016-11-07] MEDS ORDERED: INFLUENZA ADMINISTRATION CHARGE ONE (14:30)
[2016-11-07] MEDS ORDERED: INFLUENZA VACCINE HIGH DOSE 65+ 0.5 ML SYR IM. ONE (14:30)
[2016-11-07] MEDS ORDERED: PANTOprazole INJ 80 MG in DEXTROSE 5% 100ML IV ONE (14:45)
[2016-11-07] MEDS ORDERED: NURSING VERBAL MED ORDER ONE (14:45)
[2016-11-07] MEDS ORDERED: VANCOMYCIN INJ 750 MG in SODIUM CHLORIDE 0.9% 250ML 250 ML IV STA (15:01)
[2016-11-07 15:11] LABS: ALKALINE PHOSPHATASE 73 U/L (45-117); ALT/SGPT 16 U/L (12-78); AST/SGOT 10 U/L (15-37)
[2016-11-07] MEDS ORDERED: VANCOMYCIN CONSULT ACTIVE PRN (15:15)
[2016-11-07] MEDS ORDERED: PIPERACILL/TAZOBAC CONSULT ACTIVE PRN (15:15)
--- NOTE | 2016-11-07 15:20 | Gastrointestinal Consultation ---
Gastrointestinal Consultation Date of Consultation: Nov 07, 2016 Attending Physician: Dr. Koroma Consulting Physician: Dr. Delgado Reason for Consultation: Symptomatic anemia. Drop in H&H History of Present Illness Patient is a 65 year old female with a history of anemia recently admitted approximately 10 days ago. At that time, she was hemodynamically stable during the admission and was noted to have an elevated troponin with heme negative stool. Therefore, emergent GI work up was deferred at that time. History is obtained from the patient and although the history is rather poor. Apparently, the patient was "comatose" per the this morning. No reported overt GIB. In fact, he states she has not had a bowel movement in nearly three days. She is unable to provide much history but she denies any chest pain, palpitations, shortness of breath, abdominal pain, nausea or vomiting or bleeding. She was noted to be profoundly hypotensive upon EMS evaluation and is quite anemic. Her admitting H&H was 7.8 and 24.9. She has been started on a PPI ggt and is currently receiving a blood transfusion. Cardiology was obtained prior to last discharge and her troponin was felt related to demand ischemia from anemia. Past Medical/Surgical History Medical Problems: (1) Acute kidney injury Status: Acute (2) Ambulatory dysfunction Status: Acute (3) Arrhythmia Status: Acute (4) Elevated troponin Status: Acute (5) Falls Status: Acute (6) Generalized weakness Status: Acute (7) GI bleed Status: Acute (8) Hypotension Status: Acute (9) Hypotension Status: Acute (10) Hypothyroidism Status: Acute (11) Numbness Status: Acute (12) Sepsis Status: Acute (13) Weakness Status: Acute Past Medical History: 1. Hypothyroidism 2. Change in mental status 3. Coronary artery disease 4. Chronic kidney disease stage II 5. CVA 6. Diabetes with complications including gangrenous foot 7. Hypertension 8. Hypothyroidism 9. Orthostatic hypotension 10. Peripheral artery disease 11.History of osteomyelitis 12. Popliteal artery stenosis 13. Generalized weakness 14. Depression Past Surgical History: 1. Amputation of the right mid foot 2. Gastric bypass surgery 3. Cardiac stent placement Family History Diabetes mellitus Gallbladder disease Heart disease Hypertension Kidney disease Kidney stones Negative for GI malignancy or IBD Social History Smoking Status: Current Every Day Smoker Drug Use: none Marital Status: Housing Status: lives with significant other Occupation Status: disabled Allergies Coded Allergies: Paroxetine (Verified Adverse Reaction, Unknown, NERVOUS INCREASED, 11/07/16 ) Current Medications Home Meds and Scripts Medications Dose Route/Sig Max Daily Dose Days Date Category Dose Instructions Lantus (Insulin Glargine) 100 Unit/Ml Inj 5 Units SC HS 10/31/16 Rx Mucinex Ext Rel (Guaifenesin) 600 Mg Tabcr 1,200 Mg PO Q12 10 10/25/16 Rx Combivent Respimat (Ipratropium-Albuterol) 1 Aer Aer 1 Puffs INH QID 10/25/16 Rx Cyanocobalamin 1,000 Mcg/Ml Inj 1,000 Mcg IM QWEEKLY 10/25/16 Rx Novolog Flexpen (Insulin Aspart) 100 Units/Ml Inj 0 Units SC AC 10/25/16 Rx supplemental insulin scale - for FSBS of 150-200 give 2 units, for FSBS of 201-250 give 4 units, for FSBS of 251-300 give 6 units, for FSBS of 301-350 give 8 units. For FSBS of greater than 350 give 10 units and call MD. Iron (Ferrous Sulfate) 325 Mg Tab 325 Mg PO QAM 10/25/16 Rx Miralax (Polyethylene Glycol 3350) 1 Pow Pow 17 Gm PO DAILY PRN 10/20/16 Reported MIX WITH 8 OUNCES OF WATER,JUICE OR TEA Plavix (Clopidogrel Bisulfate) 75 Mg Tab 75 Mg PO DAILY 10/20/16 Reported Zocor (Simvastatin) 10 Mg Tab 10 Mg PO HS 10/20/16 Reported Levothyroxine Sodium 125 Mcg Tab 125 Mcg PO DAILY 10/20/16 Reported Zyban (Bupropion Hcl (Smoking Deterre) 150 Mg Tab 300 Mg PO DAILY 10/20/16 Reported Calcium 600+D3 600-400 mg-Unit (Calcium Carbonate-Cholecalcife) 1 Tab Tab 1 Tab PO DAILY 10/20/[address] (Aspirin) 81 Mg Tab 81 Mg PO DAILY 10/20/16 Reported Prilosec (Omeprazole) 40 Mg Cap 40 Mg PO DAILY 04/20/16 Reported Zetia (Ezetimibe) 10 Mg Tab 10 Mg PO QAM 02/16/16 Reported Vitamin D (Cholecalciferol) 2,000 Unit Tab 2,000 Inter.unit PO QAM 02/16/16 Reported Vitamin C (Ascorbic Acid) 1,000 Mg Tab 1,000 Mg PO QAM 02/16/16 Reported Effexor (Venlafaxine Hcl) 100 Mg Tab 100 Mg PO BID 02/16/16 Reported Neurontin (Gabapentin) 400 Mg Cap 400 Mg PO TID 02/16/16 Reported Azo Bladder Control/Go-Le (Pumpkin Seed-Soy Germ) 1 Cap Cap 1 Cap PO HS 02/16/16 Reported Review of Systems Constitutional: + see HPI, + weakness, + fatigue Eyes: No problem reported ENT: No problem reported Respiratory: + see HPI Cardiac: + see HPI Abdomen: + see HPI Musculoskeletal: + swelling Female : No problem reported Neuro: + see HPI Psych: No problem reported Skin: + new/changing skin lesions (pallor) Physical Exam Date Time Temp Pulse Resp B/P (MAP) Pulse Ox O2 Delivery O2 Flow Rate FiO2 11/07/16 14:41 36.8 75 18 103/64 97 11/07/16 14:11 36.8 71 16 97/63 98 11/07/16 13:32 78 14 96/53 99 11/07/16 13:32 36.9 78 14 96/53 99 11/07/16 13:31 36.9 78 14 96/53 99 11/07/16 13:16 36.7 78 16 98/50 97 11/07/16 12:48 76 18 98/55 98 11/07/16 12:31 77 11/07/16 12:15 36.8 71 16 97/63 99 Room Air 11/07/16 11:35 78 16 98/54 99 Room Air 11/07/16 10:57 83/49 11/07/16 10:55 81 12 99 11/07/16 10:50 80 13 82/55 99 11/07/16 10:46 91/56 11/07/16 10:45 80 12 99 11/07/16 10:21 82 14 95/48 99 Room Air 11/07/16 09:50 81 11/07/16 09:26 97 Room Air 11/07/16 09:26 36.9 84 14 88/50 97 Room Air General Appearance: no apparent distress Eyes: normal inspection ENT: hearing grossly normal Neck: supple Respiratory/Chest: lungs clear, no respiratory distress Cardiovascular: regular rate, rhythm Abdomen: normal bowel sounds, non tender, soft Extremities: + pedal edema Neurologic/Psych: alert, normal mood/affect Skin: + pallor Laboratory Results Last 24 Hours Test 11/07/16 09:41 11/07/16 09:42 11/07/16 09:48 11/07/16 10:35 Bedside Prothrombin Time INR 1.2 Bedside Glucose 93 mg/dl White Blood Count 13.16 K/uL Red Blood Count 2.63 M/uL Hemoglobin 7.8 g/dL Hematocrit 24.9 % Mean Corpuscular Volume 94.7 fL Mean Corpuscular Hemoglobin 29.7 pg Mean Corpuscular Hemoglobin Concent 31.3 g/dl Platelet Count 452 K/uL Mean Platelet Volume 9.6 fL Neutrophils (%) (Auto) 91.1 % Lymphocytes (%) (Auto) 3.7 % Monocytes (%) (Auto) 4.4 % Eosinophils (%) (Auto) 0.3 % Basophils (%) (Auto) 0.2 % Neutrophils # (Auto) 11.98 K/uL Lymphocytes # (Auto) 0.49 K/uL Monocytes # (Auto) 0.58 K/uL Eosinophils # (Auto) 0.04 K/uL Basophils # (Auto) 0.03 K/uL RDW Standard Deviation 54.9 fL RDW Coefficient of Variation 15.9 % Immature Granulocyte % (Auto) 0.3 % Immature Granulocyte # (Auto) 0.04 K/uL Hypersegmented Polys 1+ Toxic Granulation 1+ Red Blood Cell Morphology Unremarkable Prothrombin Time 10.4 SECONDS Prothromb Time International Ratio 1.0 Activated Partial Thromboplast Time 26.8 SECONDS Partial Thromboplastin Ratio 1.0 Sodium Level 140 mmol/L Potassium Level 4.4 mmol/L Chloride Level 110 mmol/L Carbon Dioxide Level 23 mmol/L Anion Gap 7.0 mmol/L Blood Urea Nitrogen 54 mg/dl Creatinine 1.90 mg/dl Estimated GFR () 31.1 Estimated GFR (Non- 26.8 BUN/Creatinine Ratio 28.2 Random Glucose 82 mg/dl Calcium Level 8.1 mg/dl Total Creatine Kinase 63 U/L Creatine Kinase MB 3.7 ng/ml Creatine Kinase MB Ratio 5.9 Troponin I 0.366 ng/ml Bedside Lactic Acid Venous 0.82 mmol/L Urine Color YELLOW Urine Appearance CLOUDY Urine pH 5.0 Urine Specific [place] 1.019 Urine Protein 1+ Urine Glucose (UA) NEG Urine Ketones TRACE Urine Occult Blood 1+ Urine Nitrite NEG Urine Bilirubin NEG Urine Urobilinogen NEG Urine Leukocyte Esterase MODERATE Urine WBC (Auto) >30 /hpf Urine RBC (Auto) 0-4 /hpf Urine Hyaline Casts (Auto) 1-5 /lpf Urine Epithelial Cells (Auto) >30 /lpf Urine Bacteria (Auto) NEG Urine Renal Epithelial Cells 0-5 /lpf Urine Crystals AMORPHOUS SEDIMENT Urine Pathogenic Casts /lpf Urine Yeast (Auto) BUD W/ HYPHAE Impression Patient is a 65 year old female with recent hospital admission for anemia although heme negative stool, now admitted with significant drop in hemoglobin and symptomatic anemia. Plan 1. Keep NPO for now. 2. Continue PPI ggt. 3. Blood transfusions as ordered as well as supportive medical care. 4. EGD with Dr. Delgado tomorrow for further evaluation of symptoms. Thank you for allowing us to participate in the care of this pleasant patient. If you have any questions or concerns, please do not hesitate to contact us. Agree with CHANDLER Silverio as above Abd: Soft, NT, ND, +BS EGD in AM
[2016-11-07] MEDS: PANTOprazole INJ 40 MG in DEXTROSE 5% 100ML IV SCH ×2 (15:29→20:33)
--- NOTE | 2016-11-07 15:39 | EMERGENCY ROOM VISIT NOTE ---
History Report prepared by Collin: Dinah Enciso Under the Supervision of: Dr. Lion Rider M.D. First contact with patient: 09:02 Stated Complaint: STROKE ALERT History of Present Illness The patient is a 65 year old female who presents to the Emergency Room with complaints of persistent stroke symptoms that began this morning at 0755. Per EMS, the patient woke normal this morning and notes that the patient's was transferring her to her wheelchair. EMS reports that the patient then suddenly became unresponsive and slumped to her right. EMS reports that the patient's initial blood pressure was 60 systolically, and then went up to 80 systolically. EMS reports that the patient had a fluid bolus started and her blood pressure elevated to 105 systolically upon arrival. EMS reports that the patient was given 800 mL of NSS prior to arrival. Nursing staff reports that the patient had a normal temperature upon arrival. EMS reports that the patient 's blood glucose was 114 mg/dL upon arrival. The patient denies any current pain. She reports a history of a previous stroke, noting chronic left arm and left leg weakness. A stroke alert was initiated by pre-hospital command. The history is limited secondary to the patient's altered mental status. Review of old records. Source of History: patient, EMS, nursing staff History Limited By: AMS Onset: this morning at 0755 Position: other (global) Quality: other (stroke symptoms) Timing: other (persistent) Note: Associated Symptoms: slumped to right, episode of unresponsiveness Review of Systems The history is limited secondary to the patient's altered mental status. Past Medical & Surgical Medical Problems: (1) Adult hypothyroidism (2) Altered mental status (3) Amputation at midfoot (4) CAD (coronary artery disease) (5) CKD (chronic kidney disease), stage II (6) CVA (cerebral vascular accident) (7) DM2 (diabetes mellitus, type 2) (8) Gangrene of foot (9) gi bleleding hypotensive, acute on chronic renal failrue (10) HTN (hypertension) (11) Hypothyroidism (12) Junctional rhythm (13) Orthostatic hypotension (14) Osteomyelitis (15) PAD (peripheral artery disease) (16) Stenosis of popliteal artery (17) Symptomatic anemia (18) Weakness generalized Surgical Problems: (1) Gastric bypass status for obesity (2) Stented coronary artery Family History Diabetes mellitus Gallbladder disease Heart disease Hypertension Kidney disease Kidney stones Social History Smoking Status: Current Every Day Smoker Drug Use: none Marital Status: Occupation Status: disabled Current/Historical Medications Scheduled Ascorbic Acid (Vitamin C), 1,000 MG PO QAM Aspirin (Aspirin Dr), 81 MG PO DAILY Bupropion Hcl (Smoking [place] (Zyban), 300 MG PO DAILY Calcium Carbonate-Cholecalcife (Calcium 600+D3 600-400 mg-Unit), 1 TAB PO DAILY Cholecalciferol (Vitamin D), 2,000 INTER.UNIT PO QAM Clopidogrel (Plavix), 75 MG PO DAILY Cyanocobalamin (Cyanocobalamin), 1,000 MCG IM qweekly Ezetimibe (Zetia), 10 MG PO QAM Ferrous Sulfate (Iron), 325 MG PO QAM Gabapentin (Neurontin), 400 MG PO TID Guaifenesin Ext Rel (Mucinex Ext Rel), 1,200 MG PO Q12 Insulin Aspart (Novolog Flexpen), 0 UNITS SC AC Insulin Glargine (Lantus), 5 UNITS SC HS Ipratropium-Albuterol (Combivent Respimat), 1 PUFFS INH QID Levothyroxine Sodium (Levothyroxine Sodium), 125 MCG PO DAILY Omeprazole (Prilosec), 40 MG PO DAILY Pumpkin Seed-Soy Germ (Azo Bladder Control/Go-Le), 1 CAP PO HS Simvastatin (Zocor), 10 MG PO HS Venlafaxine Hcl (Effexor), 100 MG PO BID Scheduled PRN Polyethylene Glycol 3350 (Miralax), 17 GM PO DAILY PRN for Constipation Allergies Coded Allergies: Paroxetine (Verified Adverse Reaction, Unknown, NERVOUS INCREASED, 11/07/16 ) Physical Exam Vital Signs Date Time Temp Pulse Resp B/P (MAP) Pulse Ox O2 Delivery O2 Flow Rate FiO2 11/07/16 12:15 36.8 71 16 97/63 99 Room Air 11/07/16 11:35 78 16 98/54 99 Room Air 11/07/16 10:57 83/49 11/07/16 10:55 81 12 99 11/07/16 10:50 80 13 82/55 99 11/07/16 10:46 91/56 11/07/16 10:45 80 12 99 11/07/16 10:21 82 14 95/48 99 Room Air 11/07/16 09:50 81 11/07/16 09:26 97 Room Air 11/07/16 09:26 36.9 84 14 88/50 97 Room Air Physical Exam GENERAL: sleepy but arousable appearing, in no distress HENT: Normocephalic, atraumatic. Oropharynx unremarkable. EYES: Normal conjunctiva. Sclera non-icteric. NECK: Supple. No nuchal rigidity. FROM. No JVD. RESPIRATORY: Clear to auscultation. CARDIAC: Regular rate, normal rhythm. Extremities warm and well perfused. Pulses equal. ABDOMEN: Soft, non-distended. No tenderness to palpation. No rebound or guarding. No masses. RECTAL: Deferred. MUSCULOSKELETAL: Chest examination reveals no tenderness. The back is symmetrical on inspection without obvious abnormality. There is no CVA tenderness to palpation. No joint edema. LOWER EXTREMITIES: Partial amputation of right foot present without signs of infection. Calves are equal size bilaterally and non-tender. No edema. No discoloration. NEURO: Altered sensorium. 3/5 strength in the left leg, 4/5 strength in the right leg, 4/5 strength in the left arm, 4.5/5 strength in the right arm. SKIN: No rash or jaundice noted. Medical Decision & Procedures ER Provider Diagnostic Interpretation: Radiology results as stated below per my review and radiologist interpretation: HEAD WITHOUT CONTRAST (CT) CLINICAL HISTORY: 65 years-old Female presenting with Stroke. TECHNIQUE: Multidetector CT imaging of the head was performed without the use of intravenous contrast. IV contrast: None. A dose lowering technique was used consistent with the principles of ALARA (as low as reasonably achievable). COMPARISON: 10/27/2016. CT DOSE (mGy.cm): The estimated cumulative dose is 614.27 mGy.cm. FINDINGS: Counselor Aid topogram: Unremarkable. Proportional ventricular and sulcal prominence, likely age-related parenchymal volume loss. Periventricular and subcortical white matter hypoattenuation, nonspecific but likely indicative of chronic small vessel ischemic change. No mass effect or midline shift. No hemorrhage or acute territorial infarct. No extra-axial fluid collection. Paranasal sinuses and mastoid air cells clear. Calvarium intact. IMPRESSION: 1. No acute intracranial pathology. Electronically signed by: Melo Roberts M.D. 11/07/2016 9:37 AM Dictated Date/Time: 11/07/2016 9:36 AM CHEST ONE VIEW PORTABLE HISTORY: Stroke COMPARISON: Chest 10/27/2016. FINDINGS: The lungs are clear. Cardiac silhouette is normal in size. No pleural effusions. No pneumothorax. Old, healed right rib fractures. IMPRESSION: No acute process. Electronically signed by: Chidi Avalos M.D. 11/07/2016 10:53 AM Dictated Date/Time: 11/07/2016 10:52 AM Laboratory Results 11/07/16 09:42 Red Blood Count 2.63, Mean Corpuscular Volume 94.7, Mean Corpuscular Hemoglobin 29.7, Mean Corpuscular Hemoglobin Concent 31.3, Mean Platelet Volume 9.6, Neutrophils (%) (Auto) 91.1, Lymphocytes (%) (Auto) 3.7, Monocytes (%) (Auto) 4.4, Eosinophils (%) (Auto) 0.3, Basophils (%) (Auto) 0.2, Neutrophils # (Auto) 11.98, Lymphocytes # (Auto) 0.49, Monocytes # (Auto) 0.58, Eosinophils # (Auto) 0.04, Basophils # (Auto) 0.03 11/07/16 09:42 Test 11/07/16 09:41 11/07/16 09:42 11/07/16 09:48 11/07/16 10:35 Bedside Prothrombin Time INR 1.2 (0.9-1.1) Bedside Glucose 93 mg/dl (70-90) White Blood Count 13.16 K/uL (4.8-10.8) Red Blood Count 2.63 M/uL (4.2-5.4) Hemoglobin 7.8 g/dL (12.0-16.0) Hematocrit 24.9 % (37-47) Mean Corpuscular Volume 94.7 fL (80-100) Mean Corpuscular Hemoglobin 29.7 pg (25-34) Mean Corpuscular Hemoglobin Concent 31.3 g/dl (32-36) Platelet Count 452 K/uL (130-400) Mean Platelet Volume 9.6 fL (7.4-10.4) Neutrophils (%) (Auto) 91.1 % Lymphocytes (%) (Auto) 3.7 % Monocytes (%) (Auto) 4.4 % Eosinophils (%) (Auto) 0.3 % Basophils (%) (Auto) 0.2 % Neutrophils # (Auto) 11.98 K/uL (1.4-6.5) Lymphocytes # (Auto) 0.49 K/uL (1.2-3.4) Monocytes # (Auto) 0.58 K/uL (0.11-0.59) Eosinophils # (Auto) 0.04 K/uL (0-0.5) Basophils # (Auto) 0.03 K/uL (0-0.2) RDW Standard Deviation 54.9 fL (36.4-46.3) RDW Coefficient of Variation 15.9 % (11.5-14.5) Immature Granulocyte % (Auto) 0.3 % Immature Granulocyte # (Auto) 0.04 K/uL (0.00-0.02) Hypersegmented Polys 1+ Toxic Granulation 1+ Red Blood Cell Morphology Unremarkable Prothrombin Time 10.4 SECONDS (9.0-12.0) Prothromb Time International Ratio 1.0 (0.9-1.1) Activated Partial Thromboplast Time 26.8 SECONDS (21.0-31.0) Partial Thromboplastin Ratio 1.0 Anion Gap 7.0 mmol/L (3-11) Estimated GFR () 31.1 Estimated GFR (Non- 26.8 BUN/Creatinine Ratio 28.2 (10-20) Calcium Level 8.1 mg/dl (8.5-10.1) Total Bilirubin 0.2 mg/dl (0.2-1) Direct Bilirubin < 0.1 mg/dl (0-0.2) Aspartate Amino Transf (AST/SGOT) 10 U/L (15-37) Alanine Aminotransferase (ALT/SGPT) 16 U/L (12-78) Alkaline Phosphatase 73 U/L (45-117) Total Creatine Kinase 63 U/L (26-192) Creatine Kinase MB 3.7 ng/ml (0.5-3.6) Creatine Kinase MB Ratio 5.9 (0-3.0) Troponin I 0.366 ng/ml (0-0.045) Total Protein 6.6 gm/dl (6.4-8.2) Albumin 2.6 gm/dl (3.4-5.0) Bedside Lactic Acid Venous 0.82 mmol/L (0.90-1.70) Urine Color YELLOW Urine Appearance CLOUDY (CLEAR) Urine pH 5.0 (4.5-7.5) Urine Specific [place] 1.019 (1.000-1.030) Urine Protein 1+ (NEG) Urine Glucose (UA) NEG (NEG) Urine Ketones TRACE (NEG) Urine Occult Blood 1+ (NEG) Urine Nitrite NEG (NEG) Urine Bilirubin NEG (NEG) Urine Urobilinogen NEG (NEG) Urine Leukocyte Esterase MODERATE (NEG) Urine WBC (Auto) >30 /hpf (0-5) Urine RBC (Auto) 0-4 /hpf (0-4) Urine Hyaline Casts (Auto) 1-5 /lpf (0-5) Urine Epithelial Cells (Auto) >30 /lpf (0-5) Urine Bacteria (Auto) NEG (NEG) Urine Renal Epithelial Cells 0-5 /lpf (0-5) Urine Crystals AMORPHOUS SEDIMENT (NONE Urine Pathogenic Casts /lpf (0) Urine Yeast (Auto) BUD W/ HYPHAE (NONE PRSENT) Laboratory results reviewed by me Medications Administered Medications (Trade) Dose Ordered Sig/Sadie Route Start Time Stop Time Status Last Admin Dose Admin Sodium Chloride 1,000 ml @ 50 mls/hr Q20H IV 11/07/16 09:03 11/07/16 14:21 DC 11/07/16 09:03 50 MLS/HR Sodium Chloride 500 ml @ 999 mls/hr Q31M STAT IV 11/07/16 09:45 11/07/16 10:15 DC 11/07/16 09:45 999 MLS/HR Sodium Chloride 500 ml @ 999 mls/hr Q31M STAT IV 11/07/16 09:49 11/07/16 10:19 DC 11/07/16 09:49 999 MLS/HR Daptomycin 500 mg/ Sodium Chloride 60 ml @ 100 mls/hr NOW STAT IV 11/07/16 11:04 11/07/16 11:39 DC 11/07/16 11:22 100 MLS/HR Piperacillin Sod/ Tazobactam Sod (Zosyn Iv) 4.5 gm NOW STAT IV 11/07/16 11:04 11/07/16 11:07 DC 11/07/16 11:22 4.5 GM Sodium Chloride 500 ml @ 999 mls/hr Q31M STAT IV 11/07/16 11:06 11/07/16 11:36 DC 11/07/16 11:06 999 MLS/HR ECG Indication: other (stroke symptoms) Rate (beats per minute): 82 Rhythm: sinus rhythm Findings: no acute ischemic change, no ectopy, other (poor R wave progression) ED Course 0903: Ordered Sodium Chloride 1000 ml @ 50 mls/hr IV. 0926: The patient arrived in the emergency department and was taken to CT for a CAT scan of her head. 0932: The patient was evaluated in room B1. A complete history and physical exam was performed. 0945: Ordered Sodium Chloride 500 ml @ 999 mls/hr IV. 0949: Ordered Sodium Chloride 500 ml @ 999 mls/hr IV. 1009: I reevaluated the patient and she is stable and nursing staff is getting a urine cath. 1104: Ordered Zosyn IV 4.5 gm IV, Daptomycin 500 mg/Sodium Chloride 60 ml @ 100 mls/hr IV 1106: Ordered Sodium Chloride 500 ml @ 999 mls/hr IV. 1111: I reevaluated the patient and she is resting. I discussed the exam findings with her and I discussed the treatment plan. She verbalized understanding and agreement. She will be evaluated for further treatment. 1208: I discussed the patients case with Dr. Koroma [facility]. He will evaluate the patient for further treatment. Medical Decision Triage Nursing notes reviewed. The patient's presentation and history were concerning for altered mental status. Etiologies such as metabolic, infection, hypo/hyperglycemia, electrolyte abnormalities, cardiac sources, intracerebral event, toxicologic, neurologic, as well as others were entertained. Patient was evaluated promptly on arrival. A stroke alert was initiated by me prehospital. The patient was taken emergently to CT imaging which did not reveal any evidence of acute bleed or CVA. The patient had improvement of symptoms. She had hypotension. Record review indicated recent issues for similar events. This appears to be more of a metabolic issue than an acute CVA. Stroke alert was canceled. The patient had a recent enterococcus UTI. She was given additional IV fluids. Plan care lactate was unremarkable. The patient's blood work revealed a significant anemia and mild leukocytosis. The patient was consented for pack removal cell transfusion and this was done. Antibiotics were initiated. She was given vancomycin and Zosyn. Chest x-ray was unremarkable. Her urinalysis by catheter specimen was very concerning for infection. The patient was reassessed. She was doing better. Consultation was made with internal medicine. The patient was evaluated in the emergency department for further management. Patient and were educated. Medication Reconcilliation Current Medication List: was personally reviewed by me Blood Pressure Screening Patient's blood pressure: Low blood pressure Blood pressure disposition: Did not require urgent referral Consults Time Called: 1113 Consulting Physician: ANNEMARIE Rodríguez Returned Call: [phone] I discussed the patients case with ANNEMARIE Rodríguez. He will evaluate the patient for further treatment. Impression Primary Impression: Sepsis Additional Impressions: Metabolic encephalopathy Elevated troponin Severe anemia Critical Care I have personally spent greater than 30 minutes of critical care time in the direct management of this patient. This includes bedside care, interpretation of diagnostic studies, and testing, discussion with consultants, patient, and family members, and other required patient management activities. This 30 minutes is in excess of all separately billable procedures. Scribe Attestation The scribe's documentation has been prepared under my direction and personally reviewed by me in its entirety. I confirm that the note above accurately reflects all work, treatment, procedures, and medical decision making performed by me. Departure Information Dispostion Being Evaluated By Hospitalist Referrals Dinah Pizano .ADAMA (PCP) Stroke History Time Last Known Well 7916 Stroke t-PA Criteria Reviewed Does NOT meet criteria for t-PA Reason t-PA Not Given Treatment not indicated Problem Qualifiers
[2016-11-07] MEDS ORDERED: INSULIN ASPART 100 UNITS/ML 3 ML PEN SC SCH (16:15)
--- NOTE | 2016-11-07 16:57 | Pharmacy Progress Note ---
Pharmacy Abx Initial Consult Date of Service Nov 07, 2016. Pharmacy Dosing Scope Date of Consult: 11/07/16 Pharmacy is consulted to initiate Vancomycin IV dosing therapy, order appropriate labs and adjust drug dose/frequency. Subjective The patient is a 65 year old female admitted on Nov 07, 2016 at 12:18 with stroke like symptoms Objective Height (Feet): 5 Height (Inches): 7.00 Weight (Kilograms): 73.000 Vital Signs (Past 12Hrs) Vital Signs Past 12 Hours Date Time Temp Pulse Resp B/P (MAP) Pulse Ox O2 Delivery O2 Flow Rate FiO2 11/07/16 14:41 36.8 75 18 103/64 97 11/07/16 14:11 36.8 71 16 97/63 98 11/07/16 13:32 78 14 96/53 99 11/07/16 13:32 36.9 78 14 96/53 99 11/07/16 13:31 36.9 78 14 96/53 99 11/07/16 13:16 36.7 78 16 98/50 97 11/07/16 12:48 76 18 98/55 98 11/07/16 12:31 77 11/07/16 12:15 36.8 71 16 97/63 99 Room Air 11/07/16 11:35 78 16 98/54 99 Room Air 11/07/16 10:57 83/49 11/07/16 10:55 81 12 99 11/07/16 10:50 80 13 82/55 99 11/07/16 10:46 91/56 11/07/16 10:45 80 12 99 11/07/16 10:21 82 14 95/48 99 Room Air 11/07/16 09:50 81 11/07/16 09:26 97 Room Air 11/07/16 09:26 36.9 84 14 88/50 97 Room Air Lab Results (24Hrs) Laboratory Tests (24 Hours) Test 11/07/16 09:42 White Blood Count 13.16 K/uL (4.8-10.8) H Red Blood Count 2.63 M/uL (4.2-5.4) L Hemoglobin 7.8 g/dL (12.0-16.0) L Hematocrit 24.9 % (37-47) L Mean Corpuscular Volume 94.7 fL (80-100) Mean Corpuscular Hemoglobin 29.7 pg (25-34) Mean Corpuscular Hemoglobin Concent 31.3 g/dl (32-36) L Platelet Count 452 K/uL (130-400) H Mean Platelet Volume 9.6 fL (7.4-10.4) Neutrophils (%) (Auto) 91.1 % Lymphocytes (%) (Auto) 3.7 % Monocytes (%) (Auto) 4.4 % Eosinophils (%) (Auto) 0.3 % Basophils (%) (Auto) 0.2 % Neutrophils # (Auto) 11.98 K/uL (1.4-6.5) H Lymphocytes # (Auto) 0.49 K/uL (1.2-3.4) L Monocytes # (Auto) 0.58 K/uL (0.11-0.59) Eosinophils # (Auto) 0.04 K/uL (0-0.5) Basophils # (Auto) 0.03 K/uL (0-0.2) Total Creatine Kinase 63 U/L (26-192) Micro Results Date/Time Source Procedure Growth Status 11/07/16 09:49 Blood Blood Culture Pending Received 11/07/16 09:42 Blood Blood Culture Pending Received 11/07/16 09:03 Urine,Catheterized Urine Culture Pending Ordered Assessment & Plan Assessment 65 year old female initiated on Vancomycin/Zosyn for UTI Blood and urine cultures pending Plan Vancomycin IV * Loading dose: 1750 mg (23 mg/kg) (1000 mg IV X 1 follow by 750 mg IV X 1) * Maintenance dose: 1000 mg IV (13 mg/kg) every 24 hours * Goal trough level for UTI: ~15 mcg/mL * Trough level ordered for 11/09/16 @1330 prior to the 1400 dose * This level is early but necessary to assess if we are on the right track ~48 hours into the admission Piperacillin/tazobactam * 4.5 g bolus administered over 30 minutes, then 3.375 g IV extended infusion every 8 hours for CrCl greater than 20 mL/min Pharmacy will continue to follow and will adjust dose/frequency as necessary. Thank you.
--- NOTE | 2016-11-07 17:47 | History and Physical ---
History & Physical Date & Time of Service: Nov 07, 2016 at 17:38 Chief Complaint: Hypotension, Symtopmatic Anemia Primary Care Physician: Dinah Pizano .ADAMA History of Present Illness Source: patient, spouse The patient is a 65-year-old female who has most recently been admitted to [facility] from October 20 through October 25 and then from October 27 through November 01. The patient herself is not able to contribute to the history of present illness due to altered mental state. Her who is in attendance does contribute and there are reports from EMS as well. As the was transferring her from the bed to her wheelchair this morning she suddenly became unresponsive and slumped to her right. EMS reports his systolic blood pressure was initially 60 and then went up to 80. She was given a fluid bolus and her blood pressure improved to 105 upon arrival to the ED. She received a total of 800 mg of normal saline en route. The patient has a history of previous stroke and chronic left arm and left leg weakness. He stroke alert was initiated by prehospital commands, and it was determined that the patient was not a TPA candidate. Past Medical/Surgical History Medical Problems: (1) Adult hypothyroidism Status: Chronic (2) Amputation at midfoot Status: Chronic (3) CAD (coronary artery disease) Status: Chronic (4) CKD (chronic kidney disease), stage II Status: Chronic (5) CVA (cerebral vascular accident) Status: Chronic (6) DM2 (diabetes mellitus, type 2) Status: Chronic (7) Gangrene of foot Permanent Comment: s/p amputation right forefoot Status: Resolved (8) HTN (hypertension) Status: Chronic (9) Hypothyroidism Status: Chronic (10) Osteomyelitis Permanent Comment: s/p amputation right forefoot Status: Resolved (11) PAD (peripheral artery disease) Status: Chronic (12) Stenosis of popliteal artery Status: Chronic Surgical Problems: (1) Gastric bypass status for obesity Status: Chronic (2) Stented coronary artery Status: Chronic Family History Diabetes mellitus Gallbladder disease Heart disease Hypertension Kidney disease Kidney stones Social History Smoking Status: Current Every Day Smoker Smokeless Tobacco Use: No Alcohol Use: none Drug Use: none Marital Status: Housing status: lives with significant other Occupational Status: disabled Immunizations History of Influenza Vaccine: Yes Influenza Vaccine Date: Nov 20, 2009 History of Tetanus Vaccine?: UNCERTAIN OF DATE History of Pneumococcal: Unknown History of Hepatitis B Vaccine: UNCERTAIN OF DATE Multi-Drug Resistant Organisms History of MDRO: Yes Type of MDRO: MRSA Allergies Coded Allergies: Paroxetine (Verified Adverse Reaction, Unknown, NERVOUS INCREASED, 11/07/16 ) Home Medications Scheduled Ascorbic Acid (Vitamin C), 1,000 MG PO QAM Aspirin (Aspirin Dr), 81 MG PO DAILY Bupropion Hcl (Smoking Deterre (Zyban), 300 MG PO DAILY Calcium Carbonate-Cholecalcife (Calcium 600+D3 600-400 mg-Unit), 1 TAB PO DAILY Cholecalciferol (Vitamin D), 2,000 INTER.UNIT PO QAM Clopidogrel (Plavix), 75 MG PO DAILY Cyanocobalamin (Cyanocobalamin), 1,000 MCG IM qweekly Ezetimibe (Zetia), 10 MG PO QAM Ferrous Sulfate (Iron), 325 MG PO QAM Gabapentin (Neurontin), 400 MG PO TID Guaifenesin Ext Rel (Mucinex Ext Rel), 1,200 MG PO Q12 Insulin Aspart (Novolog Flexpen), 0 UNITS SC AC Insulin Glargine (Lantus), 5 UNITS SC HS Ipratropium-Albuterol (Combivent Respimat), 1 PUFFS INH QID Levothyroxine Sodium (Levothyroxine Sodium), 125 MCG PO DAILY Omeprazole (Prilosec), 40 MG PO DAILY Pumpkin Seed-Soy Germ (Azo Bladder Control/Go-Le), 1 CAP PO HS Simvastatin (Zocor), 10 MG PO HS Venlafaxine Hcl (Effexor), 100 MG PO BID Scheduled PRN Polyethylene Glycol 3350 (Miralax), 17 GM PO DAILY PRN for Constipation Review of Systems The patient is intermittently somnolent, and information is gathered from her who is present. Denies chest pain, palpitations, lower extremity swelling, vision change, hearing change, sore throat, fevers, chills, sweats, weight change, nausea, vomiting, diarrhea or constipation, abdominal pain, pelvic pain, blood in urine or stool, rash, abnormal bruising or bleeding, imbalance, focal weakness, numbness or tingling in arms or legs, generalized arthralgias or myalgias, back or neck pain, night sweats. The review of systems is otherwise negative other than for that already noted above, and at least 10 systems have been reviewed. Physical Exam Vital Signs Date Time Temp Pulse Resp B/P (MAP) Pulse Ox O2 Delivery O2 Flow Rate FiO2 11/07/16 14:41 36.8 75 18 103/64 97 11/07/16 14:11 36.8 71 16 97/63 98 11/07/16 13:32 78 14 96/53 99 11/07/16 13:32 36.9 78 14 96/53 99 11/07/16 13:31 36.9 78 14 96/53 99 11/07/16 13:16 36.7 78 16 98/50 97 11/07/16 12:48 76 18 98/55 98 11/07/16 12:31 77 11/07/16 12:15 36.8 71 16 97/63 99 Room Air 11/07/16 11:35 78 16 98/54 99 Room Air 11/07/16 10:57 83/49 11/07/16 10:55 81 12 99 11/07/16 10:50 80 13 82/55 99 11/07/16 10:46 91/56 11/07/16 10:45 80 12 99 11/07/16 10:21 82 14 95/48 99 Room Air 11/07/16 09:50 81 11/07/16 09:26 97 Room Air 11/07/16 09:26 36.9 84 14 88/50 97 Room Air The patient is somnolent, normocephalic and atraumatic, lying in bed and in no acute distress. HEENT--PERRL, EOMI, mucous membranes and oropharynx dry. Neck--supple, no JVD or bruits, thyroid normal, trachea midline, no adenopathy. Heart--normal S1 and S2, no extra beats, no murmurs, rubs or gallops. Lungs--diminished throughout, no respiratory distress, no accessory muscle use. Abdomen--normal bowel sounds and soft, nontender and nondistended, no hernias or masses, no organomegaly. Extremities--no cyanosis, clubbing or edema. There are good distal pulses b/l. Dermatologic--normal skin turgor, normal color, warm and dry, no abnormal lymph nodes, no rash. Neurologic--cranial nerves II through XII grossly intact. Rheumatologic--deferred due to somnolence Psychiatric--deferred due to somnolence Diagnostics Laboratory Results Results Past 24 Hours Test 11/07/16 09:41 11/07/16 09:42 11/07/16 09:48 11/07/16 10:35 Range/Units Bedside Prothrombin Time INR 1.2 0.9-1.1 Bedside Glucose 93 70-90 mg/dl White Blood Count 13.16 4.8-10.8 K/uL Red Blood Count 2.63 4.2-5.4 M/uL Hemoglobin 7.8 12.0-16.0 g/dL Hematocrit 24.9 37-47 % Mean Corpuscular Volume 94.7 80-100 fL Mean Corpuscular Hemoglobin 29.7 25-34 pg Mean Corpuscular Hemoglobin Concent 31.3 32-36 g/dl Platelet Count 452 130-400 K/uL Mean Platelet Volume 9.6 7.4-10.4 fL Neutrophils (%) (Auto) 91.1 % Lymphocytes (%) (Auto) 3.7 % Monocytes (%) (Auto) 4.4 % Eosinophils (%) (Auto) 0.3 % Basophils (%) (Auto) 0.2 % Neutrophils # (Auto) 11.98 1.4-6.5 K/uL Lymphocytes # (Auto) 0.49 1.2-3.4 K/uL Monocytes # (Auto) 0.58 0.11-0.59 K/uL Eosinophils # (Auto) 0.04 0-0.5 K/uL Basophils # (Auto) 0.03 0-0.2 K/uL RDW Standard Deviation 54.9 36.4-46.3 fL RDW Coefficient of Variation 15.9 11.5-14.5 % Immature Granulocyte % (Auto) 0.3 % Immature Granulocyte # (Auto) 0.04 0.00-0.02 K/uL Hypersegmented Polys 1+ Toxic Granulation 1+ Red Blood Cell Morphology Unremarkable Prothrombin Time 10.4 9.0-12.0 SECONDS Prothromb Time International Ratio 1.0 0.9-1.1 Activated Partial Thromboplast Time 26.8 21.0-31.0 SECONDS Partial Thromboplastin Ratio 1.0 Sodium Level 140 136-145 mmol/L Potassium Level 4.4 3.5-5.1 mmol/L Chloride Level 110 98-107 mmol/L Carbon Dioxide Level 23 21-32 mmol/L Anion Gap 7.0 3-11 mmol/L Blood Urea Nitrogen 54 7-18 mg/dl Creatinine 1.90 0.60-1.20 mg/dl Estimated GFR () 31.1 Estimated GFR (Non- 26.8 BUN/Creatinine Ratio 28.2 10-20 Random Glucose 82 70-99 mg/dl Calcium Level 8.1 8.5-10.1 mg/dl Total Bilirubin 0.2 0.2-1 mg/dl Direct Bilirubin < 0.1 0-0.2 mg/dl Aspartate Amino Transf (AST/SGOT) 10 15-37 U/L Alanine Aminotransferase (ALT/SGPT) 16 12-78 U/L Alkaline Phosphatase 73 45-117 U/L Total Creatine Kinase 63 26-192 U/L Creatine Kinase MB 3.7 0.5-3.6 ng/ml Creatine Kinase MB Ratio 5.9 0-3.0 Troponin I 0.366 0-0.045 ng/ml Total Protein 6.6 6.4-8.2 gm/dl Albumin 2.6 3.4-5.0 gm/dl Bedside Lactic Acid Venous 0.82 0.90-1.70 mmol/L Urine Color YELLOW Urine Appearance CLOUDY CLEAR Urine pH 5.0 4.5-7.5 Urine Specific Sulphur 1.019 1.000-1.030 Urine Protein 1+ NEG Urine Glucose (UA) NEG NEG Urine Ketones TRACE NEG Urine Occult Blood 1+ NEG Urine Nitrite NEG NEG Urine Bilirubin NEG NEG Urine Urobilinogen NEG NEG Urine Leukocyte Esterase MODERATE NEG Urine WBC (Auto) >30 0-5 /hpf Urine RBC (Auto) 0-4 0-4 /hpf Urine Hyaline Casts (Auto) 1-5 0-5 /lpf Urine Epithelial Cells (Auto) >30 0-5 /lpf Urine Bacteria (Auto) NEG NEG Urine Renal Epithelial Cells 0-5 0-5 /lpf Urine Crystals AMORPHOUS SEDIMENT NONE PRSENT Urine Pathogenic Casts 0 /lpf Urine Yeast (Auto) BUD W/ HYPHAE NONE PRSENT Microbiology Results 11/07/16 Blood Culture, Received Pending 11/07/16 Blood Culture, Received Pending 11/07/16 Urine Culture, Ordered Pending Diagnostic Radiology Patient Name: IESHA WALDEN Unit Number: [id number] Dictated: 11/07/16935 Transcribed: 11/07/16935 PBS Printed Date/Time: [~ rep prt dt]/[~ rep prt tm] [~ rep ct labl] - [~ rep ct ivnm] [facility] [place] [address] Dictated: 11/07/16935 Transcribed: 11/07/16935 PBS Printed Date/Time: [~ rep prt dt]/[~ rep prt tm] [~ rep ct labl] - [~ rep ct ivnm] HEAD WITHOUT CONTRAST (CT) CLINICAL HISTORY: 65 years-old Female presenting with Stroke. TECHNIQUE: Multidetector CT imaging of the head was performed without the use of intravenous contrast. IV contrast: None. A dose lowering technique was used consistent with the principles of ALARA (as low as reasonably achievable). COMPARISON: 10/27/2016. CT DOSE (mGy.cm): The estimated cumulative dose is 614.27 mGy.cm. FINDINGS: Buying Intern topogram: Unremarkable. Proportional ventricular and sulcal prominence, likely age-related parenchymal volume loss. Periventricular and subcortical white matter hypoattenuation, nonspecific but likely indicative of chronic small vessel ischemic change. No mass effect or midline shift. No hemorrhage or acute territorial infarct. No extra-axial fluid collection. Paranasal sinuses and mastoid air cells clear. Calvarium intact. IMPRESSION: 1. No acute intracranial pathology. Electronically signed by: Melo Roberts M.D. 11/07/2016 9:37 AM Dictated Date/Time: 11/07/2016 9:36 AM The status of this report is Signed. Draft = Not yet reviewed or approved by Radiologist. Signed = Reviewed and approved by Radiologist. <AttendingPhy></AttendingPhy> <FamilyPhy>Dinah Pizano PA-C</FamilyPhy> <PrimaryPhy>Dinah Pizano PA-C</PrimaryPhy> <UnitNumber>[id number]</ UnitNumber> <VisitNumber>[id number]</VisitNumber> <PatientName>IESHA WALDEN< /PatientName> <DateOfBirth>1950</DateOfBirth> <Location>[facility]</Location> < ServiceDate>11/07/16</ServiceDate> <MNE>ESINDI</MNE> <OrderingPhy>Lion Rider MD</OrderingPhy> <OrderingPhyMNE>f rep ord dr espino</OrderingPhyMNE> < DictatingPhyMNE>f rep dict dr espino</DictatingPhyMNE> <CCListMNE>f rep ct kenzie</ CCListMNE> <AdmittingPhyMNE>f pt admit dr espino</AdmittingPhyMNE> <AttendingPhyMNE >f pt attend dr espino</AttendingPhyMNE> <ConsultingPhyMNE>f pt consult dr espino</ConsultingPhyMNE> <FamilyPhyMNE>f pt fam dr espino</FamilyPhyMNE> <OtherPhyMNE>f pt other dr espino</OtherPhyMNE> < PrimaryPhyMNE>f pt prim care dr espino</PrimaryPhyMNE> <ReferringPhyMNE>f pt referring dr espino</ReferringPhyMNE> EKG EKG shows normal sinus rhythm at 75 bpm, there are no acute ST-T changes. Impression Assessment and Plan Symptomatic anemia/upper GI bleed-- Hemoglobin is 7.8. Previous admission was 9.6. Transfuse 1 unit of packed RBCs and recheck H&H. H&H every 6 hours. Protonix bolus and drip. GI consult for EGD. UTI-- Placed on vancomycin IV/Zosyn IV. Follow urine culture and sensitivities. Diabetes mellitus-- Hold Lantus 5 units subcutaneous at bedtime. Place on Accu-Cheks before meals and at bedtime with NovoLog coverage per scale. CAD/hypertension/stented coronary artery-- While nothing by mouth due to altered mental state we will hold the following: Aspirin, clopidogrel. Hypothyroidism-- Convert levothyroxine sodium 125 g by mouth daily to 62.5 g IV daily. Hyperlipidemia-- Hold simvastatin 10 mg by mouth at bedtime and have a 10 mg by mouth daily. Peripheral neuropathy-- Hold gabapentin 400 mg by mouth 3 times a day. Depression--hold Effexor 100 mg by mouth twice a day. Level of Care Telemetry Advanced Directives Existing Advance Directive: No Existing Living Will: No Existing Power of [employer]: No Resuscitation Status FULL RESUSCITATION VTE Prophylaxis VTE Risk Assessment Done? Y/N: Yes Risk Level: Moderate Given or contraindicated: SCD's
[2016-11-07] MEDS: INSULIN ASPART 100 UNITS/ML 3 ML PEN SC SCH (18:00)
[2016-11-07] MEDS: PIPERACILL/TAZOBAC IV 3.375 GM in DEXTROSE 5% 100ML 100 ML IV SCH (18:03)
[2016-11-07] MEDS: SODIUM CHLORIDE 0.9% 1000ML 1,000 ML IV SCH (18:04)
[2016-11-07 18:09] LABS: HEMATOCRIT 24.2 % (37-47)
[2016-11-07 21:52] LABS: CKMB/CK RATIO 8.3 (0-3.0)
[2016-11-08 00:21] LABS: HEMATOCRIT 28.4 % (37-47)
--- NOTE | 2016-11-08 00:40 | Progress Note ---
Progress Note Date of Service Nov 08, 2016. Progress Note notified of elevated troponin from 0.3 ---> 1.6 Patient resting comfortably without chest pain. Patient currently having blood infused Requested repeat EKG to look for ischemic changes; no changes noted upon review Recommend continuing course without starting heparin. Elevated troponin may reflect preceding supply/demand ischemia in the setting of anemia Will await result of next troponin and follow patient clinical course and symptoms
[2016-11-08] MEDS: SODIUM CHLORIDE 0.9% 1000ML 1,000 ML IV SCH ×3 (01:05→19:12)
[2016-11-08] MEDS: PANTOprazole INJ 40 MG in DEXTROSE 5% 100ML IV SCH ×5 (01:05→21:19)
[2016-11-08] MEDS: PIPERACILL/TAZOBAC IV 3.375 GM in DEXTROSE 5% 100ML 100 ML IV SCH ×2 (02:18→09:40)
[2016-11-08 03:40] VITALS: BP 92/56; PULSE 72; TEMP 37; O2SAT 97
[2016-11-08 04:23] LABS: BASO % 0.6 %; BASO ABS # 0.06 K/uL (0-0.2); COMPLETE YES; EOS % 1.2 %; HEMATOCRIT 28.3 % (37-47); IG% 0.5 %; LYMPH % 8.1 %; LYMPH ABS # 0.83 K/uL (1.2-3.4); MEAN CELL VOLUME 91.9 fL (80-100); MEAN CORPUSCULAR HEMOGLOBIN 30.8 pg (25-34); MEAN CORPUSCULAR HGB CONC 33.6 g/dl (32-36); MEAN PLATELET VOLUME 9.3 fL (7.4-10.4); MONO % 7.1 %; NEUT % 82.5 %; PLATELET COUNT 319 K/uL (130-400); RED BLOOD COUNT 3.08 M/uL (4.2-5.4); WHITE BLOOD COUNT 10.22 K/uL (4.8-10.8)
[2016-11-08 04:33] LABS: PARTIAL THROMBOPLASTIN RATIO 1.1; PROTHROMBIN TIME (PATIENT) 10.7 SECONDS (9.0-12.0)
[2016-11-08 04:42] LABS: BUN/CREATININE RATIO 26.7 (10-20); CALCIUM 7.7 mg/dl (8.5-10.1); CREATININE 1.5 mg/dl (0.60-1.20); MAGNESIUM 2.1 mg/dl (1.8-2.4); POTASSIUM 3.8 mmol/L (3.5-5.1)
[2016-11-08 04:49] LABS: CKMB/CK RATIO 8.2 (0-3.0)
[2016-11-08] MEDS: INSULIN ASPART 100 UNITS/ML 3 ML PEN SC SCH ×5 (06:00→20:57)
[2016-11-08 08:02] VITALS: BP 113/62; PULSE 71; TEMP 36.9; O2SAT 98
[2016-11-08] MEDS ORDERED: LEVOTHYROXINE SODIUM INJ 62.5 MCG in SYRINGE 0 ML IV SCH (09:00)
--- NOTE | 2016-11-08 09:30 | Clinical Documentation Query ---
Ezequiel Francis : CLINICAL DOCUMENTATION QUERIES QUERY 1 OF 4 Documentation includes CKD stage 2. Estimated GFR range dating back to 03/03/15 of 23-47 ml/min. CKD range of 30-60 ml/min is consistent with CKD stage 3 per NKF guidelines. Creatinine on admission was 1.90 mg/dl with an concomitant estimated GFR of 27 ml/min. Please clarify as clinically appropriate. Thank you. In your clinical opinion is this patient being managed for: ( ) CODY on CKD stage 2 ( ) CODY on CKD stage 3 ( ) Not Agree ( ) Other explanation of clinical findings (Please Explain) ( ) Unable to determine (Please Define) ( ) Need to Discuss The medical record reflects the following clinical findings, treatment, and risk factors. Clinical Indicators: As above Treatment: Telemetry, serial chemistries, IVF Risk Factors: Age, hypotension, sepsis, underlying CKD, DM, hypertension, age QUERY 2 OF 4 Patient presented with "stroke symptoms". Period of "unresponsiveness" per EMS. Hypotensive prehospital, improved with isotonic fluid administration. She was described as "sleepy but arousable". CT scan of the head was without acute findings. Leukocytosis present on CBC with moderate leukocyte esterase on urinalysis, with > 30 WBC's, 1+ occult blood, and hyphae. She is being treated further with IVF, multiple IV antibiotics, and monitored on telemetry. As appropriate, consider clarification as suggested below. Thank you. In your clinical opinion is this patient being managed for: ( ) Sepsis with encephalopathy, POA secondary to UTI ( ) Not Agree ( ) Other explanation of clinical findings (Please Explain) ( ) Unable to determine (Please Define) ( ) Need to Discuss The medical record reflects the following clinical findings, treatment, and risk factors. Clinical Indicators: Altered mental status, leukocytosis, hypotension, CODY, possible UTI Treatment: IVF, IV antibiotics, blood/urine cultures Risk Factors: Age, gender, frequent hospitalizations. QUERY 3 OF 4 Serum troponin 0.366 ng/ml with elevated CK-MB and CK-MB ratio on admission. Serum troponin further manuel to 1.640, with concomitant rise in CK-MB and CK-MB ratios. Documentation includes"Elevated troponin may reflect preceding supply/demand ischemia in the setting of anemia". As appropriate, consider documentation as suggested below. Thank you. In your clinical opinion is this patient being managed for: ( ) Type II NSTEMI ( ) Not Agree ( ) Other explanation of clinical findings (Please Explain) ( ) Unable to determine (Please Define) ( ) Need to Discuss The medical record reflects the following clinical findings, treatment, and risk factors. Clinical Indicators: As above, possible subtle non-specific T wave abnormality on EKG Treatment: Telemetry, serial cardiac enzymes, PRBC transfusion Risk Factors: Severe anemia QUERY 4 OF 4 H&H on admission of 7.8 g/dl and 24.9%. She has been transfused 2 units of PRBC's. H&H on 10/31 was 9.6 g/dl and 28.4, demonstrating the acuity of the decline. Patient has a history of gastric bypass and PRBC transfusion. Please clarify as clinically appropriate. Thank you. In your clinical opinion is this patient being managed for: ( ) Acute blood loss on chronic anemia ( ) Not Agree ( ) Other explanation of clinical findings (Please Explain) ( ) Unable to determine (Please Define) ( ) Need to Discuss The medical record reflects the following clinical findings, treatment, and risk factors. Clinical Indicators: As above Treatment: Serial hematology, PRBC transfusion, iron supplementation Risk Factors: Gastric bypass surgery, ASA Please clarify and document your clinical opinion in the progress notes and discharge summary. Terms such as "probable", "suspected", "likely", "questionable", "possible", or "still to be ruled out" are acceptable. IF IN AGREEMENT, YOU MUST DOCUMENT ABOVE DIAGNOSTIC STATEMENT IN DAILY PROGRESS NOTES AND DISCHARGE SUMMARY. This document is not part of the patient's record. Thank You, Noel Pizano, RN [phone]
[2016-11-08 11:30] VITALS: BP 128/69; PULSE 69; TEMP 36.7; O2SAT 99
--- NOTE | 2016-11-08 12:33 | Gastroenterology Progress Note ---
Progress Note Date of Service: Nov 08, 2016 Subjective Pt evaluation today including: conversation w/ patient, physical exam, chart review, review of inpatient medication list 65 yo CF with anemia with no overt GI bleeding. Patient denies recent melena, hematochezia or hematemesis. Medications Current Inpatient Medications Medications (Trade) Dose Ordered Sig/Sadie Route Start Time Stop Time Status Last Admin Dose Admin Sodium Chloride 1,000 ml @ 100 mls/hr Q10H IV 11/07/16 12:18 12/07/16 12:17 11/08/16 01:05 100 MLS/HR Acetaminophen (Tylenol Tab) 650 mg Q4H PRN PO 11/07/16 12:30 12/07/16 12:29 Levothyroxine Sodium 62.5 mcg/ Syringe 3.125 ml @ 2 mls/min DAILY@09 IV 11/08/16 09:00 12/08/16 08:59 11/08/16 09:40 2 MLS/MIN Ondansetron HCl (Zofran Inj) 4 mg Q6H PRN IV 11/07/16 12:30 12/07/16 12:29 Glucose (Glucose 40% Gel) UD PRN PO 11/07/16 12:30 12/07/16 12:29 Glucose (Glucose Chew Tab) 1 tabs UD PRN PO 11/07/16 12:30 12/07/16 12:29 Dextrose (Dextrose 50% 50ML Syringe) 50 ml UD PRN IV 11/07/16 12:30 12/07/16 12:29 Glucagon (Glucagon Inj) 1 mg UD PRN SQ 11/07/16 12:30 12/07/16 12:29 Piperacillin Sod/ Tazobactam Sod 3.375 gm/Dextrose 115 ml @ 28.75 mls/ hr Q8H IV 11/07/16 18:00 11/17/16 17:59 11/08/16 09:40 28.75 MLS/HR Pantoprazole Sodium 40 mg/ Dextrose 100 ml @ 20 mls/hr Q5H IV 11/07/16 15:00 12/07/16 14:29 11/08/16 06:12 20 MLS/HR Insulin Aspart (novoLOG ASPART) SLIDING SCALE If C... Q6 SC 11/07/16 18:00 12/07/16 16:14 Piperacillin Sod/ Tazobactam Sod (Consult) 1 ea UD PRN N/A 11/07/16 15:15 12/07/16 15:14 Vancomycin HCl (Consult) 1 ea UD PRN N/A 11/07/16 15:15 12/07/16 15:14 Vancomycin HCl 1000 mg/Sodium Chloride 270 ml @ 125 mls/hr Q24H IV 11/08/16 14:00 11/17/16 13:59 Objective Vital Signs Date Time Temp Pulse Resp B/P (MAP) Pulse Ox O2 Delivery O2 Flow Rate FiO2 11/08/16 11:30 36.7 69 18 128/69 (88) 99 Room Air 11/08/16 08:02 36.9 71 17 113/62 (79) 98 Room Air 11/08/16 04:00 Room Air 11/08/16 03:40 37.0 72 18 92/56 (68) 97 Room Air 11/08/16 00:00 Room Air 11/07/16 23:53 36.8 70 18 104/64 (77) 96 Room Air 11/07/16 21:27 36.7 74 20 110/67 98 11/07/16 20:27 36.8 76 18 99/64 100 11/07/16 20:12 36.8 74 18 98/62 97 11/07/16 20:00 97 Room Air 11/07/16 18:48 36.9 71 21 105/58 (74) 99 Room Air 11/07/16 16:00 97 Room Air 11/07/16 14:41 36.8 75 18 103/64 97 11/07/16 14:11 36.8 71 16 97/63 98 11/07/16 13:32 78 14 96/53 99 11/07/16 13:32 36.9 78 14 96/53 99 11/07/16 13:31 36.9 78 14 96/53 99 11/07/16 13:16 36.7 78 16 98/50 97 11/07/16 12:48 76 18 98/55 98 Physical Exam General Appearance: no apparent distress Respiratory/Chest: lungs clear Cardiovascular: regular rate, rhythm Abdomen: non tender, soft Laboratory Results Last 24 Hours Test 11/07/16 17:44 11/07/16 18:08 11/07/16 20:55 11/07/16 23:59 Hemoglobin 8.1 g/dL Hematocrit 24.2 % Bedside Glucose 82 mg/dl 73 mg/dl Total Creatine Kinase 112 U/L Creatine Kinase MB 9.3 ng/ml Creatine Kinase MB Ratio 8.3 Troponin I 1.640 ng/ml Test 11/08/16 00:14 11/08/16 04:15 11/08/16 06:00 11/08/16 12:22 Hemoglobin 9.5 g/dL 9.5 g/dL Hematocrit 28.4 % 28.3 % White Blood Count 10.22 K/uL Red Blood Count 3.08 M/uL Mean Corpuscular Volume 91.9 fL Mean Corpuscular Hemoglobin 30.8 pg Mean Corpuscular Hemoglobin Concent 33.6 g/dl Platelet Count 319 K/uL Mean Platelet Volume 9.3 fL Neutrophils (%) (Auto) 82.5 % Lymphocytes (%) (Auto) 8.1 % Monocytes (%) (Auto) 7.1 % Eosinophils (%) (Auto) 1.2 % Basophils (%) (Auto) 0.6 % Neutrophils # (Auto) 8.43 K/uL Lymphocytes # (Auto) 0.83 K/uL Monocytes # (Auto) 0.73 K/uL Eosinophils # (Auto) 0.12 K/uL Basophils # (Auto) 0.06 K/uL RDW Standard Deviation 52.2 fL RDW Coefficient of Variation 15.6 % Immature Granulocyte % (Auto) 0.5 % Immature Granulocyte # (Auto) 0.05 K/uL Prothrombin Time 10.7 SECONDS Prothromb Time International Ratio 1.0 Activated Partial Thromboplast Time 28.3 SECONDS Partial Thromboplastin Ratio 1.1 Sodium Level 143 mmol/L Potassium Level 3.8 mmol/L Chloride Level 117 mmol/L Carbon Dioxide Level 18 mmol/L Anion Gap 8.0 mmol/L Blood Urea Nitrogen 40 mg/dl Creatinine 1.50 mg/dl Est Creatinine Clear Calc Drug Dose 38.6 ml/min Estimated GFR () 41.4 Estimated GFR (Non- 35.7 BUN/Creatinine Ratio 26.7 Random Glucose 72 mg/dl Calcium Level 7.7 mg/dl Magnesium Level 2.1 mg/dl Total Creatine Kinase 88 U/L Creatine Kinase MB 7.2 ng/ml Creatine Kinase MB Ratio 8.2 Troponin I 1.350 ng/ml Bedside Glucose 84 mg/dl Assessment and Plan Assessment: 65 yo CF with recent NSTEMI being medically managed with anemia. Plan: Proceed with EGD. Continue current therapy
[2016-11-08] MEDS ORDERED: FENTANYL CITRATE INJ 50 MCG/1 ML 2 ML VIAL ONE (12:41)
--- NOTE | 2016-11-08 13:07 | GI REPORT ---
Procedure Date: 11/08/2016 12:45 PM Procedure: Upper GI endoscopy Indications: Iron deficiency anemia secondary to chronic blood loss Medicines: Monitored Anesthesia Care Complications: No immediate complications. Estimated Blood Loss: Estimated blood loss: none. Procedure: Pre-Anesthesia Assessment: - Prior to the procedure, a History and Physical was performed, and patient medications and allergies were reviewed. The patient's tolerance of previous anesthesia was also reviewed. The risks and benefits of the procedure and the sedation options and risks were discussed with the patient. All questions were answered, and informed consent was obtained. Prior Anticoagulants: The patient last took aspirin 2 days and Plavix (clopidogrel) 2 days prior to the procedure. ASA Grade Assessment: IV - A patient with severe systemic disease that is a constant threat to life. After reviewing the risks and benefits, the patient was deemed in satisfactory condition to undergo the procedure. After obtaining informed consent, the endoscope was passed under direct vision. Throughout the procedure, the patient's blood pressure, pulse, and oxygen saturations were monitored continuously. The scope was introduced through the mouth, and advanced to the jejunum. The upper GI endoscopy was accomplished without difficulty. The patient tolerated the procedure well. Findings: The esophagus was normal. Evidence of a gastric bypass was found. A gastric pouch with a normal size was found. The staple line appeared intact. The gastrojejunal anastomosis was characterized by healthy appearing mucosa. This was traversed. The [id number] limb was characterized by healthy appearing mucosa. The dgnmrovv-qy-pyqajft limb was not examined as it could not be found. The examined jejunum was normal. Impression: - Normal esophagus. - Gastric bypass with a normal-sized pouch and intact staple line. Gastrojejunal anastomosis characterized by healthy appearing mucosa. - Normal examined jejunum. - No specimens collected. Recommendation: - [facility]. - Advance diet as tolerated. - Continue present medications. - No evidence of active or recent GI bleeding Ras Delgado, DO 11/08/2016 1:07:14 PM This report has been signed electronically. Note Initiated On: 11/08/2016 12:45 PM I attest to the content of the Intraoperative Record and orders documented therein, exceptions below
[2016-11-08] MEDS ORDERED: PROPOFOL IV EMULSION 10 MG/ML 20 ML VIAL IV ONE (13:09)
[2016-11-08] MEDS ORDERED: LIDOCAINE HCL 2% 2 ML VIAL (20MG/ML) ONE (13:09)
[2016-11-08] MEDS ORDERED: VANCOMYCIN INJ 1,000 MG in SODIUM CHLORIDE 0.9% 250ML 250 ML IV SCH (14:00)
--- NOTE | 2016-11-08 14:03 | Anesthesiology Progress Note ---
Anesthesia Post Op Note Date & Time Nov 08, 2016 at 14:03 Vital Signs Pain Intensity: 0 Vital Signs Past 12 Hours Date Time Temp Pulse Resp B/P (MAP) Pulse Ox O2 Delivery O2 Flow Rate FiO2 11/08/16 13:36 73 18 136/64 (88) 99 Room Air 11/08/16 13:19 72 18 120/67 (84) 99 Room Air 11/08/16 13:07 70 16 105/49 (67) 99 Room Air 11/08/16 12:30 36.8 66 18 129/67 (87) 99 Room Air 11/08/16 12:00 Room Air 11/08/16 11:30 36.7 69 18 128/69 (88) 99 Room Air 11/08/16 08:02 36.9 71 17 113/62 (79) 98 Room Air 11/08/16 08:00 Room Air 11/08/16 04:00 Room Air 11/08/16 03:40 37.0 72 18 92/56 (68) 97 Room Air
[2016-11-08 15:53] VITALS: BP 134/73; PULSE 70; TEMP 36.8; O2SAT 99
[2016-11-08 17:07] LABS: HEMATOCRIT 30.6 % (37-47)
--- NOTE | 2016-11-08 17:36 | Progress Note ---
Subjective Date of Service: Nov 08, 2016. Subjective Pt evaluation today including: conversation w/ patient, conversation w/ family , physical exam, chart review, lab review, review of studies 65 yo female presents to the hospital after having a syncopal episode. She had been admitted in Oct.20 to and Oct 27-. Family states that she has been feeling dizzy and has been having episodes of lightheadedness while moving from seated to standing. Patient latest episode occured while bearing down on toilet. Patient became unresponsive and slumped to her right. He called EMS, and they found her Sytolic was in the 60s- which slowly improved to the 80s. Once in the ER, she responded with a fluid bolus and BP improved to 105. She received a total of 800 ml of NS. 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 No new weakness noted by patient. I also had a call by nursing staff that during the course of the day patient had a 3.9 second pause on her tele monitor, which was asymptomatic. Problem List Medical Problems: (1) Acute kidney injury Status: Acute (2) Ambulatory dysfunction Status: Acute (3) Arrhythmia Status: Acute (4) Elevated troponin Status: Acute (5) Elevated troponin Status: Acute (6) Falls Status: Acute (7) Generalized weakness Status: Acute (8) GI bleed Status: Acute (9) Hypotension Status: Acute (10) Hypotension Status: Acute (11) Hypothyroidism Status: Acute (12) Metabolic encephalopathy Status: Acute (13) Numbness Status: Acute (14) Sepsis Status: Acute (15) Sepsis Status: Acute (16) Severe anemia Status: Acute (17) Weakness Status: Acute Review of Systems Constitutional: No fever, No chills Eyes: No worsening of vision, No eye pain ENT: No hearing loss, No unusual epistaxis Respiratory: No cough, No sputum Cardiac: No chest pain, No orthopnea, No edema, No claudication, No palpitations Breast: No breast lump Abdomen: No pain, No nausea Neurologic: + memory loss, + weakness, + balance problems, No paralysis, No numbness/tingling, No vertigo Psychiatric: No depression symptoms, No anhedonism Endo: + fatigue, No excessive thirst, No excessive urination Skin: No rash, No itch All Other Systems: Reviewed and Negative Medications Current Inpatient Medications Medications (Trade) Dose Ordered Sig/Sadie Route Start Time Stop Time Status Last Admin Dose Admin Sodium Chloride 1,000 ml @ 100 mls/hr Q10H IV 11/07/16 12:18 12/07/16 12:17 11/09/16 01:37 100 MLS/HR Acetaminophen (Tylenol Tab) 650 mg Q4H PRN PO 11/07/16 12:30 12/07/16 12:29 Levothyroxine Sodium 62.5 mcg/ Syringe 3.125 ml @ 2 mls/min DAILY@09 IV 11/08/16 09:00 12/08/16 08:59 11/08/16 09:40 2 MLS/MIN Ondansetron HCl (Zofran Inj) 4 mg Q6H PRN IV 11/07/16 12:30 12/07/16 12:29 Glucose (Glucose 40% Gel) UD PRN PO 11/07/16 12:30 12/07/16 12:29 Glucose (Glucose Chew Tab) 1 tabs UD PRN PO 11/07/16 12:30 12/07/16 12:29 Dextrose (Dextrose 50% 50ML Syringe) 50 ml UD PRN IV 11/07/16 12:30 12/07/16 12:29 Glucagon (Glucagon Inj) 1 mg UD PRN SQ 11/07/16 12:30 12/07/16 12:29 Pantoprazole Sodium 40 mg/ Dextrose 100 ml @ 20 mls/hr Q5H IV 11/07/16 15:00 12/07/16 14:29 11/09/16 01:37 20 MLS/HR Fluconazole (Diflucan Tab) 100 mg DAILY@0900 PO 11/09/16 09:00 11/19/16 08:59 Insulin Aspart (novoLOG ASPART) SLIDING SCALE If C... ACHS SC 11/08/16 21:00 12/08/16 20:59 Objective Vital Signs Date Time Temp Pulse Resp B/P (MAP) Pulse Ox O2 Delivery O2 Flow Rate FiO2 11/08/16 16:00 Room Air 11/08/16 15:53 36.8 70 18 134/73 (93) 99 Room Air 11/08/16 13:36 73 18 136/64 (88) 99 Room Air 11/08/16 13:19 72 18 120/67 (84) 99 Room Air 11/08/16 13:07 70 16 105/49 (67) 99 Room Air 11/08/16 12:30 36.8 66 18 129/67 (87) 99 Room Air 11/08/16 12:00 Room Air 11/08/16 11:30 36.7 69 18 128/69 (88) 99 Room Air 11/08/16 08:02 36.9 71 17 113/62 (79) 98 Room Air 11/08/16 08:00 Room Air 11/08/16 04:00 Room Air 11/08/16 03:40 37.0 72 18 92/56 (68) 97 Room Air 11/08/16 00:00 Room Air 11/07/16 23:53 36.8 70 18 104/64 (77) 96 Room Air 11/07/16 21:27 36.7 74 20 110/67 98 11/07/16 20:27 36.8 76 18 99/64 100 11/07/16 20:12 36.8 74 18 98/62 97 11/07/16 20:00 97 Room Air 11/07/16 18:48 36.9 71 21 105/58 (74) 99 Room Air Physical Exam General Appearance: WD/WN, no apparent distress Eyes: normal inspection, PERRL Neck: supple, no adenopathy, thyroid normal Respiratory/Chest: chest non-tender, lungs clear, normal breath sounds, no respiratory distress Cardiovascular: regular rate, rhythm, no edema, no gallop, no JVD Abdomen: normal bowel sounds, non tender, soft, no organomegaly Extremities: normal range of motion, non-tender Neurologic/Psychiatric: alert, normal mood/affect Skin: normal color, warm/dry Lymphatic: no adenopathy Laboratory Results Last 24 Hours Test 11/07/16 17:44 11/07/16 18:08 11/07/16 20:55 11/07/16 23:59 Hemoglobin 8.1 g/dL Hematocrit 24.2 % Bedside Glucose 82 mg/dl 73 mg/dl Total Creatine Kinase 112 U/L Creatine Kinase MB 9.3 ng/ml Creatine Kinase MB Ratio 8.3 Troponin I 1.640 ng/ml Test 11/08/16 00:14 11/08/16 04:15 11/08/16 06:00 11/08/16 14:32 Hemoglobin 9.5 g/dL 9.5 g/dL Hematocrit 28.4 % 28.3 % White Blood Count 10.22 K/uL Red Blood Count 3.08 M/uL Mean Corpuscular Volume 91.9 fL Mean Corpuscular Hemoglobin 30.8 pg Mean Corpuscular Hemoglobin Concent 33.6 g/dl Platelet Count 319 K/uL Mean Platelet Volume 9.3 fL Neutrophils (%) (Auto) 82.5 % Lymphocytes (%) (Auto) 8.1 % Monocytes (%) (Auto) 7.1 % Eosinophils (%) (Auto) 1.2 % Basophils (%) (Auto) 0.6 % Neutrophils # (Auto) 8.43 K/uL Lymphocytes # (Auto) 0.83 K/uL Monocytes # (Auto) 0.73 K/uL Eosinophils # (Auto) 0.12 K/uL Basophils # (Auto) 0.06 K/uL RDW Standard Deviation 52.2 fL RDW Coefficient of Variation 15.6 % Immature Granulocyte % (Auto) 0.5 % Immature Granulocyte # (Auto) 0.05 K/uL Prothrombin Time 10.7 SECONDS Prothromb Time International Ratio 1.0 Activated Partial Thromboplast Time 28.3 SECONDS Partial Thromboplastin Ratio 1.1 Sodium Level 143 mmol/L Potassium Level 3.8 mmol/L Chloride Level 117 mmol/L Carbon Dioxide Level 18 mmol/L Anion Gap 8.0 mmol/L Blood Urea Nitrogen 40 mg/dl Creatinine 1.50 mg/dl Est Creatinine Clear Calc Drug Dose 38.6 ml/min Estimated GFR () 41.4 Estimated GFR (Non- 35.7 BUN/Creatinine Ratio 26.7 Random Glucose 72 mg/dl Calcium Level 7.7 mg/dl Magnesium Level 2.1 mg/dl Total Creatine Kinase 88 U/L Creatine Kinase MB 7.2 ng/ml Creatine Kinase MB Ratio 8.2 Troponin I 1.350 ng/ml Bedside Glucose 84 mg/dl 93 mg/dl Test 11/08/16 16:27 Hemoglobin 10.2 g/dL Hematocrit 30.6 % Assessment and Plan Syncopal episode unsure etiology. May be symptomatic anemia vs Cardiac etiology vs vasovagal Patient was found to have anemia at 7.8 on admission with hypotension, but no history of melena. EGD was also negative. will continue on portonix drip and start diet. Patient did however, have an episode of a 3.9 second pause on her campus monitor. Will consult cardio. Will also obtain orthostatic vitals UTI-- Patient urine showed nader on UA and prelim. culture. will stop antibiotics and start diflucan. Diabetes mellitus-- Place on Accu-Cheks before meals and at bedtime with NovoLog coverage per scale. CAD/hypertension/stented coronary artery-- will restart in AM ASA and plavix. Hypothyroidism-- Restart pO meds Hyperlipidemia-- restart PO meds Peripheral neuropathy-- restart gabapentin Depression--restart effexor. Level of Care Telemetry Advanced Directives Existing Advance Directive: No Existing Living Will: No Existing Power of Telex Operator: No Resuscitation Status FULL RESUSCITATION VTE Prophylaxis VTE Risk Assessment Done? Y/N: Yes Risk Level: Moderate Given or contraindicated: SCD's Continued [facility] stay due to: other (pending workup) Discharge planning: uncertain
[2016-11-08] MEDS ORDERED: FLUCONAZOLE 100 MG TAB PO ONE (18:30)
[2016-11-08] MEDS ORDERED: NURSING VERBAL MED ORDER ONE (18:30)
[2016-11-08 18:45] LABS: HEMATOCRIT 29.2 % (37-47)
[2016-11-08 19:08] LABS: BUN/CREATININE RATIO 24.4 (10-20); CREATININE 1.3 mg/dl (0.60-1.20); POTASSIUM 3.7 mmol/L (3.5-5.1)
[2016-11-08 19:11] LABS: ALB/GLOB RATIO 0.6 (0.9-2)
[2016-11-08 19:42] VITALS: BP 135/71; PULSE 74; TEMP 37.2; O2SAT 99
[2016-11-09] VITALS (7 sets, daily range): BP systolic 126–158; BP diastolic 71–81; PULSE 69–82; TEMP 36.9–37.1; O2SAT 92–100
[2016-11-09 00:40] LABS: HEMATOCRIT 28.6 % (37-47)
[2016-11-09] MEDS: PANTOprazole INJ 40 MG in DEXTROSE 5% 100ML IV SCH ×2 (01:37→08:30)
[2016-11-09] MEDS: SODIUM CHLORIDE 0.9% 1000ML 1,000 ML IV SCH ×2 (01:37→21:01)
[2016-11-09] MEDS: INSULIN ASPART 100 UNITS/ML 3 ML PEN SC SCH ×4 (07:00→20:58)
[2016-11-09] MEDS ORDERED: CYNI1000 IM (07:39)
[2016-11-09] MEDS ORDERED: LEVOTHYROXINE 125 MCG TAB PO ONE (07:40)
[2016-11-09] MEDS: CLOPIDOGREL BISULFATE 75 MG TAB PO SCH (09:11)
[2016-11-09] MEDS: GABAPENTIN 400 MG CAP PO SCH ×3 (09:11→21:00)
[2016-11-09] MEDS: ASPIRIN 81 MG ECTAB PO SCH (09:11)
[2016-11-09] MEDS: BuPROPion XL 300 MG TABCR PO SCH (09:11)
[2016-11-09] MEDS: VENLAFAXINE HCL 50 MG TAB PO SCH ×2 (09:11→21:00)
[2016-11-09] MEDS: FLUCONAZOLE 100 MG TAB PO SCH (09:13)
[2016-11-09 09:20] LABS: BASO % 0.4 %; BASO ABS # 0.04 K/uL (0-0.2); COMPLETE YES; EOS % 0.8 %; HEMATOCRIT 33.4 % (37-47); IG% 0.4 %; LYMPH % 6.6 %; LYMPH ABS # 0.61 K/uL (1.2-3.4); MEAN CORPUSCULAR HEMOGLOBIN 31.1 pg (25-34); MEAN CORPUSCULAR HGB CONC 33.8 g/dl (32-36); MEAN PLATELET VOLUME 9.9 fL (7.4-10.4); MONO % 5.8 %; PLATELET COUNT 414 K/uL (130-400); RED BLOOD COUNT 3.63 M/uL (4.2-5.4); WHITE BLOOD COUNT 9.31 K/uL (4.8-10.8)
--- NOTE | 2016-11-09 09:27 | Gastroenterology Progress Note ---
Progress Note Date of Service: Nov 09, 2016 Subjective Pt evaluation today including: conversation w/ patient, physical exam, chart review, lab review, review of inpatient medication list Patient states she feels well today and is hoping to go home. She denies any overt GIB symptoms. EGD yesterday without any source of bleeding identified. Continues PPI ggt. No abdominal pain, nausea or vomiting, Tolerating diet. Review of Systems Constitutional: No problem reported Respiratory: No problem reported Cardiac: + see HPI Abdomen: + see HPI Psych: No problem reported Medications Current Inpatient Medications Medications (Trade) Dose Ordered Sig/Sadie Route Start Time Stop Time Status Last Admin Dose Admin Sodium Chloride 1,000 ml @ 100 mls/hr Q10H IV 11/07/16 12:18 12/07/16 12:17 11/09/16 01:37 100 MLS/HR Acetaminophen (Tylenol Tab) 650 mg Q4H PRN PO 11/07/16 12:30 12/07/16 12:29 Ondansetron HCl (Zofran Inj) 4 mg Q6H PRN IV 11/07/16 12:30 12/07/16 12:29 Glucose (Glucose 40% Gel) UD PRN PO 11/07/16 12:30 12/07/16 12:29 Glucose (Glucose Chew Tab) 1 tabs UD PRN PO 11/07/16 12:30 12/07/16 12:29 Dextrose (Dextrose 50% 50ML Syringe) 50 ml UD PRN IV 11/07/16 12:30 12/07/16 12:29 Glucagon (Glucagon Inj) 1 mg UD PRN SQ 11/07/16 12:30 12/07/16 12:29 Pantoprazole Sodium 40 mg/ Dextrose 100 ml @ 20 mls/hr Q5H IV 11/07/16 15:00 12/07/16 14:29 11/09/16 08:30 20 MLS/HR Fluconazole (Diflucan Tab) 100 mg DAILY@0900 PO 11/09/16 09:00 11/19/16 08:59 11/09/16 09:13 100 MG Insulin Aspart (novoLOG ASPART) SLIDING SCALE If C... ACHS SC 11/08/16 21:00 12/08/16 20:59 Insulin Glargine (Lantus Solostar Pen) 5 units HS SC 11/09/16 21:00 12/09/16 20:59 Aspirin (Ecotrin Tab) 81 mg QAM PO 11/09/16 09:00 12/09/16 08:59 11/09/16 09:11 81 MG Bupropion HCl (Wellbutrin-Xl Tab) 300 mg QAM PO 11/09/16 09:00 12/09/16 08:59 11/09/16 09:11 300 MG Clopidogrel Bisulfate (plAVix TAB) 75 mg QAM PO 11/09/16 09:00 12/09/16 08:59 11/09/16 09:11 75 MG Gabapentin (Neurontin Cap) 400 mg TID PO 11/09/16 09:00 12/09/16 08:59 11/09/16 09:11 400 MG Levothyroxine Sodium (Synthroid Tab) 125 mcg DAILYBB PO 11/10/16 06:00 12/10/16 05:59 Simvastatin (Zocor Tab) 10 mg PM PO 11/09/16 21:00 12/09/16 20:59 Venlafaxine HCl (effeXOR TAB) 100 mg BID PO 11/09/16 09:00 12/09/16 08:59 11/09/16 09:11 100 MG Objective Vital Signs Date Time Temp Pulse Resp B/P (MAP) Pulse Ox O2 Delivery O2 Flow Rate FiO2 11/09/16 08:00 Room Air 11/09/16 07:58 37.0 73 18 137/73 (94) 100 Room Air 11/09/16 04:12 Room Air 11/09/16 03:46 37.1 71 20 135/75 (95) 100 Room Air 11/09/16 00:50 Room Air 11/09/16 00:45 37.0 69 20 139/81 (100) 98 Room Air 11/08/16 20:00 Room Air 11/08/16 19:42 37.2 74 17 135/71 (92) 99 Room Air 11/08/16 16:00 Room Air 11/08/16 15:53 36.8 70 18 134/73 (93) 99 Room Air 11/08/16 13:36 73 18 136/64 (88) 99 Room Air 11/08/16 13:19 72 18 120/67 (84) 99 Room Air 11/08/16 13:07 70 16 105/49 (67) 99 Room Air 11/08/16 12:30 36.8 66 18 129/67 (87) 99 Room Air 11/08/16 12:00 Room Air 11/08/16 11:30 36.7 69 18 128/69 (88) 99 Room Air Physical Exam General Appearance: no apparent distress Eyes: EOMI ENT: hearing grossly normal Neck: supple Respiratory/Chest: lungs clear, normal breath sounds, no respiratory distress Cardiovascular: regular rate, rhythm, no gallop, no murmur Abdomen: normal bowel sounds, non tender, soft Neurologic/Psych: alert, normal mood/affect, oriented x 3 Laboratory Results Last 24 Hours Test 11/08/16 14:32 11/08/16 16:27 11/08/16 18:16 11/08/16 18:29 Bedside Glucose 93 mg/dl 98 mg/dl Hemoglobin 10.2 g/dL 9.9 g/dL Hematocrit 30.6 % 29.2 % Sodium Level 143 mmol/L Potassium Level 3.7 mmol/L Chloride Level 116 mmol/L Carbon Dioxide Level 17 mmol/L Anion Gap 10.0 mmol/L Blood Urea Nitrogen 32 mg/dl Creatinine 1.30 mg/dl Est Creatinine Clear Calc Drug Dose 44.6 ml/min Estimated GFR () 49.2 Estimated GFR (Non- 42.4 BUN/Creatinine Ratio 24.4 Random Glucose 88 mg/dl Calcium Level 8.0 mg/dl Total Bilirubin 0.4 mg/dl Aspartate Amino Transf (AST/SGOT) 11 U/L Alanine Aminotransferase (ALT/SGPT) 12 U/L Alkaline Phosphatase 63 U/L Total Protein 5.9 gm/dl Albumin 2.1 gm/dl Globulin 3.8 gm/dl Albumin/Globulin Ratio 0.6 Test 11/08/16 20:11 11/09/16 00:24 11/09/16 07:25 11/09/16 08:14 Bedside Glucose 104 mg/dl 102 mg/dl Hemoglobin 9.6 g/dL Hematocrit 28.6 % Assessment and Plan Patient is a 65 year old female with recent hospital admission for anemia although heme negative stool, now admitted with significant drop in hemoglobin and symptomatic anemia and EGD yesterday without any evidence of bleeding. 1. Stop Protonix ggt. Start Pantoprazole 40 mg PO daily. 2. Diet as tolerated. 3. Consider outpatient colonoscopy. 4. Continue supportive care. Agree with CHANDLER Silverio as above Abd: Soft, NT, ND, +BS Continue current therapy Outpatient colonoscopy when acute issues have resolved.
[2016-11-09 09:34] LABS: PARTIAL THROMBOPLASTIN RATIO 1.1; PROTHROMBIN TIME (PATIENT) 11.2 SECONDS (9.0-12.0)
[2016-11-09 09:52] LABS: BUN/CREATININE RATIO 18.8 (10-20); CALCIUM 8.3 mg/dl (8.5-10.1); CREATININE 1.3 mg/dl (0.60-1.20); MAGNESIUM 1.9 mg/dl (1.8-2.4); POTASSIUM 3.6 mmol/L (3.5-5.1)
--- NOTE | 2016-11-09 10:21 | Cardiology Consultation ---
Cardiology Consultation Date of Consultation: Nov 09, 2016. Requesting Physician: Dr. Russell Reason for Consultation: Sinus arrest Pt evaluation today including: conversation w/ patient, conversation w/ family , physical exam, lab review, review of studies, review of inpatient medication list History of Present Illness This is a 65-year-old woman who has been followed by [facility] cardiology and presented with unresponsiveness but also had a long sinus pause. I am seeing her for evaluation of whether she needs a pacemaker. Her background history is notable for coronary artery disease for which she has had stent placement at [facility] in [place] in the past, is post gastric bypass surgery, has a history I believe of gastrointestinal bleeding and anemia and several admissions for hypotension and altered mental status as well as her current admission for an episode of unresponsiveness. Her recent hospitalizations in mid October 2016 showed significant anemia and hypotension but no evidence of GI bleeding it appears on review of the chart, and her current admission on 11/07/2016 again showed hypotension, anemia that no clear evidence of gastrointestinal bleeding ( including an EGD 11/08/2016 which showed no source of bleeding). This admission her blood pressure was reported as 60 by EMS, she received intravenous fluids and on arrival in the emergency room her blood pressure was 88/50 with a pulse of 84. Her overall heart rate here has not been low, however at 1616 on 11/08/2016 she had a sudden pause of 3.9 seconds followed by relative bradycardia for several weeks. This appears to have been an isolated finding and she has not had recurrence. This did occur following her EGD on that day, anesthesia is reported to have ended at around 1300, 3 hours before this event. At the time of my evaluation her was at the bedside, she is alert and conversational but does not have good memory of events. Her can provide a better history. He does describe clear orthostatic symptoms, worse over the last several weeks, including multiple episodes of loss of consciousness with standing and ambulating with assistance. She has left-sided weakness and can't walk by herself. These sound classically orthostatic, although a component of bradycardia can't be excluded. He does not have the ability to monitor blood pressure or heart rate at home. She is on no medications to cause bradycardia or hypotension to my knowledge, she has not been on medications to support her blood pressure either that I will wear off. Past Medical/Surgical History (1) Altered mental status (2) Hypotension (3) Severe anemia (4) PAD (peripheral artery disease) (5) HTN (hypertension) (6) DM2 (diabetes mellitus, type 2) (7) CKD (chronic kidney disease), stage II (8) CVA (cerebral vascular accident) (9) CAD (coronary artery disease) (10) Stented coronary artery (11) Gastric bypass status for obesity (12) Hypothyroidism Family History Diabetes mellitus Gallbladder disease Heart disease Hypertension Kidney disease Kidney stones Social History Smoking Status: Current Every Day Smoker History of Alcohol Use: No Review of Systems Constitutional: No fever, No weight loss, No weakness Respiratory: No problem reported Cardiac: + see HPI, + problem reported (orthostatic symptoms and loss of consciousness), No chest pain, No palpitations Abdomen: No pain, No nausea, No vomiting, No diarrhea, No GI bleeding Female : No problem reported Neurologic: No paralysis, No weakness, No numbness/tingling, No balance problems Heme: No abnormal bleeding/bruising, No clotting problems Endo: No fatigue Skin: No problem reported This may be unreliable, she seems to have a poor memory All Other Systems: Reviewed and Negative Allergies Coded Allergies: Paroxetine (Verified Adverse Reaction, Unknown, NERVOUS INCREASED, 11/07/16 ) Medications Current Inpatient Medications Medications (Trade) Dose Ordered Sig/Sadie Route Start Time Stop Time Status Last Admin Dose Admin Sodium Chloride 1,000 ml @ 100 mls/hr Q10H IV 11/07/16 12:18 12/07/16 12:17 11/09/16 01:37 100 MLS/HR Acetaminophen (Tylenol Tab) 650 mg Q4H PRN PO 11/07/16 12:30 12/07/16 12:29 Ondansetron HCl (Zofran Inj) 4 mg Q6H PRN IV 11/07/16 12:30 12/07/16 12:29 Glucose (Glucose 40% Gel) UD PRN PO 11/07/16 12:30 12/07/16 12:29 Glucose (Glucose Chew Tab) 1 tabs UD PRN PO 11/07/16 12:30 12/07/16 12:29 Dextrose (Dextrose 50% 50ML Syringe) 50 ml UD PRN IV 11/07/16 12:30 12/07/16 12:29 Glucagon (Glucagon Inj) 1 mg UD PRN SQ 11/07/16 12:30 12/07/16 12:29 Fluconazole (Diflucan Tab) 100 mg DAILY@0900 PO 11/09/16 09:00 11/19/16 08:59 11/09/16 09:13 100 MG Insulin Aspart (novoLOG ASPART) SLIDING SCALE If C... ACHS SC 11/08/16 21:00 12/08/16 20:59 Insulin Glargine (Lantus Solostar Pen) 5 units HS SC 11/09/16 21:00 12/09/16 20:59 Aspirin (Ecotrin Tab) 81 mg QAM PO 11/09/16 09:00 12/09/16 08:59 11/09/16 09:11 81 MG Bupropion HCl (Wellbutrin-Xl Tab) 300 mg QAM PO 11/09/16 09:00 12/09/16 08:59 11/09/16 09:11 300 MG Clopidogrel Bisulfate (plAVix TAB) 75 mg QAM PO 11/09/16 09:00 12/09/16 08:59 11/09/16 09:11 75 MG Gabapentin (Neurontin Cap) 400 mg TID PO 11/09/16 09:00 12/09/16 08:59 11/09/16 09:11 400 MG Levothyroxine Sodium (Synthroid Tab) 125 mcg DAILYBB PO 11/10/16 06:00 12/10/16 05:59 Simvastatin (Zocor Tab) 10 mg PM PO 11/09/16 21:00 12/09/16 20:59 Venlafaxine HCl (effeXOR TAB) 100 mg BID PO 11/09/16 09:00 12/09/16 08:59 11/09/16 09:11 100 MG Pantoprazole Sodium (Protonix Tab) 40 mg QAM PO 11/10/16 09:00 12/10/16 08:59 UNV Physical Exam Vital Signs Past 12 Hours Date Time Temp Pulse Resp B/P (MAP) Pulse Ox O2 Delivery O2 Flow Rate FiO2 11/09/16 08:00 Room Air 11/09/16 07:58 37.0 73 18 137/73 (94) 100 Room Air 11/09/16 04:12 Room Air 11/09/16 03:46 37.1 71 20 135/75 (95) 100 Room Air 11/09/16 00:50 Room Air 11/09/16 00:45 37.0 69 20 139/81 (100) 98 Room Air Constitutional: Level of Distress: NAD Ambulation: limited ambulation Psychiatric: Mental Status: active & alert Head: normocephalic Eyes: EOM: EOMI ENMT: normal ENT inspection, hearing grossly normal Neck: supple, no masses Lungs: Respiratory effort: no dyspnea, good air movement Auscultation: breath sounds normal, no wheezing Cardiovascular: Heart Auscultation: RRR, no murmurs, no rubs, no gallops Peripheral Pulses: Bruits: none appreciated Abdomen: Bowel Sounds: normal Inspection & Palpation: soft, no tenderness, guarding & rebound, no masses Musculoskeletal: pertinent finding (left arm and leg weakness but she can move them) Extremities: no edema Neurologic: Cranial Nerves: grossly intact Sensation: grossly intact Ulcers on her but toxic and left heel, not fully examined Data Laboratory Results: Last 24 Hours Test 11/08/16 14:32 11/08/16 16:27 11/08/16 18:16 11/08/16 18:29 Bedside Glucose 93 mg/dl 98 mg/dl Hemoglobin 10.2 g/dL 9.9 g/dL Hematocrit 30.6 % 29.2 % Sodium Level 143 mmol/L Potassium Level 3.7 mmol/L Chloride Level 116 mmol/L Carbon Dioxide Level 17 mmol/L Anion Gap 10.0 mmol/L Blood Urea Nitrogen 32 mg/dl Creatinine 1.30 mg/dl Est Creatinine Clear Calc Drug Dose 44.6 ml/min Estimated GFR () 49.2 Estimated GFR (Non- 42.4 BUN/Creatinine Ratio 24.4 Random Glucose 88 mg/dl Calcium Level 8.0 mg/dl Total Bilirubin 0.4 mg/dl Aspartate Amino Transf (AST/SGOT) 11 U/L Alanine Aminotransferase (ALT/SGPT) 12 U/L Alkaline Phosphatase 63 U/L Total Protein 5.9 gm/dl Albumin 2.1 gm/dl Globulin 3.8 gm/dl Albumin/Globulin Ratio 0.6 Test 11/08/16 20:11 11/09/16 00:24 11/09/16 07:25 11/09/16 08:14 Bedside Glucose 104 mg/dl 102 mg/dl Hemoglobin 9.6 g/dL 11.3 g/dL Hematocrit 28.6 % 33.4 % White Blood Count 9.31 K/uL Red Blood Count 3.63 M/uL Mean Corpuscular Volume 92.0 fL Mean Corpuscular Hemoglobin 31.1 pg Mean Corpuscular Hemoglobin Concent 33.8 g/dl Platelet Count 414 K/uL Mean Platelet Volume 9.9 fL Neutrophils (%) (Auto) 86.0 % Lymphocytes (%) (Auto) 6.6 % Monocytes (%) (Auto) 5.8 % Eosinophils (%) (Auto) 0.8 % Basophils (%) (Auto) 0.4 % Neutrophils # (Auto) 8.01 K/uL Lymphocytes # (Auto) 0.61 K/uL Monocytes # (Auto) 0.54 K/uL Eosinophils # (Auto) 0.07 K/uL Basophils # (Auto) 0.04 K/uL RDW Standard Deviation 51.2 fL RDW Coefficient of Variation 15.1 % Immature Granulocyte % (Auto) 0.4 % Immature Granulocyte # (Auto) 0.04 K/uL Prothrombin Time 11.2 SECONDS Prothromb Time International Ratio 1.0 Activated Partial Thromboplast Time 28.2 SECONDS Partial Thromboplastin Ratio 1.1 Imaging: An echocardiogram was done on 06/08/2016, this showed normal left ventricular size and function with normal wall motion, no valvular abnormalities. EKG: These have shown sinus rhythm, today 72 bpm, they have been normal. Telemetry reviewed: Sinus rhythm other than an episode of bradycardia Assessment & Plan #1. Unresponsive spells: These appear to be multifactorial. I think for the most part her unresponsive spells are orthostasis, but I can't exclude a component of bradycardia as discussed below. Certainly in the hospital she has not had much the way bradycardia but did have the one episode, although that was shortly after sedation. Supporting her blood pressure as outlined below may help, better documentation of her heart rate during these unresponsive spells at home may be beneficial. Monitoring blood pressure during unresponsive spell was very difficult and her does not have the capability at home. #2. Sinus arrest: She had one documented. Of sinus arrest, however it was quite long at 3.9 seconds. This occurred 3 hours after termination of sedation for her EGD but the Effexor he could have lingered. I don't know if it's related to that but she has had none other either this admission or on prior admissions while on telemetry. It is conceivable that this is related to her outpatient symptoms but probably not most of them. We could consider pacemaker implantation (I mentioned that to her ) but there are some contraindications including urinary tract infection, her decubitus ulcers and I' m not sure it would help anything in terms of symptoms. For the moment I would continue to monitor. Since in the future we want no if further unresponsive spells are due to low blood pressure alone or bradycardia I would consider an implantable loop recorder prior to discharge. This is a minimally invasive procedure and may be very useful for the long-term (they last 3 years). #3. Orthostasis: She clearly has orthostasis and has had that for a long time, she has seen neurology for that in the past. I don't know of medications have been tried to help control it (such as Florinef), if not it may be reasonable to try that. That may or may not work but her blood pressures are not elevated and it may be of some benefit. I would recommend starting 0.1 mg daily and increase fairly quickly to 0.2 mg daily, higher doses can be used. I have not initiated at but can you would like. #4. Coronary artery disease: She does have known coronary artery disease, she did have an elevated troponin this admission as well as the last, it peaked on the second set at 1.6. Her electric cardiogram does not show acute changes and she does not have chest discomfort. I believe this is demand ischemia from her prehospital hypotension and I would not pursue it further at this time. Thank you for allowing me to participate in her care.
[2016-11-09] MEDS ORDERED: VANCOMYCIN TROUGH SCH (13:30)
[2016-11-09] MEDS: SIMVASTATIN 10 MG TAB PO SCH (21:00)
[2016-11-09] MEDS: INSULIN GLARGINE SOLOSTAR 100 UNITS/ML 3 ML PEN SC SCH (21:02)
--- NOTE | 2016-11-09 21:49 | Progress Note ---
Subjective Date of Service: Nov 09, 2016. Subjective Pt evaluation today including: conversation w/ patient, conversation w/ family , physical exam 65 yo female who is here for syncope. Patient reports feeling well and has had no episodes in the past 24 hours. Patient reports that she wants to go home as she denies any complaints. Problem List Medical Problems: (1) Acute kidney injury Status: Acute (2) Ambulatory dysfunction Status: Acute (3) Arrhythmia Status: Acute (4) Elevated troponin Status: Acute (5) Elevated troponin Status: Acute (6) Falls Status: Acute (7) Generalized weakness Status: Acute (8) GI bleed Status: Acute (9) Hypotension Status: Acute (10) Hypotension Status: Acute (11) Hypothyroidism Status: Acute (12) Metabolic encephalopathy Status: Acute (13) Numbness Status: Acute (14) Sepsis Status: Acute (15) Sepsis Status: Acute (16) Severe anemia Status: Chronic (17) Weakness Status: Acute Review of Systems Constitutional: No fever, No chills Respiratory: No cough, No sputum Cardiac: No chest pain, No orthopnea Abdomen: No pain, No nausea Musculoskeletal: No joint pain Female : No dysuria, No urinary frequency Neurologic: No paralysis All Other Systems: Reviewed and Negative Medications Current Inpatient Medications Medications (Trade) Dose Ordered Sig/Sadie Route Start Time Stop Time Status Last Admin Dose Admin Sodium Chloride 1,000 ml @ 100 mls/hr Q10H IV 11/07/16 12:18 12/07/16 12:17 11/09/16 21:01 100 MLS/HR Acetaminophen (Tylenol Tab) 650 mg Q4H PRN PO 11/07/16 12:30 12/07/16 12:29 Ondansetron HCl (Zofran Inj) 4 mg Q6H PRN IV 11/07/16 12:30 12/07/16 12:29 Glucose (Glucose 40% Gel) UD PRN PO 11/07/16 12:30 12/07/16 12:29 Glucose (Glucose Chew Tab) 1 tabs UD PRN PO 11/07/16 12:30 12/07/16 12:29 Dextrose (Dextrose 50% 50ML Syringe) 50 ml UD PRN IV 11/07/16 12:30 12/07/16 12:29 Glucagon (Glucagon Inj) 1 mg UD PRN SQ 11/07/16 12:30 12/07/16 12:29 Fluconazole (Diflucan Tab) 100 mg DAILY@0900 PO 11/09/16 09:00 11/19/16 08:59 11/09/16 09:13 100 MG Insulin Aspart (novoLOG ASPART) SLIDING SCALE If C... ACHS SC 11/08/16 21:00 12/08/16 20:59 11/09/16 17:12 5 UNITS Insulin Glargine (Lantus Solostar Pen) 5 units HS SC 11/09/16 21:00 12/09/16 20:59 11/09/16 21:02 5 UNITS Aspirin (Ecotrin Tab) 81 mg QAM PO 11/09/16 09:00 12/09/16 08:59 11/09/16 09:11 81 MG Bupropion HCl (Wellbutrin-Xl Tab) 300 mg QAM PO 11/09/16 09:00 12/09/16 08:59 11/09/16 09:11 300 MG Clopidogrel Bisulfate (plAVix TAB) 75 mg QAM PO 11/09/16 09:00 12/09/16 08:59 11/09/16 09:11 75 MG Gabapentin (Neurontin Cap) 400 mg TID PO 11/09/16 09:00 12/09/16 08:59 11/09/16 21:00 400 MG Levothyroxine Sodium (Synthroid Tab) 125 mcg DAILYBB PO 11/10/16 06:00 12/10/16 05:59 Simvastatin (Zocor Tab) 10 mg PM PO 11/09/16 21:00 12/09/16 20:59 11/09/16 21:00 10 MG Venlafaxine HCl (effeXOR TAB) 100 mg BID PO 11/09/16 09:00 12/09/16 08:59 11/09/16 21:00 100 MG Pantoprazole Sodium (Protonix Tab) 40 mg QAM PO 11/10/16 09:00 12/10/16 08:59 Objective Vital Signs Date Time Temp Pulse Resp B/P (MAP) Pulse Ox O2 Delivery O2 Flow Rate FiO2 11/09/16 20:00 Room Air 11/09/16 19:53 36.9 76 20 138/71 (93) 98 Room Air 11/09/16 16:00 Room Air 11/09/16 16:00 37.1 82 18 158/76 (103) 92 Room Air 11/09/16 12:00 Room Air 11/09/16 11:42 36.9 75 18 158/75 (102) 100 Room Air 11/09/16 08:00 Room Air 11/09/16 07:58 37.0 73 18 137/73 (94) 100 Room Air 11/09/16 04:12 Room Air 11/09/16 03:46 37.1 71 20 135/75 (95) 100 Room Air 11/09/16 00:50 Room Air 11/09/16 00:45 37.0 69 20 139/81 (100) 98 Room Air Physical Exam Comments: General Appearance: WD/WN, no apparent distress Eyes: normal inspection, PERRL Neck: supple, no adenopathy, thyroid normal Respiratory/Chest: chest non-tender, lungs clear, normal breath sounds, no respiratory distress Cardiovascular: regular rate, rhythm, no edema, no gallop, no JVD Abdomen: normal bowel sounds, non tender, soft, no organomegaly Extremities: normal range of motion, non-tender Neurologic/Psychiatric: alert, normal mood/affect Skin: normal color, warm/dry Lymphatic: no adenopathy Laboratory Results Last 24 Hours Test 11/09/16 00:24 11/09/16 07:25 11/09/16 08:14 11/09/16 11:21 Hemoglobin 9.6 g/dL 11.3 g/dL Hematocrit 28.6 % 33.4 % Bedside Glucose 102 mg/dl 146 mg/dl White Blood Count 9.31 K/uL Red Blood Count 3.63 M/uL Mean Corpuscular Volume 92.0 fL Mean Corpuscular Hemoglobin 31.1 pg Mean Corpuscular Hemoglobin Concent 33.8 g/dl Platelet Count 414 K/uL Mean Platelet Volume 9.9 fL Neutrophils (%) (Auto) 86.0 % Lymphocytes (%) (Auto) 6.6 % Monocytes (%) (Auto) 5.8 % Eosinophils (%) (Auto) 0.8 % Basophils (%) (Auto) 0.4 % Neutrophils # (Auto) 8.01 K/uL Lymphocytes # (Auto) 0.61 K/uL Monocytes # (Auto) 0.54 K/uL Eosinophils # (Auto) 0.07 K/uL Basophils # (Auto) 0.04 K/uL RDW Standard Deviation 51.2 fL RDW Coefficient of Variation 15.1 % Immature Granulocyte % (Auto) 0.4 % Immature Granulocyte # (Auto) 0.04 K/uL Prothrombin Time 11.2 SECONDS Prothromb Time International Ratio 1.0 Activated Partial Thromboplast Time 28.2 SECONDS Partial Thromboplastin Ratio 1.1 Sodium Level 143 mmol/L Potassium Level 3.6 mmol/L Chloride Level 113 mmol/L Carbon Dioxide Level 17 mmol/L Anion Gap 13.0 mmol/L Blood Urea Nitrogen 25 mg/dl Creatinine 1.30 mg/dl Est Creatinine Clear Calc Drug Dose 44.6 ml/min Estimated GFR () 49.2 Estimated GFR (Non- 42.4 BUN/Creatinine Ratio 18.8 Random Glucose 105 mg/dl Calcium Level 8.3 mg/dl Magnesium Level 1.9 mg/dl Test 11/09/16 16:24 11/09/16 20:33 Bedside Glucose 129 mg/dl 145 mg/dl Assessment and Plan Syncopal episode likely secondary to orthostatic changes Patient was found to have anemia at 7.8 on admission with hypotension, but no history of melena. EGD was also negative. Changed from protonic drip to protonix IV. 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 Cardio on board, will obtain loop recorder Will also obtain orthostatic vitals UTI-- Patient urine showed nader on UA and prelim. culture. will stop antibiotics and start diflucan. Diabetes mellitus-- Place on Accu-Cheks before meals and at bedtime with NovoLog coverage per scale. CAD/hypertension/stented coronary artery-- will restart in AM ASA and plavix. Hypothyroidism-- Restart pO meds Hyperlipidemia-- restart PO meds Peripheral neuropathy-- restart gabapentin Depression--restart effexor. Level of Care Telemetry Advanced Directives Existing Advance Directive: No Existing Living Will: No Existing Power of Medical Practice Administrator: No Resuscitation Status FULL RESUSCITATION VTE Prophylaxis VTE Risk Assessment Done? Y/N: Yes Risk Level: Moderate Given or contraindicated: SCD's Continued [facility] stay due to: other (pending workup) Discharge planning: uncertain
[2016-11-10 04:47] VITALS: BP 134/74; PULSE 69; TEMP 37.4; O2SAT 98
[2016-11-10] MEDS: SODIUM CHLORIDE 0.9% 1000ML 1,000 ML IV SCH (06:17)
[2016-11-10] MEDS: LEVOTHYROXINE 125 MCG TAB PO SCH (06:17)
[2016-11-10 07:17] LABS: BASO % 0.6 %; EOS % 1.7 %; HEMATOCRIT 29.9 % (37-47); IG% 0.2 %; LYMPH % 13.7 %; LYMPH ABS # 1.15 K/uL (1.2-3.4); MEAN CORPUSCULAR HEMOGLOBIN 31.4 pg (25-34); MEAN CORPUSCULAR HGB CONC 34.1 g/dl (32-36); MEAN PLATELET VOLUME 9.2 fL (7.4-10.4); NEUT % 75.8 %; PLATELET COUNT 393 K/uL (130-400); RED BLOOD COUNT 3.25 M/uL (4.2-5.4); WHITE BLOOD COUNT 8.38 K/uL (4.8-10.8)
[2016-11-10 07:18] LABS: BASO ABS # 0.05 K/uL (0-0.2); COMPLETE YES
[2016-11-10 07:31] LABS: INR 1.1 (0.9-1.1); PARTIAL THROMBOPLASTIN RATIO 1.1; PROTHROMBIN TIME (PATIENT) 11.4 SECONDS (9.0-12.0)
[2016-11-10 07:51] LABS: BUN/CREATININE RATIO 16.6 (10-20); CALCIUM 7.8 mg/dl (8.5-10.1); CREATININE 1.1 mg/dl (0.60-1.20); MAGNESIUM 1.7 mg/dl (1.8-2.4); POTASSIUM 3.6 mmol/L (3.5-5.1)
[2016-11-10 08:00] VITALS: BP 127/76; PULSE 89; TEMP 37; O2SAT 97
[2016-11-10] MEDS: PANTOprazole SOD 40 MG TAB PO SCH (08:40)
[2016-11-10] MEDS: BuPROPion XL 300 MG TABCR PO SCH (08:40)
[2016-11-10] MEDS: FLUCONAZOLE 100 MG TAB PO SCH (08:40)
[2016-11-10] MEDS: ASPIRIN 81 MG ECTAB PO SCH (08:40)
[2016-11-10] MEDS: CLOPIDOGREL BISULFATE 75 MG TAB PO SCH (08:40)
[2016-11-10] MEDS: GABAPENTIN 400 MG CAP PO SCH ×3 (08:41→21:20)
[2016-11-10] MEDS: VENLAFAXINE HCL 50 MG TAB PO SCH ×2 (08:41→21:20)
[2016-11-10] MEDS: INSULIN ASPART 100 UNITS/ML 3 ML PEN SC SCH ×4 (08:43→21:00)
[2016-11-10] MEDS ORDERED: FLUDROCORTISONE ACETATE 0.1 MG TAB PO SCH (09:00)
[2016-11-10 11:14] VITALS: BP 124/79; PULSE 79; TEMP 36.7; O2SAT 98
[2016-11-10] MEDS ORDERED: LACTATED RINGER'S 1000ML 1,000 ML IV ONE (11:27)
--- NOTE | 2016-11-10 11:27 | Cardiology Follow-Up ---
Subjective Date of Service: Nov 10, 2016. Pt evaluation today including: conversation w/ patient, conversation w/ family , physical exam, lab review, review of studies, review of inpatient medication list History of Present Illness This is a 65-year-old woman who has been followed by [facility] cardiology and presented with unresponsiveness but also had a long sinus pause. I am seeing her for evaluation of whether she needs a pacemaker. Her background history is notable for coronary artery disease for which she has had stent placement at [facility] in [place] in the past, is post gastric bypass surgery, has a history I believe of gastrointestinal bleeding and anemia and several admissions for hypotension and altered mental status as well as her current admission for an episode of unresponsiveness. Her recent hospitalizations in mid October 2016 showed significant anemia and hypotension but no evidence of GI bleeding it appears on review of the chart, and her current admission on 11/07/2016 again showed hypotension, anemia that no clear evidence of gastrointestinal bleeding ( including an EGD 11/08/2016 which showed no source of bleeding). This admission her blood pressure was reported as 60 by EMS, she received intravenous fluids and on arrival in the emergency room her blood pressure was 88/50 with a pulse of 84. Her overall heart rate here has not been low, however at 1616 on 11/08/2016 she had a sudden pause of 3.9 seconds followed by relative bradycardia for several weeks. This appears to have been an isolated finding and she has not had recurrence. This did occur following her EGD on that day, anesthesia is reported to have ended at around 1300, 3 hours before this event. At the time of my initial evaluation her was at the bedside, she was alert and conversational but does not have good memory of events. Her can provide a better history. He does describe clear orthostatic symptoms, worse over the last several weeks, including multiple episodes of loss of consciousness with standing and ambulating with assistance. She has left-sided weakness and can't walk by herself. These sound classically orthostatic, although a component of bradycardia can't be excluded. He does not have the ability to monitor blood pressure or heart rate at home. She is on no medications to cause bradycardia or hypotension to my knowledge, she has not been on medications to support her blood pressure either that I am aware of. Today she is sitting at her bedside, seems to be in good spirits and has no complaints. Social History Smoking Status: Current Every Day Smoker History of Alcohol Use: No Review of Systems Respiratory: No cough, No sputum Cardiac: No chest pain, No orthopnea This may be unreliable, she seems to have a poor memory Medications Cardiovascular: Item Value Date Time Fludrocortisone 0.1 mg 11/10/16 0900 Acetate QAM/PO 11/10/16 0841 (Florinef Tab) Simvastatin 10 mg 11/09/16 2100 (Zocor Tab) PM/PO 11/09/16 2100 Aspirin 81 mg 11/09/16 0900 (Ecotrin Tab) QAM/PO 11/10/16 0840 Clopidogrel 75 mg 11/09/16 0900 Bisulfate QAM/PO 11/10/16 0840 (plAVix TAB) Objective Vital Signs Past 12 Hours Date Time Temp Pulse Resp B/P (MAP) Pulse Ox O2 Delivery O2 Flow Rate FiO2 11/10/16 11:14 36.7 79 20 124/79 (94) 98 Room Air 11/10/16 08:00 Room Air 11/10/16 08:00 37.0 89 18 127/76 (93) 97 Room Air 11/10/16 04:47 37.4 69 20 134/74 (94) 98 Room Air 11/10/16 04:02 Room Air 11/10/16 00:00 Room Air 11/09/16 23:55 37.0 75 20 126/72 (90) 98 Last Recorded Weight-Kilograms: 77.900 Physical Exam Constitutional: Level of Distress: NAD Ambulation: limited ambulation Lungs: Respiratory effort: no dyspnea, good air movement Auscultation: breath sounds normal, no wheezing Cardiovascular: Heart Auscultation: RRR, no murmurs, no rubs, no gallops Peripheral Pulses: Bruits: none appreciated Extremities: no edema Ulcers on her but toxic and left heel, not fully examined Data Laboratory Results: Last 24 Hours Test 11/09/16 11:21 11/09/16 16:24 11/09/16 20:33 11/10/16 06:59 Bedside Glucose 146 mg/dl 129 mg/dl 145 mg/dl White Blood Count 8.38 K/uL Red Blood Count 3.25 M/uL Hemoglobin 10.2 g/dL Hematocrit 29.9 % Mean Corpuscular Volume 92.0 fL Mean Corpuscular Hemoglobin 31.4 pg Mean Corpuscular Hemoglobin Concent 34.1 g/dl Platelet Count 393 K/uL Mean Platelet Volume 9.2 fL Neutrophils (%) (Auto) 75.8 % Lymphocytes (%) (Auto) 13.7 % Monocytes (%) (Auto) 8.0 % Eosinophils (%) (Auto) 1.7 % Basophils (%) (Auto) 0.6 % Neutrophils # (Auto) 6.35 K/uL Lymphocytes # (Auto) 1.15 K/uL Monocytes # (Auto) 0.67 K/uL Eosinophils # (Auto) 0.14 K/uL Basophils # (Auto) 0.05 K/uL RDW Standard Deviation 51.3 fL RDW Coefficient of Variation 15.2 % Immature Granulocyte % (Auto) 0.2 % Immature Granulocyte # (Auto) 0.02 K/uL Prothrombin Time 11.4 SECONDS Prothromb Time International Ratio 1.1 Activated Partial Thromboplast Time 27.8 SECONDS Partial Thromboplastin Ratio 1.1 Sodium Level 145 mmol/L Potassium Level 3.6 mmol/L Chloride Level 117 mmol/L Carbon Dioxide Level 18 mmol/L Anion Gap 10.0 mmol/L Blood Urea Nitrogen 18 mg/dl Creatinine 1.10 mg/dl Est Creatinine Clear Calc Drug Dose 53.4 ml/min Estimated GFR () 60.2 Estimated GFR (Non- 51.9 BUN/Creatinine Ratio 16.6 Random Glucose 82 mg/dl Calcium Level 7.8 mg/dl Magnesium Level 1.7 mg/dl Telemetry reviewed: SR overnight, no arrhythmia Assessment and Plan #1. Unresponsive spells: These appear to be multifactorial. I think for the most part her unresponsive spells are orthostasis, but I can't exclude a component of bradycardia as discussed below. Certainly in the hospital she has not had much in the way of bradycardia but did have the one episode, although that was shortly after sedation. Supporting her blood pressure as outlined below may help, better documentation of her heart rate during these unresponsive spells at home may be beneficial. Monitoring blood pressure during unresponsive spell was very difficult and her does not have the capability at home. I would recommend some form of termite helper monitoring, an implanted loop recorder is the most effective due to long duration (3 years) and lack of wires, etc. to come off. #2. Sinus arrest: She had one documented episode of sinus arrest, however it was quite long at 3.9 seconds. This occurred 3 hours after termination of sedation for her EGD but the effects could have lingered. I don't know if it's related to that but she has had no other pauses, either this admission or on prior admissions while on telemetry. It is conceivable that this is related to her outpatient symptoms but probably not most of them. We could consider pacemaker implantation (I mentioned that to her ) but there are some contraindications including urinary tract infection, her decubitus ulcers and I' m not sure it would help anything in terms of symptoms. For the moment I would continue to monitor. Since in the future we want to know if further unresponsive spells are due to low blood pressure alone or bradycardia I would recommend an implantable loop recorder prior to discharge. This is a minimally invasive procedure and may be very useful for the long-term (they last 3 years). #3. Orthostasis: She clearly has orthostasis and has had that for a long time, she has seen neurology for that in the past. I don't know of medications have been tried to help control it (such as Florinef), it may be reasonable to try that. That may or may not work but her blood pressures are not elevated and it may be of some benefit. She is now on 0.1 mg daily and this can be increased fairly quickly to 0.2 mg daily, higher doses can be used. #4. Coronary artery disease: She does have known coronary artery disease, she did have an elevated troponin this admission as well as the last, it peaked on the second set at 1.6. Her electrocardiogram does not show acute changes and she does not have chest discomfort. I believe this is demand ischemia from her prehospital hypotension and I would not pursue it further at this time. As she may go home soon we should implant her loop recorder. I discussed the indications, procedure, risks and alternatives with her and her and they understand. Both agree to proceed, her signed consent (he generally signs for her). We will plan to do that this morning. Thank you for allowing me to participate in her care.
[2016-11-10] MEDS ORDERED: KEFZOL SPECIAL PROCEDURE STOCK 1 GM ADDVIAL IV ONE (11:37)
[2016-11-10] MEDS ORDERED: LIDOCAINE HCL 1% 20 ML VIAL ONE (11:43)
[2016-11-10] MEDS ORDERED: BACITRACIN OINT 0.9 GM PKT ONE (11:50)
[2016-11-10] MEDS ORDERED: CEFAZOLIN 1000MG/55 ML D5W IV SCH (12:00)
--- NOTE | 2016-11-10 12:11 | [facility] Operative Report ---
Operative Report Operative Date Nov 10, 2016. Pre-Operative Diagnosis Sinus node dysfunction, syncope Post-Operative Diagnosis same Procedure(s) Performed Loop recorder implantation Surgeon [place] Stock [employer] Surgeon(s) none Estimated Blood Loss 2 cc Findings Good loop recorder position, good measurements Specimens none Anesthesia local only, no sedation Complication(s) None Disposition PCU Description of Procedure After obtaining informed consent for the procedure, the patient was brought to the laboratory having had nothing by mouth after breakfast. The patient was prepped and draped in the standard sterile manner for a loop recorder implantation. An area at the fourth left intercostal space and 1 cm left of the left sternal border was infiltrated with 1% lidocaine local anesthetic and a 0.5 cm incision was made through the skin. Using the loop recorder insertion tool the loop recorder was inserted through the incision at a 45 downward and leftward angle. The incision was closed with a subcutaneous continuous closure of 4-0 Vicryl followed by a running subcuticular skin closure of 4-0 Vicryl. Bacitracin ointment was placed on the incision. A dressing was applied. I attest to the content of the Intraoperative Record and any orders documented therein. Any exceptions are noted below.
[2016-11-10] MEDS ORDERED: ACETAMINOPHEN 325 MG TAB PO PRN (12:15)
[2016-11-10 15:52] VITALS: BP 149/82; PULSE 70; TEMP 37.2; O2SAT 99
[2016-11-10] MEDS ORDERED: NURSING VERBAL MED ORDER ONE (19:00)
[2016-11-10 19:53] VITALS: BP 155/83; PULSE 73; TEMP 37; O2SAT 98
--- NOTE | 2016-11-10 21:01 | Progress Note ---
Subjective Date of Service: Nov 10, 2016. Subjective Pt evaluation today including: conversation w/ patient, conversation w/ family , physical exam Patient reports doing well and has no complaints now. Problem List Medical Problems: (1) Acute kidney injury Status: Acute (2) Ambulatory dysfunction Status: Acute (3) Arrhythmia Status: Acute (4) Elevated troponin Status: Acute (5) Elevated troponin Status: Acute (6) Falls Status: Acute (7) Generalized weakness Status: Acute (8) GI bleed Status: Acute (9) Hypotension Status: Acute (10) Hypotension Status: Acute (11) Hypothyroidism Status: Acute (12) Metabolic encephalopathy Status: Acute (13) Numbness Status: Acute (14) Sepsis Status: Acute (15) Sepsis Status: Acute (16) Severe anemia Status: Chronic (17) Weakness Status: Acute Review of Systems Constitutional: No fever, No chills Respiratory: No cough, No sputum Abdomen: No pain, No nausea Neurologic: No memory loss, No paralysis Endo: No fatigue All Other Systems: Reviewed and Negative Medications Current Inpatient Medications Medications (Trade) Dose Ordered Sig/Sadie Route Start Time Stop Time Status Last Admin Dose Admin Acetaminophen (Tylenol Tab) 650 mg Q4H PRN PO 11/07/16 12:30 12/07/16 12:29 Ondansetron HCl (Zofran Inj) 4 mg Q6H PRN IV 11/07/16 12:30 12/07/16 12:29 Glucose (Glucose 40% Gel) UD PRN PO 11/07/16 12:30 12/07/16 12:29 Glucose (Glucose Chew Tab) 1 tabs UD PRN PO 11/07/16 12:30 12/07/16 12:29 Dextrose (Dextrose 50% 50ML Syringe) 50 ml UD PRN IV 11/07/16 12:30 12/07/16 12:29 Glucagon (Glucagon Inj) 1 mg UD PRN SQ 11/07/16 12:30 12/07/16 12:29 Fluconazole (Diflucan Tab) 100 mg DAILY@0900 PO 11/09/16 09:00 11/19/16 08:59 11/10/16 08:40 100 MG Insulin Aspart (novoLOG ASPART) SLIDING SCALE If C... ACHS SC 11/08/16 21:00 12/08/16 20:59 11/10/16 17:32 3 UNITS Insulin Glargine (Lantus Solostar Pen) 5 units HS SC 11/09/16 21:00 12/09/16 20:59 11/09/16 21:02 5 UNITS Aspirin (Ecotrin Tab) 81 mg QAM PO 11/09/16 09:00 12/09/16 08:59 11/10/16 08:40 81 MG Bupropion HCl (Wellbutrin-Xl Tab) 300 mg QAM PO 11/09/16 09:00 12/09/16 08:59 11/10/16 08:40 300 MG Clopidogrel Bisulfate (plAVix TAB) 75 mg QAM PO 11/09/16 09:00 12/09/16 08:59 11/10/16 08:40 75 MG Gabapentin (Neurontin Cap) 400 mg TID PO 11/09/16 09:00 12/09/16 08:59 11/10/16 14:30 400 MG Levothyroxine Sodium (Synthroid Tab) 125 mcg DAILYBB PO 11/10/16 06:00 12/10/16 05:59 11/10/16 06:17 125 MCG Simvastatin (Zocor Tab) 10 mg PM PO 11/09/16 21:00 12/09/16 20:59 11/09/16 21:00 10 MG Venlafaxine HCl (effeXOR TAB) 100 mg BID PO 11/09/16 09:00 12/09/16 08:59 11/10/16 08:41 100 MG Pantoprazole Sodium (Protonix Tab) 40 mg QAM PO 11/10/16 09:00 12/10/16 08:59 11/10/16 08:40 40 MG Fludrocortisone Acetate (Florinef Tab) 0.1 mg QAM PO 11/10/16 09:00 12/10/16 08:59 11/10/16 08:41 0.1 MG Lactated Ringer's 1,000 ml @ 15 mls/hr Q24H ONCE IV 11/10/16 11:27 11/11/16 11:26 11/10/16 11:27 15 MLS/HR Cefazolin Sodium 55 ml @ 100 mls/hr TODAY@1200 IV 11/10/16 12:00 11/11/16 11:59 11/10/16 12:00 100 MLS/HR Objective Vital Signs Date Time Temp Pulse Resp B/P (MAP) Pulse Ox O2 Delivery O2 Flow Rate FiO2 11/10/16 20:00 Room Air 11/10/16 19:53 37.0 73 18 155/83 (107) 98 Room Air 11/10/16 16:00 Room Air 11/10/16 15:52 37.2 70 18 149/82 (104) 99 Room Air 11/10/16 12:30 Room Air 11/10/16 12:03 75 16 139/82 (101) 98 Room Air 11/10/16 11:14 36.7 79 20 124/79 (94) 98 Room Air 11/10/16 08:00 Room Air 11/10/16 08:00 37.0 89 18 127/76 (93) 97 Room Air 11/10/16 04:47 37.4 69 20 134/74 (94) 98 Room Air 11/10/16 04:02 Room Air 11/10/16 00:00 Room Air 11/09/16 23:55 37.0 75 20 126/72 (90) 98 Physical Exam General Appearance: WD/WN, no apparent distress Neck: supple, no adenopathy Respiratory/Chest: chest non-tender, lungs clear, normal breath sounds Cardiovascular: regular rate, rhythm, no edema, no gallop Abdomen: normal bowel sounds, non tender, soft Extremities: normal range of motion, non-tender, normal inspection Lymphatic: no adenopathy Laboratory Results Last 24 Hours Test 11/10/16 06:50 11/10/16 06:59 11/10/16 16:27 Bedside Glucose 77 mg/dl 126 mg/dl White Blood Count 8.38 K/uL Red Blood Count 3.25 M/uL Hemoglobin 10.2 g/dL Hematocrit 29.9 % Mean Corpuscular Volume 92.0 fL Mean Corpuscular Hemoglobin 31.4 pg Mean Corpuscular Hemoglobin Concent 34.1 g/dl Platelet Count 393 K/uL Mean Platelet Volume 9.2 fL Neutrophils (%) (Auto) 75.8 % Lymphocytes (%) (Auto) 13.7 % Monocytes (%) (Auto) 8.0 % Eosinophils (%) (Auto) 1.7 % Basophils (%) (Auto) 0.6 % Neutrophils # (Auto) 6.35 K/uL Lymphocytes # (Auto) 1.15 K/uL Monocytes # (Auto) 0.67 K/uL Eosinophils # (Auto) 0.14 K/uL Basophils # (Auto) 0.05 K/uL RDW Standard Deviation 51.3 fL RDW Coefficient of Variation 15.2 % Immature Granulocyte % (Auto) 0.2 % Immature Granulocyte # (Auto) 0.02 K/uL Prothrombin Time 11.4 SECONDS Prothromb Time International Ratio 1.1 Activated Partial Thromboplast Time 27.8 SECONDS Partial Thromboplastin Ratio 1.1 Sodium Level 145 mmol/L Potassium Level 3.6 mmol/L Chloride Level 117 mmol/L Carbon Dioxide Level 18 mmol/L Anion Gap 10.0 mmol/L Blood Urea Nitrogen 18 mg/dl Creatinine 1.10 mg/dl Est Creatinine Clear Calc Drug Dose 53.4 ml/min Estimated GFR () 60.2 Estimated GFR (Non- 51.9 BUN/Creatinine Ratio 16.6 Random Glucose 82 mg/dl Calcium Level 7.8 mg/dl Magnesium Level 1.7 mg/dl Assessment and Plan Syncopal episode likely secondary to orthostatic changes Patient was found to have anemia at 7.8 on admission with hypotension, but no history of melena. EGD was also negative. Changed from protonic drip to protonix IV. 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 Cardio on board, loop recorder placed. will start florinef today Will also obtain orthostatic vitals UTI-- Patient urine showed nader on UA and prelim. culture. will stop antibiotics and continue diflucan. Diabetes mellitus-- Place on Accu-Cheks before meals and at bedtime with NovoLog coverage per scale. CAD/hypertension/stented coronary artery-- will restart in AM ASA and plavix. Troponin elevated due to demand ischemia Hypothyroidism-- Restart pO meds Hyperlipidemia-- restart PO meds Peripheral neuropathy-- restart gabapentin Depression--restart effexor. Level of Care Telemetry Advanced Directives Existing Advance Directive: No Existing Living Will: No Existing Power of Mortgage Closer: No Resuscitation Status FULL RESUSCITATION VTE Prophylaxis VTE Risk Assessment Done? Y/N: Yes Risk Level: Moderate Given or contraindicated: SCD's Continued [facility] stay due to: other (pending placement at rehab) Discharge planning: rehab hospital, uncertain
[2016-11-10] MEDS: SIMVASTATIN 10 MG TAB PO SCH (21:20)
[2016-11-10] MEDS: INSULIN GLARGINE SOLOSTAR 100 UNITS/ML 3 ML PEN SC SCH (21:21)
[2016-11-10 23:13] VITALS: BP 135/76; PULSE 68; TEMP 36.8; O2SAT 98
[2016-11-11] VITALS: O2SAT 98
[2016-11-11 04:00] VITALS: O2SAT 98
[2016-11-11 04:19] VITALS: BP 146/76; PULSE 69; TEMP 36.4; O2SAT 98
[2016-11-11] MEDS: LEVOTHYROXINE 125 MCG TAB PO SCH (05:43)
[2016-11-11] MEDS ORDERED: CEFAZOLIN SOD 1000MG/55 ML D5W IV SCH (06:00)
[2016-11-11 07:16] VITALS: BP 155/81; PULSE 68; TEMP 36.6; O2SAT 99
[2016-11-11] MEDS ORDERED: FLUDROCORTISONE ACETATE 0.1 MG TAB PO SCH (09:00)
[2016-11-11] MEDS: GABAPENTIN 400 MG CAP PO SCH ×2 (09:49→14:18)
[2016-11-11] MEDS: ASPIRIN 81 MG ECTAB PO SCH (09:49)
[2016-11-11] MEDS: PANTOprazole SOD 40 MG TAB PO SCH (09:49)
[2016-11-11] MEDS: FLUCONAZOLE 100 MG TAB PO SCH (09:49)
[2016-11-11] MEDS: CLOPIDOGREL BISULFATE 75 MG TAB PO SCH (09:49)
[2016-11-11] MEDS: BuPROPion XL 300 MG TABCR PO SCH (09:49)
[2016-11-11] MEDS: VENLAFAXINE HCL 50 MG TAB PO SCH (09:49)
[2016-11-11] MEDS: INSULIN ASPART 100 UNITS/ML 3 ML PEN SC SCH ×2 (09:51→12:20)
[2016-11-11 11:31] VITALS: BP 150/84; PULSE 71; TEMP 36.8; O2SAT 99
[2016-11-11] MEDS ORDERED: DFL100 PO (13:52)
[2016-11-11] MEDS ORDERED: FLR1 PO (13:52)
--- NOTE | 2016-11-11 13:58 | Discharge Instructions ---
Discharge Instructions Date of Service Nov 11, 2016. Admission Reason for Admission: Hypotension, Symtopmatic Anemia Discharge Discharge Diagnosis / Problem: Orthostatic syncope with symptomatic anemia Discharge Goals Goal(s): Improve function, Increase independence Activity Recommendations Activity Limitations: as noted below Lifting Limitations: gradually increase as tolerated Shower/Bathe: keep incision dry . Instructions / Follow-Up Instructions / Follow-Up F/U with PCP in within 7 days f/u WITH Dr. Jo in 1 month. F/U with Gastro Dr. Serna or Dr. Delgado for outpatient colonoscopy F/U with wound care in 7 days regarding ulcer under left breast and decubitus ulcer in coccyx Current Hospital Diet Patient's current hospital diet: Full Liquid Diet, Diabetes Type 2 Diet Discharge Diet Recommended Diet: Regular Diet, Diabetes Type 2 Diet Procedures Procedures Performed: EGD Pending Studies Studies pending at discharge: yes List of pending studies: outpatient colonoscopy F/U with loop recording (already implanted) Laboratory Results Last 24 Hours Test 11/10/16 16:27 11/10/16 20:47 11/11/16 07:03 11/11/16 11:20 Bedside Glucose 126 mg/dl 132 mg/dl 81 mg/dl 110 mg/dl Medical Emergencies . Who to Call and When: Medical Emergencies: If at any time you feel your situation is an emergency, please call 911 immediately. . Non-Emergent Contact Non-Emergency issues call your: Primary Care Provider Call Non-Emergent contact if: temperature is above 101, wound has increased redness, wound has increased pain . . "Provider Documentation" section prepared by Ezequiel Russell. . VTE Core Measure Inpt VTE Proph given/why not?: SCD's
--- NOTE | 2016-11-11 14:01 | Discharge Instructions ---
Discharge Instructions Date of Service Nov 11, 2016. Admission Reason for Admission: Hypotension, Symtopmatic Anemia Discharge Discharge Diagnosis / Problem: Loop recorder implant Discharge Goals Goal(s): Diagnostic testing Activity Recommendations Activity Limitations: resume your previous activity . Instructions / Follow-Up Instructions / Follow-Up ACTIVITY RECOMMENDATIONS: * Do not raise affected arm over head for 2 weeks. SPECIAL CARE INSTRUCTIONS: * If bleeding occurs, apply direct pressure to area for 5 minutes. * Call your doctor if you have severe pain, fever, drainage or bleeding at site. * Keep dressing on and dry for 48 hours then remove. * Keep any scheduled doctor's appointment. * Implant Card - hand held device with website information given. FOLLOW UP VISIT: Keep any scheduled doctor appointments. Current Hospital Diet Patient's current hospital diet: Full Liquid Diet, Diabetes Type 2 Diet Discharge Diet Recommended Diet: N/A Procedures Procedures Performed: EGD Pending Studies Studies pending at discharge: no Medical Emergencies . Who to Call and When: Medical Emergencies: If at any time you feel your situation is an emergency, please call 911 immediately. . Non-Emergent Contact Non-Emergency issues call your: Primary Care Provider . . "Provider Documentation" section prepared by Lucas Roland. . VTE Core Measure Inpt VTE Proph given/why not?: SCD's
--- NOTE | 2016-11-11 14:03 | Discharge Summary ---
Discharge Summary Date of Service Nov 11, 2016. Discharge Summary Admission Date: Nov 07, 2016 at 12:18 Discharge Date: Nov 11, 2016 Problems/Secondary Diagnoses: (1) Severe anemia Status: Chronic Immunizations: Have You Had Influenza Vaccine: Yes Influenza Vaccine Date: Nov 20, 2009 History of Tetanus Vaccine?: UNCERTAIN OF DATE History of Pneumococcal: Unknown History of Hepatitis B Vaccine: UNCERTAIN OF DATE Hospital Course Syncopal episode likely secondary to orthostatic changes Patient was found to have anemia at 7.8 on admission with hypotension, but no history of melena. EGD was also negative. Changed from protonic drip to protonix IV. 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 Cardio on board, loop recorder placed. will start florinef today Will also obtain orthostatic vitals UTI-- Patient urine showed nader on UA and prelim. culture. will stop antibiotics and continue diflucan. Diabetes mellitus-- Place on Accu-Cheks before meals and at bedtime with NovoLog coverage per scale. CAD/hypertension/stented coronary artery-- will restart in AM ASA and plavix. Troponin elevated due to demand ischemia Hypothyroidism-- Restart pO meds Hyperlipidemia-- restart PO meds Peripheral neuropathy-- restart gabapentin Depression--restart effexor. Level of Care Telemetry Advanced Directives Existing Advance Directive: No Existing Living Will: No Existing Power of Traffic Observer: No Resuscitation Status FULL RESUSCITATION VTE Prophylaxis VTE Risk Assessment Done? Y/N: Yes Risk Level: Moderate Given or contraindicated: SCD's This includes examination of the patient, discharge planning, medication reconciliation, and communication with other providers. Discharge Instructions Please refer to the electronic Patient Visit Report (Discharge Instructions) for additional information.
--- NOTE | 2016-11-11 14:08 | Cardiology Follow-Up ---
Subjective Date of Service: Nov 11, 2016. Pt evaluation today including: conversation w/ patient, conversation w/ family , physical exam, conversation w/ attending History of Present Illness This is a 65-year-old woman who has been followed by [facility] cardiology and presented with unresponsiveness but also had a long sinus pause. I am seeing her for evaluation of whether she needs a pacemaker. Her background history is notable for coronary artery disease for which she has had stent placement at [facility] in [place] in the past, is post gastric bypass surgery, has a history I believe of gastrointestinal bleeding and anemia and several admissions for hypotension and altered mental status as well as her current admission for an episode of unresponsiveness. Her recent hospitalizations in mid October 2016 showed significant anemia and hypotension but no evidence of GI bleeding it appears on review of the chart, and her current admission on 11/07/2016 again showed hypotension, anemia that no clear evidence of gastrointestinal bleeding ( including an EGD 11/08/2016 which showed no source of bleeding). This admission her blood pressure was reported as 60 by EMS, she received intravenous fluids and on arrival in the emergency room her blood pressure was 88/50 with a pulse of 84. Her overall heart rate here has not been low, however at 1616 on 11/08/2016 she had a sudden pause of 3.9 seconds followed by relative bradycardia for several weeks. This appears to have been an isolated finding and she has not had recurrence. This did occur following her EGD on that day, anesthesia is reported to have ended at around 1300, 3 hours before this event. At the time of my initial evaluation her was at the bedside, she was alert and conversational but does not have good memory of events. Her can provide a better history. He does describe clear orthostatic symptoms, worse over the last several weeks, including multiple episodes of loss of consciousness with standing and ambulating with assistance. She has left-sided weakness and can't walk by herself. These sound classically orthostatic, although a component of bradycardia can't be excluded. He does not have the ability to monitor blood pressure or heart rate at home. She is on no medications to cause bradycardia or hypotension to my knowledge, she has not been on medications to support her blood pressure either that I am aware of. We implanted a loop recorder yesterday to monitor her bradycardia. Today she is in good spirits and has no complaints. No incisional pain. Social History Smoking Status: Current Every Day Smoker History of Alcohol Use: No Review of Systems Respiratory: No cough, No sputum Cardiac: No chest pain, No orthopnea This may be unreliable, she seems to have a poor memory Objective Vital Signs Past 12 Hours Date Time Temp Pulse Resp B/P (MAP) Pulse Ox O2 Delivery O2 Flow Rate FiO2 11/11/16 12:00 Room Air 11/11/16 11:31 36.8 71 18 150/84 (106) 99 Room Air 11/11/16 08:00 Room Air 11/11/16 07:16 36.6 68 18 155/81 (105) 99 Room Air 11/11/16 04:19 36.4 69 18 146/76 (99) 98 Room Air 11/11/16 04:00 98 Room Air Last Recorded Weight-Kilograms: 75.700 Intake & Output 8-Hour Column 11/11/16 11/12/16 11/12/16 16:00 00:00 08:00 Intake Total 1340 ml Output Total 650 ml Balance 690 ml 24-Hour Column 11/12/16 08:00 Intake Total 1340 ml Output Total 650 ml Balance 690 ml Physical Exam Constitutional: Level of Distress: NAD Ambulation: limited ambulation Lungs: Respiratory effort: no dyspnea, good air movement Auscultation: breath sounds normal, no wheezing Cardiovascular: Heart Auscultation: RRR, no murmurs, no rubs, no gallops Peripheral Pulses: Bruits: none appreciated Extremities: no edema Loop recorder site is clean and dry. Dressing changed. Data Laboratory Results: Last 24 Hours Test 11/10/16 16:27 11/10/16 20:47 11/11/16 07:03 11/11/16 11:20 Bedside Glucose 126 mg/dl 132 mg/dl 81 mg/dl 110 mg/dl Telemetry reviewed: Sinus rhythm, no arrhythmia Assessment and Plan #1. Unresponsive spells: These appear to be multifactorial. I think for the most part her unresponsive spells are orthostasis, but I can't exclude a component of bradycardia as discussed below. Certainly in the hospital she has not had much in the way of bradycardia but did have the one episode, although that was shortly after sedation. Supporting her blood pressure as outlined below may help, better documentation of her heart rate during these unresponsive spells at home may be beneficial. Monitoring blood pressure during unresponsive spell was very difficult and her does not have the capability at home. I recommended some form of senior care monitoring, an implanted loop recorder is the most effective due to long duration (3 years) and lack of wires, etc. and was placed yesterday. #2. Sinus arrest: She had one documented episode of sinus arrest, however it was quite long at 3.9 seconds. This occurred 3 hours after termination of sedation for her EGD but the effects could have lingered. I don't know if it's related to that but she has had no other pauses, either this admission or on prior admissions while on telemetry. It is conceivable that this is related to her outpatient symptoms but probably not most of them. We could consider pacemaker implantation (I mentioned that to her ) but there are some contraindications including urinary tract infection, her decubitus ulcers and I' m not sure it would help anything in terms of symptoms. Since in the future we want to know if further unresponsive spells are due to low blood pressure alone or bradycardia I recommended an implantable loop recorder. #3. Orthostasis: She clearly has orthostasis and has had that for a long time, she has seen neurology for that in the past. I don't know of medications have been tried to help control it (such as Florinef), it may be reasonable to try that. That may or may not work but her blood pressures are not elevated and it may be of some benefit. She is now on 0.2 mg daily, higher doses can be used if needed. #4. Coronary artery disease: She does have known coronary artery disease, she did have an elevated troponin this admission as well as the last, it peaked on the second set at 1.6. Her electrocardiogram does not show acute changes and she does not have chest discomfort. I believe this is demand ischemia from her prehospital hypotension and I would not pursue it further at this time. POD#1: Doing well, loop recorder site looks good. Stable to go to rehab from my standpoint. Thank you for allowing me to participate in her care.
[2016-11-11 16:21] VITALS: BP 150/84; PULSE 71; TEMP 36.8; O2SAT 99
== END 2016-11-11 16:59 | DRG 261 ==
LOC: C.EDB 09:26 → C.2T 12:18 → ENRESERV 12:21 → EDBEDREQ 12:39
PROVIDERS: ADMIT Hospitalist; ATTEND Internal Medicine Sports Medicine
PROC: 0T9B70Z Drainage of Bladder with Drainage Device, Via Natural or Artificial Opening (ICD-10-PCS; 2016-11-07)
PROC: 0DJ08ZZ Inspection of Upper Intestinal Tract, Via Natural or Artificial Opening Endoscopic (ICD-10-PCS; 2016-11-08)
PROC: 0JH632Z Insertion of Monitoring Device into Chest Subcutaneous Tissue and Fascia, Percutaneous Approach (ICD-10-PCS; principal; 2016-11-10 11:52)
DX: I95.1 Orthostatic hypotension (principal); B37.49 Other urogenital candidiasis; I69.354 Hemiplegia and hemiparesis following cerebral infarction affecting left non-dominant side; D64.9 Anemia, unspecified; I45.5 Other specified heart block; R79.89 Other specified abnormal findings of blood chemistry; E11.42 Type 2 diabetes mellitus with diabetic polyneuropathy; E11.22 Type 2 diabetes mellitus with diabetic chronic kidney disease; I13.10 Hypertensive heart and chronic kidney disease without heart failure, with stage 1 through stage 4 chronic kidney disease, or unspecified chronic kidney disease; I25.10 Atherosclerotic heart disease of native coronary artery without angina pectoris; N18.2 Chronic kidney disease, stage 2 (mild); E03.9 Hypothyroidism, unspecified; E78.5 Hyperlipidemia, unspecified; F32.9 Major depressive disorder, single episode, unspecified; F17.200 Nicotine dependence, unspecified, uncomplicated; Z95.5 Presence of coronary angioplasty implant and graft; Z86.14 Personal history of Methicillin resistant Staphylococcus aureus infection; Z98.84 Bariatric surgery status; Z79.02 Long term (current) use of antithrombotics/antiplatelets; Z79.4 Long term (current) use of insulin; Z79.82 Long term (current) use of aspirin; Z79.899 Other long term (current) drug therapy; Z83.3 Family history of diabetes mellitus; Z82.49 Family history of ischemic heart disease and other diseases of the circulatory system; Z84.1 Family history of disorders of kidney and ureter; Z83.79 Family history of other diseases of the digestive system

== ENCOUNTER → 2016-12-02 | Outpatient (CLI) | payer OTHER ==
[~2016-12-02] MED LIST changes: -AMOX500C3 PO; +CYAN100074 INJ; -CYNI1000 IM; +FERR1TAB13 PO; -FERR1TAB23 PO; +FLUD0.1T10 PO; -GFNSR600 PO; +INSHRIE SC; -IPRA1AER2 INH; +MIRA1TAB3 PO; -NVLGIPEN SC; -SODIUM CHLORIDE 0.9% 1000ML 1,000 ML IV SCH; -ZYBKIT PO
[2016-12-02 17:02] LABS: ALT/SGPT 16 U/L (12-78); BLOOD UREA NITROGEN 39 mg/dl (7-18); BUN/CREATININE RATIO 29.5 (10-20); CALCIUM 8.7 mg/dl (8.5-10.1); CARBON DIOXIDE 25 mmol/L (21-32); CHLORIDE 109 mmol/L (98-107); CREATININE 1.31 mg/dl (0.60-1.20); GLUCOSE 71 mg/dl (70-99); POTASSIUM 4.3 mmol/L (3.5-5.1); SODIUM 141 mmol/L (136-145)
[2016-12-02 17:13] LABS: ALB/GLOB RATIO 0.6 (0.9-2); ALKALINE PHOSPHATASE 87 U/L (45-117); AST/SGOT 12 U/L (15-37)
[2016-12-02 20:22] LABS: BASO % 0.5 %; BASO ABS # 0.06 K/uL (0-0.2); COMPLETE YES; HEMATOCRIT 30.9 % (37-47); IG% 0.3 %; LYMPH % 8.5 %; LYMPH ABS # 0.93 K/uL (1.2-3.4); MEAN CORPUSCULAR HEMOGLOBIN 30.7 pg (25-34); MEAN PLATELET VOLUME 9.9 fL (7.4-10.4); MONO % 7.1 %; NEUT % 82.6 %; PLATELET COUNT 599 K/uL (130-400); RED BLOOD COUNT 3.22 M/uL (4.2-5.4); WHITE BLOOD COUNT 10.99 K/uL (4.8-10.8)
== END | disposition home or self-care (01) ==
LOC: C.LABPBG 15:34
PROVIDERS: ATTEND Family Medicine
DX: D50.9 Iron deficiency anemia, unspecified (principal); M62.81 Muscle weakness (generalized); E03.9 Hypothyroidism, unspecified

== ENCOUNTER → 2016-12-02 | Outpatient (CLI) | payer OTHER ==
--- NOTE | 2016-12-02 17:30 | DIAGNOSTIC IMAGING REPORT ---
ULTRASOUND VENOUS DOPPLER ULTRASOUND LEFT LOWER EXTREMITY CLINICAL HISTORY: M79.89 left leg swelling COMPARISON STUDY: No previous studies for comparison. FINDINGS: Real-time and color flow Doppler imaging were performed. Flow was seen within the femoral, popliteal and calf veins with no intraluminal thrombus demonstrated. The saphenous vein is patent. IMPRESSION: No evidence of left lower extremity DVT. Electronically signed by: Edinson Ortiz M.D. 12/02/2016 5:29 PM Dictated Date/Time: 12/02/2016 5:28 PM
== END | disposition home or self-care (01) ==
LOC: C.ULTR 16:53
PROVIDERS: ATTEND Family Medicine
DX: M79.89 Other specified soft tissue disorders (principal)

== ENCOUNTER → 2016-12-06 | Day surgery (SDC) | payer OTHER ==
[2016-12-01 10:46] VITALS: Ht 168.9 cm; Wt 68.2 kg
[~2016-12-06] VITALS: Ht 168.9 cm; Wt 68.2 kg
[~2016-12-06] MED LIST changes: +LIDOCAINE HCL 2% 2 ML VIAL (20MG/ML) ONE; +PROPOFOL IV EMULSION 10 MG/ML 20 ML VIAL IV ONE; +SODIUM CHLORIDE 0.9% 500ML 500 ML IV ONE
--- NOTE | 2016-12-06 12:19 | Endo History and Physical ---
History & Physical Date of Service: Dec 06, 2016. Chief Complaint: Anemia Referring Physician: Tai Long History of Present Illness 65 yo CF who presents for colonoscopy secondary to anemia. Past Medical History Diabetes, Angioplasty/Stent, Arthritis, Syncopal Episodes, Hypertension, Thyroid Disease, Kidney Disease, CVA/TIA Past Surgical History Hx Cardiac Surgery: Yes (HEART CATH, STENT X1; LOOP RECORDER) Hx Internal Defibrillator: No Hx Pacemaker: No Hx Abdominal Surgery: Yes (DANA, GASTRIC BYPASS) Hx of Implantable Prosthesis: No Hx Post-Op Nausea and Vomiting: No Hx Cancer Surgery: No Hx Thoracic Surgery: No Hx Orthopedic: Yes (PARTIAL LT FOOT AMPUTATION) Hx Urinary Tract Surgery: No Family History None Social History Smoking Status: Former Smoker Hx Substance Use: No Hx Alcohol Use: No Allergies Coded Allergies: Paroxetine (Verified Adverse Reaction, Unknown, NERVOUS INCREASED, ) Current Medications Reported Home Medications Medications Dose Route/Sig Max Daily Dose Days Date Category Dose Instructions Myrbetriq Er (Mirabegron) 50 Mg Tab 50 Mg PO QAM 12/01/16 Reported Florinef (Fludrocortisone Acetate) 0.1 Mg Tab 2 Tabs PO QAM 12/01/16 Reported WILL COMPLETE 12-04-16 (?) Vitamin Deficiency Inject (Cyanocobalamin) 1,000 Mcg/Ml Kit 1 Dose INJ MONTHLY 12/01/16 Reported Kp Ferrous Sulfate (Ferrous Sulfate) 325 Mg Tab 1 Tab PO QPM 12/01/16 Reported Lantus (Insulin Glargine) 100 Unit/Ml Inj 5 Units SC QPM 12/01/16 Reported Humulin R (Insulin Human Regular) 100 Units/Ml Susp 10 Units SC BIDM 12/01/16 Reported PER SLIDING SCALE Miralax (Polyethylene Glycol 3350) 1 Pow Pow 17 Gm PO DAILY PRN 10/20/16 Reported MIX WITH 8 OUNCES OF WATER,JUICE OR TEA Plavix (Clopidogrel Bisulfate) 75 Mg Tab 75 Mg PO DAILY 10/20/16 Reported Zocor (Simvastatin) 10 Mg Tab 10 Mg PO HS 10/20/16 Reported Levothyroxine Sodium 125 Mcg Tab 125 Mcg PO QAM 10/20/16 Reported Calcium 600+D3 600-400 mg-Unit (Calcium Carbonate-Cholecalcife) 1 Tab Tab 1 Tab PO QAM 10/20/[address] (Aspirin) 81 Mg Tab 81 Mg PO QAM 10/20/16 Reported Prilosec (Omeprazole) 40 Mg Cap 40 Mg PO QAM 04/20/16 Reported Zetia (Ezetimibe) 10 Mg Tab 10 Mg PO QAM 02/16/16 Reported Vitamin D (Cholecalciferol) 2,000 Unit Tab 2,000 Inter.unit PO QAM 02/16/16 Reported Vitamin C (Ascorbic Acid) 1,000 Mg Tab 1,000 Mg PO QPM 02/16/16 Reported Effexor (Venlafaxine Hcl) 100 Mg Tab 100 Mg PO BID 02/16/16 Reported Neurontin (Gabapentin) 400 Mg Cap 400 Mg PO TID 02/16/16 Reported Azo Bladder Control/Go-Le (Pumpkin Seed-Soy Germ) 1 Cap Cap 1 Cap PO HS 02/16/16 Reported Vital Signs Weight (Kilograms): 68.18 Height (Feet): 5 Height (Inches): 6.5 Date Time Temp Pulse Resp B/P (MAP) Pulse Ox O2 Delivery O2 Flow Rate FiO2 12/06/16 11:25 36.7 76 18 157/73 (101) 100 Room Air Physical Exam General Appearance: WD/WN, no apparent distress Respiratory/Chest: Auscultation: breath sounds normal Cardiovascular: Heart Auscultation: RRR Abdomen: Bowel Sounds: normal Inspection & Palpation: soft, non-distended, no tenderness, guarding & rebound Assessment and Plan Assessment: 65 yo CF who presents for colonoscopy secondary to anemia. Plan: Proceed with colonoscopy.
--- NOTE | 2016-12-06 12:51 | GI REPORT ---
Procedure Date: 12/06/2016 12:11 PM Procedure: Colonoscopy Indications: Iron deficiency anemia Medicines: Monitored Anesthesia Care Complications: No immediate complications. Estimated Blood Loss: Estimated blood loss: none. Procedure: Pre-Anesthesia Assessment: - Prior to the procedure, a History and Physical was performed, and patient medications and allergies were reviewed. The patient's tolerance of previous anesthesia was also reviewed. The risks and benefits of the procedure and the sedation options and risks were discussed with the patient. All questions were answered, and informed consent was obtained. Prior Anticoagulants: The patient last took aspirin 1 day and Plavix (clopidogrel) 3 days prior to the procedure. ASA Grade Assessment: III - A patient with severe systemic disease. After reviewing the risks and benefits, the patient was deemed in satisfactory condition to undergo the procedure. After I obtained informed consent, the scope was passed under direct vision. Throughout the procedure, the patient's blood pressure, pulse, and oxygen saturations were monitored continuously. The Scope was introduced through the anus with the intention of advancing to the ileum. The scope was advanced to the ascending colon before the procedure was aborted. Medications were given. The colonoscopy was performed without difficulty. The patient tolerated the procedure well. The quality of the bowel preparation was poor. The colonoscopy was aborted due to poor bowel prep with stool present. Findings: Multiple small-mouthed diverticula were found in the sigmoid colon. A large amount of semi-liquid stool was found in the entire colon, precluding visualization. Lavage of the area was performed using a large amount, resulting in incomplete clearance with continued poor visualization. Impression: - Preparation of the colon was poor. - The procedure was aborted due to poor bowel prep with stool present. - Diverticulosis in the sigmoid colon. - Stool in the entire examined colon. - No specimens collected. Recommendation: - Resume previous diet. - Resume previous diet. - Continue present medications. - Repeat colonoscopy in 3 months because the bowel preparation was poor. - Return to primary care physician as previously scheduled. Rsa Delgado DO 12/06/2016 12:50:55 PM This report has been signed electronically. Note Initiated On: 12/06/2016 12:11 PM I attest to the content of the Intraoperative Record and orders documented therein, exceptions below
--- NOTE | 2016-12-06 12:52 | Discharge Instructions ---
Endoscopy Patient Instructions Date / Procedure(s) Performed Dec 06, 2016. Colonoscopy Allergy Information Coded Allergies: Paroxetine (Verified Adverse Reaction, Unknown, NERVOUS INCREASED, ) Discharge Date / Findings Dec 06, 2016. Poor bowel prep Diverticulosis Medication Instructions Stopped Medication(s): Plavix OK to resume all medications today as prescribed Reported Home Medications Medications Dose Route/Sig Max Daily Dose Days Date Category Dose Instructions Myrbetriq Er (Mirabegron) 50 Mg Tab 50 Mg PO QAM 12/01/16 Reported Florinef (Fludrocortisone Acetate) 0.1 Mg Tab 2 Tabs PO QAM 12/01/16 Reported WILL COMPLETE 12-04-16 (?) Vitamin Deficiency Inject (Cyanocobalamin) 1,000 Mcg/Ml Kit 1 Dose INJ MONTHLY 12/01/16 Reported Kp Ferrous Sulfate (Ferrous Sulfate) 325 Mg Tab 1 Tab PO QPM 12/01/16 Reported Lantus (Insulin Glargine) 100 Unit/Ml Inj 5 Units SC QPM 12/01/16 Reported Humulin R (Insulin Human Regular) 100 Units/Ml Susp 10 Units SC BIDM 12/01/16 Reported PER SLIDING SCALE Miralax (Polyethylene Glycol 3350) 1 Pow Pow 17 Gm PO DAILY PRN 10/20/16 Reported MIX WITH 8 OUNCES OF WATER,JUICE OR TEA Plavix (Clopidogrel Bisulfate) 75 Mg Tab 75 Mg PO DAILY 10/20/16 Reported Zocor (Simvastatin) 10 Mg Tab 10 Mg PO HS 10/20/16 Reported Levothyroxine Sodium 125 Mcg Tab 125 Mcg PO QAM 10/20/16 Reported Calcium 600+D3 600-400 mg-Unit (Calcium Carbonate-Cholecalcife) 1 Tab Tab 1 Tab PO QAM 10/20/[address] (Aspirin) 81 Mg Tab 81 Mg PO QAM 10/20/16 Reported Prilosec (Omeprazole) 40 Mg Cap 40 Mg PO QAM 04/20/16 Reported Zetia (Ezetimibe) 10 Mg Tab 10 Mg PO QAM 02/16/16 Reported Vitamin D (Cholecalciferol) 2,000 Unit Tab 2,000 Inter.unit PO QAM 02/16/16 Reported Vitamin C (Ascorbic Acid) 1,000 Mg Tab 1,000 Mg PO QPM 02/16/16 Reported Effexor (Venlafaxine Hcl) 100 Mg Tab 100 Mg PO BID 02/16/16 Reported Neurontin (Gabapentin) 400 Mg Cap 400 Mg PO TID 02/16/16 Reported Azo Bladder Control/Go-Le (Pumpkin Seed-Soy Germ) 1 Cap Cap 1 Cap PO HS 02/16/16 Reported Provider Instructions Activity Restrictions - No exercising or heavy lifting for 24 hours. - Do not drink alcohol the day of the procedure. - Do not drive a car or operate machinery until the day after the procedure. - Do not make any important decisions or sign important papers in 24 hours after the procedure. Following Day: - Return to full activity which may include returning to work/school. Diet Start your diet with liquids and light foods (jello, soup, juice, toast). Then eat your usual diet if not nauseated. Treatment For Common After Affects For mild abdominal pain, bloating, or excessive gas: - Rest - Eat lightly - Lie on right side Follow-Up Information Follow-up with Tai Long as scheduled Anesthesia Information What You Should Know You have had a procedure that required some medicine to reduce anxiety and discomfort. This treatment is called moderate sedation. After receiving the treatment, you may be sleepy, but you will be able to breathe on your own. The effects of the treatment may last for several hours. Follow these instructions along with Activity/Diet recommendations noted above: * Do NOT do anything where dizziness or clumsiness would be dangerous. * Rest quietly at home today, then you can be up and about tomorrow. * Have a responsible person stay with you the rest of today. * You may have had an I.V. today. If so, you may take the dressing off later today. Recommendations Call your doctor if: * Trouble breathing * Continuous vomiting for more than 24 hours * Temperature above 101 degrees * Severe abdominal pain or bloating * Pain not relieved by pain medicine ordered * There is increased drainage or redness from any incision * A large amount of rectal bleeding greater than 2-3 tablespoons. (If you had a polyp/s removed or have hemorrhoids, a small amount of blood - from the rectum is to be expected.) * You have any unanswered questions or concerns. IN THE EVENT OF A SERIOUS EMERGENCY, GO TO THE NEAREST EMERGENCY ROOM Your discharge instructions were prepared by provider Ras Delgado. Patient Instructions Signature Page Brunilda Leon Patient (or Guardian) Signature/Date: I have read and understand the instructions given to me by my caregivers. Caregiver/RN/Doctor Signature/Date: The above-named patient and/or guardian has received patient instructions on this date. + Original Patient Signature Page (only) stays with chart. Please make copy for patient.
--- NOTE | 2016-12-06 12:55 | Anesthesiology Progress Note ---
Anesthesia Post Op Note Date & Time Dec 06, 2016 at 12:54 Vital Signs Vital Signs Past 12 Hours Date Time Temp Pulse Resp B/P (MAP) Pulse Ox O2 Delivery O2 Flow Rate FiO2 12/06/16 11:25 36.7 76 18 157/73 (101) 100 Room Air Notes Mental Status: alert / awake / arousable, participated in evaluation Pt Amnestic to Procedure: Yes Nausea / Vomiting: adequately controlled Pain: adequately controlled Airway Patency, RR, SpO2: stable & adequate BP & HR: stable & adequate Hydration State: stable & adequate Anesthetic Complications: no major complications apparent
[2016-12-06 13:15] VITALS: BP 165/83; PULSE 76; O2SAT 100
== END | disposition home or self-care (01) ==
LOC: C.GI 10:53
PROVIDERS: ATTEND Internal Medicine
DX: D50.9 Iron deficiency anemia, unspecified (principal); K57.30 Diverticulosis of large intestine without perforation or abscess without bleeding; I12.9 Hypertensive chronic kidney disease with stage 1 through stage 4 chronic kidney disease, or unspecified chronic kidney disease; K21.9 Gastro-esophageal reflux disease without esophagitis; N18.3 Chronic kidney disease, stage 3 (moderate); E11.9 Type 2 diabetes mellitus without complications; I25.10 Atherosclerotic heart disease of native coronary artery without angina pectoris; G47.33 Obstructive sleep apnea (adult) (pediatric); Z86.73 Personal history of transient ischemic attack (TIA), and cerebral infarction without residual deficits; Z98.890 Other specified postprocedural states; Z90.49 Acquired absence of other specified parts of digestive tract; Z98.84 Bariatric surgery status; Z68.23 Body mass index [BMI] 23.0-23.9, adult; Z98.41 Cataract extraction status, right eye; Z98.42 Cataract extraction status, left eye; F32.9 Major depressive disorder, single episode, unspecified; Z87.891 Personal history of nicotine dependence; Z79.4 Long term (current) use of insulin; Z79.02 Long term (current) use of antithrombotics/antiplatelets

== ENCOUNTER 2017-01-06 10:56 | Emergency (ER) | payer OTHER ==
[~2017-01-06 10:56] MED LIST changes: -LEVO125T4 PO; +LEVO125T5 PO; -LIDOCAINE HCL 2% 2 ML VIAL (20MG/ML) ONE; -PROPOFOL IV EMULSION 10 MG/ML 20 ML VIAL IV ONE; -SODIUM CHLORIDE 0.9% 500ML 500 ML IV ONE
[2017-01-06 11:05] VITALS: TEMP 36.6; O2SAT 100
--- NOTE | 2017-01-06 11:24 | DIAGNOSTIC IMAGING REPORT ---
CHEST ONE VIEW PORTABLE CLINICAL HISTORY: EVALUATE WEAKNESS dyspnea COMPARISON STUDY: 11/07/2016 FINDINGS: Lungs are clear. Diaphragms are smooth. Several old right-sided rib fractures. IMPRESSION: No acute process. The above report was generated using voice recognition software. It may contain grammatical, syntax or spelling errors. Electronically signed by: Jaren Holguin M.D. 01/06/2017 11:23 AM Dictated Date/Time: 01/06/2017 11:21 AM
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
[2017-01-06 11:37] LABS: BASO % 0.7 %; BASO ABS # 0.05 K/uL (0-0.2); COMPLETE YES; EOS % 0.9 %; HEMATOCRIT 30.2 % (37-47); IG% 0.1 %; LYMPH ABS # 0.61 K/uL (1.2-3.4); MEAN CORPUSCULAR HEMOGLOBIN 30.5 pg (25-34); MEAN CORPUSCULAR HGB CONC 32.1 g/dl (32-36); MEAN PLATELET VOLUME 9.2 fL (7.4-10.4); MONO % 5.5 %; NEUT % 83.8 %; PLATELET COUNT 471 K/uL (130-400); RED BLOOD COUNT 3.18 M/uL (4.2-5.4); WHITE BLOOD COUNT 6.75 K/uL (4.8-10.8)
[2017-01-06 11:48] LABS: PARTIAL THROMBOPLASTIN RATIO 0.8; PROTHROMBIN TIME (PATIENT) 10.3 SECONDS (9.0-12.0)
[2017-01-06 11:51] LABS: ALT/SGPT 19 U/L (12-78); BLOOD UREA NITROGEN 23 mg/dl (7-18); BUN/CREATININE RATIO 15.8 (10-20); CALCIUM 8.1 mg/dl (8.5-10.1); CARBON DIOXIDE 30 mmol/L (21-32); CHLORIDE 108 mmol/L (98-107); CREATININE 1.44 mg/dl (0.60-1.20); GLUCOSE 117 mg/dl (70-99); POTASSIUM 3.2 mmol/L (3.5-5.1); SODIUM 144 mmol/L (136-145)
--- NOTE | 2017-01-06 11:57 | DIAGNOSTIC IMAGING REPORT ---
HEAD WITHOUT CONTRAST (CT) CT DOSE: 537.48 mGy.cm HISTORY: Mental status change 11/07/2016 TECHNIQUE: Multiaxial CT images of the head were performed without the use of intravenous contrast. A dose lowering technique was utilized adhering to the principles of ALARA. Comparison: 11/07/2016 Findings: The paranasal sinuses and mastoid air cells are clear. The calvarium and skull base are intact. The ventricles and sulci are within normal limits. There is no mass, hematoma, midline shift, or acute infarct. Age-related chronic small vessel change. Mild cerebral atrophy. Mild compensatory ventricular prominence. Impression: No acute intracranial abnormality. Age-related change. No change from the prior exam. The above report was generated using voice recognition software. It may contain grammatical, syntax or spelling errors. Electronically signed by: Jaren Holguin M.D. 01/06/2017 11:56 AM Dictated Date/Time: 01/06/2017 11:55 AM
[2017-01-06 12:02] LABS: ALKALINE PHOSPHATASE 115 U/L (45-117); AST/SGOT 19 U/L (15-37)
[2017-01-06 12:13] LABS: URINE APPEARANCE CLOUDY (CLEAR); URINE BILIRUBIN NEG (NEG); URINE COLOR YELLOW; URINE SPECIFIC GRAVITY 1.017 (1.000-1.030)
[2017-01-06 12:14] LABS: MANUAL MICROSCOPIC REQUIRED? NO; REVIEW REQ? YES; URINE NITRITE NEG (NEG); UROBILINOGEN NEG (NEG)
[2017-01-06 12:17] LABS: URINE EPITHELIAL CELL AUTO 0-5 /lpf (0-5)
[2017-01-06] MEDS ORDERED: CEFTRIAXONE SOD INJ 1 GM ADDVIAL IV STA (13:17)
[2017-01-06] MEDS ORDERED: XYLOCAINE 1%/SOD BICARB 20 ML VIAL INFIL ONE (13:33)
[2017-01-06] MEDS ORDERED: DIPHTHERIA/TETANUS/PERTUSSIS 0.5 ML SYR/VIAL IM. ONE (14:00)
[2017-01-06] MEDS ORDERED: SULF800T23 PO (15:57)
[2017-01-06] MEDS ORDERED: BACI500O11 TOP (15:57)
[2017-01-06 16:26] VITALS: BP 130/78; PULSE 86; O2SAT 100
== END 2017-01-06 16:50 | disposition home or self-care (01) ==
LOC: EDBD 10:56 → C.EDC 10:58
DX: N30.00 Acute cystitis without hematuria (principal); D18.01 Hemangioma of skin and subcutaneous tissue; R53.1 Weakness; S51.802A Unspecified open wound of left forearm, initial encounter; X58.XXXA Exposure to other specified factors, initial encounter; T24.202A Burn of second degree of unspecified site of left lower limb, except ankle and foot, initial encounter; T21.22XA Burn of second degree of abdominal wall, initial encounter; X10.1XXA Contact with hot food, initial encounter; Y92.9 Unspecified place or not applicable; E11.9 Type 2 diabetes mellitus without complications; I25.10 Atherosclerotic heart disease of native coronary artery without angina pectoris; I12.9 Hypertensive chronic kidney disease with stage 1 through stage 4 chronic kidney disease, or unspecified chronic kidney disease; E03.9 Hypothyroidism, unspecified; I73.9 Peripheral vascular disease, unspecified; Z98.84 Bariatric surgery status; D64.9 Anemia, unspecified; Z86.73 Personal history of transient ischemic attack (TIA), and cerebral infarction without residual deficits; Z83.3 Family history of diabetes mellitus; Z83.79 Family history of other diseases of the digestive system; Z82.49 Family history of ischemic heart disease and other diseases of the circulatory system; Z84.1 Family history of disorders of kidney and ureter; F17.210 Nicotine dependence, cigarettes, uncomplicated; Z79.82 Long term (current) use of aspirin; Z79.4 Long term (current) use of insulin; Z79.899 Other long term (current) drug therapy
CPT/HCPCS: 12001; P9612

== ENCOUNTER 2017-03-13 07:49 | Inpatient (IN) | payer OTHER ==
[~2017-03-13] VITALS: Ht 167.6 cm; Wt 70.8 kg
[2017-03-13] VITALS (11 sets, daily range): BP systolic 74–167; BP diastolic 26–69; PULSE 90–105; TEMP 35.6–36.7; O2SAT 96–100; Ht 167.6 cm; Wt 70.8 kg
[2017-03-13] MEDS ORDERED: RAPID SEQUENCE INDUCTION BAG ONE (08:25)
[2017-03-13] MEDS ORDERED: SODIUM CHLORIDE 0.9% 1000ML 3,000 ML IV STA (08:38)
[2017-03-13] MEDS ORDERED: PIPERACILLIN/TAZOBACTAM 4.5 GM/100ML D5W IV STA (08:38)
[2017-03-13] MEDS ORDERED: VANCOMYCIN INJ 1,000 MG in SODIUM CHLORIDE 0.9% 250ML 250 ML IV STA (08:42)
[2017-03-13] MEDS ORDERED: VANCOMYCIN IV STA (08:42)
[2017-03-13] MEDS ORDERED: SODIUM CHLORIDE 0.9% IV STA (08:42)
[2017-03-13] MEDS ORDERED: VANCOMYCIN CONSULT ACTIVE PRN ×3 (08:45→11:15)
[2017-03-13 08:48] LABS: ISTAT CREATININE 1.6 mg/dl (0.6-1.3); ISTAT IONIZED CALCIUM 1.04 mmol/l (1.12-1.32); ISTAT POTASSIUM 3.7 mEq/L (3.3-5.0)
[2017-03-13 08:58] LABS: HEMATOCRIT 28.5 % (37-47); HEMOGLOBIN 8.9 g/dL (12.0-16.0); MEAN CELL VOLUME 93.8 fL (80-100); MEAN CORPUSCULAR HEMOGLOBIN 29.3 pg (25-34); MEAN CORPUSCULAR HGB CONC 31.2 g/dl (32-36); MEAN PLATELET VOLUME 9.9 fL (7.4-10.4); NUCLEATED RED BLOOD CELL ABS 0.06 K/uL (0-0); PLATELET COUNT 844 K/uL (130-400); RED CELL DISTRIBUTION WIDTH CV 14.7 % (11.5-14.5); RED CELL DISTRIBUTION WIDTH SD 49.3 fL (36.4-46.3); WHITE BLOOD COUNT 12.38 K/uL (4.8-10.8)
--- NOTE | 2017-03-13 09:02 | DIAGNOSTIC IMAGING REPORT ---
CHEST ONE VIEW PORTABLE CLINICAL HISTORY: 66 years-old Female presenting with Evaluate Fever/Sepsis. TECHNIQUE: Portable upright AP view of the chest was obtained. COMPARISON: 01/06/2017. FINDINGS: Endotracheal tube terminates in the lower thoracic trachea 1.7 cm from the tre. Left subclavian central line terminates in the mid SVC. Atherosclerosis of aortic arch. Coronary artery stents versus coronary artery calcification. Normal heart size. Lungs and pleural spaces clear. Multiple old right rib fractures again noted. Mottled lucencies in the right upper quadrant may represent gastric debris in a mildly distended stomach. Cholecystectomy clips again noted. IMPRESSION: 1. Lines and tubes appropriately positioned as above. No pneumothorax. 2. No convincing evidence of acute cardiopulmonary disease. 3. Possible gastric distention. Electronically signed by: Melo Roberts M.D. 03/13/2017 9:00 AM Dictated Date/Time: 03/13/2017 8:57 AM
[2017-03-13 09:07] LABS: ALT/SGPT 71 U/L (12-78); BLOOD UREA NITROGEN 38 mg/dl (7-18); CARBON DIOXIDE 14 mmol/L (21-32); GLUCOSE 309 mg/dl (70-99); LIPASE 621 U/L (73-393); POTASSIUM 3.7 mmol/L (3.5-5.1); SODIUM 142 mmol/L (136-145)
[2017-03-13 09:08] LABS: INR 1.2 (0.9-1.1); PTT PATIENT 27.8 SECONDS (21.0-31.0)
[2017-03-13] MEDS ORDERED: SODIUM CHLORIDE 0.9% 1000ML 1,000 ML IV STA (09:17)
[2017-03-13 09:18] LABS: ALKALINE PHOSPHATASE 112 U/L (45-117); AST/SGOT 85 U/L (15-37); TOTAL PROTEIN 6.1 gm/dl (6.4-8.2)
[2017-03-13 09:27] LABS: BASO % 0.2 %; BASO ABS # 0.03 K/uL (0-0.2); EOS % 0.6 %; EOS ABS # 0.07 K/uL (0-0.5); IG# 0.13 K/uL (0.00-0.02); LYMPH % 18.3 %; LYMPH ABS # 2.27 K/uL (1.2-3.4); MONO % 1.5 %; MONO ABS # 0.19 K/uL (0.11-0.59); NEUT % 78.3 %; NEUT ABS # 9.69 K/uL (1.4-6.5)
[2017-03-13] MEDS ORDERED: NOREPINEPHRINE BIT INJ 8 MG in DEXTROSE 5% 500ML 500 ML IV PRN ×2 (09:30→10:38)
[2017-03-13] MEDS ORDERED: CALCIUM GLUCONATE 10% 1,000 MG in SODIUM CHLORIDE 0.9% 50ML 50 ML IV STA (10:43)
[2017-03-13] MEDS ORDERED: ICU PROTOCOL FOR HYPERGLYCEMIA PRN (10:45)
[2017-03-13] MEDS ORDERED: SEVERE STRESS LEVEL ONE (10:45)
[2017-03-13] MEDS ORDERED: INSULIN PROTOCOL GOAL RANGE ONE (10:45)
[2017-03-13] MEDS ORDERED: SODIUM BICARB 8.4% INJ 50 MEQ/50 ML SYR IV STA (10:49)
[2017-03-13] MEDS ORDERED: VASOPRESSIN INJ 50 UNITS in SODIUM CHLORIDE 0.9% 500ML 500 ML IV STA (10:53)
[2017-03-13] MEDS ORDERED: THIAMINE HCL 100 MG/ML 2 ML VIAL ONE (10:56)
[2017-03-13] MEDS ORDERED: SODIUM BICARBONATE 8.4% INJ 50 MEQ/50 ML VIAL ONE (10:57)
[2017-03-13] MEDS ORDERED: CALCIUM GLUCONATE 10% 10 ML VIAL IV ONE (10:57)
[2017-03-13] MEDS ORDERED: FENTANYL CITRATE INJ 50 MCG/1 ML 2 ML VIAL IV PRN (11:00)
[2017-03-13] MEDS ORDERED: MIDAZOLAM HCL 5 MG/ML 1 ML VIAL IV PRN (11:00)
[2017-03-13] MEDS ORDERED: HYDROCORTISONE SOD SUCCINATE 100 MG/2 ML VIAL IV ONE (11:00)
[2017-03-13] MEDS ORDERED: VASOPRESSIN INJ 50 UNITS in SODIUM CHLORIDE 0.9% 500ML 500 ML IV SCH (11:00)
[2017-03-13] MEDS ORDERED: THIAMINE HCL INJ 500 MG in SODIUM CHLORIDE 0.9% 50ML 50 ML IV STA (11:00)
[2017-03-13] MEDS ORDERED: PIPERACILL/TAZOBAC CONSULT ACTIVE PRN ×2 (11:15)
--- NOTE | 2017-03-13 12:09 | DIAGNOSTIC IMAGING REPORT ---
HEAD WITHOUT CONTRAST (CT) CLINICAL HISTORY: 66 years-old Female presenting with Evaluate Fever/Sepsis. TECHNIQUE: Multidetector CT imaging of the head was performed without the use of intravenous contrast. IV contrast: None. A dose lowering technique was used consistent with the principles of ALARA (as low as reasonably achievable). COMPARISON: 01/06/2017. CT DOSE (mGy.cm): The estimated cumulative dose is 537.48 mGy.cm. FINDINGS: Boat Carpenter Mechanic topogram: Unremarkable. Proportional ventricular and sulcal prominence, likely age-related parenchymal volume loss. Periventricular and subcortical white matter hypoattenuation, nonspecific but likely indicative of chronic small vessel ischemic change. Old lacunar infarcts suspected in the right basal ganglia. No mass effect or midline shift. No hemorrhage or acute territorial infarct. No extra-axial fluid collection. Paranasal sinuses and mastoid air cells clear. Calvarium intact. Bilateral port heiden lenses are absent. IMPRESSION: 1. Chronic small vessel ischemic change. No acute intracranial abnormality. Electronically signed by: Melo Roberts M.D. 03/13/2017 12:08 PM Dictated Date/Time: 03/13/2017 12:05 PM
[2017-03-13] MEDS ORDERED: LORAZEPAM 2 MG/ML 1 ML VIAL IV STA (12:13)
--- NOTE | 2017-03-13 12:21 | DIAGNOSTIC IMAGING REPORT ---
ABD/PELVIS NO IV OR ORAL CONT CLINICAL HISTORY: 66 years-old Female presenting with sepsis. TECHNIQUE: Multidetector CT of the abdomen and pelvis was performed without the use of intravenous contrast. IV contrast: None. A dose lowering technique was used consistent with the principles of ALARA (as low as reasonably achievable). COMPARISON: 12/14/2009. CT DOSE (mGy.cm): The estimated cumulative dose is 993.34 mGy.cm. FINDINGS: Image quality is degraded by positioning of the arms. Engineer Second Assistant topogram: Cholecystectomy clips. Lung bases: Minimal basilar opacities, likely atelectasis. Extensive coronary artery calcification. Normal heart size. No pericardial or pleural effusion. Liver: Normal morphology. Normal density. Biliary: No gross biliary ductal dilatation allowing for noncontrast technique. Gallbladder surgically absent. Pancreas: Moderate parenchymal atrophy. Spleen: Normal noncontrast appearance. Adrenal glands: Normal noncontrast appearance. Kidneys and ureters: Hyperdensity within the left renal collecting system may represent debris or numerous small nonobstructing calculi. Grossly normal noncontrast appearance of the kidneys. No hydronephrosis. Poor visualization of the ureters. Bladder: Decompressed with a Morales catheter. Pelvic organs: Normal noncontrast appearance. Bowel: Marked stool burden throughout mildly distended colon, which is also mildly thick-walled. Fluid noted in the right colon suggesting a diarrheal state or cathartic medication administration. No bowel obstruction. Postsurgical changes of antecolic Kenisha-en-Y gastric bypass. A nasogastric tube descends below the diaphragm and terminates just proximal to the gastrojejunostomy. Normal appearance of the jejunojejunostomy. Small amount of fluid in the pancreaticobiliary limb an excluded stomach without pathologic distention. No gas in the excluded stomach to suggest a gastrogastric fistula. Peritoneal cavity: Trace free fluid in the pelvis. Lymph nodes: No gross lymphadenopathy allowing for noncontrast technique. Vasculature: Extensive calcified atherosclerotic plaque throughout the abdominal aorta and major branch vessels. Abdominal wall: Multiple calcified granulomas noted in the subcutaneous tissue of the left lower quadrant likely related to injections. Mild body wall edema. Musculoskeletal: Degenerative changes of the spine. Deformities of several endplates of lumbar vertebral bodies may relate to prominent Schmorl's nodes versus central endplate compression deformities. Mild osteopenia. Evidence of old right posterior rib fractures. IMPRESSION: 1. Marked stool burden throughout the mildly distended colon, which is also mildly thick-walled. This could suggest stercoral colitis. The presence of proximal fluid in the right colon could suggest a developing diarrheal state or secondary to cathartic medication administration. 2. Post surgical changes of antecolic Kenisha-en-Y gastric bypass. No evidence of complication allowing for the noncontrast examination. No bowel obstruction. 3. Possible nonobstructing left renal calculi or debris. No hydronephrosis. 4. Mild osteopenia with prominent Schmorl's nodes versus central endplate compression deformities superimposed on multilevel degenerative change. Electronically signed by: Melo Roberts M.D. 03/13/2017 12:20 PM Dictated Date/Time: 03/13/2017 12:08 PM
--- NOTE | 2017-03-13 12:40 | DIAGNOSTIC IMAGING REPORT ---
CT OF THE CHEST WITHOUT IV CONTRAST CLINICAL HISTORY: Hypoxia. Sepsis. COMPARISON STUDY: Chest CT June 06, 2016 and chest radiograph performed earlier today. TECHNIQUE: Axial images of the chest were obtained without IV contrast. Images were reviewed in the axial, sagittal, and coronal planes. IV contrast was not administered for this examination. A dose lowering technique was utilized adhering to the principles of ALARA. FINDINGS: Tip of nasogastric tube is within the distal body of the stomach. Tip of endotracheal tube is 2.4 cm above the tre. Size of the heart is normal. A left subclavian central line is in place. There is no pneumothorax. The brachiocephalic veins and proximal to mid SVC are diminutive. The abdomen and pelvis will be reported separately. There is no consolidation to suggest pneumonia. Old right-sided rib fractures are present. There is a moderate amount of gas within the left glenohumeral joint. There is a suspected old, healed proximal left humeral fracture. No suspicious osseous lesions are present. There is no pleural effusion. Scattered venous gas is noted, likely related to central line/IV placement.. IMPRESSION: 1. Satisfactory positioning of lines and tubes. 2. No consolidation to suggest pneumonia. 3. Moderate gas within the left glenohumeral joint, a nonspecific finding of indeterminate significance. 4. Diminutive brachiocephalic veins and SVC which suggests volume depletion. Electronically signed by: Paul Mccall M.D. 03/13/2017 12:39 PM Dictated Date/Time: 03/13/2017 12:05 PM
--- NOTE | 2017-03-13 13:04 | History and Physical ---
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 She did not regain consciousness and thus her called 911. Upon EMS arrival she was spontaneously breathing and had a pulse but her BP was very low. After arrival to [facility] she was intubated in the ER due to shock and metabolic acidosis. The shock was presumed to be from sepsis. She received copious resuscitative measures including IV calcium and bicarbonate , fluids, and initiation of pressor agents. Central line was placed in the left subclavian. Upon my admission assessment she only briefly opened eyes to her name being called; otherwise she was unresponsive. Pt's reports that over the last few days "her appetite had been good" and she had had no fever, chills, cough, dyspnea, chest pain, or abdominal pain. She apparently c/o chronic low back pain but this had not been worse as of late. Her urine had a foul odor over the weekend but this is not unusual for her and she did not complain of dysuria. The patient has been receiving IV Iron infusions for iron def anemia at the [facility] and was due for an infusion tomorrow. She also was due for a colonoscopy next week at [facility] to rule out a colonic lesion causing her anemia. also mentioned her "stools have been dark" recently at home. No BRBPR, however. At bedside the pt's confirms that if she was to worsen he does not think she would want CPR or other aggressive measures. Past Medical/Surgical History PMH: 1. Hypothyroidism 2. CAD with prior stents 3. h/o stroke with resulting left-sided weakness 4. CKD stage 3 5. T2DM 6. HTN 7. PAD 8. depression 9. ambulatory dysfunction - chronic 10. 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 iron deficiency anemia - receiving IV iron at [facility] 12. GI bleeding - unknown source; 10/2016 PSH: 1. gastric bypass 2. right foot TMA 3. 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 Immunizations History of Influenza Vaccine: Yes Influenza Vaccine Date: Nov 20, 2009 History of Tetanus Vaccine?: UNCERTAIN OF DATE History of Pneumococcal: Unknown History of Hepatitis B Vaccine: UNCERTAIN OF DATE Multi-Drug Resistant Organisms History of MDRO: Yes Type of MDRO: MRSA Allergies Coded Allergies: Paroxetine (Verified Adverse Reaction, Unknown, NERVOUS INCREASED, 03/08/17 ) Home Medications Scheduled Ascorbic Acid (Vitamin C), 1,000 MG PO QPM Aspirin (Aspirin Dr), 81 MG PO QAM Calcium Carbonate-Cholecalcife (Calcium 600+D3 600-400 mg-Unit), 1 TAB PO QAM Cholecalciferol (Vitamin D), 2,000 INTER.UNIT PO QAM Clopidogrel (Plavix), 75 MG PO DAILY Cyanocobalamin (Vitamin Deficiency Inject), 1 DOSE INJ MONTHLY Ezetimibe (Zetia), 10 MG PO QAM Ferrous Sulfate (Kp Ferrous Sulfate), 1 TAB PO QPM Fludrocortisone Acetate (Florinef), 2 TABS PO QAM Gabapentin (Neurontin), 400 MG PO TID Insulin Glargine (Lantus), 5 UNITS SC QPM Insulin Human Regular (Humulin R), 10 UNITS SC BIDM Levothyroxine Sodium (Levothyroxine Sodium), 125 MCG PO QAM Mirabegron (Myrbetriq Er), 50 MG PO QAM Omeprazole (Prilosec), 40 MG PO QAM Pumpkin Seed-Soy Germ (Azo Bladder Control/Go-Le), 1 CAP PO HS Simvastatin (Zocor), 10 MG PO HS Venlafaxine Hcl (Effexor), 100 MG PO BID Scheduled PRN Polyethylene Glycol 3350 (Miralax), 17 GM PO DAILY PRN for Constipation Review of Systems unable to complete ROS due to intubated status see HPI for historical information obtained from Physical Exam Vital Signs Date Time Temp Pulse Resp B/P (MAP) Pulse Ox O2 Delivery O2 Flow Rate FiO2 03/13/17 12:10 105 03/13/17 11:27 102 16 106/74 100 Mechanical Ventilator 03/13/17 10:03/13/17 10:04 88 16 100 03/13/17 10:03 68/52 03/13/17 10:03/13/17 09:59 88 19 100 03/13/17 09:55 64/47 03/13/17 09:54 88 19 79/50 100 03/13/17 09:50 75/41 03/13/17 09:49 87 18 100 03/13/17 09:45 68/49 03/13/17 09:44 86 16 97 03/13/17 09:43 75/51 03/13/17 09:41 49/34 03/13/17 09:39 86 16 86 03/13/17 09:34 88 16 03/13/17 09:31 42/26 03/13/17 09:29 92 18 93 03/13/17 09:26 52/35 03/13/17 09:24 91 17 98 03/13/17 09:21 65/42 03/13/17 09:19 91 17 100 03/13/17 09:16 69/44 03/13/17 09:14 91 19 100 03/13/17 09:11 71/48 03/13/17 09:09 87 16 100 03/13/17 09:05 72/45 03/13/17 09:04 82 17 100 03/13/17 09:00 71/53 03/13/17 08:59 86 16 100 03/13/17 08:56 76/48 03/13/17 08:55 100 03/13/17 08:54 82 17 100 03/13/17 08:50 92/54 03/13/17 08:49 82 19 99 03/13/17 08:45 83/61 03/13/17 08:44 82 20 86 03/13/17 08:40 90/55 03/13/17 08:39 130 19 76 03/13/17 08:38 105/75 03/13/17 08:34 148 0 85 1/29/18 08:29 91 17 03/13/17 08:26 /45 03/13/17 08:24 78 18 03/13/17 08:22 62/37 03/13/17 08:20 60/ 03/13/17 08:19 78 21 87 03/13/17 08:14 82 21 03/13/17 08:09 82 25 77 03/13/17 08:08 52/39 03/13/17 08:05 60/40 03/13/17 08:04 87 22 03/13/17 07:59 87 22 03/13/17 07:58 86 03/13/17 07:57 36.3 86 16 53/35 88 Nasal Cannula 6.0 03/13/17 07:56 57/34 General Appearance: no apparent distress, + pertinent finding (intubated; minimal movement of right arm noted; roving eye movements (intermittently) noted ) Head: normocephalic, atraumatic Eyes: PERRL, sclerae normal, + pertinent finding (roving eye movements horizontally but not purposeful) ENT: + pertinent finding (intubated, ETT in place; enteric tube in place with small amount of blood in tube) Neck: no adenopathy, thyroid normal, no JVD Respiratory/Chest: lungs clear, no respiratory distress, no accessory muscle use Cardiovascular: no gallop, no murmur, + tachycardia, + abnormal peripheral pulses (1+ b/l at best in the feet; cap refill prolonged at 3 seconds with mottling of both feet, worse on left; cold extremities) Abdomen/GI: normal bowel sounds, non tender, soft, no organomegaly, + pertinent finding (JUAN R - copious amounts of liquid, melena stool; heme ++) Back: normal inspection Extremities/Musculoskelatal: no pedal edema, + slow capillary refill, + pertinent finding (TMA, right foot; surgical scar in midline of right foot) Neurologic/Psych: + pertinent finding (contracture, LUE; no spontaneous movements of left side of body; only spontaneous movements noted of RUE; no facial droop; neg babinski's b/l ) Skin: no rash, + pallor, + pertinent finding (left subclavian line with gross blood around insertion site; IO line in left tibia) Diagnostics Laboratory Results Results Past 24 Hours Test 03/13/17 08:05 03/13/17 08:20 03/13/17 08:30 03/13/17 08:35 Range/Units Bedside Glucose 220 70-90 mg/dl White Blood Count 12.38 4.8-10.8 K/uL Red Blood Count 3.04 4.2-5.4 M/uL Hemoglobin 8.9 12.0-16.0 g/dL Hematocrit 28.5 37-47 % Mean Corpuscular Volume 93.8 80-100 fL Mean Corpuscular Hemoglobin 29.3 25-34 pg Mean Corpuscular Hemoglobin Concent 31.2 32-36 g/dl Platelet Count 844 130-400 K/uL Mean Platelet Volume 9.9 7.4-10.4 fL Neutrophils (%) (Auto) 78.3 % Lymphocytes (%) (Auto) 18.3 % Monocytes (%) (Auto) 1.5 % Eosinophils (%) (Auto) 0.6 % Basophils (%) (Auto) 0.2 % Neutrophils # (Auto) 9.69 1.4-6.5 K/uL Lymphocytes # (Auto) 2.27 1.2-3.4 K/uL Monocytes # (Auto) 0.19 0.11-0.59 K/uL Eosinophils # (Auto) 0.07 0-0.5 K/uL Basophils # (Auto) 0.03 0-0.2 K/uL RDW Standard Deviation 49.3 36.4-46.3 fL RDW Coefficient of Variation 14.7 11.5-14.5 % Immature Granulocyte % (Auto) 1.1 % Immature Granulocyte # (Auto) 0.13 0.00-0.02 K/uL Nucleated RBC Absolute Count (auto) 0.06 0-0 K/uL Nucleated Red Blood Cells % 0.5 % Large Platelets 2+ Echinocytes 1+ Acanthocytes 1+ Prothrombin Time 12.5 9.0-12.0 SECONDS Prothromb Time International Ratio 1.2 0.9-1.1 Activated Partial Thromboplast Time 27.8 21.0-31.0 SECONDS Partial Thromboplastin Ratio 1.1 Sodium Level 142 136-145 mmol/L Potassium Level 3.7 3.5-5.1 mmol/L Chloride Level 107 98-107 mmol/L Carbon Dioxide Level 14 21-32 mmol/L Anion Gap 21.0 23.0 16-25 mmol/L Blood Urea Nitrogen 38 7-18 mg/dl Creatinine 1.80 0.60-1.20 mg/dl Estimated GFR () 32.9 Estimated GFR (Non- 28.4 BUN/Creatinine Ratio 21.0 10-20 Random Glucose 309 70-99 mg/dl Calcium Level 8.0 8.5-10.1 mg/dl Magnesium Level 2.2 1.8-2.4 mg/dl Total Bilirubin 0.5 0.2-1 mg/dl Direct Bilirubin 0.1 0-0.2 mg/dl Aspartate Amino Transf (AST/SGOT) 85 15-37 U/L Alanine Aminotransferase (ALT/SGPT) 71 12-78 U/L Alkaline Phosphatase 112 45-117 U/L Total Creatine Kinase 325 26-192 U/L Creatine Kinase MB 2.0 0.5-3.6 ng/ml Creatine Kinase MB Ratio 0.6 0-3.0 Troponin I 0.017 0-0.045 ng/ml Total Protein 6.1 6.4-8.2 gm/dl Albumin 2.0 3.4-5.0 gm/dl Lipase 621 73-393 U/L Beta-Hydroxybutyric Acid 4.14 0.2-2.81 mg/dL Thyroid Stimulating Hormone (TSH) 6.440 0.300-4.500 uIu/ml Random Cortisol 33.18 mcg/dl Acetaminophen Level 2 10-30 ug/ml Bedside Hemoglobin 9.2 12.0-16.0 g/dl Bedside Hematocrit 27 37-47 % Bedside Sodium 142 135-144 mEq/L Bedside Potassium 3.7 3.3-5.0 mEq/L Bedside Chloride 107 101-112 mEq/L Bedside Total CO2 17 24-31 mEq/l Bedside Blood Urea Nitrogen 37 7-18 mg/dl Bedside Creatinine 1.6 0.6-1.3 mg/dl Bedside Glucose (other) 311 70-99 mg/dl Bedside Ionized Calcium (Parker) 1.04 1.12-1.32 mmol/l Venous Blood pH 7.13 7.36-7.41 Venous Blood Partial Pressure CO2 46 38.0-50.0 mmHg Venous Blood Partial Pressure O2 39 mmHg Venous Blood HCO3 15 mmol/L Venous Blood Oxygen Saturation < 60.0 % Venous Blood Base Excess -13.4 mEq/L Bedside Lactic Acid Venous 10.46 0.90-1.70 mmol/L Test 03/13/17 09:05 03/13/17 09:09 03/13/17 11:18 03/13/17 11:33 Range/Units Urine Color YELLOW Urine Appearance TURBID CLEAR Urine pH 5.5 4.5-7.5 Urine Specific Christopher 1.016 1.000-1.030 Urine Protein 2+ NEG Urine Glucose (UA) NEG NEG Urine Ketones NEG NEG Urine Occult Blood 3+ NEG Urine Nitrite POS NEG Urine Bilirubin NEG NEG Urine Urobilinogen NEG NEG Urine Leukocyte Esterase LARGE NEG Urine WBC (Auto) >30 0-5 /hpf Urine RBC (Auto) 10-30 0-4 /hpf Urine Hyaline Casts (Auto) 1-5 0-5 /lpf Urine Epithelial Cells (Auto) >30 0-5 /lpf Urine Bacteria (Auto) 2+ NEG Urine Pathogenic Casts 0 /lpf Urine Yeast (Auto) NONE PRSENT Urine Opiates Screen NEG NEG Urine Methadone, Qualitative NEG NEG Urine Barbiturates NEG NEG Urine Phencyclidine (PCP) Level NEG NEG Ur Amphetamine/Methamphetamine NEG NEG MDMA (Ecstasy) Screen NEG NEG Urine Benzodiazepines Screen NEG NEG Urine Cocaine Metabolite NEG NEG Urine Marijuana (THC) NEG NEG Ammonia 35.6 11-32 umol/L Ethyl Alcohol mg/dL < 3.0 0-3 mg/dl Fibrinogen 383 184-400 mg/dl Fibrin Degradation Products >40 <10 mcg/ml Lactic Acid Level 11.4 0.4-2.0 mmol/L Free Thyroxine 0.98 0.80-1.60 ng/dl Test 03/13/17 12:37 Range/Units Microbiology Results 03/13/17 Blood Culture, Received Pending 03/13/17 Blood Culture, Received Pending 03/13/17 Urine Culture, Received Pending Diagnostic Radiology 1. CT chest - IMPRESSION: 1. Satisfactory positioning of lines and tubes. 2. No consolidation to suggest pneumonia. 3. Moderate gas within the left glenohumeral joint, a nonspecific finding of indeterminate significance. 4. Diminutive brachiocephalic veins and SVC which suggests volume depletion. 2. CT abd/pelvis - IMPRESSION: 1. Marked stool burden throughout the mildly distended colon, which is also mildly thick-walled. This could suggest stercoral colitis. The presence of proximal fluid in the right colon could suggest a developing diarrheal state or secondary to cathartic medication administration. 2. Post surgical changes of antecolic Kenisha-en-Y gastric bypass. No evidence of complication allowing for the noncontrast examination. No bowel obstruction. 3. Possible nonobstructing left renal calculi or debris. No hydronephrosis. 4. Mild osteopenia with prominent Schmorl's nodes versus central endplate compression deformities superimposed on multilevel degenerative change. 3. CT head - no acute ICH or stroke. 4. 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 Shock presumed to be from sepsis; cannot rule out element of hemorrhagic shock from GI bleeding. 1. shock - agree with broad-spectrum IV antibiotic therapy while awaiting cultures, pressor support, fluids, PRBCs if necessary, and stress-dose steroids. If due to infection urine would be the most obvious source. Check a CBC NOW to ensure we are not dealing with GI bleeding that would require emergency endoscopy or other procedure. Defer management to critical care time. Check rapid flu test as well. Serial lactates. 2. heme+ stool, h/o GI bleeding, chronic iron def anemia - CBC now, PPI drip. 3. acute hypoxic respiratory failure - 2nd to presumed septic shock. Cont mech ventilation; defer management to critical care team. 4. severe metabolic acidosis/lactic acidosis - 2nd to shock, s/p boluses of bicarbonate. Defer bicarbonate infusion to critical care team. 5. liquid diarrhea stool - check c. diff in light of the above. 6. T2DM - pharmacy glycemic consult for management. 7. CAD - I do not believe her presentation is due to cardiogenic shock. EKG is acceptable. Troponin is negative. Reasonable to run serial troponins but again I do not believe she has suffered an ACS. 8. hypothyroidism - TSH is minimally elevated. Cont synthroid IV, 1/2 the PO dose. 9. DVT proph - SCDs for now in light of possible GI bleeding. 10. acute/chronic anemia - repeat CBC now, transfuse if Hb <7.5. 11. CKD stage 3 with superimposed Acute Kidney Injury - likely sepsis- associated ATN - supportive care, fluids, serial labs. 12. h/o stroke - noted. 13. PAD - noted. 14. air in left shoulder - etiology? did not report any recent shoulder pain. Consider dedicated shoulder films, etc. care plan d/w Dr. Sierra, ICU updated at bedside Level of Care Critical Care Resuscitation Status DO NOT RESUSCITATE VTE Prophylaxis VTE Risk Assessment Done? Y/N: Yes Risk Level: High Given or contraindicated: Contraindicated (due to possible GI bleeding) Note Total Time: Critical Care 30 - 74 minutes Additional Copies To Dinah Pizano .ADAMA
--- NOTE | 2017-03-13 13:21 | Procedure Note ---
Procedure Note Procedure Date Mar 13, 2017. Procedure Description Procedure Name: left radial arterial line Procedure time out: side/site verified, patient ID confirmed, correct procedure Consent obtained: written (obtained from , patient intubated) Time of procedure: 11:30 Performed by: attending Indications: diagnostic Contraindications: none Description: Patient was prepped and draped in a sterile fashion with chlorhexidine. Dynamic ultrasound guidance was employed. Pulsatile radial artery was identified. 1% lidocaine was used to anesthetize the superficial skin. A 20- gauge or O angiocatheter was inserted into the artery and blood return was noted. Attempts were made to insert a guidewire into the artery. These attempts ultimately failed and at risk of causing damage to the ins and outs of the artery all further attempts were aborted to opt for a larger artery Complications: none Patient tolerated procedure: well Post-procedure vital signs: reviewed and stable Comments: attempt was unsuccessful
--- NOTE | 2017-03-13 13:21 | Critical Care Consultation ---
Critical Care Consultation Date of Consultation: Mar 13, 2017. Attending Physician: Wesley Barker MD Reason for Consultation: septic shock History of Present Illness Patient is a 66-year-old female with a history of cardiac disease status post stents, hypothyroidism, type 2 diabetes, peripheral arterial disease, previous gangrene of the right foot, history of stroke with residual left-sided weakness , ambulatory dysfunction, anemia from presumptive gastrointestinal bleeding of unclear location who presented to the emergency department this morning. Per 's report she was ambulating to the bathroom to take a shower and had a witnessed syncopal event. She did not fully regain consciousness and the called 911. Per EMS she was spontaneously breathing and had a pulse but her blood pressure was very low. They were unable to place a IV, they initially attempted to place a intraosseous catheter in the left humerus. The catheter was found to be nonfunctional as well as freely mobile and the catheter was discontinued. Subsequently she had a second IO placed into her tibia. She was intubated in the emergency department for a profound metabolic acidosis and unresponsiveness. She was given a large volume resuscitation and started on broad-spectrum antibiotics for presumptive urinary tract infection. I was consult for further evaluation and management. At this time the patient has had additional pressors, additional laboratory examination, 150 mEq of sodium bicarbonate is been administered, as well as stress dose steroids. She was hypotensive in the emergency department despite escalating vasopressor requirements. I discussed the case with the patient's who confirmed that the patient was a DO NOT RESUSCITATE in event event of cardiac arrest. I explained to him the gravity of the situation and he verbalizes understanding. reports that she gets frequent urinary tract infections. She is also complaining of dysuria. She also disease IV iron infusions for 9 deficiency anemia at the [facility] and was scheduled for an infusion tomorrow. She is also scheduled for colonoscopy next week at [facility]. There is report of dark stools at home however no bright red blood per rectum. Family History Diabetes mellitus Gallbladder disease Heart disease Hypertension Kidney disease Kidney stones Social History Smoking Status: Current Every Day Smoker Alcohol Use: none Drug Use: none Marital Status: Housing Status: lives with significant other Occupation Status: retired, disabled Allergies Coded Allergies: Paroxetine (Verified Adverse Reaction, Unknown, NERVOUS INCREASED, 03/08/17 ) Home Medications Scheduled Ascorbic Acid (Vitamin C), 1,000 MG PO QPM Aspirin (Aspirin Dr), 81 MG PO QAM Calcium Carbonate-Cholecalcife (Calcium 600+D3 600-400 mg-Unit), 1 TAB PO QAM Cholecalciferol (Vitamin D), 2,000 INTER.UNIT PO QAM Clopidogrel (Plavix), 75 MG PO DAILY Cyanocobalamin (Vitamin Deficiency Inject), 1 DOSE INJ MONTHLY Ezetimibe (Zetia), 10 MG PO QAM Ferrous Sulfate (Kp Ferrous Sulfate), 1 TAB PO QPM Fludrocortisone Acetate (Florinef), 2 TABS PO QAM Gabapentin (Neurontin), 400 MG PO TID Insulin Glargine (Lantus), 5 UNITS SC QPM Insulin Human Regular (Humulin R), 10 UNITS SC BIDM Levothyroxine Sodium (Levothyroxine Sodium), 125 MCG PO QAM Mirabegron (Myrbetriq Er), 50 MG PO QAM Omeprazole (Prilosec), 40 MG PO QAM Pumpkin Seed-Soy Germ (Azo Bladder Control/Go-Le), 1 CAP PO HS Simvastatin (Zocor), 10 MG PO HS Venlafaxine Hcl (Effexor), 100 MG PO BID Scheduled PRN Polyethylene Glycol 3350 (Miralax), 17 GM PO DAILY PRN for Constipation Current Inpatient Medications Current Inpatient Medications Medications (Trade) Dose Ordered Sig/Sadie Route Start Time Stop Time Status Last Admin Dose Admin Norepinephrine Bitartrate 8 mg/ Dextrose 508 ml @ 0 mls/hr Q0M PRN IV 03/13/17 10:38 04/12/17 10:37 Insulin Human Regular (Insulin IV Infusion Protocol) 1 ea NOW STAT N/A 03/13/17 10:38 03/13/17 10:39 UNV Insulin Aspart (novoLOG ASPART) SLIDING SCALE PCHS SC 03/13/17 17:15 04/12/17 17:14 Miscellaneous (Insulin Protocol Goal Range (Other)) 1 ea ONE ONCE N/A 03/13/17 10:45 03/13/17 10:46 UNV Miscellaneous (Insulin Protocol Severe Stress) 1 ea ONE ONCE N/A 03/13/17 10:45 03/13/17 10:46 UNV Thiamine HCl 300 mg/Sodium Chloride 53 ml @ 208 mls/hr QAM IV 03/14/17 09:00 03/16/17 09:16 UNV Thiamine HCl (Vitamin B-1 Inj) 100 mg QAM IM 03/17/17 09:00 04/16/17 08:59 UNV Fentanyl Citrate (Fentanyl Inj) 50 mcg Q2H PRN IV 03/13/17 11:00 03/27/17 10:59 Midazolam HCl (Versed Inj) 2 mg Q2H PRN IV 03/13/17 11:00 04/12/17 10:59 Vasopressin 50 units/Sodium Chloride 502.5 ml @ 24 mls/hr [id number] IV 03/13/17 11:00 04/12/17 10:59 03/13/17 11:08 24 MLS/HR Hydrocortisone Sodium Succinate 100 mg/Syringe 2 ml @ 4 mls/min Q8 IV 03/13/17 14:00 04/12/17 13:59 UNV Piperacillin Sod/ Tazobactam Sod 4.5 gm/Dextrose 120 ml @ 30 mls/hr Q8H IV 03/13/17 14:00 03/23/17 13:59 Miscellaneous Information (Consult) 1 ea UD PRN N/A 03/13/17 11:15 04/12/17 11:14 Vancomycin HCl 1000 mg/Sodium Chloride 270 ml @ 125 mls/hr Q12 IV 03/13/17 21:00 03/15/17 20:59 UNV Miscellaneous Information (Consult) 1 ea UD PRN N/A 03/13/17 11:15 04/12/17 11:14 Oseltamivir Phosphate (Tamiflu Susp) 150 mg BID PO 03/13/17 21:00 03/18/17 20:59 UNV Pantoprazole Sodium (Protonix IV Bolus/Drip) 1 ea NOW STAT IV 03/13/17 12:36 03/13/17 12:37 UNV Review of Systems Unable to obtain secondary to patient's intubated for altered mental status Physical Exam Date Time Temp Pulse Resp B/P (MAP) Pulse Ox O2 Delivery O2 Flow Rate FiO2 03/13/17 12:10 105 03/13/17 11:27 102 16 106/74 100 Mechanical Ventilator 03/13/17 10:05 /36 03/13/17 10:04 88 16 100 03/13/17 10:03 68/52 03/13/17 10:01 /37 03/13/17 09:59 88 19 100 03/13/17 09:55 64/47 03/13/17 09:54 88 19 79/50 100 03/13/17 09:50 75/41 03/13/17 09:49 87 18 100 03/13/17 09:45 68/49 03/13/17 09:44 86 16 97 03/13/17 09:43 75/51 03/13/17 09:41 49/34 03/13/17 09:39 86 16 86 03/13/17 09:34 88 16 03/13/17 09:31 42/26 03/13/17 09:29 92 18 93 03/13/17 09:26 52/35 03/13/17 09:24 91 17 98 03/13/17 09:21 65/42 03/13/17 09:19 91 17 100 03/13/17 09:16 69/44 03/13/17 09:14 91 19 100 03/13/17 09:11 71/48 03/13/17 09:09 87 16 100 03/13/17 09:05 72/45 03/13/17 09:04 82 17 100 03/13/17 09:00 71/53 03/13/17 08:59 86 16 100 03/13/17 08:56 76/48 03/13/17 08:55 100 03/13/17 08:54 82 17 100 03/13/17 08:50 92/54 03/13/17 08:49 82 19 99 03/13/17 08:45 83/61 03/13/17 08:44 82 20 86 03/13/17 08:40 90/55 03/13/17 08:39 130 19 76 03/13/17 08:38 105/75 03/13/17 08:34 148 0 85 03/13/17 08:29 91 17 03/13/17 08:26 /45 03/13/17 08:24 78 18 03/13/17 08:22 62/37 03/13/17 08:20 60/ 03/13/17 08:19 78 21 87 03/13/17 08:14 82 21 03/13/17 08:09 82 25 77 03/13/17 08:08 52/39 03/13/17 08:05 60/40 03/13/17 08:04 87 22 03/13/17 07:59 87 22 03/13/17 07:58 86 03/13/17 07:57 36.3 86 16 53/35 88 Nasal Cannula 6.0 03/13/17 07:56 57/34 General Appearance: severe distress Head: normocephalic, atraumatic Eyes: PERRLA, other (eye movements are roving, however she did localize to me when I stated that I was opening her eyelids) ENT: other (endotracheal tube in place) Neck: trachea midline, no thyromegaly Respiratory: rhonchi (bilaterally) Cardiovasular: regular rate/rhythm, normal S1S2 Abdomen: no guarding, no organomegaly, hypoactive bowel sounds Genitourinary - Female: other (Morales present) Upper Extremities: no edema Lower Extremities: other (partial amputation of the right foot) Pulses: radial (R) (1+), radial (L) (1+) Neuro: decreased LOC Laboratory Results Last 24 Hours Test 03/13/17 08:05 03/13/17 08:20 03/13/17 08:30 03/13/17 08:35 Bedside Glucose 220 mg/dl White Blood Count 12.38 K/uL Red Blood Count 3.04 M/uL Hemoglobin 8.9 g/dL Hematocrit 28.5 % Mean Corpuscular Volume 93.8 fL Mean Corpuscular Hemoglobin 29.3 pg Mean Corpuscular Hemoglobin Concent 31.2 g/dl Platelet Count 844 K/uL Mean Platelet Volume 9.9 fL Neutrophils (%) (Auto) 78.3 % Lymphocytes (%) (Auto) 18.3 % Monocytes (%) (Auto) 1.5 % Eosinophils (%) (Auto) 0.6 % Basophils (%) (Auto) 0.2 % Neutrophils # (Auto) 9.69 K/uL Lymphocytes # (Auto) 2.27 K/uL Monocytes # (Auto) 0.19 K/uL Eosinophils # (Auto) 0.07 K/uL Basophils # (Auto) 0.03 K/uL RDW Standard Deviation 49.3 fL RDW Coefficient of Variation 14.7 % Immature Granulocyte % (Auto) 1.1 % Immature Granulocyte # (Auto) 0.13 K/uL Nucleated RBC Absolute Count (auto) 0.06 K/uL Nucleated Red Blood Cells % 0.5 % Large Platelets 2+ Echinocytes 1+ Acanthocytes 1+ Prothrombin Time 12.5 SECONDS Prothromb Time International Ratio 1.2 Activated Partial Thromboplast Time 27.8 SECONDS Partial Thromboplastin Ratio 1.1 Sodium Level 142 mmol/L Potassium Level 3.7 mmol/L Chloride Level 107 mmol/L Carbon Dioxide Level 14 mmol/L Anion Gap 21.0 mmol/L 23.0 mmol/L Blood Urea Nitrogen 38 mg/dl Creatinine 1.80 mg/dl Estimated GFR () 32.9 Estimated GFR (Non- 28.4 BUN/Creatinine Ratio 21.0 Random Glucose 309 mg/dl Calcium Level 8.0 mg/dl Magnesium Level 2.2 mg/dl Total Bilirubin 0.5 mg/dl Direct Bilirubin 0.1 mg/dl Aspartate Amino Transf (AST/SGOT) 85 U/L Alanine Aminotransferase (ALT/SGPT) 71 U/L Alkaline Phosphatase 112 U/L Total Creatine Kinase 325 U/L Creatine Kinase MB 2.0 ng/ml Creatine Kinase MB Ratio 0.6 Troponin I 0.017 ng/ml Total Protein 6.1 gm/dl Albumin 2.0 gm/dl Lipase 621 U/L Beta-Hydroxybutyric Acid 4.14 mg/dL Thyroid Stimulating Hormone (TSH) 6.440 uIu/ml Random Cortisol 33.18 mcg/dl Acetaminophen Level 2 ug/ml Bedside Hemoglobin 9.2 g/dl Bedside Hematocrit 27 % Bedside Sodium 142 mEq/L Bedside Potassium 3.7 mEq/L Bedside Chloride 107 mEq/L Bedside Total CO2 17 mEq/l Bedside Blood Urea Nitrogen 37 mg/dl Bedside Creatinine 1.6 mg/dl Bedside Glucose (other) 311 mg/dl Bedside Ionized Calcium (Parker) 1.04 mmol/l Venous Blood pH 7.13 Venous Blood Partial Pressure CO2 46 mmHg Venous Blood Partial Pressure O2 39 mmHg Venous Blood HCO3 15 mmol/L Venous Blood Oxygen Saturation < 60.0 % Venous Blood Base Excess -13.4 mEq/L Bedside Lactic Acid Venous 10.46 mmol/L Test 03/13/17 09:05 03/13/17 09:09 03/13/17 11:18 03/13/17 13:05 Urine Color YELLOW Urine Appearance TURBID Urine pH 5.5 Urine Specific [place] 1.016 Urine Protein 2+ Urine Glucose (UA) NEG Urine Ketones NEG Urine Occult Blood 3+ Urine Nitrite POS Urine Bilirubin NEG Urine Urobilinogen NEG Urine Leukocyte Esterase LARGE Urine WBC (Auto) >30 /hpf Urine RBC (Auto) 10-30 /hpf Urine Hyaline Casts (Auto) 1-5 /lpf Urine Epithelial Cells (Auto) >30 /lpf Urine Bacteria (Auto) 2+ Urine Pathogenic Casts /lpf Urine Yeast (Auto) Urine Opiates Screen NEG Urine Methadone, Qualitative NEG Urine Barbiturates NEG Urine Phencyclidine (PCP) Level NEG Ur Amphetamine/Methamphetamine NEG MDMA (Ecstasy) Screen NEG Urine Benzodiazepines Screen NEG Urine Cocaine Metabolite NEG Urine Marijuana (THC) NEG Ammonia 35.6 umol/L Ethyl Alcohol mg/dL < 3.0 mg/dl Fibrinogen 383 mg/dl Fibrin Degradation Products >40 mcg/ml Lactic Acid Level 11.4 mmol/L Free Thyroxine 0.98 ng/dl Diagnostic Results K have reviewed the radiology report as well as the imaging of the CT scan of the chest without contrast, the CT scan of the abdomen and pelvis significant findings included market stool burden suggestive stercoral colitis, 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 Assessment & Plan Reason Critically Ill: Hypotension, profound metabolic acidosis likely secondary to septic shock with multisystem organ failure PLAN: Neuro: Acute encephalopathy * CVA is in the differential, however given her comorbidities and hypotension with corresponding metabolic acidosis think the most likely cause is septic shock. Resp: Elective intubation for multisystem organ dysfunction and sepsis requiring large volume crystalloid resuscitation CV: Hypotension * Fluids and vasoactive medications History of coronary artery disease Fluids/Renal: Acute kidney injury * Large volume fluid resuscitation Metabolic acidosis, profound * Not strong candidate for hemodialysis. ID: Sepsis secondary to a urinary source GI/Nutrition: Elevated lipase * May represent pancreatitis * Nothing by mouth * Supplement calcium is needed Heme: Anemia * Multifactorial: Melanotic stools iron deficiency * Transfusion is needed Endocrine: Poorly controlled type 2 diabetes with associated hyperglycemia * Insulin infusion I have personally spent 95 minutes of critical care time in the direct management of this patient. This is a life/limb threatening event. This includes time spent evaluating patient, direct bedside care, chart review, placing orders, interpretation of diagnostic studies, discussion with consultants, patient, and/or family members regarding treatment decisions, as well as other required patient management activities. This time is exclusive of all separately billable procedures, and teaching time and separate from and in addition to any other critical care service time.
[2017-03-13] MEDS ORDERED: INSULIN IV INFUSION PROTOCOL STA (13:41)
[2017-03-13] MEDS ORDERED: PANTOprazole INJ 80 MG in DEXTROSE 5% 100ML IV SCH (14:00)
[2017-03-13] MEDS ORDERED: PIPERACILL/TAZOBAC IV 4.5 GM in DEXTROSE 5% 100ML 100 ML IV SCH (14:00)
[2017-03-13] MEDS ORDERED: LACTATED RINGER'S 1000ML 1,000 ML IV SCH ×2 (14:00→14:30)
[2017-03-13] MEDS ORDERED: HYDROCORTISONE IV 100 MG in SYRINGE 0 ML IV SCH (14:00)
[2017-03-13 14:10] LABS: NUCLEATED RED BLOOD CELL ABS 0.08 K/uL (0-0)
--- NOTE | 2017-03-13 14:12 | Pharmacy Progress Note ---
Pharmacy Antibiotic Consult Date of Service: Mar 13, 2017. Pharmacy Dosing Scope Pharmacy is consulted to initiate Vancomcyin/zosyn IV dosing therapy, order appropriate labs and adjust drug dose/frequency. Subjective The patient is a 66 year old female admitted on Mar 13, 2017 at 12:06. Objective Height (Feet): 5 Height (Inches): 6.00 Weight (Kilograms): 70.800 Lab Results (24hrs): Test 03/13/17 08:05 03/13/17 08:20 03/13/17 08:30 03/13/17 08:35 Bedside Glucose 220 mg/dl (70-90) White Blood Count 12.38 K/uL (4.8-10.8) Red Blood Count 3.04 M/uL (4.2-5.4) Hemoglobin 8.9 g/dL (12.0-16.0) Hematocrit 28.5 % (37-47) Mean Corpuscular Volume 93.8 fL (80-100) Mean Corpuscular Hemoglobin 29.3 pg (25-34) Mean Corpuscular Hemoglobin Concent 31.2 g/dl (32-36) Platelet Count 844 K/uL (130-400) Mean Platelet Volume 9.9 fL (7.4-10.4) Neutrophils (%) (Auto) 78.3 % Lymphocytes (%) (Auto) 18.3 % Monocytes (%) (Auto) 1.5 % Eosinophils (%) (Auto) 0.6 % Basophils (%) (Auto) 0.2 % Neutrophils # (Auto) 9.69 K/uL (1.4-6.5) Lymphocytes # (Auto) 2.27 K/uL (1.2-3.4) Monocytes # (Auto) 0.19 K/uL (0.11-0.59) Eosinophils # (Auto) 0.07 K/uL (0-0.5) Basophils # (Auto) 0.03 K/uL (0-0.2) RDW Standard Deviation 49.3 fL (36.4-46.3) RDW Coefficient of Variation 14.7 % (11.5-14.5) Immature Granulocyte % (Auto) 1.1 % Immature Granulocyte # (Auto) 0.13 K/uL (0.00-0.02) Nucleated RBC Absolute Count (auto) 0.06 K/uL (0-0) Nucleated Red Blood Cells % 0.5 % Large Platelets 2+ Echinocytes 1+ Acanthocytes 1+ Prothrombin Time 12.5 SECONDS (9.0-12.0) Prothromb Time International Ratio 1.2 (0.9-1.1) Activated Partial Thromboplast Time 27.8 SECONDS (21.0-31.0) Partial Thromboplastin Ratio 1.1 Sodium Level 142 mmol/L (136-145) Potassium Level 3.7 mmol/L (3.5-5.1) Chloride Level 107 mmol/L (98-107) Carbon Dioxide Level 14 mmol/L (21-32) Anion Gap 21.0 mmol/L (3-11) 23.0 mmol/L (16-25) Blood Urea Nitrogen 38 mg/dl (7-18) Creatinine 1.80 mg/dl (0.60-1.20) Estimated GFR () 32.9 Estimated GFR (Non- 28.4 BUN/Creatinine Ratio 21.0 (10-20) Random Glucose 309 mg/dl (70-99) Calcium Level 8.0 mg/dl (8.5-10.1) Magnesium Level 2.2 mg/dl (1.8-2.4) Total Bilirubin 0.5 mg/dl (0.2-1) Direct Bilirubin 0.1 mg/dl (0-0.2) Aspartate Amino Transf (AST/SGOT) 85 U/L (15-37) Alanine Aminotransferase (ALT/SGPT) 71 U/L (12-78) Alkaline Phosphatase 112 U/L (45-117) Total Creatine Kinase 325 U/L (26-192) Creatine Kinase MB 2.0 ng/ml (0.5-3.6) Creatine Kinase MB Ratio 0.6 (0-3.0) Troponin I 0.017 ng/ml (0-0.045) Total Protein 6.1 gm/dl (6.4-8.2) Albumin 2.0 gm/dl (3.4-5.0) Lipase 621 U/L (73-393) Beta-Hydroxybutyric Acid 4.14 mg/dL (0.2-2.81) Thyroid Stimulating Hormone (TSH) 6.440 uIu/ml (0.300-4.500) Random Cortisol 33.18 mcg/dl Acetaminophen Level 2 ug/ml (10-30) Bedside Hemoglobin 9.2 g/dl (12.0-16.0) Bedside Hematocrit 27 % (37-47) Bedside Sodium 142 mEq/L (135-144) Bedside Potassium 3.7 mEq/L (3.3-5.0) Bedside Chloride 107 mEq/L (101-112) Bedside Total CO2 17 mEq/l (24-31) Bedside Blood Urea Nitrogen 37 mg/dl (7-18) Bedside Creatinine 1.6 mg/dl (0.6-1.3) Bedside Glucose (other) 311 mg/dl (70-99) Bedside Ionized Calcium (Parker) 1.04 mmol/l (1.12-1.32) Venous Blood pH 7.13 (7.36-7.41) Venous Blood Partial Pressure CO2 46 mmHg (38.0-50.0) Venous Blood Partial Pressure O2 39 mmHg Venous Blood HCO3 15 mmol/L Venous Blood Oxygen Saturation < 60.0 % Venous Blood Base Excess -13.4 mEq/L Bedside Lactic Acid Venous 10.46 mmol/L (0.90-1.70) Test 03/13/17 09:05 03/13/17 09:09 03/13/17 11:18 03/13/17 13:05 Urine Color YELLOW Urine Appearance TURBID (CLEAR) Urine pH 5.5 (4.5-7.5) Urine Specific [place] 1.016 (1.000-1.030) Urine Protein 2+ (NEG) Urine Glucose (UA) NEG (NEG) Urine Ketones NEG (NEG) Urine Occult Blood 3+ (NEG) Urine Nitrite POS (NEG) Urine Bilirubin NEG (NEG) Urine Urobilinogen NEG (NEG) Urine Leukocyte Esterase LARGE (NEG) Urine WBC (Auto) >30 /hpf (0-5) Urine RBC (Auto) 10-30 /hpf (0-4) Urine Hyaline Casts (Auto) 1-5 /lpf (0-5) Urine Epithelial Cells (Auto) >30 /lpf (0-5) Urine Bacteria (Auto) 2+ (NEG) Urine Pathogenic Casts /lpf (0) Urine Yeast (Auto) (NONE PRSENT) Urine Opiates Screen NEG (NEG) Urine Methadone, Qualitative NEG (NEG) Urine Barbiturates NEG (NEG) Urine Phencyclidine (PCP) Level NEG (NEG) Ur Amphetamine/Methamphetamine NEG (NEG) MDMA (Ecstasy) Screen NEG (NEG) Urine Benzodiazepines Screen NEG (NEG) Urine Cocaine Metabolite NEG (NEG) Urine Marijuana (THC) NEG (NEG) Ammonia 35.6 umol/L (11-32) Ethyl Alcohol mg/dL < 3.0 mg/dl (0-3) Fibrinogen 383 mg/dl (184-400) Fibrin Degradation Products >40 mcg/ml (<10) Lactic Acid Level 11.4 mmol/L (0.4-2.0) Free Thyroxine 0.98 ng/dl (0.80-1.60) Venous Blood pH 7.10 (7.36-7.41) Venous Blood Partial Pressure CO2 41 mmHg (38.0-50.0) Venous Blood Partial Pressure O2 36 mmHg Venous Blood HCO3 12 mmol/L Venous Blood Oxygen Saturation < 60.0 % Venous Blood Base Excess -16.1 mEq/L Ionized Calcium 0.99 mmol/l (1.12-1.32) Assessment & Plan Patient with prior history of right lower extremity gangrene and UTIs presenting with possible urosepsis and GI blled. Vancomycin: Loading dose: 1000 mg IV X 1 dose in ER (will schedule next dose sooner to account for the rest of the load). Then: 1000 mg IV every 24 hours. Goal trough level estimate: between 15 - 20 mcg/mL. Peak and trough or random level has been ordered for: clinically indicated, most likely 2/. Pharmacy will continue to follow and will adjust dose/frequency as necessary. Thank you
[2017-03-13] MEDS ORDERED: PANTOprazole INJ 40 MG in DEXTROSE 5% 100ML IV SCH (14:15)
[2017-03-13 14:17] LABS: HEMATOCRIT 28.5 % (37-47); HEMOGLOBIN 8.9 g/dL (12.0-16.0); MEAN CELL VOLUME 94.1 fL (80-100); MEAN CORPUSCULAR HEMOGLOBIN 29.4 pg (25-34); MEAN CORPUSCULAR HGB CONC 31.2 g/dl (32-36); RED CELL DISTRIBUTION WIDTH CV 14.8 % (11.5-14.5); RED CELL DISTRIBUTION WIDTH SD 49.1 fL (36.4-46.3)
[2017-03-13] MEDS ORDERED: GLUCOSE 40% GEL 15 GM TUBE PO PRN (14:30)
[2017-03-13] MEDS ORDERED: GLUCAGON FOR INJ 1 MG VIAL SQ PRN (14:30)
[2017-03-13] MEDS ORDERED: DEXTROSE 50% 50 ML SYR IV PRN (14:30)
[2017-03-13] MEDS ORDERED: GLUCOSE 10 TABS/TUBE PO PRN (14:30)
[2017-03-13] MEDS ORDERED: INSULIN REGULAR 250 UNITS in SODIUM CHLORIDE 0.9% 250ML 250 ML IV SCH (14:45)
[2017-03-13] MEDS ORDERED: NovoLIN R BOLUS FROM BAG IV ONE (14:45)
[2017-03-13] MEDS: ALBUMIN HUMAN 25% 12.5 GM/50 ML VIAL IV SCH ×4 (15:18→15:53)
--- NOTE | 2017-03-13 15:24 | Critical Care Progress Note ---
Critical Care Progress Note Date of Service Mar 13, 2017. Critical Care Progress Note Worsening clinical status, not candidate for hemodialysis minimal improvement in blood gas and metabolic acidosis. Son has arrived at the bedside I have updated him on the condition. I am concerned that this is a nonsurvivable event as the patient continues to decompensate. I have personally spent 15 minutes of critical care time in the direct management of this patient. This is a life/limb threatening event. This includes time spent evaluating patient, direct bedside care, chart review, placing orders, interpretation of diagnostic studies, discussion with consultants, patient, and/or family members regarding treatment decisions, as well as other required patient management activities. This time is exclusive of all separately billable procedures, and teaching time and separate from and in addition to any other critical care service time.
--- NOTE | 2017-03-13 15:30 | EMERGENCY ROOM VISIT NOTE ---
History First contact with patient: 08:37 Chief Complaint: UNRESPONSIVE Stated Complaint: SEPTIC SHOCK Nursing Triage Summary: patient presents via ambulance from home. per ems family states "she became unresponsive at about 0530 this morning." patient does have a hx of 3 previous strokes. patient is incontinent of stool and urine. patient opens eyes to name only, patient responds to painful stimuli. patient nonverbal at time of arrival. bsg 290 per ems. History of Present Illness The patient is a 66 year old female who presents to the Emergency Room with complaints of unresponsiveness and hypotension. According to the , the patient was speaking this morning around 6 AM with him. She became unresponsive suddenly. The patient has been ill recently. She has some chronic baseline illness as well. The patient's initial blood pressure was 60/ 40, per EMS. They were unable to initiate an IV and initiated an IO in the left leg. Prior to this they attempted an IO in the left shoulder. They state the left shoulder IO was unsuccessful in allowing fluids to be administered. Her initial blood pressure on evaluation in the emergency department was 53/35. She did not have peripheral pulses on exam. Heart rate was in the 80s. The patient had roving eye movements with left and right lateral gazing. She was unable to provide any information and did not follow commands or speak. No additional history was obtainable from EMS or family. The did arrive later on. He only told me that she has not been doing well for a while. She has history of UTIs. Additional history is limited due to patient's unresponsiveness. Review of Systems Limited due to the patient's unresponsiveness. Past Medical/Surgical History Medical Problems: (1) Adult hypothyroidism (2) Altered mental status (3) Amputation at midfoot (4) CAD (coronary artery disease) (5) CKD (chronic kidney disease), stage II (6) CVA (cerebral vascular accident) (7) DM2 (diabetes mellitus, type 2) (8) Gangrene of foot (9) gi bleleding hypotensive, acute on chronic renal failrue (10) HTN (hypertension) (11) Hypotension (12) Hypothyroidism (13) Junctional rhythm (14) Orthostatic hypotension (15) Osteomyelitis (16) PAD (peripheral artery disease) (17) Septic shock (18) Severe anemia (19) Stenosis of popliteal artery (20) Symptomatic anemia (21) Weakness generalized Surgical Problems: (1) Gastric bypass status for obesity (2) Stented coronary artery Family History Diabetes mellitus Gallbladder disease Heart disease Hypertension Kidney disease Kidney stones Social History Smoking Status: Current Every Day Smoker Drug Use: none Marital Status: Housing Status: lives with significant other Occupation Status: retired, disabled Current/Historical Medications Scheduled Ascorbic Acid (Vitamin C), 1,000 MG PO QPM Aspirin (Aspirin Dr), 81 MG PO QAM Calcium Carbonate-Cholecalcife (Calcium 600+D3 600-400 mg-Unit), 1 TAB PO QAM Cholecalciferol (Vitamin D), 2,000 INTER.UNIT PO QAM Clopidogrel (Plavix), 75 MG PO DAILY Cyanocobalamin (Vitamin Deficiency Inject), 1 DOSE INJ MONTHLY Ezetimibe (Zetia), 10 MG PO QAM Ferrous Sulfate (Kp Ferrous Sulfate), 1 TAB PO QPM Fludrocortisone Acetate (Florinef), 2 TABS PO QAM Gabapentin (Neurontin), 400 MG PO TID Insulin Glargine (Lantus), 5 UNITS SC QPM Insulin Human Regular (Humulin R), 10 UNITS SC BIDM Levothyroxine Sodium (Levothyroxine Sodium), 125 MCG PO QAM Mirabegron (Myrbetriq Er), 50 MG PO QAM Omeprazole (Prilosec), 40 MG PO QAM Pumpkin Seed-Soy Germ (Azo Bladder Control/Go-Le), 1 CAP PO HS Simvastatin (Zocor), 10 MG PO HS Venlafaxine Hcl (Effexor), 100 MG PO BID Scheduled PRN Polyethylene Glycol 3350 (Miralax), 17 GM PO DAILY PRN for Constipation Physical Exam Vital Signs Date Time Temp Pulse Resp B/P (MAP) Pulse Ox O2 Delivery O2 Flow Rate FiO2 03/13/17 12:05 105 95/76 03/13/17 11:45 109 16 98 03/13/17 11:41 /51 03/13/17 11:40 104 14 85 03/13/17 11:35 104 16 88/63 98 03/13/17 11:30 102 16 92/66 100 03/13/17 11:27 102 16 106/74 100 Mechanical Ventilator 03/13/17 10:05 /36 03/13/17 10:04 88 16 100 03/13/17 10:03 68/52 03/13/17 10:01 /37 03/13/17 09:59 88 19 100 03/13/17 09:55 64/47 03/13/17 09:54 88 19 79/50 100 03/13/17 09:50 75/41 03/13/17 09:49 87 18 100 03/13/17 09:45 68/49 03/13/17 09:44 86 16 97 03/13/17 09:43 75/51 03/13/17 09:41 49/34 03/13/17 09:39 86 16 86 03/13/17 09:34 88 16 03/13/17 09:31 42/26 03/13/17 09:29 92 18 93 03/13/17 09:26 52/35 03/13/17 09:24 91 17 98 03/13/17 09:21 65/42 03/13/17 09:19 91 17 100 03/13/17 09:16 69/44 03/13/17 09:14 91 19 100 03/13/17 09:11 71/48 03/13/17 09:09 87 16 100 03/13/17 09:05 72/45 03/13/17 09:04 82 17 100 03/13/17 09:00 71/53 03/13/17 08:59 86 16 100 03/13/17 08:56 76/48 03/13/17 08:55 100 03/13/17 08:54 82 17 100 03/13/17 08:50 92/54 03/13/17 08:49 82 19 99 03/13/17 08:45 83/61 03/13/17 08:44 82 20 86 03/13/17 08:40 90/55 03/13/17 08:39 130 19 76 03/13/17 08:38 105/75 03/13/17 08:34 148 0 85 03/13/17 08:29 91 17 03/13/17 08:26 /45 03/13/17 08:24 78 18 03/13/17 08:22 62/37 03/13/17 08:20 60/ 03/13/17 08:19 78 21 87 03/13/17 08:14 82 21 03/13/17 08:09 82 25 77 03/13/17 08:08 52/39 03/13/17 08:05 60/40 03/13/17 08:04 87 22 03/13/17 07:59 87 22 03/13/17 07:58 86 03/13/17 07:57 36.3 86 16 53/35 88 Nasal Cannula 6.0 03/13/17 07:56 57/34 Physical Exam CONSTITUTIONAL/VITAL SIGNS: Reviewed / noted above. GENERAL: Non-toxic in appearance. INTEGUMENTARY: Warm, dry, and [place]. HEAD: Normocephalic. EYES: without scleral icterus or trauma. The patient has roving eye movements horizontally from the left the right. ENT/OROPHARYNX: clear and moist. LYMPHADENOPATHY/NECK: Is supple without lymphadenopathy or meningismus. RESPIRATORY: Lungs clear and equal. CARDIOVASCULAR: Peripheral pulses are not palpable. Monitor shows a normal sinus rhythm. GI/ABDOMEN: Sof.t No organomegaly or pulsatile mass. EXTREMITIES: Cold with poor perfusion. NEUROLOGICAL: The patient is unresponsive to verbal and painful stimuli. Roving eye movements are noted above. There is some mild muscle tone in the upper extremities. MUSCULOSKELETAL: Chronically ill appearing and poorly developed. TRIAGE NURSING DOCUMENTATION REVIEWED. Medical Decision & Procedures ER Provider Diagnostic Interpretation: Chest x-ray: Per my interpretation and the radiologist, there is no obvious pneumonia. Endotracheal tube and subclavian central line are in adequate position. CT scan of the brain: There is no evidence for acute disease. CT scan of the chest, abdomen and pelvis have been done. No significant acute abnormalities were noted. Twelve-lead EKG: Per my interpretation reveals a normal sinus rhythm at 85 without acute injury or ectopy. Laboratory Results 03/13/17 08:20 Test 03/13/17 08:05 03/13/17 08:20 03/13/17 08:30 03/13/17 08:35 Bedside Glucose 220 mg/dl (70-90) Immature Granulocyte % (Auto) 1.1 % White Blood Count 12.38 K/uL (4.8-10.8) Red Blood Count 3.04 M/uL (4.2-5.4) Hemoglobin 8.9 g/dL (12.0-16.0) Hematocrit 28.5 % (37-47) Mean Corpuscular Volume 93.8 fL (80-100) Mean Corpuscular Hemoglobin 29.3 pg (25-34) Mean Corpuscular Hemoglobin Concent 31.2 g/dl (32-36) Platelet Count 844 K/uL (130-400) Mean Platelet Volume 9.9 fL (7.4-10.4) Neutrophils (%) (Auto) 78.3 % Lymphocytes (%) (Auto) 18.3 % Monocytes (%) (Auto) 1.5 % Eosinophils (%) (Auto) 0.6 % Basophils (%) (Auto) 0.2 % Neutrophils # (Auto) 9.69 K/uL (1.4-6.5) Lymphocytes # (Auto) 2.27 K/uL (1.2-3.4) Monocytes # (Auto) 0.19 K/uL (0.11-0.59) Eosinophils # (Auto) 0.07 K/uL (0-0.5) Basophils # (Auto) 0.03 K/uL (0-0.2) Immature Granulocyte # (Auto) 0.13 K/uL (0.00-0.02) Large Platelets 2+ Echinocytes 1+ Acanthocytes 1+ Prothrombin Time 12.5 SECONDS (9.0-12.0) Prothromb Time International Ratio 1.2 (0.9-1.1) Activated Partial Thromboplast Time 27.8 SECONDS (21.0-31.0) Partial Thromboplastin Ratio 1.1 Estimated GFR () 32.9 Estimated GFR (Non- 28.4 BUN/Creatinine Ratio 21.0 (10-20) Calcium Level 8.0 mg/dl (8.5-10.1) Magnesium Level 2.2 mg/dl (1.8-2.4) Total Bilirubin 0.5 mg/dl (0.2-1) Direct Bilirubin 0.1 mg/dl (0-0.2) Aspartate Amino Transf (AST/SGOT) 85 U/L (15-37) Alanine Aminotransferase (ALT/SGPT) 71 U/L (12-78) Alkaline Phosphatase 112 U/L (45-117) Total Creatine Kinase 325 U/L (26-192) Creatine Kinase MB 2.0 ng/ml (0.5-3.6) Creatine Kinase MB Ratio 0.6 (0-3.0) Troponin I 0.017 ng/ml (0-0.045) Total Protein 6.1 gm/dl (6.4-8.2) Albumin 2.0 gm/dl (3.4-5.0) Lipase 621 U/L (73-393) Beta-Hydroxybutyric Acid 4.14 mg/dL (0.2-2.81) Thyroid Stimulating Hormone (TSH) 6.440 uIu/ml (0.300-4.500) Random Cortisol 33.18 mcg/dl Acetaminophen Level 2 ug/ml (10-30) Bedside Hemoglobin 9.2 g/dl (12.0-16.0) Bedside Hematocrit 27 % (37-47) Bedside Sodium 142 mEq/L (135-144) Bedside Potassium 3.7 mEq/L (3.3-5.0) Bedside Chloride 107 mEq/L (101-112) Bedside Total CO2 17 mEq/l (24-31) Anion Gap 23.0 mmol/L (16-25) Bedside Blood Urea Nitrogen 37 mg/dl (7-18) Bedside Creatinine 1.6 mg/dl (0.6-1.3) Bedside Ionized Calcium (Parker) 1.04 mmol/l (1.12-1.32) Bedside Lactic Acid Venous 10.46 mmol/L (0.90-1.70) Test 03/13/17 09:05 03/13/17 09:09 03/13/17 11:18 Urine Color YELLOW Urine Appearance TURBID (CLEAR) Urine pH 5.5 (4.5-7.5) Urine Specific [place] 1.016 (1.000-1.030) Urine Protein 2+ (NEG) Urine Glucose (UA) NEG (NEG) Urine Ketones NEG (NEG) Urine Occult Blood 3+ (NEG) Urine Nitrite POS (NEG) Urine Bilirubin NEG (NEG) Urine Urobilinogen NEG (NEG) Urine Leukocyte Esterase LARGE (NEG) Urine WBC (Auto) >30 /hpf (0-5) Urine RBC (Auto) 10-30 /hpf (0-4) Urine Hyaline Casts (Auto) 1-5 /lpf (0-5) Urine Epithelial Cells (Auto) >30 /lpf (0-5) Urine Bacteria (Auto) 2+ (NEG) Urine Pathogenic Casts /lpf (0) Urine Yeast (Auto) (NONE PRSENT) Urine Opiates Screen NEG (NEG) Urine Methadone, Qualitative NEG (NEG) Urine Barbiturates NEG (NEG) Urine Phencyclidine (PCP) Level NEG (NEG) Ur Amphetamine/Methamphetamine NEG (NEG) MDMA (Ecstasy) Screen NEG (NEG) Urine Benzodiazepines Screen NEG (NEG) Urine Cocaine Metabolite NEG (NEG) Urine Marijuana (THC) NEG (NEG) Ammonia 35.6 umol/L (11-32) Ethyl Alcohol mg/dL < 3.0 mg/dl (0-3) Fibrinogen 383 mg/dl (184-400) Fibrin Degradation Products >40 mcg/ml (<10) Free Thyroxine 0.98 ng/dl (0.80-1.60) Medications Administered Medications (Trade) Dose Ordered Sig/Sadie Route Start Time Stop Time Status Last Admin Dose Admin Sodium Chloride 3,000 ml @ 999 mls/hr Q3H1M STAT IV 03/13/17 08:38 03/13/17 11:38 DC 03/13/17 08:38 999 MLS/HR Piperacillin Sod/ Tazobactam Sod (Zosyn Iv) 4.5 gm NOW STAT IV 03/13/17 08:38 03/13/17 08:43 DC 03/13/17 08:38 4.5 GM Vancomycin HCl 1000 mg/Sodium Chloride 270 ml @ 125 mls/hr NOW STAT IV 03/13/17 08:42 03/13/17 10:51 DC 03/13/17 08:42 125 MLS/HR Sodium Chloride 1,000 ml @ 999 mls/hr Q1H1M STAT IV 03/13/17 09:17 03/13/17 10:18 DC 03/13/17 09:17 999 MLS/HR Norepinephrine Bitartrate 8 mg/ Dextrose 508 ml @ 0 mls/hr Q0M PRN IV 03/13/17 09:30 03/13/17 11:08 DC 03/13/17 09:39 27.3 MLS/HR Calcium Gluconate 1000 mg/Sodium Chloride 60 ml @ 240 mls/hr NOW STAT IV 03/13/17 10:43 03/13/17 10:59 DC 03/13/17 11:12 240 MLS/HR Thiamine HCl 500 mg/Sodium Chloride 55 ml @ 208 mls/hr NOW STAT IV 03/13/17 11:00 03/13/17 11:15 DC 03/13/17 11:20 208 MLS/HR Sodium Bicarbonate (Sodium Bicarbonate 8.4% Inj) 150 ml NOW STAT IV 03/13/17 10:49 03/13/17 10:56 DC 03/13/17 11:11 150 ML Vasopressin 50 units/Sodium Chloride 502.5 ml @ 24 mls/hr [id number] IV 03/13/17 11:00 04/12/17 10:59 03/13/17 11:08 24 MLS/HR Hydrocortisone Sodium Succinate (Solu-Cortef IV) 100 mg NOW ONCE IV 03/13/17 11:00 03/13/17 11:01 DC 03/13/17 11:33 100 MG Procedure Left subclavian central line placement: This was placed due to the poor IV access and the necessity to administer medications/IV fluids and to obtain blood work. The procedure was done under sterile technique. It was performed under sterile ultrasound guidance. The Seldinger technique was used. The triple lumen catheter was placed without difficulty on the initial attempt. Each port flushed well and gave blood. The triple lumen catheter was sutured in place. A sterile dressing was placed on the catheter site. The patient tolerated the procedure well. No complication. Chest x-ray following the procedure did not reveal pneumothorax and placement was adequate. Endotracheal intubation: Reason: Acute respiratory failure RSI was performed using 20 mg of IV etomidate. The patient was intubated successfully and without difficulty with a Glidescope 3 blade. The endotracheal tube was visualized passing through the cords. The patient did not have any hypoxia. There was no hypotension. There was no complication. End-tidal CO2 detection was present. Bilateral breath sounds are present with good tube humidification. No epigastric sounds. It was taped at 22 cm at the lip line. Size 7.5 tube. It was withdrawn to 21 after chest x-ray. ECG Indication: syncope Rate (beats per minute): 85 Rhythm: sinus rhythm Findings: no acute ischemic change, no ectopy ED Course The patient was treated with multiple IV antibiotics as well as IV pressors as well as IV fluids. Endotracheal intubation as well as central line placement was performed. The patient remained hypotensive for a period of time even despite 4 L of normal saline and norepinephrine. The patient was admitted to the ICU. Medical Decision Differential includes acute cardiac dysrhythmia, microinfarction, CVA, TIA, dehydration, anemia, electrolyte disturbance, seizure, trauma, intracranial bleeding, acute vascular catastrophe, thoracic aortic dissection, PE, abdominal aortic aneurysm rupture, infection, hypoglycemia, overdose, trauma. This is a 66-year-old female who presents to the ED with a chief complaint of shortness of unresponsive. The patient was transported by EMS with a blood pressure 60/40. Prehospital blood sugar was above 100. The states that the patient became unresponsive around 6 AM. She was talking prior to this. The patient's initial evaluation revealed that she was hypotensive and unresponsive. She had minimal upper extremity muscular tone. She had roving eye movements horizontally and did not respond to stimulus. EMS was unable to provide IV access and did place a left shoulder interosseous line that did not function. They also placed a left anterior tibial IO that did administer 300 mL of fluid before the patient arrived. Because of lack of IV access here, the patient had a left subclavian central line placed. This was done under ultrasound guidance. The patient then was given 4 L of normal saline through the subclavian line. The patient was also intubated endotracheally using only 20 mg of IV etomidate. The patient was administered IV Zosyn as well as IV vancomycin. Despite 4 L normal saline, the patient remained hypotensive and was started on norepinephrine. The patient was subsequently evaluated by the technician automated equipment and admitted to the ICU. The patient's urine suggest a urinary tract infection. Her initial hemoglobin was 8.9. Initial white blood cell count was 12.3. Troponin was negative. BUN is 38 and creatinine was 1.8. Glucose was 309. Lactic acid level was 10.4. Tox screen was negative. CT scans were noted above. There is no significant intracranial, intrathoracic or intra-abdominal pathology. The symptoms primarily appear to be related to sepsis and urinary source. Impression Primary Impression: Sepsis Additional Impressions: UTI (urinary tract infection) Hypotension Septic shock Critical Care I have personally spent 120 minutes of critical care time in the direct management of this patient. This includes bedside care, interpretation of diagnostic studies, and testing, discussion with consultants, patient, and family members, and other required patient management activities. This 120 minutes is in excess of all separately billable procedures. Departure Information Dispostion Being Evaluated By Hospitalist Condition POOR Referrals Dinah Pizano ., ADAMA (PCP) Forms WORK / SCHOOL INSTRUCTIONS, HOME CARE DOCUMENTATION FORM, IMPORTANT VISIT INFORMATION Patient Instructions My [facility] Problem Qualifiers
[2017-03-13 15:54] LABS: INFLUENZA B ANTIGEN Neg for Influ B (NEG)
[2017-03-13] MEDS ORDERED: INSULIN ASPART 100 UNITS/ML 3 ML PEN SC SCH (17:15)
[2017-03-13] MEDS ORDERED: MoRPHine SULF/NSS 250MG/250ML 250 ML IV PRN (17:30)
[2017-03-13] MEDS ORDERED: OSELTAMIVIR PHOSPHATE SUSP 75 MG/12.5 ML UDP PO SCH ×2 (21:00)
[2017-03-14] VITALS (8 sets, daily range): BP systolic 70–79; BP diastolic 30–34; PULSE 0–90; TEMP 36.7; O2SAT 92–94
[2017-03-14] MEDS ORDERED: VANCOMYCIN INJ 1,000 MG in SODIUM CHLORIDE 0.9% 250ML 250 ML IV SCH (04:00)
[2017-03-14] MEDS ORDERED: THIAMINE HCL INJ 300 MG in SODIUM CHLORIDE 0.9% 50ML 50 ML IV SCH (09:00)
--- NOTE | 2017-03-14 09:16 | Discharge Summary ---
Discharge Summary Date of Service Mar 14, 2017. Discharge Summary Admission Date: Mar 13, 2017 at 12:06 Discharge Date: Mar 14, 2017 Discharge Disposition: Principal Diagnosis: Septic Shock with multi-system organ failure Secondary Diagnoses/Problems: #1 peripheral artery disease #2 hypertension #3 diabetes mellitus #4 chronic kidney disease #5 cerebral vascular accident with residual deficits #6 coronary artery disease #7 hypothyroidism #8 osteomyelitis status post amputation of right forefoot #9 stenosis a popliteal artery #10 symptomatic anemia #11 urinary tract infection #12 history of coronary artery stents #13 history of gastric bypass Procedures: #1 endotracheal intubation #2 left subclavian central venous catheter #3 right radial arterial line Consultations: Critical care medicine Admission Information HPI (per Admitting provider): 66yo female with history of CAD s/p stents, hypothyroidism, T2DM, PAD, previous gangrene right foot s/p TMA of all toes, h/o stroke with resulting left-sided weakness, ambulatory dysfunction as well as ongoing iron deficiency anemia presumed from GI bleeding of uncertain location who presented from home this AM after she was ambulating to the bathroom to take a shower and had a witnessed syncopal episode. She did not regain consciousness and thus her called 911. Upon EMS arrival she was spontaneously breathing and had a pulse but her BP was very low. After arrival to [facility] she was intubated in the ER due to shock and metabolic acidosis. The shock was presumed to be from sepsis. She received copious resuscitative measures including IV calcium and bicarbonate , fluids, and initiation of pressor agents. Central line was placed in the left subclavian. Upon my admission assessment she only briefly opened eyes to her name being called; otherwise she was unresponsive. Pt's reports that over the last few days "her appetite had been good" and she had had no fever, chills, cough, dyspnea, chest pain, or abdominal pain. She apparently c/o chronic low back pain but this had not been worse as of late. Her urine had a foul odor over the weekend but this is not unusual for her and she did not complain of dysuria. The patient has been receiving IV Iron infusions for iron def anemia at the [facility] and was due for an infusion tomorrow. She also was due for a colonoscopy next week at [facility] to rule out a colonic lesion causing her anemia. also mentioned her "stools have been dark" recently at home. No BRBPR, however. At bedside the pt's confirms that if she was to worsen he does not think she would want CPR or other aggressive measures. Physical Exam (per Admitting): General Appearance: no apparent distress, + pertinent finding Head: normocephalic, atraumatic Eyes: PERRL, sclerae normal, + pertinent finding ENT: + pertinent finding Neck: no adenopathy, thyroid normal, no JVD Respiratory/Chest: lungs clear, no respiratory distress, no accessory muscle use Cardiovascular: no gallop, no murmur, + tachycardia, + abnormal peripheral pulses Abdomen/GI: normal bowel sounds, non tender, soft, no organomegaly, + pertinent finding Back: normal inspection Extremities/Musculoskelatal: no pedal edema, + slow capillary refill, + pertinent finding Neurologic/Psych: + pertinent finding Skin: no rash, + pallor, + pertinent finding Physical Exam (per Admitting): General Appearance: no apparent distress, + pertinent finding (intubated; minimal movement of right arm noted; roving eye movements (intermittently) noted ) Head: normocephalic, atraumatic Eyes: PERRL, sclerae normal, + pertinent finding (roving eye movements horizontally but not purposeful) ENT: + pertinent finding (intubated, ETT in place; enteric tube in place with small amount of blood in tube) Neck: no adenopathy, thyroid normal, no JVD Respiratory/Chest: lungs clear, no respiratory distress, no accessory muscle use Cardiovascular: no gallop, no murmur, + tachycardia, + abnormal peripheral pulses (1+ b/l at best in the feet; cap refill prolonged at 3 seconds with mottling of both feet, worse on left; cold extremities) Abdomen/GI: normal bowel sounds, non tender, soft, no organomegaly, + pertinent finding (JUAN R - copious amounts of liquid, melena stool; heme ++) Back: normal inspection Extremities/Musculoskelatal: no pedal edema, + slow capillary refill, + pertinent finding (TMA, right foot; surgical scar in midline of right foot) Neurologic/Psych: + pertinent finding (contracture, LUE; no spontaneous movements of left side of body; only spontaneous movements noted of RUE; no facial droop; neg babinski's b/l ) Skin: no rash, + pallor, + pertinent finding (left subclavian line with gross blood around insertion site; IO line in left tibia) Hospital Course Patient arrived in the emergency department in presumptive septic shock with profound metabolic acidosis. She is also noted to have acute kidney injury. She was given broad-spectrum antibiotics and large volume crystalloid resuscitation. Throughout the course of her hospital stay she had worsening acidosis with maximum ventilatory support, required multiple vasoactive agents and did not have any urine output which would likely require dialysis. In discussing the prognosis and given the patient's poor quality of life at baseline the family felt she would not want to undergo her heroic measures and transitioned to comfort care. All active Y sustaining measures were discontinued and the patient peacefully with her at her bedside at 0750 on 03/14/2017. Total time spent on discharge = 30 This includes examination of the patient, discharge planning, medication reconciliation, and communication with other providers. Discharge Instructions Patient has , family is giving nursing staff arrangement information.
[2017-03-14] MEDS ORDERED: PANTOprazole INJ 40 MG in SYRINGE 0 ML IV SCH (11:00)
--- NOTE | 2017-03-14 11:16 | Procedure Note ---
Procedure Note Date of Service Mar 13, 2017. Procedure Note Procedure Date Mar 13, 2017. Procedure Description Procedure Name: Right radial arterial line Procedure time out: side/site verified, patient ID confirmed, correct procedure Consent obtained: written (obtain by Dr. Sierra) Time of procedure: 14:00 Performed by: physician aeronautical engineering technologist (Néstor Shelton PA-C) Indications: diagnostic Contraindications: none Description: Ultrasound was used to identify appropriate vessel in the right renal artery. The patient was then prepped and draped in sterile fashion. Chlorhexidine was used at the site of the intended access as well as the entire hand and forearm around the insertion site. Ultrasound was then used to visualize the radial artery. Initial attempt failed as patient moved. Patient was reprepped with chlorhexidine and a fenestrated drape. Ultrasound again was used and the radial artery was able to visualized initial attempt with a 20-gauge angiocatheter failed. A new angiocatheter kit was opened and this time radial artery was accessed without difficulty. There was minimal bleeding at the site of the insertion. Ultrasound was used to visualize catheter. There is no evidence of hematoma at the insertion site. A good waveform was identified on the monitor. A stat lock was used to position the arterial line in place. A chlorhexidine disc was applied over the insertion site and a Tegaderm dressing was applied and the arterial line was secured Complications: none Patient tolerated procedure: well Post-procedure vital signs: reviewed and stable Comments: Dr. Sierra arrived in the room at the completion of the procedure and identify the waveform on the monitor as arterial.
[2017-03-17] MEDS ORDERED: THIAMINE HCL 100 MG/ML 2 ML VIAL IM SCH (09:00)
== END 2017-03-14 09:22 | disposition expired | DRG 871 ==
LOC: C.EDB 07:49 → EDBD 07:54 → C.EDB 07:55 → C.MSICU 12:06 → ENRESERV 12:17
PROVIDERS: ADMIT Internal Medicine; ATTEND Internal Medicine
PROC: 5A1945Z Respiratory Ventilation, 24-96 Consecutive Hours (ICD-10-PCS; principal; 2017-03-13)
DX: A41.9 Sepsis, unspecified organism (principal); R65.21 Severe sepsis with septic shock; N39.0 Urinary tract infection, site not specified; N17.9 Acute kidney failure, unspecified; E87.2 Acidosis; Z51.5 Encounter for palliative care; J96.01 Acute respiratory failure with hypoxia; G93.41 Metabolic encephalopathy; Z66 Do not resuscitate; I25.10 Atherosclerotic heart disease of native coronary artery without angina pectoris; N18.3 Chronic kidney disease, stage 3 (moderate); Z86.73 Personal history of transient ischemic attack (TIA), and cerebral infarction without residual deficits; I12.9 Hypertensive chronic kidney disease with stage 1 through stage 4 chronic kidney disease, or unspecified chronic kidney disease; E11.9 Type 2 diabetes mellitus without complications; E03.9 Hypothyroidism, unspecified; F32.9 Major depressive disorder, single episode, unspecified; I95.9 Hypotension, unspecified; I73.9 Peripheral vascular disease, unspecified; Z98.84 Bariatric surgery status; Z89.431 Acquired absence of right foot; F17.200 Nicotine dependence, unspecified, uncomplicated; Z79.82 Long term (current) use of aspirin; Z79.02 Long term (current) use of antithrombotics/antiplatelets; Z79.4 Long term (current) use of insulin; Z79.899 Other long term (current) drug therapy; Z83.3 Family history of diabetes mellitus; Z82.49 Family history of ischemic heart disease and other diseases of the circulatory system; Z84.1 Family history of disorders of kidney and ureter; Z83.79 Family history of other diseases of the digestive system